=== PATIENT | female | born 1935 | race Caucasian/White ===

== ENCOUNTER → 2024-03-07 | Outpatient (REF) | payer MEDICARE, MEDICAID, SELFPAY ==
[2024-03-07 08:17] LABS: Hematocrit 24.7 % (37-47); Hemoglobin 7.8 g/dL (12.0-15.0); Mean Corp Hgb Conc 31.6 g/dL (32-36); Mean Corpuscular Hgb 27.5 pg (27.0-32.0); Mean Platelet Vol. 12.1 fl (6.2-12.0); Platelet Count 183 K/mm3 (150-450); RBC Distribution Width CV 14.7 % (11.6-14.6); RBC Distribution Width SD 46.5 fl (35.1-43.9); Red Blood Count 2.84 M/mm3 (4.2-5.4); White Blood Count 11.8 K/mm3 (4.4-11.0)
[2024-03-07 08:35] LABS: Vitamin D,25 Hydroxy 59.7 ng/mL
[2024-03-07 08:40] LABS: Hemoglobin A1c 8.4 % (3.8-5.6)
[2024-03-07 08:41] LABS: ALB/GLOB Ratio 0.7 RATIO (0.9-2.4); AST(SGOT) 16 U/L (15-37); Alanine Aminotransfer ALT/SGPT 13 U/L (13-56); Albumin, Serum 2.5 g/dL (3.2-5.0); Alkaline Phosphatase 64 U/L (45-117); Anion Gap 5 (5-15); BUN 58 mg/dL (7-18); BUN/Creat Ratio 36.2 RATIO (10-20); Calcium,Total 8.1 mg/dL (8.5-10.1); Chloride 109 mmol/L (98-107); Cholesterol 140 mg/dL (200); EST Glomerular Filtration Rate 32 mL/min (>60); Est Glom Filt Rate - Afr Amer 39 mL/min (>60); Globulin 3.6 g/dL (2.2-4.2); Glucose 204 mg/dL (74-106); High Density Lipoprotein 50 mg/dL; Magnesium 2.4 mg/dL (1.6-2.6); Protein, Total 6.1 g/dL (6.4-8.2); Sodium Level 140 mmol/L (136-145); Triglycerides 89 mg/dL; Uric Acid 7.6 mg/dL (2.6-6.0); Very Low Density Lipoprotein 18 mg/dL (5-40)
== END ==
LOC: OLS.ACW100 05:00
PROVIDERS: Visit Provider Family Medicine
DX: Z00.00 Encounter for general adult medical examination without abnormal findings (principal)
CPT/HCPCS: 36415; 80053; 80061; 82306; 83036; 83735; 84443; 84550; 85027

== ENCOUNTER → 2024-03-08 | Outpatient (REF) | payer MEDICARE, MEDICAID, SELFPAY ==
[2024-03-09 07:56] LABS: Color, Urine Yellow (Yellow); Glucose, Dipstick Normal (Normal); Ketone-Dipstick Negative (Negative); Leukocyte Esterase-Dipstick 500 /ul (Negative); Nitrite-Dipstick Negative (Negative); Occult Blood-Urine 25 /ul (Negative); Protein-Dipstick 30 mg/dl (Negative); Urine Bilirubin Dipstick Negative (Negative); Urine Clarity Cloudy (Clear); Urine Urobilinogen Normal (Normal)
== END ==
LOC: OLS.ACW100 12:00
PROVIDERS: Visit Provider Family Medicine
DX: R39.9 Unspecified symptoms and signs involving the genitourinary system (principal); E11.9 Type 2 diabetes mellitus without complications
CPT/HCPCS: 81002; 87077; 87086; 87088; 87186

== ENCOUNTER → 2024-03-14 | Outpatient (REF) | payer MEDICARE, MEDICAID, SELFPAY ==
[2024-03-14 08:17] LABS: Hematocrit 20.5 % (37-47); Hemoglobin 6.4 g/dL (12.0-15.0); Mean Corp Hgb Conc 31.2 g/dL (32-36); Mean Corpuscular Hgb 26.9 pg (27.0-32.0); Mean Corpuscular Volume 86.1 fL (81-99); Mean Platelet Vol. 11.1 fl (6.2-12.0); Platelet Count 331 K/mm3 (150-450); RBC Distribution Width CV 14.7 % (11.6-14.6); RBC Distribution Width SD 45.2 fl (35.1-43.9); Red Blood Count 2.38 M/mm3 (4.2-5.4); White Blood Count 14.6 K/mm3 (4.4-11.0)
[2024-03-14 08:30] LABS: Anion Gap 8 (5-15); BUN 46 mg/dL (7-18); BUN/Creat Ratio 34.8 RATIO (10-20); Calcium,Total 8.2 mg/dL (8.5-10.1); Chloride 102 mmol/L (98-107); Creatinine, Serum 1.32 mg/dL (0.55-1.02); EST Glomerular Filtration Rate 40 mL/min (>60); Est Glom Filt Rate - Afr Amer 49 mL/min (>60); Glucose 277 mg/dL (74-106); Potassium 4.4 mmol/L (3.5-5.1); Sodium Level 133 mmol/L (136-145)
== END ==
LOC: OLS.ACW100 05:00
PROVIDERS: Visit Provider Family Medicine
DX: E11.9 Type 2 diabetes mellitus without complications (principal); F31.9 Bipolar disorder, unspecified; F03.918 Unspecified dementia, unspecified severity, with other behavioral disturbance
CPT/HCPCS: 36415; 80048; 85027

== ENCOUNTER → 2024-03-21 | Outpatient (REF) | payer MEDICARE, MEDICAID, SELFPAY ==
[2024-03-21 08:36] LABS: Hematocrit 21.6 % (37-47); Hemoglobin 6.5 g/dL (12.0-15.0); Mean Corp Hgb Conc 30.1 g/dL (32-36); Mean Corpuscular Volume 89.6 fL (81-99); Mean Platelet Vol. 10.5 fl (6.2-12.0); Platelet Count 392 K/mm3 (150-450); RBC Distribution Width CV 15.9 % (11.6-14.6); Red Blood Count 2.41 M/mm3 (4.2-5.4); White Blood Count 11.8 K/mm3 (4.4-11.0)
[2024-03-21 08:49] LABS: Anion Gap 4 (5-15); BUN 41 mg/dL (7-18); BUN/Creat Ratio 30.1 RATIO (10-20); Calcium,Total 8.6 mg/dL (8.5-10.1); Chloride 105 mmol/L (98-107); Creatinine, Serum 1.36 mg/dL (0.55-1.02); EST Glomerular Filtration Rate 39 mL/min (>60); Est Glom Filt Rate - Afr Amer 47 mL/min (>60); Glucose 280 mg/dL (74-106); Potassium 4.5 mmol/L (3.5-5.1); Sodium Level 137 mmol/L (136-145)
== END ==
LOC: OLS.ACW100 05:00
PROVIDERS: Visit Provider Family Medicine
DX: N39.0 Urinary tract infection, site not specified (principal); E11.9 Type 2 diabetes mellitus without complications; F03.918 Unspecified dementia, unspecified severity, with other behavioral disturbance; F31.9 Bipolar disorder, unspecified
CPT/HCPCS: 36415; 80048; 85027

== ENCOUNTER → 2024-05-16 05:00 | Outpatient (REF) | payer MEDICARE, MEDICAID, SELFPAY ==
[2024-05-16 09:54] LABS: Hematocrit 37.1 % (37-47); Hemoglobin 11.2 g/dL (12.0-15.0); Mean Corp Hgb Conc 30.2 g/dL (32-36); Mean Corpuscular Hgb 26.2 pg (27.0-32.0); Mean Corpuscular Volume 86.9 fL (81-99); Mean Platelet Vol. 12.1 fl (6.2-12.0); Platelet Count 244 K/mm3 (150-450); RBC Distribution Width CV 14.6 % (11.6-14.6); RBC Distribution Width SD 47.2 fl (35.1-43.9); Red Blood Count 4.27 M/mm3 (4.2-5.4); White Blood Count 8.4 K/mm3 (4.4-11.0)
[2024-05-16 11:17] LABS: Anion Gap 7 (5-15); BUN 27 mg/dL (7-18); BUN/Creat Ratio 22.1 RATIO (10-20); Calcium,Total 9.4 mg/dL (8.5-10.1); Chloride 103 mmol/L (98-107); Cholesterol 163 mg/dL (200); Creatinine, Serum 1.22 mg/dL (0.55-1.02); EST Glomerular Filtration Rate 44 mL/min (>60); Est Glom Filt Rate - Afr Amer 54 mL/min (>60); Glucose 169 mg/dL (74-106); High Density Lipoprotein 57 mg/dL; Potassium 4.4 mmol/L (3.5-5.1); Sodium Level 137 mmol/L (136-145); Triglycerides 67 mg/dL; Very Low Density Lipoprotein 13 mg/dL (5-40)
== END ==
LOC: OLS.ACW100 05:00
PROVIDERS: Visit Provider Family Medicine
DX: E11.9 Type 2 diabetes mellitus without complications (principal); F03.918 Unspecified dementia, unspecified severity, with other behavioral disturbance; F03.93 Unspecified dementia, unspecified severity, with mood disturbance
CPT/HCPCS: 36415; 80048; 80061; 84443; 85027

== ENCOUNTER → 2024-07-14 | Outpatient (REF) | payer MEDICARE, MEDICAID, SELFPAY ==
[2024-07-14 08:28] LABS: Hematocrit 37.2 % (37-47); Hemoglobin 11.6 g/dL (12.0-15.0); Mean Corp Hgb Conc 31.2 g/dL (32-36); Mean Corpuscular Hgb 25.4 pg (27.0-32.0); Mean Corpuscular Volume 81.4 fL (81-99); Mean Platelet Vol. 12.2 fl (6.2-12.0); Platelet Count 270 K/mm3 (150-450); RBC Distribution Width CV 14.3 % (11.6-14.6); Red Blood Count 4.57 M/mm3 (4.2-5.4); White Blood Count 11.1 K/mm3 (4.4-11.0)
[2024-07-14 08:50] LABS: Anion Gap 11 (5-15); BUN 32 mg/dL (4-19); BUN/Creat Ratio 30.1 RATIO (10-20); Calcium,Total 9.3 mg/dL (7.6-11.0); Carbon Dioxide 23.8 mmol/L (21.0-32.0); Chloride 101 mmol/L (98-108); Cholesterol 134 mg/dL (<=200); Creatinine, Serum 1.06 mg/dL (0.70-1.20); EST Glomerular Filtration Rate 51 (>60); Glucose 160 mg/dL (70-99); High Density Lipoprotein 40 mg/dL; Low Density Lipoprotein Calc. 68 mg/dL; Potassium 4.6 mmol/L (3.3-5.1); Sodium Level 136 mmol/L (133-145); Triglycerides 131 mg/dL; Very Low Density Lipoprotein 26 mg/dL (5-40); cholesterol:hdl ratio screen 3.38
[2024-07-14 09:38] LABS: Hemoglobin A1c 9.2 % (<=5.6)
== END ==
LOC: OLS.ACW100 05:00
PROVIDERS: Visit Provider Family Medicine
DX: E11.9 Type 2 diabetes mellitus without complications (principal); F03.918 Unspecified dementia, unspecified severity, with other behavioral disturbance; F31.9 Bipolar disorder, unspecified; F33.0 Major depressive disorder, recurrent, mild
CPT/HCPCS: 36415; 80048; 80061; 83036; 85027

== ENCOUNTER → 2024-08-16 | Outpatient (REF) | payer MEDICARE, MEDICAID, SELFPAY ==
[2024-08-16 08:56] LABS: Hematocrit 39.6 % (37-47); Hemoglobin 12.5 g/dL (12.0-15.0); Mean Corp Hgb Conc 31.6 g/dL (32-36); Mean Corpuscular Hgb 26.5 pg (27.0-32.0); Mean Corpuscular Volume 83.9 fL (81-99); Mean Platelet Vol. 12.4 fl (6.2-12.0); Platelet Count 275 K/mm3 (150-450); RBC Distribution Width CV 15.8 % (11.6-14.6); RBC Distribution Width SD 47.9 fl (35.1-43.9); Red Blood Count 4.72 M/mm3 (4.2-5.4); White Blood Count 9.6 K/mm3 (4.4-11.0)
[2024-08-16 09:19] LABS: Anion Gap 12 (5-15); BUN 28 mg/dL (4-19); BUN/Creat Ratio 24.6 RATIO (10-20); Calcium,Total 9.4 mg/dL (7.6-11.0); Carbon Dioxide 25.2 mmol/L (21.0-32.0); Chloride 102 mmol/L (98-108); Cholesterol 157 mg/dL (<=200); Creatinine, Serum 1.12 mg/dL (0.70-1.20); EST Glomerular Filtration Rate 47 (>60); Glucose 167 mg/dL (70-99); High Density Lipoprotein 44 mg/dL; Low Density Lipoprotein Calc. 91 mg/dL; Potassium 4.3 mmol/L (3.3-5.1); Sodium Level 139 mmol/L (133-145); Triglycerides 113 mg/dL; Very Low Density Lipoprotein 23 mg/dL (5-40); cholesterol:hdl ratio screen 3.59
[2024-08-16 09:27] LABS: Hemoglobin A1c 9.2 % (<=5.6)
== END ==
LOC: OLS.ACW100 05:00
PROVIDERS: Visit Provider Family Medicine
DX: E11.9 Type 2 diabetes mellitus without complications (principal); F31.9 Bipolar disorder, unspecified; F33.0 Major depressive disorder, recurrent, mild; F03.918 Unspecified dementia, unspecified severity, with other behavioral disturbance
CPT/HCPCS: 36415; 80048; 80061; 83036; 84443; 85027

== ENCOUNTER → 2024-11-15 05:00 | Outpatient (REF) | payer MEDICARE, MEDICAID, SELFPAY ==
--- OUTSIDE RECORDS SUMMARY | 2024-11-15 04:25 | XMS RPT_ITS | CCD ---
Author Organization [facility] ion [facility] Care Team Providers Care Tissue Technologist Name Role Phone PROVIDER, UNKNOWN Attending Unavailable PROVIDER, UNKNOWN Admitting Unavailable AL MASHNI, CHEVY Referring Unavailable AL MASHNI, CHEVY Attending Unavailable AL MASHNI, CHEVY Admitting Unavailable PROVIDER, UNKNOWN Attending Unavailable PROVIDER, UNKNOWN Admitting Unavailable AL GISSELLE, CHEVY Referring Unavailable PROVIDER, UNKNOWN Attending Unavailable PROVIDER, UNKNOWN Admitting Unavailable PROVIDER, UNKNOWN Attending Unavailable PROVIDER, UNKNOWN Admitting Unavailable Allen Li MD Primary Care Provider Juan Carlos Driver DO Unavailable [phone] Allen Li MD Unavailable Allen Li MD Primary Care Provider Juan Carlos Driver DO Unavailable Allen Li MD Unavailable [phone] Unavailable Primary Care Provider UnavailValerie Ramirez DO Primary Care Provider Stephen Julian Attending Unavailable Stephen Julian Attending Unavailable Stephen Julian Referring Unavailable Stephen Julian Attending Unavailable Stephen Julian Attending Unavailable Stephen Julian Attending Unavailable Stephen Julian Attending Unavailable Stephen Julian Attending Unavailable Stephen Julian Attending Unavailable Allergies Allergy Classification Reported Allergen(s) Allergy Type Date of Onset Reaction(s) Facility (5 sources) Azithromycin; Translations: [AZITHROMYCIN] Drug Allergy 07-06-19 16 [facility]) Penicillins; Translations: [PENICILLINS] Propensity to adverse reactions to drug (disorder) 05-11-19 16 [facility]) Sulfonamides (Antibiotic); Translations: [SULFA ANTIBIOTICS] Propensity to adverse reactions to drug (disorder) 01-08-20 16 [facility] (1 source) SULFAMETHOXAZOLE W-TRIMETHOPRIM; Translations: [SULFAMETHOXAZOLE W-TRIMETHOPRIM] Propensity to adverse reactions to drug (disorder) 05-11-19 16 [facility] ([facility]) Penicillin Drug Allergy 01-08-20 16 Unknown [facility] (4 sources) Sulfonamides (Antibiotic) Propensity to adverse reactions to drug 01-08-20 16 Unknown [facility] Medications Completed/Discontinued Medications Medication Drug Class(es) Dates Sig (Normalized) Sig (Original) amiodarone hydrochloride 100 mg oral tablet (5 sources) Antiarrhythmic Start: 05-23-2021 End: 09-26-2021 take 1 tablet by mouth once daily amiodarone (PACERONE) 100 mg tablet Indications: Premature atrial contractions Take 1 tablet by mouth once daily. 90 tablet 3 09/26/2021 Active Comment on above: Take 1 tablet by olga lidia th once daily. ARIPiprazole 2 mg oral tablet (4 sources) Atypical Antipsychotic Start: 01-10-2021 ARIPiprazole (ABILIFY) 2 mg tablet Take 2 mg by mouth. 0 01/10/2021 Active Comment on above: Take 2 mg by mouth. aspirin 81 mg delayed release oral tablet (4 sources) Platelet Aggregation Inhibitor, Nonsteroidal Anti-inflammatory Drug Start: 05-23-2021 take 1 tablet by mouth once daily aspirin, enteric coated (ASPIRIN, ENTERIC COATED) 81 mg EC tablet Take 1 tablet by mouth once daily. 90 tablet 2 05/23/2021 Active Comment on above: Take 1 tablet by olga lidia th once daily. atorvastatin 40 mg oral tablet (5 sources) HMG-CoA Reductase Inhibitor Start: 05-23-2021 End: 09-26-2021 take 1 tablet by mouth once daily at bedtime atorvastatin (LIPITOR) 40 mg tablet Indications: Mixed hyperlipidemia Take 1 tablet by mouth daily at bedtime. 90 tablet 3 09/26/2021 Active Comment on above: Take 1 tablet by olga lidia th daily at bedtime. cholecalciferol 1.25 mg oral capsule (4 sources) Vitamin D take 1 capsule by mouth every week cholecalciferol, Vitamin D3, (VITAMIN D3) 1,250 mcg (50,000 unit) cap capsule Take 50,000 Units by mouth one time a week. 0 Active Comment on above: Take 50,000 Units by mouth one time a week. donepezil hydrochloride 10 mg oral tablet (4 sources) Start: 10-12-2015 donepezil (ARICEPT) 10 mg tablet Take by mouth daily at bedtime. 0 10/12/2015 Active Comment on above: Take by mouth daily at bedtime. ergocalciferol 1.25 mg oral capsule (4 sources) Provitamin D2 Compound ergocalciferol 50,000 unit capsule (VITAMIN D2, DRISDOL) Take 50,000 Units by mouth. Thursday 0 Active Comment on above: Take 50,000 Units by mouth. Thursday fluticasone propionate 0.05 mg/actuat metered dose nasal spray (4 sources) Corticosteroid fluticasone (FLONASE) 50 mcg/actuation nasal spray Use 1 [place] in the nose. 0 Active Comment on above: Use 1 [place] in the n ose. glipiZIDE 5 mg oral tablet (4 sources) Sulfonylurea Start: 10-12-2015 take 1 tablet by mouth once daily glipiZIDE (GLUCOTROL) 5 mg tablet Take 5 mg by mouth once daily. 0 10/12/2015 Active Comment on above: Take 5 mg by mouth o nce daily. isopropyl alcohol 0.7 ml/ml medicated pad (4 sources) Start: 12-21-2015 Alcohol Swabs padm LORazepam 0.5 mg oral tablet (4 sources) Benzodiazepine Start: 01-07-2016 LORazepam (ATIVAN) 0.5 mg tab 0.5 mg. 1/2 at 5pm and 1/2 at bedtime 0 01/07/2016 Active Comment on above: 0.5 mg. 1/2 at 5pm a nd 1/2 at bedtime metFORMIN hydrochloride 1000 mg oral tablet (4 sources) Biguanide Start: 10-21-2015 metFORMIN (GLUCOPHAGE) 1,000 mg tablet 1,000 mg twice daily with meals. 0 10/21/2015 Active Comment on above: 1,000 mg twice daily with meals. metoprolol tartrate 25 mg oral tablet (5 sources) beta-Adrenergic Ariana Start: 08-01-2021 End: 05-01-2022 take 1 tablet by mouth twice daily metoprolol tartrate, short acting, (LOPRESSOR) 25 mg tablet TAKE 1 TABLET BY MOUTH TWICE DAILY 180 tablet 0 05/01/2022 Active Comment on above: TAKE 1 TABLET BY OLGA LIDIA TH TWICE DAILY QUEtiapine 25 mg oral tablet (4 sources) Atypical Antipsychotic QUEtiapine (SEROQUEL) 25 mg tablet Take 12.5 mg by mouth. 0 Active Comment on above: Take 12.5 mg by mout h. traZODone hydrochloride 50 mg oral tablet (4 sources) Serotonin Reuptake Inhibitor traZODone (DESYREL) 50 mg tablet Take 25 mg by mouth. 1/2 at bedtime 0 Active Comment on above: Take 25 mg by mouth. 1/2 at bedtime 24 hr venlafaxine 37.5 mg extended release oral capsule (4 sources) Serotonin and Norepinephrine Reuptake Inhibitor Start: 12-26-2020 take 1 capsule by mouth once daily venlafaxine ER (EFFEXOR XR) 37.5 mg 24 hr capsule TAKE 1 CAPSULE BY MOUTH DAILY after supper 0 12/26/2020 Active Comment on above: TAKE 1 CAPSULE BY MO UTH DAILY after supper zolpidem tartrate 5 mg oral tablet (4 sources) gamma-Aminobutyric Acid-ergic Agonist Start: 11-23-2015 zolpidem (AMBIEN) 5 mg tablet Problems Active Problems Problem Classification Problem Date Documented Da te Episodic/Chronic Acute cerebrovascular disease (4 sources) Cerebral infarction; Translations: [Cerebral infarction, unspecified] Onset: 04-05-2021 04-11-2021 Chronic Anxiety disorders (5 sources) Mixed anxiety and depressive disorder; Translations: [Anxiety disorder, unspecified] Onset: 05-14-2015 01-25-2022 Chronic Cardiac dysrhythmias (11 sources) Premature atrial contraction; Translations: [Atrial premature depolarization] Onset: 05-23-2021 Chronic Cardiac dysrhythmias (1 source) Tachycardia; Translations: [Tachycardia, unspecified] Episodic Delirium, dementia, and amnestic and other cognitive disorders (9 sources) Alzheimer's disease; Translations: [Alzheimer's disease, unspecified] Onset: 05-14-2015 Chronic Diabetes mellitus with complications (4 sources) Type II diabetes mellitus uncontrolled; Translations: [Diabetes mellitus type 2, uncontrolled] Onset: 02-01-2016 10-15-2022 Chronic Diabetes mellitus without complication (2 sources) Type 2 diabetes mellitus without complications; Translations: [Type 2 diabetes mellitus without complications] Onset: 05-18-2024 Chronic Disorders of lipid metabolism (9 sources) Mixed hyperlipidemia; Translations: [Mixed hyperlipidemia] Onset: 05-14-2015 Chronic Essential hypertension (4 sources) Benign hypertension; Translations: [Essential (primary) hypertension] Onset: 05-14-2015 01-25-2022 Chronic Genitourinary symptoms and ill-defined conditions (4 sources) Urinary incontinence; Translations: [Unspecified urinary incontinence] Onset: 05-14-2015 01-25-2022 Chronic Mood disorders (4 sources) Bipolar disorder, unspecified; Translations: [Major depressive disorder, recurrent, mild] Onset: 05-23-2024 Chronic Osteoarthritis (4 sources) Osteoarthritis of bilateral hip joints; Translations: [Bilateral primary osteoarthritis of hip] Onset: 05-14-2015 01-25-2022 Chronic Other screening for suspected conditions (not mental disorders or infectious disease) (3 sources) Raised TSH level; Translations: [Other specified abnormal findings of blood chemistry] Episodic Other upper respiratory disease (4 sources) Allergic rhinitis; Translations: [Allergic rhinitis, unspecified] Onset: 05-14-2015 01-25-2022 Chronic Unclassified (2 sources) Unspecified dementia, unspecified severity, with other behavioral disturbance; Translations: [Unspecified dementia, unspecified severity, with other behavioral disturbance] Onset: 05-23-2024 Past or Other Problems Problem Classification Problem Date Documented Date Episodic/Chronic Noninfectious gastroenteritis (4 sources) Chronic diarrhea; Translations: [Noninfective gastroenteritis and colitis, unspecified] Onset: 05-14-2015 01-25-2022 Episodic Other circulatory disease (5 sources) History of cerebrovascular accident; Translations: [Personal history of transient ischemic attack (TIA), and cerebral infarction without residual deficits] Onset: 05-23-2021 Episodic Other connective tissue disease (1 source) Repeated falls; Translations: [Repeated falls] Onset: 05-08-2024 Episodic Other inflammatory condition of skin (1 source) Seborrheic dermatitis, unspecified; Translations: [Seborrheic dermatitis, unspecified] Onset: 05-23-2024 Episodic Other nervous system disorders (1 source) Unsteadiness on feet; Translations: [Unsteadiness on feet] Onset: 05-08-2024 Episodic Other non-traumatic joint disorders (4 sources) Pain in unspecified knee; Translations: [Pain in joint, lower leg] Onset: 07-11-2011 07-11-2011 Episodic Other non-traumatic joint disorders (4 sources) Hip pain; Translations: [Pain in unspecified hip] Onset: 07-11-2011 07-11-2011 Episodic Residual codes; unclassified (1 source) Insomnia, unspecified; Translations: [Insomnia, unspecified] Onset: 05-08-2024 Episodic Viral infection (4 sources) Verruca vulgaris; Translations: [Viral wart, unspecified] Onset: 05-14-2015 01-25-2022 Episodic Results Test Name Value Interpretation Reference Range Facility 36on 01-21-2024 36 Name of caller requesting page:Crystal Phone Number of caller: Facility requesting page: [phone] Reason for Page: pt blood sugar updating Provider paged: Dr Tucker Practice Name of paged provider: JACQUELINE Bernal Time Page was sent or provider contacted: 11:35pm Page Content: Crystal Enriquez for pt R Grove 07.[birth year].37 re pt blood sugar updating [facility] 36 Name of caller requesting page:Jennifer Mitchell Phone Number of caller: [phone] Facility requesting page: Mina Reason for Page: Patient fall and low blood pressure 53 Provider paged: Dr. Caitlin Edwards Name of paged provider: JACQUELINE Tucker & Anel Page Placed to #: Manual call [phone] Time Page was sent or provider contacted: 10:40 pm Page Content: MARIOD Jennifer Enriquez for pt R. Grove 1935 re fall and low blood pressure 53 [facility] 36on 08-31-2023 36 Name of caller: Valerie Sherin Contact phone number: [phone] Relationship to Patient: family member patient and daughter Provider: Caitlin Practice: Caitlin Chief Complaint/Reason for Call: States patient is coughing and congested and daughter is worried that she has bronchitis. States , that she feels that her mother is being neglected and asking for Dr Tucker to have her seen or prescribe something for the cough. Best time of day caller can be reached: anytime Patient advised that office/PCP has 24-48 business hours to return their call: N/A [facility] ([facility] ) AIMEE GROVE ([id number]) 1935 F Date Time Provider Department 09/27/21 ELEONORA RENTERIA AGCARDHWG During your visit today, we recorded the following information about you: Eleonora Renteria MD 09/27/2021 11:00 AM Signed Please inform the patient that the thyroid test which I did yesterday came back abnormal. I had checked it because she is on amiodarone for heart arrhythmia. I have added further testing to the same specimen from yesterday to get some more information. If the other tests that I ordered just now come back abnormal as well then we might need to take her off of amiodarone. We will keep you posted. Eleonora Renteria MD, [facility] Cardiovascular Medicine Pager: [phone] Keena Medina LPN 09/27/2021 11:11 AM Signed Left message for to call [facility] for test results. [facility] phone number provided. BIPIN Reese LPN 09/27/2021 2:49 PM Signed Spoke with Daughter Valerie, she verbalized understanding and will wait for the next step. She would like us to call her and let her know. She said we can say to stop the amiod on a voice mail if she cannot answer. BIPIN Hamilton LPN 09/30/2021 11:37 AM Signed Daughter calls asking if you got the results to the other blood tests that you ordered and if her mom should still be taking the amiodarone? BIPIN Hamilton RN 10/02/2021 8:27 AM Signed Daughter called to check again on the additional blood testing that Dr. Renteria ordered on blood test regarding patient taking the amiodarone. Daughter indicated that she stopped the amiodarone until she hears about the results. YVONNE Fontaine LPN 10/07/2021 4:55 PM Signed MD Leda Mims RN 3 days ago Labs indicating subclinical hypothyroidism, can hold amiodarone until discussion with dr. Renteria or PCP. May need endocrine referral for hypothyroidism. Thx. KK Message text Keena Medina LPN 10/07/2021 5:01 PM Signed I called and spoke to Valerie and informed her of 's response to lab results. Patient states she was aware of these results and that told her they got enough blood to run a different test. She was not aware of the name of the testing that was to be ordered. She would like to call her once he returns back to the office. BIPIN Reese MD 10/16/2021 9:33 AM Addendum Please inform the patient's daughter that I have put in a referral for endocrinology for their expert opinion. Keep holding amiodarone, although it is unclear if the thyroid level was like this even prior to starting amiodarone since we do not have a baseline from the past. I will recheck TSH level in future again. Eleonora Renteria MD, [facility] Cardiovascular Medicine Pager: [phone] Eleonora Renteria MD 10/16/2021 9:34 AM Signed Addended by: ELEONORA RENTERIA on: 10/16/2021 09:34 AM Modules accepted: Lina Quiñones RN 10/16/2021 9:48 AM Signed Left message on Valerie's voicemail requesting pt return call for Dr Renteria's recommendations. Office phone number provided. YVONNE Saldivar RN 10/17/2021 9:44 AM Signed Spoke with Valerie who was informed of Dr. Renteria's message and recommendations. Valerie voiced understanding. Leda Joya RN Allergies As of Date: 09/27/2021 Noted Allergy Reaction AZITHROMYCIN 01/08/2016 16 - Unknown PENICILLIN 01/08/2016 16 - Unknown SULFA (SULFONAMIDE ANTIBIOTICS) 01/08/2016 16 - Unknown Date Reviewed: 09/26/2021 Reviewed by: Eleonora Renteria MD - Fully Assessed Reason for Visit: Results [95] Primary Visit Diagnosis:Elevated TSH [R79.89] Other Visit Diagnoses:NSVT (nonsustained ventricular tachycardia) (HCC) [I47.2] Abnormal TSH [R79.89] Abnormal thyroid blood test [R79.89] Order(s):T3 BLD [SQT3] Order #: [id number] FUTURE CONSULT TO ENDOCRINOLOGY [9007] Order #: [id number]: 1 FUTURE Prescriptions as of 10/17/2021 - amiodarone (PACERONE) 100 mg tablet Take 1 tablet by mouth once daily. - atorvastatin (LIPITOR) 40 mg tablet Take 1 tablet by mouth daily at bedtime. - metoprolol tartrate, short acting, (LOPRESSOR) 25 mg tablet TAKE 1 TABLET BY MOUTH TWICE DAILY - aspirin, enteric coated (ASPIRIN, ENTERIC COATED) 81 mg EC tablet Take 1 tablet by mouth once daily. - ARIPiprazole (ABILIFY) 2 mg tablet Take 2 mg by mouth. - ergocalciferol 50,000 unit capsule (VITAMIN D2, DRISDOL) Take 50,000 Units by mouth. Thursday - fluticasone (FLONASE) 50 mcg/actuation nasal spray Use 1 [place] in the nose. - QUEtiapine (SEROQUEL) 25 mg tablet Take 12.5 mg by mouth. - traZODone (DESYREL) 50 mg tablet Take 25 mg by mouth. 1/2 at bedtime - venlafaxine ER (EFFEXOR XR) 37.5 mg 24 hr capsule TAKE 1 CAPSULE BY MOUTH DAILY after supper - cholecalciferol, Vitami (more content not included)... Normal [facility] CNOVon 09-26-2021 CNOV Office Visit (AGCARDHWG) AIMEE GROVE ([id number]) 1935 F Date Time Provider Department 09/26/21 2:00 PM ELEONORA RENTERIA AGCARDHWG During your visit today, we recorded the following information about you: Pulse Blood pressure Weight Height 56/minute 139/81 72.8 kg 1.6 m Sophia Moore LPN 09/26/2021 1:55 PM Signed Ms Grove is here for her routine office visit. BIPIN Rizzo MD 09/26/2021 3:05 PM Signed Cardiology Ambulatory Clinic Note PCP: Allen Li MD, MD Chief Complaint Patient presents with: 4 month follow up: NSVT HISTORY OF PRESENT ILLNESS: Ms. Grove is a 85 year old female following with cardiology clinic for frequent NSVT noted during admission for acute stroke in March 2021. 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 She was found to have elevated troponin without any angina which were deemed secondary to demand supply mismatch. She underwent echo that showed LVEF of 75 % with basal inferior lateral and basal inferior segment hypokinesis, no prior studies to compare. She was having frequent NSVT during admission for which she was started on amiodarone as well as metoprolol with improvement. She had event monitor upon discharge that showed predominantly sinus rhythm with premature atrial contractions and no A. fib. Family declined further ischemic work-up due to her dementia and advanced age. Aimee is here today for follow-up follow-up with her daughter. She denies any cardiac complaints. Denies any chest pain, palpitations, shortness of breath. There is no leg swelling, orthopnea or PND. She denies any lightheadedness or dizziness. BP in good control. As per daughter she ambulates in the house without any issues. 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 ([facility]) PAST SURGICAL HISTORY Procedure Laterality Date - BACK SURGERY HX - HIP SURGERY HX - KNEE SURGERY HX Bilateral - REDUCTION OF LARGE BREAST - SHOULDER SURGERY HX FAMILY HISTORY Problem Relation Age of Onset - None Other Social History Tobacco Use - Smoking status: Never Smoker - Smokeless tobacco: Never Used Vaping Use - Vaping Use: Unknown Substance Use Topics - Alcohol use: No - Drug use: No ALLERGIES Allergen Reactions - Azithromycin Unknown - Penicillin Unknown - Sulfa (Sulfonamide * Unknown Medications: Current Outpatient Medications Medication Sig Dispense Refill - amiodarone (PACERONE) 100 mg tablet Take 1 tablet by mouth once daily. 90 tablet 3 - atorvastatin (LIPITOR) 40 mg tablet Take 1 tablet by mouth daily at bedtime. 90 tablet 3 - metoprolol tartrate, short acting, (LOPRESSOR) 25 mg tablet TAKE 1 TABLET BY MOUTH TWICE DAILY 180 tablet 3 - aspirin, enteric coated (ASPIRIN, ENTERIC COATED) 81 mg EC tablet Take 1 tablet by mouth once daily. 90 tablet 2 - ARIPiprazole (ABILIFY) 2 mg tablet Take 2 mg by mouth. - ergocalciferol 50,000 unit capsule (VITAMIN D2, DRISDOL) Take 50,000 Units by mouth. Thursday - fluticasone (FLONASE) 50 mcg/actuation nasal spray Use 1 [place] in the nose. - QUEtiapine (SEROQUEL) 25 mg tablet Take 12.5 mg by mouth. - traZODone (DESYREL) 50 mg tablet Take 25 mg by mouth. 1/2 at bedtime - venlafaxine ER (EFFEXOR XR) 37.5 mg 24 hr capsule TAKE 1 CAPSULE BY MOUTH DAILY after supper - cholecalciferol, Vitamin D3, (VITAMIN D3) 1,250 mcg (50,000 unit) cap capsule Take 50,000 Units by mouth one time a week. - Alcohol Swabs padm - ProFounderTOUCH ULTRA TEST test strip - donepezil (ARICEPT) 10 mg tablet Take by mouth daily at bedtime. - glipiZIDE (GLUCOTROL) 5 mg tablet Take 5 mg by mouth once daily. - ONE TOUCH DELICA 33 gauge misc - LORazepam (ATIVAN) 0.5 mg tab 0.5 mg. 1/2 at 5pm and 1/2 at bedtime - metFORMIN (GLUCOPHAGE) 1,000 mg tablet 1,000 mg twice daily with meals. - zolpidem (AMBIEN) 5 mg tablet No current facility-administered medications for this visit. REVIEW OF SYSTEMS: GENERAL: Negative for:Weight loss and Weight gain HEENT: Negative for Nosebleeds, headache or vision changes RESPIRATORY: Denies any dyspnea GASTROINTESTINAL: Denies any bleeding or black stools MUSCULOSKELETAL: Negative for swelling SKIN: No rash Neurological: Denies any motor weakn (more content not included)... Normal [facility] Hepatic function 2000 panelo n 09-26-2021 Albumin [Mass/Vol] 3.8 g/dL Low 3.9-4.9 [facility] Comment on above: Order Comment: Speci men Type: BLOOD SPECIMEN Performed By: #### H STNT #### [facility] CLIA [id number] [address] ALP [Catalytic activity/Vol] 50 U/L Normal 34-123 [facility] Comment on above: Order Comment: Speci men Type: BLOOD SPECIMEN Performed By: #### H STNT #### [facility] CLIA [id number] [address] ALT With P-5'-P [Catalytic activity/Vol] 13 U/L Normal 7-38 [facility] Comment on above: Order Comment: Speci men Type: BLOOD SPECIMEN Performed By: #### H STNT #### [facility] CLIA [id number] [address] AST With P-5'-P [Catalytic activity/Vol] 13 U/L Normal 13-35 [facility] Comment on above: Order Comment: Speci men Type: BLOOD SPECIMEN Performed By: #### H STNT #### [facility] CLIA [id number] [address] Bilirubin [Mass/Vol] 0.2 mg/dL Normal 0.2-1.3 [facility] Comment on above: Order Comment: Speci men Type: BLOOD SPECIMEN Performed By: #### H STNT #### [facility] CLIA [id number] [address] Bilirubin.conjugat ed [Mass/Vol] mg/dL Normal <0.2 [facility] Comment on above: Order Comment: Speci men Type: BLOOD SPECIMEN Performed By: #### H STNT #### [facility] CLIA [id number] [address] Protein [Mass/Vol] 6.9 g/dL Normal 6.3-8.0 [facility] Comment on above: Order Comment: Speci men Type: BLOOD SPECIMEN Performed By: #### H STNT #### [facility] CLIA [id number] [address] T3 SerPl-mCncon 09-26-2021 T3 [Mass/Vol] 83 ng/dL Normal 79-165 [facility] Comment on above: Order Comment: Speci men Type: BLOOD SPECIMEN Performed By: #### H STNT #### [facility] CLIA [id number] [address] T4 Free SerPl-mCncon 022 Free T4 [Mass/Vol] 0.9 ng/dL Normal 0.9-1.7 [facility] Comment on above: Order Comment: Speci men Type: BLOOD SPECIMEN Performed By: #### H STNT #### [facility] CLIA [id number] [address] TSH SerPl-aCncon 09-26-2021 TSH Qn 16.450 m[IU]/L High 0.270-4.200 [facility] Comment on above: Order Comment: Speci men Type: BLOOD SPECIMEN Performed By: #### H STNT #### [facility] CLIA [id number] [address] OF [facility] Garo 05-23-2021 CNOV Office Visit (AGCARDHWG) AIMEE GROVE ([id number]) 1935 F Date Time Provider Department 05/23/21 2:20 PM ELEONORA RENTERIA AGCARDHWG During your visit today, we recorded the following information about you: Pulse Blood pressure Weight Height 63/minute 110/70 70.6 kg 1.6 m Sophia Moore LPN 05/23/2021 2:25 PM Signed Ms Grove is here for her hospital follow up. She has expressed no cardiac complaints to her daughter, Valerie which is with her today. BIPIN Rizzo MD 05/23/2021 4:54 PM Signed Cardiology Ambulatory Clinic Note PCP: Allen Li MD, MD Chief Complaint Patient presents with: CARD Hospital Follow Up: NSVT, PACs, cardiomyopathy with systolic dysfunction HISTORY OF PRESENT ILLNESS: Ms. Grove is a 85 year old female referred to cardiology clinic for frequent NSVT noted during recent admission for acute stroke in March 2021. 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 She was found to have elevated troponin without any angina which were deemed secondary to demand supply mismatch. She underwent echo that showed LVEF of 75 % with basal inferior lateral and basal inferior segment hypokinesis, no prior studies to compare. She was having frequent NSVT during admission for which she was started on amiodarone as well as metoprolol with improvement. She had event monitor upon discharge that showed predominantly sinus rhythm with premature atrial contractions and no A. fib. Family declined further ischemic work-up due to her dementia and advanced age. She is presenting today to the clinic accompanied by her daughter. She denies any chest pain, palpitations, shortness of breath, orthopnea, PND, leg swelling, lightheadedness or dizziness. BP in good control. 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 ([facility]) PAST SURGICAL HISTORY Procedure Laterality Date - BACK SURGERY HX - HIP SURGERY HX - KNEE SURGERY HX Bilateral - REDUCTION OF LARGE BREAST - SHOULDER SURGERY HX FAMILY HISTORY Problem Relation Age of Onset - None Other Social History Tobacco Use - Smoking status: Never Smoker - Smokeless tobacco: Never Used Vaping Use - Vaping Use: Unknown Substance Use Topics - Alcohol use: No - Drug use: No ALLERGIES Allergen Reactions - Azithromycin Unknown - Penicillin Unknown - Sulfa (Sulfonamide * Unknown Medications: Current Outpatient Medications Medication Sig Dispense Refill - amiodarone (PACERONE) 100 mg tablet Take 1 tablet by mouth once daily. 90 tablet 2 - aspirin, enteric coated (ASPIRIN, ENTERIC COATED) 81 mg EC tablet Take 1 tablet by mouth once daily. 90 tablet 2 - atorvastatin (LIPITOR) 40 mg tablet Take 1 tablet by mouth daily at bedtime. 90 tablet 2 - metoprolol tartrate, short acting, (LOPRESSOR) 25 mg tablet Take 1 tablet by mouth twice daily. 90 tablet 2 - ARIPiprazole (ABILIFY) 2 mg tablet Take 2 mg by mouth. - ergocalciferol 50,000 unit capsule (VITAMIN D2, DRISDOL) Take 50,000 Units by mouth. Thursday - QUEtiapine (SEROQUEL) 25 mg tablet Take 12.5 mg by mouth. - traZODone (DESYREL) 50 mg tablet Take 25 mg by mouth. 1/2 at bedtime - venlafaxine ER (EFFEXOR XR) 37.5 mg 24 hr capsule TAKE 1 CAPSULE BY MOUTH DAILY after supper - cholecalciferol, Vitamin D3, (VITAMIN D3) 1,250 mcg (50,000 unit) cap capsule Take 50,000 Units by mouth one time a week. - Alcohol Swabs padm - donepezil (ARICEPT) 10 mg tablet Take by mouth daily at bedtime. - glipiZIDE (GLUCOTROL) 5 mg tablet Take 5 mg by mouth once daily. - LORazepam (ATIVAN) 0.5 mg tab 0.5 mg. 1/2 at 5pm and 1/2 at bedtime - metFORMIN (GLUCOPHAGE) 1,000 mg tablet 1,000 mg twice daily with meals. - zolpidem (AMBIEN) 5 mg tablet - fluticasone (FLONASE) 50 mcg/actuation nasal spray Use 1 [place] in the nose. - [employer] ULTRA TEST test strip - ONE [employer] 33 gauge misc No current facility-administered medications for this visit. REVIEW OF SYSTEMS: GENERAL: Negative for:Weight loss and Weight gain HEENT: Negative for:Nosebleeds RESPIRATORY: Negative for:Shortness of breath GASTROINTESTINAL: Negative for:Blood in stool MUSCULOSKELETAL: Negtive for: Muscle or joint pain, stiffness, Joint swelling SKIN: No rash HEMATOLOGICAL/LYMPHATI C: Negative for: Easy bruising and Easy bleeding CARD (more content not included)... Normal [facility] CNDSon 04-12-2021 [facility] HNO ID: [id number] Author: Valerie Wallace DO Service: Hospital Medicine Author Type: Physician Type: Discharge Summary Filed: 04/12/2021 8:51 AM Note Text: DISCHARGE SUMMARY PATIENT NAME: Aimee Grove Code Status: DNR-CCA ? ? Highest Readmission Risk Score: 34 The 30 day readmissions risk score is derived from an internally validated risk model which evaluates patient level characteristics, utilization history, medication orders and lab results up until the day of discharge. Patients with a score of 40 or above are considered highest risk for readmission. Specific patient level drivers will be listed at the bottom of the summary. ? ? Admission Information ? Admission Information ? ADMIT DATE: 04/05/2021 DISCHARGE DATE: 04/12/21 ? MY DOCTORS AND MEDICAL TEAM: My Main Hospital Doctor: Mariangel Aguilar DO Primary Care Provider: Allen Li MD, MD My Medical Team Members: Treatment Team: Attending Provider: Mariangel Aguilar DO Consulting: Juli Valentino MD Consulting: Maximo Tadeo MD Attending: Eleonora Renteria MD Primary Service: [place] [employer] ? MY CONDITION AT DISCHARGE: Improved ? REASON I WAS IN THE HOSPITAL: CVA, NSVT ? SUMMARY OF WHAT HAPPENED WHILE I WAS IN THE HOSPITAL: 85-year-old female with history of dementia, anxiety/depression, DM2 who presented with confusion and facial droop and she was admitted for acute CVA. Initial CTH negative. CTA with left vert A stenosis but otherwise no LVO. MRI showing left PICA infarct with additional punctate infarcts in the cerebellum. She was continued on aspirin and statin. Evaluated by neurology and PT/OT/speech therapy. She was also noted to have nonsustained V. tach and prolonged QTC but not atrial fibrillation and she was seen by cardiology and started on amiodarone and continued on metoprolol. She had elevated troponin initially treated with heparin gtt but later determined to be supply/demand mismatch. She also completed antibiotics for UTI. Plan for event monitor at discharge and follow-up with neurology and cardiology. ? OTHER PROBLEMS/DIAGNOSIS: Principal Problem: ACute ischemic CVA Elevated troponin NSVT Alz dementia UTI Diabetes 2 Prolonged Qtc ? OPERATIONS PERFORMED WHILE IN THE HOSPITAL: None ? IMPORTANT TEST/PROCEDURES: Echocardiogram ? TEST RESULTS NOT AVAILABLE AT THIS TIME: No pending results ? Discharge Disposition ? Discharge Disposition: Home With Home Care ? Activity When You Leave the Hospital ? Resume pre-hospital activity ? Diet Instructions ? Resume your pre-hospital diet ? Call Your Doctor If ? For the following: ? New or worsening weakness, slurred speech, facial droop ? You have persistent or heavy bleeding ? Follow Up Appointments ? Follow-Up Appointment ? With: neurology ? When: In 4 weeks ? Follow-Up Appointment ? When: In 2 weeks ? Eleonora Renteria MD [phone] [place] [address] ? PCP Requested Referral ? Follow-Up Appointment ? With: primary care doctor ? When: In 1 week ?FOllow up with [facility] in 4- 6 weeks ? Treatment Team: Attending Provider: Mariangel Aguilar DO Consulting: Juli Valentino MD Consulting: Maximo Tadeo MD Attending: Eleonora Renteria MD Primary Service: [place] [employer] [facility] ? FOLLOW-UP APPOINTMENTS ALREADY SCHEDULED WITH A [facility] PROVIDER: NO FUTURE APPOINTMENTS. ? ALLERGIES ALLERGIES Allergen Reactions - Azithromycin Unknown - Penicillin Unknown - Sulfa (Sulfonamide * Unknown ? ? DISCHARGE MEDICATION: Current Discharge Medication List ? START taking these medications ? atorvastatin (LIPITOR) 40 mg Take 40 mg by mouth daily at bedtime. ? Qty: 90 tablet Refills: 0 ? amiodarone (PACERONE) 100 mg Take 100 mg by mouth once daily. ? Qty: 90 tablet Refills: 0 ? ? CONTINUE these medications which have CHANGED ? metoprolol tartrate (short acting) (LOPRESSOR) 25 mg Take 25 mg by mouth twice daily. ? Qty: 90 tablet Refills: 0 ? ? CONTINUE these medications which have NOT CHANGED ? acetaminophen 650 mg Take 650 mg by mouth. ? ? ARIPiprazole (ABILIFY) 2 mg Take 2 mg by mouth. ? ? ergocalciferol (vitamin D2) (DRISDOL) 50,000 Units Take 50,000 Units by mouth. Thursday ? ? ibuprofen (MOTRIN) 1 tablet Take 1 tablet by mouth every 8 hours as needed. ? ? QUEtiapine (SEROquel) 12.5 mg Take 12.5 mg by mouth. ? ? traZODone (DESYREL) 25 mg Take 25 mg by mouth. 1/2 at bedtime ? ? venlafaxine ER (EFFEXOR XR) 37.5 mg 24 hr capsule TAKE 1 CAPSULE BY MOUTH DAILY after supper ? cholecalciferol (Vitamin D3) (VITAMIN D3) 50,000 Units Take 50,000 Units by mouth one time a week. ? ? donepezil (ARICEPT) 10 mg tablet Take by mouth daily at bedtime. ? ? LORazepam (ATIVAN) 0.5 mg 0.5 mg. 1/2 at 5pm and 1/2 at bedtime ? metFORMIN (GLUCOPHAG (more content not included)... Normal [facility] CBC W Auto Differential pane l (Bld)on 04-11-2021 Basophils (Bld) [#/Vol] 0.05 10*3/uL Normal <0.11 [facility] Comment on above: Order Comment: Speci men Type: BLOOD SPECIMEN Performed By: #### 5 7021-8 ####[facility] [id number] [address] Basophils/100 WBC (Bld) 0.5 % Normal [facility] Comment on above: Order Comment: Speci men Type: BLOOD SPECIMEN Performed By: #### 5 7021-8 ####[facility] [id number] [address] Differential cell count method Nom (Bld) Auto Normal [facility] Comment on above: Order Comment: Speci men Type: BLOOD SPECIMEN Performed By: #### 5 7021-8 ####[facility] [id number] [address] Eosinophils (Bld) [#/Vol] 0.27 10*3/uL Normal <0.46 [facility] Comment on above: Order Comment: Speci men Type: BLOOD SPECIMEN Performed By: #### 5 7021-8 ####[facility] [id number] [address] Eosinophils/100 WBC (Bld) 2.6 % Normal [facility] Comment on above: Order Comment: Speci men Type: BLOOD SPECIMEN Performed By: #### 5 7021-8 ####[facility] [id number] [address] Erythrocyte distribution width (RBC) [Ratio] 13.0 % Normal 11.5-15.0 [facility] Comment on above: Order Comment: Speci men Type: BLOOD SPECIMEN Performed By: #### 5 7021-8 ####[facility] [id number] [address] Hematocrit (Bld) [Volume fraction] 37.2 % Normal 36.0-46.0 [facility] Comment on above: Order Comment: Speci men Type: BLOOD SPECIMEN Performed By: #### 5 7021-8 ####[facility] [id number] [address] [place] Hemoglobin (Bld) [Mass/Vol] 11.7 g/dL Normal 11.5-15.5 [facility] Comment on above: Order Comment: Speci men Type: BLOOD SPECIMEN Performed By: #### 5 7021-8 ####[facility] [id number] [address] IMMATURE GRAN % 0.4 % Normal [facility] Comment on above: Order Comment: Speci men Type: BLOOD SPECIMEN Performed By: #### 5 7021-8 ####[facility] [id number] [address] IMMATURE GRAN ABS 0.04 k/uL Normal <0.10 [facility] Comment on above: Order Comment: Speci men Type: BLOOD SPECIMEN Performed By: #### 5 7021-8 ####[facility] [id number] [address] Lymphocytes (Bld) [#/Vol] 1.33 10*3/uL Normal 1.00-4.00 [facility] Comment on above: Order Comment: Speci men Type: BLOOD SPECIMEN Performed By: #### 5 7021-8 ####[facility]ORY[facility] [id number] [address] Lymphocytes/100 WBC (Bld) 12.7 % Normal [facility] Comment on above: Order Comment: Speci men Type: BLOOD SPECIMEN Performed By: #### 5 7021-8 ####[facility] [id number] [address] MCH (RBC) [Entitic mass] 28.3 pg Normal 26.0-34.0 [facility] Comment on above: Order Comment: Speci men Type: BLOOD SPECIMEN Performed By: #### 5 7021-8 ####[facility] [id number] [address] MCHC (RBC) [Mass/Vol] 31.5 g/dL Normal 30.5-36.0 [facility] Comment on above: Order Comment: Speci men Type: BLOOD SPECIMEN Performed By: #### 5 7021-8 ####[facility] [id number] [address] OF [facility] MCV (RBC) [Entitic vol] 90.1 fL Normal 80.0-100.0 [facility] Comment on above: Order Comment: Speci men Type: BLOOD SPECIMEN Performed By: #### 5 7021-8 ####[facility] [id number] [address] [place] Monocytes (Bld) [#/Vol] 1.32 10*3/uL High <0.87 [facility] Comment on above: Order Comment: Speci men Type: BLOOD SPECIMEN Performed By: #### 5 7021-8 ####[facility] [id number] [address] Monocytes/100 WBC (Bld) 12.6 % Normal [facility] Comment on above: Order Comment: Speci men Type: BLOOD SPECIMEN Performed By: #### 5 7021-8 ####[facility] [id number] [address] [place] Neutrophils (Bld) [#/Vol] 7.45 10*3/uL Normal 1.45-7.50 [facility] Comment on above: Order Comment: Speci men Type: BLOOD SPECIMEN Performed By: #### 5 7021-8 ####[facility] [id number] [address] Neutrophils/100 WBC (Bld) 71.2 % Normal [facility] Comment on above: Order Comment: Speci men Type: BLOOD SPECIMEN Performed By: #### 5 7021-8 ####[facility] [id number] [address] [place] Nucleated RBC (Bld) [#/Vol] 10*3/uL Normal <0.01 [facility] Comment on above: Order Comment: Speci men Type: BLOOD SPECIMEN Performed By: #### 5 7021-8 ####[facility] [id number] [address] Nucleated RBC/100 WBC (Bld) [Ratio] 0.0 /100 WBC Normal 0.0 [facility] Comment on above: Order Comment: Speci men Type: BLOOD SPECIMEN Performed By: #### 5 7021-8 ####[facility]ORYCLIA [id number] [address] Platelet mean volume (Bld) [Entitic vol] 13.4 fL High 9.0-12.7 [facility] Comment on above: Order Comment: Speci men Type: BLOOD SPECIMEN Performed By: #### 5 7021-8 ####[facility]ORYCLIA [id number] [address] Platelets (Bld) [#/Vol] 161 10*3/uL Normal 150-400 [facility] Comment on above: Order Comment: Speci men Type: BLOOD SPECIMEN Performed By: #### 5 7021-8 ####[facility]ORYCLIA [id number] [address] RBC (Bld) [#/Vol] 4.13 10*6/uL Normal 3.90-5.20 [facility] Comment on above: Order Comment: Speci men Type: BLOOD SPECIMEN Performed By: #### 5 7021-8 ####[facility]ORYCLIA [id number] [address] WBC (Bld) [#/Vol] 10.46 10*3/uL Normal 3.70-11.00 [facility] Comment on above: Order Comment: Speci men Type: BLOOD SPECIMEN Performed By: #### 5 7021-8 ####[facility]ORYCLIA [id number] [address] CNDSon 04-11-2021 [facility] HNO ID: [id number] Author: Mariangel Aguilar DO Service: Hospital Medicine Author Type: Physician Type: Discharge Summary Filed: 04/11/2021 3:06 PM Note Text: DISCHARGE SUMMARY PATIENT NAME: Aimee Grove Code Status: DNR-CCA Highest Readmission Risk Score: 34 The 30 day readmissions risk score is derived from an internally validated risk model which evaluates patient level characteristics, utilization history, medication orders and lab results up until the day of discharge. Patients with a score of 40 or above are considered highest risk for readmission. Specific patient level drivers will be listed at the bottom of the summary. Admission Information Admission Information ADMIT DATE: 04/05/2021 DISCHARGE DATE: 04/11/21 MY DOCTORS AND MEDICAL TEAM: My Main Hospital Doctor: Mariangel Aguilar DO Primary Care Provider: Allen Li MD, MD My Medical Team Members: Treatment Team: Attending Provider: Mariangel Aguilar DO Consulting: Juli Valentino MD Consulting: Maximo Tadeo MD Attending: Eleonora Renteria MD Primary Service: Tyrone Miller MY CONDITION AT DISCHARGE: Improved REASON I WAS IN THE HOSPITAL: CVA, NSVT SUMMARY OF WHAT HAPPENED WHILE I WAS IN THE HOSPITAL: 85-year-old female with history of dementia, anxiety/depression, DM2 who presented with confusion and facial droop and she was admitted for acute CVA. Initial CTH negative. CTA with left vert A stenosis but otherwise no LVO. MRI showing left PICA infarct with additional punctate infarcts in the cerebellum. She was continued on aspirin and statin. Evaluated by neurology and PT/OT/speech therapy. She was also noted to have nonsustained V. tach and prolonged QTC but not atrial fibrillation and she was seen by cardiology and started on amiodarone and continued on metoprolol. She had elevated troponin initially treated with heparin gtt but later determined to be supply/demand mismatch. She also completed antibiotics for UTI. Plan for event monitor at discharge and follow-up with neurology and cardiology. OTHER PROBLEMS/DIAGNOSIS: Principal Problem: Cerebral infarct (HCC) Active Problems: Obesity, Class I, BMI 30-34.9 Resolved Problems: * No resolved hospital problems. * OPERATIONS PERFORMED WHILE IN THE HOSPITAL: None IMPORTANT TEST/PROCEDURES: Echocardiogram TEST RESULTS NOT AVAILABLE AT THIS TIME: No pending results Discharge Disposition Discharge Disposition: Home With Home Care Activity When You Leave the Hospital Resume pre-hospital activity Diet Instructions Resume your pre-hospital diet Call Your Doctor If For the following: New or worsening weakness, slurred speech, facial droop You have persistent or heavy bleeding Follow Up Appointments Follow-Up Appointment With: neurology When: In 4 weeks Follow-Up Appointment When: In 2 weeks Eleonora Renteria MD [phone] [place] [id number] PCP Requested Referral Follow-Up Appointment With: primary care doctor When: In 1 week Treatment Team: Attending Provider: Mariangel Aguilar DO Consulting: Juli Valentino MD Consulting: Maximo Tadeo MD Attending: Eleonora Renteria MD Primary Service: [facility] FOLLOW-UP APPOINTMENTS ALREADY SCHEDULED WITH A [facility] PROVIDER: No future appointments. ALLERGIES Allergen Reactions - Azithromycin Unknown - Penicillin Unknown - Sulfa (Sulfonamide * Unknown DISCHARGE MEDICATION: Current Discharge Medication List START taking these medications atorvastatin (LIPITOR) 40 mg Take 40 mg by mouth daily at bedtime. Qty: 90 tablet Refills: 0 amiodarone (PACERONE) 100 mg Take 100 mg by mouth once daily. Qty: 90 tablet Refills: 0 CONTINUE these medications which have CHANGED metoprolol tartrate (short acting) (LOPRESSOR) 25 mg Take 25 mg by mouth twice daily. Qty: 90 tablet Refills: 0 CONTINUE these medications which have NOT CHANGED acetaminophen 650 mg Take 650 mg by mouth. ARIPiprazole (ABILIFY) 2 mg Take 2 mg by mouth. ergocalciferol (vitamin D2) (DRISDOL) 50,000 Units Take 50,000 Units by mouth. Thursday ibuprofen (MOTRIN) 1 tablet Take 1 tablet by mouth every 8 hours as needed. QUEtiapine (SEROquel) 12.5 mg Take 12.5 mg by mouth. traZODone (DESYREL) 25 mg Take 25 mg by mouth. 1/2 at bedtime venlafaxine ER (EFFEXOR XR) 37.5 mg 24 hr capsule TAKE 1 CAPSULE BY MOUTH DAILY after supper cholecalciferol (Vitamin D3) (VITAMIN D3) 50,000 Units Take 50,000 Units by mouth one time a week. donepezil (ARICEPT) 10 mg tablet Take by mouth daily at bedtime. LORazepam (ATIVAN) 0.5 mg 0.5 mg. 1/2 at 5pm and 1/2 at bedtime metFORMIN (GLUCOPHAGE) 1,000 mg 1,000 mg twice daily with meals. fluticasone (FLONASE) 1 [place] Use 1 [place] in the nose. Alcohol Swabs padm aspirin, enteric coated (ASPIRIN, ENTERIC COATED) 81 mg EC tablet ONETOUCH ULTRA TEST test strip glipiZIDE (GLUCOTROL) 5 mg tablet hydro (more content not included)... Normal [facility] [place] 04-11[place]2021 CONSULT PROG HNO ID: [id number] Author: Eleonora Renteria MD Service: Cardiovascular Medicine Author Type: Physician Type: Consult Progress Note Filed: 05/23/2021 4:55 PM Note Text: CARDIOLOGY PROGRESS NOTE HPI: Ms. Grove is a 85 year old female who is currently admitted for acute stroke, cardiology was consulted for elevated troponin and frequent NSVT. Update Today: Lying comfortably in bed and denies any complaints. No chest pain or shortness of breath. Denies any palpitations, lightheadedness or dizziness. 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 MEDICATIONS: acetaminophen 650 mg CR tablet Take 650 mg by mouth. ARIPiprazole (ABILIFY) 2 mg tablet Take 2 mg by mouth. ergocalciferol 50,000 unit capsule (VITAMIN D2, DRISDOL) Take 50,000 Units by mouth. Thursday ibuprofen (MOTRIN) 800 mg tablet Take 1 tablet by mouth every 8 hours as needed. QUEtiapine (SEROQUEL) 25 mg tablet Take 12.5 mg by mouth. traZODone (DESYREL) 50 mg tablet Take 25 mg by mouth. 1/2 at bedtime venlafaxine ER (EFFEXOR XR) 37.5 mg 24 hr capsule TAKE 1 CAPSULE BY MOUTH DAILY after supper cholecalciferol, Vitamin D3, (VITAMIN D3) 1,250 mcg (50,000 unit) cap capsule Take 50,000 Units by mouth one time a week. donepezil (ARICEPT) 10 mg tablet Take by mouth daily at bedtime. LORazepam (ATIVAN) 0.5 mg tab 0.5 mg. 1/2 at 5pm and 1/2 at bedtime metFORMIN (GLUCOPHAGE) 1,000 mg tablet 1,000 mg twice daily with meals. [START ON 04/12/2021] amiodarone (PACERONE) 200 mg tablet Take 1 tablet by mouth once daily. atorvastatin (LIPITOR) 40 mg tablet Take 1 tablet by mouth daily at bedtime. fluticasone (FLONASE) 50 mcg/actuation nasal spray Use 1 [place] in the nose. Alcohol Swabs padm aspirin, enteric coated (ASPIRIN, ENTERIC COATED) 81 mg EC tablet ONETOUCH ULTRA TEST test strip glipiZIDE (GLUCOTROL) 5 mg tablet hydrocortisone 2.5 % cream hydrocortisone 2.5 % ointment ONE TOUCH [employer]ICA 33 gauge misc metoprolol tartrate, short acting, (LOPRESSOR) 50 mg tablet Take 50 mg by mouth twice daily. zolpidem (AMBIEN) 5 mg tablet REVIEW OF SYSTEMS: GENERAL: Negative for:Weight loss and Weight gain RESPIRATORY: Negative for:Shortness of breath GASTROINTESTINAL: Negative for:Blood in stool MUSCULOSKELETAL: Negtive for: Muscle or joint pain, stiffness, Joint swelling HEMATOLOGICAL/LYMPHATI C: Negative for: Easy bruising and Easy bleeding CARDIOVASCULAR: As stated in HPI. NEUROLOGICAL and Psychiatric: Negative 10 organ system review negative except as stated in HPI PHYSICAL EXAMINATION: BP 148/63 Pulse 60 Temp 36.6 ?C (97.9 ?F) (Oral) Resp 18 Ht 160 cm (5' 3") Wt 75.6 kg (166 lb 10.7 oz) SpO2 98% BMI 29.52 kg/m? General: no acute distress. Neck: no jugular venous distention, no carotid bruits. Lungs: Clear to auscultation bilaterally, no wheezing or rhonchi. Heart: S1, S2 normal, no murmur Extremities: No peripheral edema Neuro: Oriented x1-2 LABS Recent Labs 04/11/21 0555 04/09/21 1934 04/09/21 0603 WBC 10.46 < > 10.99 RBC 4.13 < > 3.87* HB 11.7 < > 10.8* HCT 37.2 < > 35.5* MCV 90.1 < > 91.7 MCH 28.3 < > 27.9 MCHC 31.5 < > 30.4* RDWCV 13.0 < > 13.1 PLT 161 < > 146* MPV 13.4* < > 13.1* NEUTP 71.2 -- 70.4 LYMPHP 12.7 -- 14.5 MONOP 12.6 -- 11.8 BASOP 0.5 -- 0.5 ABSNEUT 7.45 -- 7.73* ABSMONO 1.32* -- 1.30* ABSEOSIN 0.27 -- 0.25 ABSBASO 0.05 -- 0.06 GLUC -- -- 194* BUN -- -- 11 CREAT -- -- 0.83 NA -- -- 138 K -- -- 3.7 CHLOR -- -- 104 CO2 -- -- 25 CA -- -- 8.3* APTT -- -- 58.4* < > = values in this interval not displayed. Triglyceride 94 04/06/2021 HDL Cholesterol 53 04/06/2021 LDL Cholesterol 114 04/06/2021 Cholesterol, Total 186 04/06/2021 Most recent EKG, telemetry and imagine findings were reviewed. IMPRESSION: Acute stroke with left vertebral artery occlusion Elevated troponin likely demand supply mismatch, unlikely ACS Frequent NSVT?-improved with amiodarone New prolonged QTC?-improving Alzheimer's dementia ? EKG upon admission consistent with sinus rhythm and premature supraventricular contractions and does not represent A. fib. Echo with EF 75% with basal inferolateral and basal inferior segment hypokinesis, no prior studies to compare. Telemetry with heart rate in 50s. No significant ventricular ectopy. PLAN: Decrease amiodarone to 100 mg daily Continue metoprolol 25 mg twice daily Continue aspirin and Lipitor Family had declined any invasive ischemic work-up Event monitor upon discharge to rule out silent A. fib Avoid QT prolonging medications Cardiology will sign off, please call back with questions. Please have the patient follow-up with cardiology as outpatient. Eleonora Renteria MD Car (more content not included)... Normal [facility] CONSULT PROGon 04-10-2021 CONSULT PROG HNO ID: [id number] Author: Marta Flood APRN.MALT SPECIFICATIONS CONTROL ASSISTANT Service: Neurology General Author Type: Nurse Practitioner Type: Consult Progress Note Filed: 04/10/2021 2:46 PM Note Text: NEURO STROKE PROGRESS NOTE SERVICE DATE: 04/10/2021 SERVICE TIME: 1353 CC: AMS Subjective INTERVAL HISTORY: No reported issues O/N. Pt resting in bed. No visitors at bedside. Pt has no complaints. MEDICATIONS Current Facility-Administered Medications Medication Dose Route Frequency - NaCl 0.9% iv flush bag 20 mL INTRAVENOUS PRN - acetaminophen 650 mg suppository (TYLENOL) 650 mg RECTAL q 4 H PRN - donepezil 10 mg tab(s) (ARICEPT) 10 mg ORAL AT BEDTIME - traZODone 25 mg tab(s) (DESYREL) 25 mg ORAL AT BEDTIME - venlafaxine ER 37.5 mg cap(s) (EFFEXOR XR) 37.5 mg ORAL DAILY - sodium chloride 0.9 % (flush) 3-5 mL (BD POSIFLUSH) 3-5 mL INTRAVENOUS q 12 H - dextrose 40 % 15 g 15 g ORAL PRN Or - glucagon 1 mg injection 1 mg INTRAMUSCULAR PRN Or - dextrose 50% in water 25 mL syringe 12.5 g INTRAVENOUS PRN - insulin lispro pen (rapid acting) (HumaLOG KWIKPEN) SUBCUTANEOUS w MEALS - insulin lispro pen (rapid acting) (HumaLOG KWIKPEN) SUBCUTANEOUS AT BEDTIME - aspirin 81 mg chewable tab(s) 81 mg ORAL DAILY - atorvastatin 40 mg tab(s) (LIPITOR) 40 mg ORAL AT BEDTIME - prochlorperazine 5 mg injection (COMPAZINE) 5 mg INTRAVENOUS q 6 H PRN - sodium chloride 0.9 % (flush) 3-5 mL (BD POSIFLUSH) 3-5 mL INTRAVENOUS q 12 H - lactated ringers iv infusion 75 mL/hr INTRAVENOUS CONTINUOUS - metoprolol tartrate (short acting) 25 mg tab(s) (LOPRESSOR) 25 mg ORAL q 12 H - [START ON 04/11/2021] amiodarone 200 mg tab(s) (PACERONE) 200 mg ORAL DAILY - heparin 5,000 Units injection 5,000 Units SUBCUTANEOUS q 12 H Objective PHYSICAL EXAM Vital Signs: BP 152/63 Pulse 60 Temp 37 ?C (98.6 ?F) (Oral) Resp 18 Ht 160 cm (5' 3") Wt 86.5 kg (190 lb 11.2 oz) SpO2 96% BMI 33.78 kg/m? NEUROLOGICAL: LOC: 0 - alert and responsive 0 LOC Questions: 0 - both correct 0 LOC Commands: 0 - both correct 0 Best Gaze: 0 - normal gaze 0 Visual: 0 - no visual loss 0 Facial Palsy: 0 - normal 0 Motor Left Arm: 0 - no drift 0 Motor Right Arm: 0 - no drift 0 Motor Left Le - drift but does not hit bed 1 Motor Right Le - drift but does not hit bed 1 Limb Ataxia: 0 - no ataxia (or aphasic, hemiplegic) 0 Sensory: 0 - normal 0 Best Language: 0 - normal 0 Dysarthria: 0 - normal 0 Extinction and Inattention: 0 - normal, none detected (or visual loss alone) 0 Daily NIHSS Score: 2 (04/10/21 1353 : Marta Flood APRN.CNP) 2 Awake, oriented to person, place, year Speech clear fluent No facial asym PERRL EOMI VFF MAEx4 +generalized weakness B/L UE 4/5 B/L LE 3+/5 Sensation intact LT DATA: Diagnostic tests reviewed for today's visit: Lipids, HbA1c, Most recent labs and imaging results. MEDICAL EVENTS: No medical events have been recorded. STROKE 9 CARE AND PREVENTION CHECKLIST 1. Is the patient currently on an ANTITHROMBOTIC medication (Antiplatelet or Anticoagulant): Aspirin 2. Does the patient have known AFIB/FLUTTER: Unspecified atrial fibrillation Is the patient currently on anticoagulation: Yes 3. Is the patient on a STATIN: Atorvastatin 40 mg 4. Is the patient on VTE prophylaxis: Pharmacological prophylaxis Pharmacological intervention type: Heparin SQ 5. GLYCEMIC Control Medications: BG needs further management 6. Stroke BP Goals: SBP <140 Stroke BP Control: BP well controlled 7. Stroke IVF/Nutrition: Diet 8. TEMPERATURE Control: Normothermic 9. Does the patient need THERAPY: Yes Therapy involvement: ST;OT;PT Stroke Care and Prevention (personally reviewed by Marta Flood APRN.CNP): Daily Rounding Date: 04/10/21 Daily Rounding Time: 2034 PROBLEM LIST: Active Problems: Cerebral infarct (HCC) POA: Yes Obesity, Class I, BMI 30-34.9 POA: Unknown Resolved Problems: * No resolved hospital problems. * Medication and Non-Pharmacologic VTE Prophylaxis/Anticoagul ants Anticoagulant AND Antiplatelet Medications (From admission, onward) Start Dose Route Frequency Last Action Ordered Stop 04/10/21 1330 heparin 5,000 Units injection 5,000 Units SUBCUTANEOUS EVERY 12 HOURS Ordered 04/10/21 1327 -- 04/07/21 0900 aspirin 81 mg chewable tab(s) 81 mg ORAL DAILY Given, 04/10 0846 04/06/21 0904 -- 04/09/21 1015 activity - mobilize patient [place] 04/06/21 1130 vte current anticoag therapy (ut,mi) VTE Prophylaxis: VTE prophylaxis appropriate Impression/Recommendat ions IMPRESSION 85yo female with dementia and DM; who presented from home for AMS. Acute infarct -- CTH demonstrated no acute process; -- CTA head/neck with evidence of a L vert (non-dominant) occlusion, as well as evidence of intracranial L SURVEYOR MINE stenosis. 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 Normal [facility] CONSULT PROG HNO ID: [id number] Author: Eleonora Renteria MD Service: Cardiovascular Medicine Author Type: Physician Type: Consult Progress Note Filed: 05/23/2021 4:55 PM Note Text: CARDIOLOGY PROGRESS NOTE HPI: Ms. Grove is a 85 year old female who is currently admitted for acute stroke, cardiology was consulted for elevated troponin and frequent NSVT. Update Today: Continues to deny any chest pain or shortness of breath. No significant ventricular ectopy, only occasional PACs. Heart rate on few occasions 40s to 50s. Denies any swelling, orthopnea or PND. 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 MEDICATIONS: acetaminophen 650 mg CR tablet Take 650 mg by mouth. ARIPiprazole (ABILIFY) 2 mg tablet Take 2 mg by mouth. ergocalciferol 50,000 unit capsule (VITAMIN D2, DRISDOL) Take 50,000 Units by mouth. Thursday ibuprofen (MOTRIN) 800 mg tablet Take 1 tablet by mouth every 8 hours as needed. QUEtiapine (SEROQUEL) 25 mg tablet Take 12.5 mg by mouth. traZODone (DESYREL) 50 mg tablet Take 25 mg by mouth. 1/2 at bedtime venlafaxine ER (EFFEXOR XR) 37.5 mg 24 hr capsule TAKE 1 CAPSULE BY MOUTH DAILY after supper cholecalciferol, Vitamin D3, (VITAMIN D3) 1,250 mcg (50,000 unit) cap capsule Take 50,000 Units by mouth one time a week. donepezil (ARICEPT) 10 mg tablet Take by mouth daily at bedtime. LORazepam (ATIVAN) 0.5 mg tab 0.5 mg. 1/2 at 5pm and 1/2 at bedtime metFORMIN (GLUCOPHAGE) 1,000 mg tablet 1,000 mg twice daily with meals. fluticasone (FLONASE) 50 mcg/actuation nasal spray Use 1 [place] in the nose. Alcohol Swabs padm aspirin, enteric coated (ASPIRIN, ENTERIC COATED) 81 mg EC tablet ONETOUCH ULTRA TEST test strip citalopram hydrobromide (CELEXA) 10 mg tablet glipiZIDE (GLUCOTROL) 5 mg tablet hydrocortisone 2.5 % cream hydrocortisone 2.5 % ointment ONE TOUCH DELICA 33 gauge misc NAMENDA XR 28 mg CSpX metoprolol tartrate, short acting, (LOPRESSOR) 50 mg tablet Take 50 mg by mouth twice daily. QUEtiapine (SEROQUEL) 25 mg tablet traZODone (DESYREL) 100 mg tablet 50 mg. 1/2 at bedtime venlafaxine (EFFEXOR) 37.5 mg tablet zolpidem (AMBIEN) 5 mg tablet Ammonium,Pot.and Sodium Lactates (AMLACTIN) crea Apply to dry skin bilaterally 1-2 times daily REVIEW OF SYSTEMS: GENERAL: Negative for:Weight loss and Weight gain RESPIRATORY: Negative for:Shortness of breath GASTROINTESTINAL: Negative for:Blood in stool MUSCULOSKELETAL: Negtive for: Muscle or joint pain, stiffness, Joint swelling HEMATOLOGICAL/LYMPHATI C: Negative for: Easy bruising and Easy bleeding CARDIOVASCULAR: As stated in HPI. NEUROLOGICAL and Psychiatric: Negative 10 organ system review negative except as stated in HPI PHYSICAL EXAMINATION: BP 152/63 Pulse 60 Temp 37 ?C (98.6 ?F) (Oral) Resp 18 Ht 160 cm (5' 3") Wt 86.5 kg (190 lb 11.2 oz) SpO2 96% BMI 33.78 kg/m? General: No acute distress Neck: no jugular venous distention, no carotid bruits. Lungs: Clear to auscultation bilaterally, no wheezing or rhonchi. Heart: S1, S2 normal, no murmur Extremities: No peripheral edema Neuro: Grossly nonfocal LABS Recent Labs 04/09/21 1934 04/09/21 0603 WBC 11.16* 10.99 RBC 3.74* 3.87* HB 10.7* 10.8* HCT 34.1* 35.5* MCV 91.2 91.7 MCH 28.6 27.9 MCHC 31.4 30.4* RDWCV 13.0 13.1 PLT 139* 146* MPV 13.2* 13.1* NEUTP -- 70.4 LYMPHP -- 14.5 MONOP -- 11.8 BASOP -- 0.5 ABSNEUT -- 7.73* ABSMONO -- 1.30* ABSEOSIN -- 0.25 ABSBASO -- 0.06 GLUC -- 194* BUN -- 11 CREAT -- 0.83 NA -- 138 K -- 3.7 CHLOR -- 104 CO2 -- 25 CA -- 8.3* APTT -- 58.4* Triglyceride 94 04/06/2021 HDL Cholesterol 53 04/06/2021 LDL Cholesterol 114 04/06/2021 Cholesterol, Total 186 04/06/2021 Most recent EKG, telemetry and imagine findings were reviewed. 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 No significant ventricular ectopy with amiodarone. EKG upon admission consistent with sinus rhythm and premature supraventricular contractions and does not represent A. fib. Echo with EF 75% with basal inferolateral and basal inferior segment hypokinesis, no prior studies to compare. PLAN: -Decrease amiodarone further to 200 mg daily due to sinus bradycardia -Continue metoprolol 25 mg twice daily -Continue Lipitor 40 mg daily -Continue aspirin and statin, will defer addition of Plavix to neurology discretion -Family has declined any invasive ischemic work-up -Event monitor upon discharge to rule out silent A. fib -Constantino (more content not included)... Normal [facility] THERAPY NTon 04-10-2021 THERAPY NT HNO ID: [id number] Author: Ashok Jaquez, PT Service: Physical Therapy Author Type: Physical Therapist Type: Therapy (PT/OT/Speech/Resp) Filed: 04/10/2021 4:07 PM Note Text: Physical Therapy Treatment SERVICE DATE: 04/10/2021 SERVICE TIME: 1454 to 1513 (plus [phone] with daughter present) ROOM: [id number] Recommended Discharge Disposition: Home PT Recommended Discharge Disposition Comments: with 24 hour assist from family and GAME PROGRAMER. Pt able to ambulate short distances for homegoing but continues to demonstrate gait instability and is at increased risk for falls. Recommend close supervision/guarding during mobility and use of wheeled walker for homegoing. Recommended Discharge Disposition Due to: (-) Anticipated Discharge Needs: Physical Assist at Home;Supervision at Home;Equipment Physical Assist at Home for: Transportation;Shoppin g;Self Care;Safety;Meals;Laun dry;Cleaning Supervision at Home due to: Impaired cognition;Decreased safety awareness Recommended Discharge Equipment: Wheeled Walker PT 6 Clicks Score: 18 Seen by request due to concerns about SNF vs home at d/c. Pt demonstrates good progress this session, able to ambulate 30 ft x2 but required use of wheeled walker and close guarding for stability, min A. She needed cues and assist to manage walker appropriately and maintain safety during mobility. After session pt's daughter came up to unit, worked with pt again and she was able to ambulate up to 50 ft with walker. Discussed d/c planning with dtr, anticipate if pt has 24 hour assist/supervision could transition home with home PT. Discussed pt needs close supervision/guarding during mobility, with continued use of wheeled walker at this time given fall risk, dtr verbalized understanding and pleased with pt progress. Precautions/Activity Restrictions: Fall Risk;Bed/Chair Alarm Current Hospital Course: Presented with AMS, speech change, facial droop. CTA H/N showing left vertebral artery occlusion, MRI brain showing acute PICA infarct, with additional punctate infarcts at inferior cerebellar vermis and right cerebellum. +UTI, pt also had an NSTEMI and issues with Vtach during admission. Reason for Hospital Admission: AMS, facial droop Relevant Past Medical History: dementia, DM Response to Therapy Interventions: Requires encouragement to complete activities,Cognitive deficits,Needs frequent redirection or re-instruction,Notable progression with functional activities/skills Physical Therapy Problem List: Safety Deficits;Impaired Self Care;Decreased Activity Tolerance;Decreased Strength;Functional Mobility Impairment;Balance Impaired;Cognitive Deficit Treatment Interventions: Education;Strengthenin g;Balance Training;Functional Mobility Training;Neuromuscular Re-education;Cognitive Training Home Environment Patient Lives With: Family (daughter) Assistance Available: director multimedia (unsure if 24h, has GAME PROGRAMER 7d/wk, 6.5 h/d) Equipment Owned: Wheeled Walker;Cane;Shower Chair Prior Functional Level: Required Assistance Assistance Required With: Cleaning;Laundry;Meals ;Medication Management;Safety;Shop ping;Transportation;Se lf Care Prior Functional Level Comments: Pt limited and questionable historian, attempted to reach out to dtr via telephone call but no answer. Per chart pt has GAME PROGRAMER at home and was fairly independent. Pt denies use of assistive devices. Pt rpts that she toilets and walks by herself but is a poor historian. Patient Report: Pt with flat affect, initially declines to work with PT, however eventually agreeable with encouragement and emphasis on need to mobilize and walk to return home CURRENT FUNCTIONAL STATUS: Most recent performance Mobility performed during session in bold, other mobility completed during prior session and may no longer be correct or appropriate to complete. Current Functional Mobility Assist Level Additional Information Rolling Stand By Assistance Supine to Sit Minimal Assistance;Additional Information tactile cues for sequence/technique, light assist to upright trunk and complete scooting forward Sit to Supine Contact Guard Assistance;Additional Information cues to lay down to side and bring legs up into bed; difficulty bringing legs all the way in, nearly hanging out once laying down Scooting Sit to Stand Contact Guard Assistance;Additional Information cued to scoot forward to edge with feet on floor, mild increased sway once up but recovers on her own Stand to Sit Contact Guard Assistance;Additional Information cued to back up to surface fully with legs touching , sit slowly Bed to Chair Toilet/Commode Gait Minimal Assistance;Additional Information Gait Device: Wheeled Walker Gait Distance (feet): 30 ft x2, 50 ft x2 pt requires walker to maintain stability during gait, cues/assist for proper walker management in environment, negotiating around obstacles/through tight spaces; demo's mild instabi (more content not included)... Normal [facility] Basic metabolic 2000 panelon 04-09-2021 Anion gap [Moles/Vol] 9 mmol/L Normal -18 [facility] Comment on above: Order Comment: Speci men Type: BLOOD SPECIMEN Performed By: #### 2 4321-2 ####[facility] [id number] [address] Calcium [Mass/Vol] 8.3 mg/dL Low 8.5-10.2 [facility] Comment on above: Order Comment: Speci men Type: BLOOD SPECIMEN Performed By: #### 2 4321-2 ####[facility] [id number] [address] [place] Chloride [Moles/Vol] 104 mmol/L Normal 97-105 [facility] Comment on above: Order Comment: Speci men Type: BLOOD SPECIMEN Performed By: #### 2 4321-2 ####[facility]ORY[facility] [id number] [address] STATES OF [facility] CO2 [Moles/Vol] 25 mmol/L Normal 22-30 [facility] Comment on above: Order Comment: Speci men Type: BLOOD SPECIMEN Performed By: #### 2 4321-2 ####[facility]ORY[facility] [id number] [address] Creatinine [Mass/Vol] 0.83 mg/dL Normal 0.58-0.96 [facility] Comment on above: Order Comment: Speci men Type: BLOOD SPECIMEN Performed By: #### 2 4321-2 ####[facility]ORY[facility] [id number] [address] [place] GFR/1.73 sq M.predicted MDRD (S/P/Bld) [Vol rate/Area] mL/min/{1.73_m2} Normal [facility] Comment on above: Order Comment: Speci men Type: BLOOD SPECIMEN Result Comment: >60 eGFR (Estimated GFR) Units of measure: mL/min/1.73 meters squared eGFR is derived from the reexpressed MDRD Study equation using the following parameters: serum creatinine, age, gender and race. The creatinine assay has been calibrated to be traceable to IDMS. An eGFR <60 mL/min/1.73m2 for >3 months is consistent with chronic kidney disease. Refer to KDOQI guidelines for clinical interpretation. In patients with unstable renal function, e.g. those with acute kidney injury, the eGFR may not accurately reflect actual GFR. Performed By: #### 2 4321-2 ####[facility]ORYCLIA [id number] [place] [address] [place] Glucose [Mass/Vol] 194 mg/dL High 74-99 [facility] Comment on above: Order Comment: Speci men Type: BLOOD SPECIMEN Result Comment: The [place] [employer] (ADA) provides guidance for cutoff values for fasting glucose and random glucose. The ADA defines fasting as no caloric intake for at least 8 hours. Fasting plasma glucose results between 100 to 125 mg/dL indicate increased risk for diabetes (prediabetes). Fasting plasma glucose results greater than or equal to 126 mg/dL meet the criteria for diagnosis of diabetes. In the absence of unequivocal hyperglycemia, results should be confirmed by repeat testing. In a patient with classic symptoms of hyperglycemia or hyperglycemic crisis, random plasma glucose results greater than or equal to 200 mg/dL meet the criteria for diagnosis of diabetes. Reference: Standards of Medical Care in Diabetes 2016, [place] [employer]. Diabetes Care. 2016.39(Suppl 1). Performed By: #### 2 4321-2 ####[facility]ORYCLIA [id number] [place] [address] [place] Potassium [Moles/Vol] 3.7 mmol/L Normal 3.7-5.1 [facility] Comment on above: Order Comment: Speci men Type: BLOOD SPECIMEN Performed By: #### 2 4321-2 ####[facility]ORYCLIA [id number] [place] [address] [place] Sodium [Moles/Vol] 138 mmol/L Normal 136-144 [facility] Comment on above: Order Comment: Speci men Type: BLOOD SPECIMEN Performed By: #### 2 4321-2 ####[facility]ORYCLIA [id number] [place] [address] [place] Urea nitrogen [Mass/Vol] 11 mg/dL Normal 7-21 [facility] Comment on above: Order Comment: Speci men Type: BLOOD SPECIMEN Performed By: #### 2 4321-2 ####[facility] [id number] [address] CALCIUM IONIZED Bon 04-09-20 Calcium.ionized (BldV) [Mass/Vol] 1.12 mmol/L Normal 1.08-1.30 [facility] Comment on above: Order Comment: Speci men Type: BLOOD SPECIMEN Performed By: #### I CA ####[facility] [id number] [address] Calcium.ionized adjusted to pH 7.4 (Bld) [Moles/Vol] 1.12 mmol/L Normal 1.08-1.30 [facility] Comment on above: Order Comment: Speci men Type: BLOOD SPECIMEN Performed By: #### I CA ####[facility]ORYCLIA [id number] [address] CBC W Auto Differential pane l (Bld)on 04-09-2021 Basophils (Bld) [#/Vol] 0.06 10*3/uL Normal <0.11 [facility] Comment on above: Order Comment: Speci men Type: BLOOD SPECIMEN Result Comment: Revi ewed Differential confirmed by visual scan of peripheral blood smear slide Performed By: #### H STNT #### [facility] CLIA [id number] [address] Basophils/100 WBC (Bld) 0.5 % Normal [facility] Comment on above: Order Comment: Speci men Type: BLOOD SPECIMEN Performed By: #### H STNT #### [facility] CLIA [id number] [address] Differential cell count method Nom (Bld) Auto Normal [facility] Comment on above: Order Comment: Speci men Type: BLOOD SPECIMEN Performed By: #### H STNT #### [facility] CLIA [id number] [address] Eosinophils (Bld) [#/Vol] 0.25 10*3/uL Normal <0.46 [facility] Comment on above: Order Comment: Speci men Type: BLOOD SPECIMEN Performed By: #### H STNT #### [facility] CLIA [id number] [address] Eosinophils/100 WBC (Bld) 2.3 % Normal [facility] Comment on above: Order Comment: Speci men Type: BLOOD SPECIMEN Performed By: #### H STNT #### [facility] CLIA [id number] [address] Erythrocyte distribution width (RBC) [Ratio] 13.1 % Normal 11.5-15.0 [facility] Comment on above: Order Comment: Speci men Type: BLOOD SPECIMEN Performed By: #### H STNT #### [facility] CLIA [id number] [address] Hematocrit (Bld) [Volume fraction] 35.5 % Low 36.0-46.0 [facility] Comment on above: Order Comment: Speci men Type: BLOOD SPECIMEN Performed By: #### H STNT #### [facility] CLIA [id number] [address] Hemoglobin (Bld) [Mass/Vol] 10.8 g/dL Low 11.5-15.5 [facility] Comment on above: Order Comment: Speci men Type: BLOOD SPECIMEN Performed By: #### H STNT #### [facility] CLIA [id number] [address] IMMATURE GRAN % 0.5 % Normal [facility] Comment on above: Order Comment: Speci men Type: BLOOD SPECIMEN Performed By: #### H STNT #### [facility] CLIA [id number] [address] IMMATURE GRAN ABS 0.06 k/uL Normal <0.10 [facility] Comment on above: Order Comment: Speci men Type: BLOOD SPECIMEN Performed By: #### H STNT #### [facility] CLIA [id number] [address] Lymphocytes (Bld) [#/Vol] 1.59 10*3/uL Normal 1.00-4.00 [facility] Comment on above: Order Comment: Speci men Type: BLOOD SPECIMEN Performed By: #### H STNT #### [facility] CLIA [id number] [address] Lymphocytes/100 WBC (Bld) 14.5 % Normal [facility] Comment on above: Order Comment: Speci men Type: BLOOD SPECIMEN Performed By: #### H STNT #### [facility] CLIA [id number] [address] MCH (RBC) [Entitic mass] 27.9 pg Normal 26.0-34.0 [facility] Comment on above: Order Comment: Speci men Type: BLOOD SPECIMEN Performed By: #### H STNT #### [facility] CLIA [id number] [address] MCHC (RBC) [Mass/Vol] 30.4 g/dL Low 30.5-36.0 [facility] Comment on above: Order Comment: Speci men Type: BLOOD SPECIMEN Performed By: #### H STNT #### [facility] CLIA [id number] [address] MCV (RBC) [Entitic vol] 91.7 fL Normal 80.0-100.0 [facility] Comment on above: Order Comment: Speci men Type: BLOOD SPECIMEN Performed By: #### H STNT #### [facility] CLIA [id number] [address] Monocytes (Bld) [#/Vol] 1.30 10*3/uL High <0.87 [facility] Comment on above: Order Comment: Speci men Type: BLOOD SPECIMEN Performed By: #### H STNT #### [facility] CLIA [id number] [address] Monocytes/100 WBC (Bld) 11.8 % Normal [facility] Comment on above: Order Comment: Speci men Type: BLOOD SPECIMEN Performed By: #### H STNT #### [facility] CLIA [id number] [address] [place] Neutrophils (Bld) [#/Vol] 7.73 10*3/uL High 1.45-7.50 [facility] Comment on above: Order Comment: Speci men Type: BLOOD SPECIMEN Performed By: #### H STNT #### [facility] CLIA [id number] [address] Neutrophils/100 WBC (Bld) 70.4 % Normal [facility] Comment on above: Order Comment: Speci men Type: BLOOD SPECIMEN Performed By: #### H STNT #### [facility] CLIA [id number] [address] Nucleated RBC (Bld) [#/Vol] 10*3/uL Normal <0.01 [facility] Comment on above: Order Comment: Speci men Type: BLOOD SPECIMEN Performed By: #### H STNT #### [facility] CLIA [id number] [address] Nucleated RBC/100 WBC (Bld) [Ratio] 0.0 /100 WBC Normal 0.0 [facility] Comment on above: Order Comment: Speci men Type: BLOOD SPECIMEN Performed By: #### H STNT #### [facility] CLIA [id number] [address] Platelet mean volume (Bld) [Entitic vol] 13.1 fL High 9.0-12.7 [facility] Comment on above: Order Comment: Speci men Type: BLOOD SPECIMEN Performed By: #### H STNT #### [facility] CLIA [id number] [address] Platelets (Bld) [#/Vol] 146 10*3/uL Low 150-400 [facility] Comment on above: Order Comment: Speci men Type: BLOOD SPECIMEN Result Comment: Plat elet count confirmed by manual review of peripheral blood smear Performed By: #### H STNT #### [facility] CLIA [id number] [address] RBC (Bld) [#/Vol] 3.87 10*6/uL Low 3.90-5.20 [facility] Comment on above: Order Comment: Speci men Type: BLOOD SPECIMEN Performed By: #### H STNT #### [facility] CLIA [id number] [address] WBC (Bld) [#/Vol] 10.99 10*3/uL Normal 3.70-11.00 [facility] Comment on above: Order Comment: Speci men Type: BLOOD SPECIMEN Result Comment: Revi ewed Performed By: #### H STNT #### [facility] CLIA [id number] [address] CBC panel Auto (Bld)on 04-09 Erythrocyte distribution width (RBC) [Ratio] 13.0 % Normal 11.5-15.0 [facility] Comment on above: Order Comment: Speci men Type: BLOOD SPECIMEN Performed By: #### 5 8410-2 #### [facility] CLIA [id number] [address] Hematocrit (Bld) [Volume fraction] 34.1 % Low 36.0-46.0 [facility] Comment on above: Order Comment: Speci men Type: BLOOD SPECIMEN Performed By: #### 5 8410-2 #### [facility] CLIA [id number] [address] Hemoglobin (Bld) [Mass/Vol] 10.7 g/dL Low 11.5-15.5 [facility] Comment on above: Order Comment: Speci men Type: BLOOD SPECIMEN Performed By: #### 5 8410-2 #### [facility] CLIA [id number] [address] MCH (RBC) [Entitic mass] 28.6 pg Normal 26.0-34.0 [facility] Comment on above: Order Comment: Speci men Type: BLOOD SPECIMEN Performed By: #### 5 8410-2 #### [facility] CLIA [id number] [address] MCHC (RBC) [Mass/Vol] 31.4 g/dL Normal 30.5-36.0 [facility] Comment on above: Order Comment: Speci men Type: BLOOD SPECIMEN Performed By: #### 5 8410-2 #### [facility] CLIA [id number] [address] MCV (RBC) [Entitic vol] 91.2 fL Normal 80.0-100.0 [facility] Comment on above: Order Comment: Speci men Type: BLOOD SPECIMEN Performed By: #### 5 8410-2 #### [facility] CLIA [id number] [address] Nucleated RBC (Bld) [#/Vol] 10*3/uL Normal <0.01 [facility] Comment on above: Order Comment: Speci men Type: BLOOD SPECIMEN Performed By: #### 5 8410-2 #### [facility] CLIA [id number] [address] Platelet mean volume (Bld) [Entitic vol] 13.2 fL High 9.0-12.7 [facility] Comment on above: Order Comment: Speci men Type: BLOOD SPECIMEN Performed By: #### 5 8410-2 #### [facility] CLIA [id number] [address] Platelets (Bld) [#/Vol] 139 10*3/uL Low 150-400 [facility] Comment on above: Order Comment: Speci men Type: BLOOD SPECIMEN Result Comment: Plat elet count confirmed by manual review of peripheral blood smear Performed By: #### 5 8410-2 #### [facility] CLIA [id number] [address] RBC (Bld) [#/Vol] 3.74 10*6/uL Low 3.90-5.20 [facility] Comment on above: Order Comment: Speci men Type: BLOOD SPECIMEN Performed By: #### 5 8410-2 #### [facility] CLIA [id number] [address] WBC (Bld) [#/Vol] 11.16 10*3/uL High 3.70-11.00 [facility] Comment on above: Order Comment: Speci men Type: BLOOD SPECIMEN Result Comment: Revi ewed Performed By: #### 5 8410-2 #### [facility] CLIA [id number] [address] CONSULT PROGon 04-09-2021 CONSULT PROG HNO ID: [id number] Author: Eleonora Renteria MD Service: Cardiovascular Medicine Author Type: Physician Type: Consult Progress Note Filed: 04/09/2021 2:46 PM Note Text: CARDIOLOGY PROGRESS NOTE HPI: Ms. Grove is a 85 year old female who is currently admitted for acute stroke, cardiology was consulted for elevated troponin. Update Today: Denies any chest pain or shortness of breath. Telemetry with sinus bradycardia with heart rate in 50s. NSVT has almost resolved with amiodarone. Denies any swelling, orthopnea or PND. Alert but not completely oriented due to dementia. 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 MEDICATIONS: acetaminophen 650 mg CR tablet Take 650 mg by mouth. ARIPiprazole (ABILIFY) 2 mg tablet Take 2 mg by mouth. ergocalciferol 50,000 unit capsule (VITAMIN D2, DRISDOL) Take 50,000 Units by mouth. Thursday ibuprofen (MOTRIN) 800 mg tablet Take 1 tablet by mouth every 8 hours as needed. QUEtiapine (SEROQUEL) 25 mg tablet Take 12.5 mg by mouth. traZODone (DESYREL) 50 mg tablet Take 25 mg by mouth. 1/2 at bedtime venlafaxine ER (EFFEXOR XR) 37.5 mg 24 hr capsule TAKE 1 CAPSULE BY MOUTH DAILY after supper cholecalciferol, Vitamin D3, (VITAMIN D3) 1,250 mcg (50,000 unit) cap capsule Take 50,000 Units by mouth one time a week. donepezil (ARICEPT) 10 mg tablet Take by mouth daily at bedtime. LORazepam (ATIVAN) 0.5 mg tab 0.5 mg. 1/2 at 5pm and 1/2 at bedtime metFORMIN (GLUCOPHAGE) 1,000 mg tablet 1,000 mg twice daily with meals. fluticasone (FLONASE) 50 mcg/actuation nasal spray Use 1 [place] in the nose. Alcohol Swabs padm aspirin, enteric coated (ASPIRIN, ENTERIC COATED) 81 mg EC tablet ONETOUCH ULTRA TEST test strip citalopram hydrobromide (CELEXA) 10 mg tablet glipiZIDE (GLUCOTROL) 5 mg tablet hydrocortisone 2.5 % cream hydrocortisone 2.5 % ointment ONE TOUCH DELICA 33 gauge misc NAMENDA XR 28 mg CSpX metoprolol tartrate, short acting, (LOPRESSOR) 50 mg tablet Take 50 mg by mouth twice daily. QUEtiapine (SEROQUEL) 25 mg tablet traZODone (DESYREL) 100 mg tablet 50 mg. 1/2 at bedtime venlafaxine (EFFEXOR) 37.5 mg tablet zolpidem (AMBIEN) 5 mg tablet Ammonium,Pot.and Sodium Lactates (AMLACTIN) crea Apply to dry skin bilaterally 1-2 times daily REVIEW OF SYSTEMS: GENERAL: No acute distress RESPIRATORY: Negative for:Shortness of breath GASTROINTESTINAL: Negative for:Blood in stool MUSCULOSKELETAL: Negtive for: Muscle or joint pain, stiffness, Joint swelling HEMATOLOGICAL/LYMPHATI C: Negative for: Easy bruising and Easy bleeding CARDIOVASCULAR: As stated in HPI. NEUROLOGICAL and Psychiatric: Negative 10 organ system review negative except as stated in HPI PHYSICAL EXAMINATION: BP 165/68 Pulse (!) 55 Temp 36.5 ?C (97.7 ?F) (Oral) Resp 19 Ht 160 cm (5' 3") Wt 86.5 kg (190 lb 11.2 oz) SpO2 98% BMI 33.78 kg/m? General: No acute distress Neck: no jugular venous distention, no carotid bruits. Lungs: Clear to auscultation bilaterally, no wheezing or rhonchi. Heart: S1, S2 normal, no murmur Extremities: No peripheral edema Neuro: Grossly nonfocal, AO x1-2 LABS Recent Labs 04/09/21 0603 WBC 10.99 RBC 3.87* HB 10.8* HCT 35.5* MCV 91.7 MCH 27.9 MCHC 30.4* RDWCV 13.1 PLT 146* MPV 13.1* NEUTP 70.4 LYMPHP 14.5 MONOP 11.8 BASOP 0.5 ABSNEUT 7.73* ABSMONO 1.30* ABSEOSIN 0.25 ABSBASO 0.06 GLUC 194* BUN 11 CREAT 0.83 NA 138 K 3.7 CHLOR 104 CO2 25 CA 8.3* APTT 58.4* Triglyceride 94 04/06/2021 HDL Cholesterol 53 04/06/2021 LDL Cholesterol 114 04/06/2021 Cholesterol, Total 186 04/06/2021 Most recent EKG, telemetry and imagine findings were reviewed. 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 No significant ventricular ectopy since getting started on amiodarone. EKG is on my personal review without [place] green and shows sinus rhythm with premature supraventricular contractions. Echo with the EF 75% with basal inferolateral and basal inferior segment hypokinesis, no prior studies to compare. PLAN: -IV heparin can be discontinued since completed 48 hours unless neurology wants to continue longer -Antiplatelet therapy with Aspirin versus Plavix versus DAPT as per neurology discretion -Continue Lipitor 40 mg daily -Please amiodarone to 200 mg twice daily due to sinus bradycardia -Continue metoprolol 25 mg twice daily -Family has declined any invasive ischemic work-up -Event monitor upon discharge to rule out si (more content not included)... Normal [facility] THERAPY NTon 04-09-2021 THERAPY NT HNO ID: [id number] Author: Mayra Wilkes, [facility] [employer] Service: Speech/Swallow Author Type: Speech Language Pathologist Type: Therapy (PT/OT/Speech/Resp) Filed: 04/09/2021 4:13 PM Note Text: Speech Therapy Treatment SERVICE DATE: 04/09/2021 SERVICE TIME: 1525 to 1535 ROOM: [place] [address] IMPRESSION: Swallow Deficits Identified / Suspected: Oropharyngeal dysphagia Diet Recommendations: Regular Consistency Thin Liquids IDDSI Level 0 Swallowing Precautions Recommendations: Alternate bites and sips Feed / Eat at a slow rate Sit upright 90 degrees for all PO Small Bite/Sip Supervision/Assistance for meals Nursing Recommendations: Reinforce use of swallowing strategies Recommended Discharge Disposition: Subacute/SNF Justification for Recommended Discharge Disposition: Patient requires daily, facility-based rehabilitation from at least one discipline due to:;aspiration risk requiring ongoing medical management;dysphagia requiring frequent assessment and diet modification Current Hospital Course: CT Brain 04-05-2021: no acute intracranial abnormality, XR Chest 04-05-2021. 04/08 MRI brain: 3 cm bland acute left PICA territory infarct. Reason for Hospital Admission: AMS, facial droop Rehabilitation Precautions: Dysphagia;Cognitive Linguistics Deficits;Communication Deficits Reason for Speech Therapy Consult: swallowing evaluation Relevant Past Medical History: Mixed Alzeimers Dementia, DM2, Anxiety Response to Therapy Interventions: Cognitive Deficits,Fatigue,Multi ple medical concerns Speech Therapy Problem List: Dysphagia Patient Report: No. Current Status Current Feeding Method: Oral Current Diet Textures: Regular Consistency,Thin Liquids IDDSI Level 0 Swallow Consistencies Presented: Thin Liquids IDDSI Level 0,Solid Compensatory Strategies Utilized During Assessment: Alternate bites and sips,Feed / Eat at a slow rate,Sit upright 90 degrees for all PO,Small Bite/Sip,Supervision/A ssistance for meals. Patient in bed upon arrival, alert and able to participate in therapy Able to self feed with tray set up Drank thin via cup and straw: no signs or symptoms of aspiration Completed 3 ounce water challenge: no dysphagia present Ate solid with effective mastication Recommend upgrade diet + safe swallow strategies Speech Therapy to follow to ensure consistency of safe swallow function Functional Communication Measure (FCM) Current FCM Level: Swallowing Level FCM Swallowing Level: 6 Patient /Caregiver Goals: Eat/Drink Without Restrictions Goals for Plan of Care: SWALLOWING: Patient / Caregiver will demonstrate knowledge of taught compensatory strategies and dietary consistency recommendations to optimize functional swallow function without overt clinical signs and symptoms of aspiration or dysphagia Swallow Goals: Patient will tolerate Minced and Moist IDDSI Level 5 diet consistency while utilizing compensatory/swallowin g strategies given moderate cues in 90% of trials so that the patient will minimize the signs/symptoms of dysphagia. - upgraded from level 5 to regular 04/09/2021 Patient will tolerate Thin Liquids IDDSI Level 0 consistency while utilizing compensatory/swallowin g strategies given moderate cues in 90% of trials so that the patient will minimize the signs/symptoms of dysphagia. - see above 04/09/2021 Patient will participate with swallow re-assessment to determine if food and drink texture can be safely upgraded vs need for instrumentation. - goal met 04/09/2021 ? Therapeutic Tasks: Lingual/Pharyngeal/Lar yngeal strengthening tasks to improve swallowing function ? Patient will participate in Speech-Language, Cognitive evaluation to further assess cognitive abilities to facilitate progress in therapy. Progress Toward Goals: Progressing as expected Speech Rehab Potential: Good Patient will be discontinued from speech therapy when no further skilled needs are identified in this setting. PLAN: ST Frequency: 2 times per week Treatment Interventions: Dysphagia Management Plan for next visit: Swallowing Strategies,Dysphagia Management Plan of Care Developed with: Patient;Caregiver Results and Recommendations Discussed With: Patient TREATMENT INTERVENTIONS: Therapy Diagnosis: Dysphagia following cerebral infarction Interventions Provided: Dysphagia Therapy (52400) $ Dysphagia Therapy (73764) Billed Units: 1 unit Training and education provided in: Swallowing Strategies,Dysphagia Management,Dietary Consistencies The following therapeutic skills were used:: Verbal cuing,Discharge planning,Education on role of discipline / importance of activity Skilled Treatment Time (minutes): 10 Home Environment Prior Functional Level: Required Assistance Patient Lives With: Family (daughter) Assistance Required With: Laundry;Finances;Meals ;Medication Management;Shopping;Se lf Care;Safety;Transporta tion Assistance Available: 24 H (more content not included)... Normal [facility] THERAPY NT HNO ID: [id number] Author: AWA Pascual/Sang Service: Occupational Therapy Author Type: Occupational Therapist Type: Therapy (PT/OT/Speech/Resp) Filed: 04/09/2021 3:51 PM Note Text: Occupational Therapy Evaluation SERVICE DATE: 04/09/2021 SERVICE TIME: 1409 to 1426 ROOM: [id number] Recommended Discharge Disposition: Home OT Recommended Discharge Disposition Comments: Pt will require 24 hour hands on assist for safety from family or GAME PROGRAMER. Pt may benefit from home OT to address strength/OOB ADL/activity tolerance deficits Anticipated Discharge Needs: Physical Assist at Home;Supervision at Home;Equipment Physical Assist at Home for: Transportation;Shoppin g;Self Care;Safety;Meals;Laun dry;Cleaning Supervision at Home due to: Impaired cognition;Decreased safety awareness OT 6 Clicks Score: 14 Assisted pt to sit on edge of bed to brush her teeth. Pt stands from edge of bed impulsively. Assisted to take sidesteps to head of bed with hand held assist and for a few minutes for pad change due to urinary incontinence. Provided fall guard assist while pt brushed her teeth and cues on sequencing. Assisted to return to bed, scoot to head of bed and change her gown due to wet with incontinence. Precautions/Activity Restrictions: Fall Risk;Bed/Chair Alarm Current Hospital Course: Presented with AMS, speech change, facial droop. CTA H/N showing left vertebral artery occlusion, MRI brain showing acute PICA infarct, with additional punctate infarcts at inferior cerebellar vermis and right cerebellum. +UTI, pt also had an NSTEMI and issues with Vtach during admission. Reason for Hospital Admission: AMS, facial droop Relevant Past Medical History: dementia, DM Response to Therapy Interventions: Good participation in activities,Low activity tolerance,Needs frequent redirection or re-instruction,Require s additional time to complete activities,Requires encouragement to complete activities Continue skilled needs due to: Safety concerns,Family training required,Functional impairment Occupational Therapy Problem List: Education Deficit;Safety Deficits;Impaired Self Care;Decreased Activity Tolerance;Decreased Strength;Functional Mobility Impairment;Balance Impaired;Cognitive Deficit Cognition/Communicatio n Deficits Communication Deficits: (limited verbalizations) Orientation Deficits: Not oriented to Time,Confused (baseline dementia) Responsiveness: Alert,Awake Follows Commands: 1-step Commands,Cueing Needed Cueing to Follow Commands: Minimum Attention Deficits: Divided Memory Deficits: Short Term,Nutritionalist Executive Function Deficits: Problem Solving,Insight to Deficits,Safety Awareness,Judgement Judgement Deficit: Moderate impairment Insight to Deficits: Moderate impairment Problem Solving Deficit: Moderate impairment Safety Awareness Deficit: Moderate impairment Treatment Interventions: Education;Self Care / Home Management;Functional Mobility Training Home Environment Patient Lives With: Family (daughter) Assistance Available: director multimedia (unsure if 24h, has GAME PROGRAMER 7d/wk, 6.5 h/d) Equipment Owned: Wheeled Walker;Cane;Shower Chair Prior Functional Level: Required Assistance Assistance Required With: Cleaning;Laundry;Meals ;Medication Management;Safety;Shop ping;Transportation;Se lf Care Prior Functional Level Comments: Pt limited and questionable historian, attempted to reach out to dtr via telephone call but no answer. Per chart pt has GAME PROGRAMER at home and was fairly independent. Pt denies use of assistive devices. Pt rpts that she toilets and walks by herself but is a poor historian. Patient Report: pt with flat affect, cooperative with eval CURRENT FUNCTIONAL STATUS: Most recent performance Current Activities of Daily Living Assist Level Additional Information Feeding Set Up Grooming Moderate Assistance Bathing Upper Body Moderate Assistance Bathing Lower Body Moderate Assistance Dressing Upper Body Minimal Assistance Dressing Lower Body Moderate Assistance Toileting Moderate Assistance Functional Mobility Assist Level Additional Information Rolling Supine to Sit Moderate Assistance Sit to Supine Minimal Assistance Scooting Sit to Stand Minimal Assistance Stand to Sit Minimal Assistance Bed to Chair Toilet/Commode Shower Functional Mobility Minimal Assistance;Additional Information Hand Held Assist sidesteps along EOB Blank zepeda indicate activity not attempted Hand Dominance: Left Range of Motion: WFL Strength: WFL (pt struggles following MMT commands) Coordination Deficits: (pt struggles following MMT commands) Balance: Dynamic Sitting;Static Standing;Static Sitting Static Sitting Balance: Good Patient able to maintain balance without handhold support, limited postural sway Dynamic Sitting Balance: Fair Patient accepts minimal challenge, able to maintain balance while turning head/trunk Static Standing Balance: Fair Patient able (more content not included)... Normal [facility] THERAPY NT HNO ID: [id number] Author: Ashok Jaquez, PT Service: Physical Therapy Author Type: Physical Therapist Type: Therapy (PT/OT/Speech/Resp) Filed: 04/09/2021 10:49 AM Note Text: Physical Therapy Evaluation SERVICE DATE: 04/09/2021 SERVICE TIME: 1008 to 1023 ROOM: [place] [address] Recommended Discharge Disposition: Subacute/SNF Recommended Discharge Disposition Comments: Pt having difficulty completing basic mobility and ambulating. If family elects to bring pt home would rec 24 hour hands on assist for mobility/ADLs Recommended Discharge Disposition Due to: Patient requires daily, facility-based rehabilitation from at least one discipline due to:;ADL impairment resulting in caregiver dependence;decline in functional status requiring daily skilled care;ongoing intervention of multiple therapy disciplines PT 6 Clicks Score: 15 Pt seen this morning, she had flat affect and responded in only 1-2 word answers most of the time. She required encouragement to attempt to mobilize, was able to stand with min A but when prompted for attempts to ambulate pt repeatedly states "no" and "I can't do it". Was not able to take any steps despite encouragement and facilitation from PT, then pt sits and lays back down on the bed and declines to continue or try again. Based on performance observed this session pt would qualify for SNF if aligns with pt/family wishes, however if they elect to return home anticipate pt will require increased assist with all basic mobility and daily activities. Attempted to reach out to pt's daughter via telephone with number listed in chart, however no answer. Precautions/Activity Restrictions: Fall Risk;Bed/Chair Alarm Current Hospital Course: Presented with AMS, speech change, facial droop. CTA H/N showing left vertebral artery occlusion, MRI brain showing acute PICA infarct, with additional punctate infarcts at inferior cerebellar vermis and right cerebellum. +UTI, pt also had an NSTEMI and issues with Vtach during admission. Reason for Hospital Admission: AMS, facial droop Relevant Past Medical History: dementia, DM Response to Therapy Interventions: Limited participation,Needs frequent redirection or re-instruction,Cogniti ve deficits Continue skilled needs due to: Functional mobility/skill impairments,Safety concerns Physical Therapy Problem List: Safety Deficits;Impaired Self Care;Decreased Activity Tolerance;Decreased Strength;Functional Mobility Impairment;Balance Impaired;Cognitive Deficit Treatment Interventions: Education;Strengthenin g;Balance Training;Functional Mobility Training;Neuromuscular Re-education;Cognitive Training Home Environment Patient Lives With: Family (daughter) Assistance Available: director multimedia (unsure if 24h, has GAME PROGRAMER 7d/wk, 6.5 h/d) Equipment Owned: Wheeled Walker;Cane;Shower Chair Prior Functional Level: Required Assistance Assistance Required With: Cleaning;Laundry;Meals ;Medication Management;Safety;Shop ping;Transportation;Se Care Prior Functional Level Comments: Pt limited and questionable historian, attempted to reach out to dtr via telephone call but no answer. Per chart pt has GAME PROGRAMER at home and was fairly independent. Pt denies use of assistive devices Patient Report: Pt very flat and answers in one or two words. When asking open ended questions pt pauses and states you tell me. CURRENT FUNCTIONAL STATUS: Most recent performance Current Functional Mobility Assist Level Additional Information Rolling Stand By Assistance Supine to Sit Minimal Assistance;Additional Information cues for sequence/technique; tries once, then rolls back over to supine; second trial provided increased tactile cueing and assist and was successful Sit to Supine Minimal Assistance;Additional Information pt lays down spontaneously after standing and ends up not positioned well in bed, feet hanging off; requires assist to clear legs fully into bed and position well Scooting Sit to Stand Minimal Assistance;Additional Information cued to scoot forward to edge, increased time to perform and unsteady with increased sway once up; attempted to engage in ambulation and pregait activities however pt states "no" repeatedly then sits and lays back down, and declines to continue/try again Stand to Sit Minimal Assistance Bed to Chair Toilet/Commode Gait (attempted, see above in sit to stand comments) Stairs Curb Step Car Transfer Blank zepeda indicate activity not attempted Range of Motion: WFL Strength: Strength Limitation Comments;Right LE Measurement;Left LE Measurement Strength Limitation Comments: assessment limited by command following Right Hip Flexion Strength: 3+/5 Right Hip Extension Strength: 4-/5 Right Knee Flexion Strength: 3+/5 Right Knee Extension Strength: 4-/5 Right Ankle Dorsiflexion Strength: 3+/5 Left Hip Flexion Strength: 4/5 Left Hip Extension Strength: 4+/5 Left Knee Flexion Strength: 4/5 (more content not included)... Normal [facility] aPTT PPPon 04-09-2021 aPTT Coag (PPP) [Time] 58.4 s High 23.0-32.4 [facility] Comment on above: Order Comment: Speci men Type: BLOOD SPECIMEN Performed By: #### 5 8410-2 #### [facility] CLIA [id number] [address] [place] [address] [place] Basic metabolic 2000 panelon 04-08-2021 Anion gap [Moles/Vol] 10 mmol/L Normal 9-18 [facility] Comment on above: Order Comment: Speci men Type: BLOOD SPECIMEN Performed By: #### 2 4321-2 ####[facility] [id number] [address] Calcium [Mass/Vol] 8.2 mg/dL Low 8.5-10.2 [facility] Comment on above: Order Comment: Speci men Type: BLOOD SPECIMEN Performed By: #### 2 4321-2 ####[facility] [id number] [address] Chloride [Moles/Vol] 106 mmol/L High 97-105 [facility] Comment on above: Order Comment: Speci men Type: BLOOD SPECIMEN Performed By: #### 2 4321-2 ####[facility] [id number] [address] CO2 [Moles/Vol] 24 mmol/L Normal 22-30 [facility] Comment on above: Order Comment: Speci men Type: BLOOD SPECIMEN Performed By: #### 2 4321-2 ####[facility] [id number] [address] Creatinine [Mass/Vol] 0.86 mg/dL Normal 0.58-0.96 [facility] Comment on above: Order Comment: Speci men Type: BLOOD SPECIMEN Performed By: #### 2 4321-2 ####[facility] [id number] [address] [place] GFR/1.73 sq M.predicted MDRD (S/P/Bld) [Vol rate/Area] mL/min/{1.73_m2} Normal [facility] Comment on above: Order Comment: Speci men Type: BLOOD SPECIMEN Result Comment: >60 eGFR (Estimated GFR) Units of measure: mL/min/1.73 meters squared eGFR is derived from the reexpressed MDRD Study equation using the following parameters: serum creatinine, age, gender and race. The creatinine assay has been calibrated to be traceable to IDMS. An eGFR <60 mL/min/1.73m2 for >3 months is consistent with chronic kidney disease. Refer to KDOQI guidelines for clinical interpretation. In patients with unstable renal function, e.g. those with acute kidney injury, the eGFR may not accurately reflect actual GFR. Performed By: #### 2 4321-2 ####[facility] [id number] [place] [address] [place] Glucose [Mass/Vol] 179 mg/dL High 74-99 [facility] Comment on above: Order Comment: Speci men Type: BLOOD SPECIMEN Result Comment: The [place] [employer] (ADA) provides guidance for cutoff values for fasting glucose and random glucose. The ADA defines fasting as no caloric intake for at least 8 hours. Fasting plasma glucose results between 100 to 125 mg/dL indicate increased risk for diabetes (prediabetes). Fasting plasma glucose results greater than or equal to 126 mg/dL meet the criteria for diagnosis of diabetes. In the absence of unequivocal hyperglycemia, results should be confirmed by repeat testing. In a patient with classic symptoms of hyperglycemia or hyperglycemic crisis, random plasma glucose results greater than or equal to 200 mg/dL meet the criteria for diagnosis of diabetes. Reference: Standards of Medical Care in Diabetes 2016, [place] [employer]. Diabetes Care. 2016.39(Suppl 1). Performed By: #### 2 4321-2 ####[facility] [id number] [address] [place] Potassium [Moles/Vol] 3.7 mmol/L Normal 3.7-5.1 [facility] Comment on above: Order Comment: Speci men Type: BLOOD SPECIMEN Performed By: #### 2 4321-2 ####[facility] [id number] [address] [place] Sodium [Moles/Vol] 140 mmol/L Normal 136-144 [facility] Comment on above: Order Comment: Speci men Type: BLOOD SPECIMEN Performed By: #### 2 4321-2 ####[facility] [id number] [place] [address] [place] Urea nitrogen [Mass/Vol] 10 mg/dL Normal 7-21 [facility] Comment on above: Order Comment: Speci men Type: BLOOD SPECIMEN Performed By: #### 2 4321-2 ####[facility] [id number] [address] CBC panel Auto (Bld)on 04-08 Erythrocyte distribution width (RBC) [Ratio] 13.3 % Normal 11.5-15.0 [facility] Comment on above: Order Comment: Speci men Type: BLOOD SPECIMEN Performed By: #### H STNT #### [facility] CLIA [id number] [address] Hematocrit (Bld) [Volume fraction] 37.6 % Normal 36.0-46.0 [facility] Comment on above: Order Comment: Speci men Type: BLOOD SPECIMEN Performed By: #### H STNT #### [facility] CLIA [id number] [address] Hemoglobin (Bld) [Mass/Vol] 11.1 g/dL Low 11.5-15.5 [facility] Comment on above: Order Comment: Speci men Type: BLOOD SPECIMEN Performed By: #### H STNT #### [facility] CLIA [id number] [address] MCH (RBC) [Entitic mass] 27.8 pg Normal 26.0-34.0 [facility] Comment on above: Order Comment: Speci men Type: BLOOD SPECIMEN Performed By: #### H STNT #### [facility] CLIA [id number] [address] MCHC (RBC) [Mass/Vol] 29.5 g/dL Low 30.5-36.0 [facility] Comment on above: Order Comment: Speci men Type: BLOOD SPECIMEN Performed By: #### H STNT #### [facility] CLIA [id number] [address] MCV (RBC) [Entitic vol] 94.2 fL Normal 80.0-100.0 [facility] Comment on above: Order Comment: Speci men Type: BLOOD SPECIMEN Performed By: #### H STNT #### [facility] CLIA [id number] [address] Nucleated RBC (Bld) [#/Vol] 10*3/uL Normal <0.01 [facility] Comment on above: Order Comment: Speci men Type: BLOOD SPECIMEN Performed By: #### H STNT #### [facility] CLIA [id number] [address] Platelet mean volume (Bld) [Entitic vol] 13.1 fL High 9.0-12.7 [facility] Comment on above: Order Comment: Speci men Type: BLOOD SPECIMEN Performed By: #### H STNT #### [facility] CLIA [id number] [address] Platelets (Bld) [#/Vol] 145 10*3/uL Low 150-400 [facility] Comment on above: Order Comment: Speci men Type: BLOOD SPECIMEN Performed By: #### H STNT #### [facility] CLIA [id number] [address] RBC (Bld) [#/Vol] 3.99 10*6/uL Normal 3.90-5.20 [facility] Comment on above: Order Comment: Speci men Type: BLOOD SPECIMEN Performed By: #### H STNT #### [facility] CLIA [id number] [address] WBC (Bld) [#/Vol] 11.40 10*3/uL High 3.70-11.00 [facility] Comment on above: Order Comment: Speci men Type: BLOOD SPECIMEN Performed By: #### H STNT #### [facility] CLIA [id number] [address] [place] 04-08-2021 NILDAN Telephone (HCSIND) AIMEE GROVE ([id number]) 1935 F Date Time Provider Department 04/08/21 JAMIE CHAVEZ During your visit today, we recorded the following information about you: Jamie Chavez LPN 04/08/2021 3:17 PM Signed 04/08/2021 Jamie Chavez LPN 3:14 PM Contacted Allen Li MD, MD office to inquire if physician will follow/sign for [facility] .Spoke with Archana ABRAHAM) who Provided verbal confirmation for the physician to follow. Allergies As of Date: 04/08/2021 Noted Allergy Reaction AZITHROMYCIN 01/08/2016 16 - Unknown PENICILLIN 01/08/2016 16 - Unknown SULFA (SULFONAMIDE ANTIBIOTICS) 01/08/2016 16 - Unknown Date Reviewed: 04/08/2021 Reviewed by: Donna Guerra RN - Fully Assessed Reason for Visit: Home Care Management [1305] Prescriptions as of 04/08/2021 - acetaminophen 650 mg CR tablet Take 650 mg by mouth. - ARIPiprazole (ABILIFY) 2 mg tablet Take 2 mg by mouth. - ergocalciferol 50,000 unit capsule (VITAMIN D2, DRISDOL) Take 50,000 Units by mouth. Thursday - fluticasone (FLONASE) 50 mcg/actuation nasal spray Use 1 [place] in the nose. - ibuprofen (MOTRIN) 800 mg tablet Take 1 tablet by mouth every 8 hours as needed. - QUEtiapine (SEROQUEL) 25 mg tablet Take 12.5 mg by mouth. - traZODone (DESYREL) 50 mg tablet Take 25 mg by mouth. 1/2 at bedtime - venlafaxine ER (EFFEXOR XR) 37.5 mg 24 hr capsule TAKE 1 CAPSULE BY MOUTH DAILY after supper - cholecalciferol, Vitamin D3, (VITAMIN D3) 1,250 mcg (50,000 unit) cap capsule Take 50,000 Units by mouth one time a week. - Alcohol Swabs padm - aspirin, enteric coated (ASPIRIN, ENTERIC COATED) 81 mg EC tablet - ONETOUCH ULTRA TEST test strip - citalopram hydrobromide (CELEXA) 10 mg tablet - donepezil (ARICEPT) 10 mg tablet Take by mouth daily at bedtime. - glipiZIDE (GLUCOTROL) 5 mg tablet - hydrocortisone 2.5 % cream - hydrocortisone 2.5 % ointment - ONE TOUCH DELICA 33 gauge misc - LORazepam (ATIVAN) 0.5 mg tab 0.5 mg. 1/2 at 5pm and 1/2 at bedtime - NAMENDA XR 28 mg CSpX - metFORMIN (GLUCOPHAGE) 1,000 mg tablet 1,000 mg twice daily with meals. - metoprolol tartrate, short acting, (LOPRESSOR) 50 mg tablet Take 50 mg by mouth twice daily. - QUEtiapine (SEROQUEL) 25 mg tablet - traZODone (DESYREL) 100 mg tablet 50 mg. 1/2 at bedtime - venlafaxine (EFFEXOR) 37.5 mg tablet - zolpidem (AMBIEN) 5 mg tablet - Ammonium,Pot.and Sodium Lactates (AMLACTIN) crea Apply to dry skin bilaterally 1-2 times daily Facility-Administered Medications as of 04/08/2021 - metoprolol tartrate (short acting) 25 mg tab(s) (LOPRESSOR) - sodium chloride 0.9 % (flush) 3-5 mL (BD POSIFLUSH) - lactated ringers iv infusion - aspirin 81 mg chewable tab(s) - atorvastatin 40 mg tab(s) (LIPITOR) - heparin iv infusion 25,000 units in NaCl 0.45% 250 mL STROKE NOMOGRAM - prochlorperazine 5 mg injection (COMPAZINE) - amiodarone 400 mg tab(s) (PACERONE) - NaCl 0.9% iv flush bag - acetaminophen 650 mg suppository (TYLENOL) - donepezil 10 mg tab(s) (ARICEPT) - traZODone 25 mg tab(s) (DESYREL) - venlafaxine ER 37.5 mg cap(s) (EFFEXOR XR) - sodium chloride 0.9 % (flush) 3-5 mL (BD POSIFLUSH) - dextrose 40 % 15 g - glucagon 1 mg injection - dextrose 50% in water 25 mL syringe - insulin lispro pen (rapid acting) (HumaLOG KWIKPEN) - insulin lispro pen (rapid acting) (HumaLOG KWIKPEN) - cefTRIAXone iv piggyback 1 g in dextrose (iso-osmotic) 50 mL (ROCEPHIN) Problem List As Of Date 04/08/2021 Noted Resolved Knee pain [M25.569] 07/11/2011 Hip pain [M25.559] 07/11/2011 Cerebral infarct (HCC) [I63.9] 04/05/2021 Encounter Status:Closed by JAMIE CHAVEZ on 04/08/21 Normal [facility] CONSULT PROGon 04-08-2021 CONSULT PROG HNO ID: [id number] Author: Eleni Palacios APRN.MALT SPECIFICATIONS CONTROL ASSISTANT Service: Neurology General Author Type: Nurse Practitioner Type: Consult Progress Note Filed: 04/08/2021 10:38 AM Note Text: NEURO STROKE PROGRESS NOTE SERVICE DATE: 04/08/2021 SERVICE TIME: 0900 Subjective INTERVAL HISTORY: Patient resting in bed, transferred to [facility] overnight. Denies any pain, HUTTON, numbness, tingling. States her legs feel weak. Discussed plan of care, answered questions. MEDICATIONS Current Facility-Administered Medications Medication Dose Route Frequency - NaCl 0.9% iv flush bag 20 mL INTRAVENOUS PRN - acetaminophen 650 mg suppository (TYLENOL) 650 mg RECTAL q 4 H PRN - donepezil 10 mg tab(s) (ARICEPT) 10 mg ORAL AT BEDTIME - traZODone 25 mg tab(s) (DESYREL) 25 mg ORAL AT BEDTIME - venlafaxine ER 37.5 mg cap(s) (EFFEXOR XR) 37.5 mg ORAL DAILY - sodium chloride 0.9 % (flush) 3-5 mL (BD POSIFLUSH) 3-5 mL INTRAVENOUS q 12 H - dextrose 40 % 15 g 15 g ORAL PRN Or - glucagon 1 mg injection 1 mg INTRAMUSCULAR PRN Or - dextrose 50% in water 25 mL syringe 12.5 g INTRAVENOUS PRN - insulin lispro pen (rapid acting) (HumaLOG KWIKPEN) SUBCUTANEOUS w MEALS - insulin lispro pen (rapid acting) (HumaLOG KWIKPEN) SUBCUTANEOUS AT BEDTIME - cefTRIAXone iv piggyback 1 g in dextrose (iso-osmotic) 50 mL (ROCEPHIN) 1 g INTRAVENOUS q 24 H - aspirin 81 mg chewable tab(s) 81 mg ORAL DAILY - atorvastatin 40 mg tab(s) (LIPITOR) 40 mg ORAL AT BEDTIME - heparin iv infusion 25,000 units in NaCl 0.45% 250 mL STROKE NOMOGRAM 0-3,000 Units/hr INTRAVENOUS CONTINUOUS - prochlorperazine 5 mg injection (COMPAZINE) 5 mg INTRAVENOUS q 6 H PRN - metoprolol tartrate (short acting) 12.5 mg tab(s) (LOPRESSOR) 12.5 mg ORAL q 12 H - amiodarone 400 mg tab(s) (PACERONE) 400 mg ORAL BID - sodium chloride 0.9 % (flush) 3-5 mL (BD POSIFLUSH) 3-5 mL INTRAVENOUS q 12 H - lactated ringers iv infusion 75 mL/hr INTRAVENOUS CONTINUOUS Objective PHYSICAL EXAM Vital Signs: BP 116/58 Pulse 64 Temp 36.8 ?C (98.2 ?F) (Oral) Resp 18 Ht 160 cm (5' 3") Wt 75.1 kg (165 lb 9.1 oz) SpO2 100% BMI 29.33 kg/m? GENERAL: Awake/easily arousable. HEENT: Normocephalic/atraumat ic, no lymphadenopathy, thyroid non-tender, without palpable masses/nodules or enlargement. RESPIRATORY: Normal respiratory effort. Clear to auscultation without rhonchi, rales, wheezing. CARDIOVASCULAR: RRR, normal S1, S2 auscultated, no murmur present. No lower extremity edema. GI: No hernia, masses, hepatosplenomegaly or lymphadenopathy. EXTREMITIES: No cyanosis, clubbing or edema. Pedal and radial pulses 2+ bilaterally. SKIN: Skin color, texture, turgor normal. No rashes or lesions. MUSCULOSKELETAL Spine range of motion normal. Muscular strength intact. Range of motion normal in hips, knees, shoulders, and spine. No joint swelling, deformity, or tenderness. NEUROLOGICAL: LOC: 0 - alert and responsive 0 LOC Questions: 0 - both correct 0 LOC Commands: 0 - both correct 0 Best Gaze: 0 - normal gaze 0 Visual: 0 - no visual loss 0 Facial Palsy: 0 - normal 0 Motor Left Arm: 0 - no drift 0 Motor Right Arm: 0 - no drift 0 Motor Left Le - some antigravity effort but cannot sustain 2 Motor Right Le - some antigravity effort but cannot sustain 2 Limb Ataxia: 0 - no ataxia (or aphasic, hemiplegic) 0 Sensory: 0 - normal 0 Best Language: 1 - mild-mod aphasia (comprehensible) 1 Dysarthria: 1 - mild-mod slurred 1 Extinction and Inattention: 0 - normal, none detected (or visual loss alone) 0 Daily NIHSS Score: 6 (04/08/21 0900 : Eleni Palacios APRN.CNP) 6 Awake, AANDOx3 Follows commands, face symmetric, PERRL [place] x4 Generalized weakness RUE and LUE 4/5 no drift RLE and LLE 3/5, some antigravity effort Sensation intact to light touch DATA: Diagnostic tests reviewed for today's visit: Lipids, HbA1c, Recent Labs 04/06/21 0233 CHOL 186 HDL 53 LDL 114* TG 94 HBA1C 7.4* Most recent labs and imaging results. MEDICAL EVENTS: No medical events have been recorded. STROKE 9 CARE AND PREVENTION CHECKLIST 1. Is the patient currently on an ANTITHROMBOTIC medication (Antiplatelet or Anticoagulant): Aspirin 2. Does the patient have known AFIB/FLUTTER: Unspecified atrial fibrillation Is the patient currently on anticoagulation: Yes 3. Is the patient on a STATIN: Atorvastatin 40 mg 4. Is the patient on VTE prophylaxis: Yes, therapeutic anticoagulation 5. GLYCEMIC Control Medications: BG needs further management 6. Stroke BP Goals: SBP 130-160 Stroke BP Control: BP well controlled 7. Stroke IVF/Nutrition: Diet 8. TEMPERATURE Control: Normothermic 9. Does the patient need THERAPY: Yes Therapy involvement: ST;OT;PT Stroke Care and Prevention (personally reviewed by Eleni Palacios APRN.CNP): Daily Rounding Date: 04/08/21 Daily Rounding Time: 1012 PROBLEM LIST: Active Problems: Cerebral infarct (HCC (more content not included)... Normal [facility] Urinalysis complete panel (U )on 04-08-2021 Bacteria LM.HPF (Urine sed) [#/Area] None Seen Normal None Seen [facility] Comment on above: Order Comment: Speci men Type: BLOOD SPECIMEN Performed By: #### 5 8410-2 #### [facility] CLIA [id number] [address] Bilirubin Ql (U) Negative Normal Negative [facility] Comment on above: Order Comment: Speci men Type: BLOOD SPECIMEN Performed By: #### 5 8410-2 #### [facility] CLIA [id number] [address] Clarity (Unsp spec) Clear Normal Clear [facility] Comment on above: Order Comment: Speci men Type: BLOOD SPECIMEN Performed By: #### 5 8410-2 #### [facility] CLIA [id number] [address] Color (U) Yellow Normal Yellow [facility] Comment on above: Order Comment: Speci men Type: BLOOD SPECIMEN Performed By: #### 5 8410-2 #### [facility] CLIA [id number] [address] Epithelial cells LM.HPF (Urine sed) [#/Area] 0.2 /[HPF] Normal [facility] Comment on above: Order Comment: Speci men Type: BLOOD SPECIMEN Performed By: #### 5 8410-2 #### [facility] CLIA [id number] [address] Glucose Test strip (U) [Mass/Vol] Negative Normal Negative [facility] Comment on above: Order Comment: Speci men Type: BLOOD SPECIMEN Performed By: #### 5 8410-2 #### [facility] CLIA [id number] [address] Hemoglobin Ql (U) Moderate Abnormal Negative [facility] Comment on above: Order Comment: Speci men Type: BLOOD SPECIMEN Performed By: #### 5 8410-2 #### [facility] CLIA [id number] [address] Hyaline casts (Urine sed) [#/Area] 0 /[LPF] Normal 0 /LPF [facility] Comment on above: Order Comment: Speci men Type: BLOOD SPECIMEN Performed By: #### 5 8410-2 #### [facility] CLIA [id number] [address] Ketones Ql (U) Negative Normal Negative [facility] Comment on above: Order Comment: Speci men Type: BLOOD SPECIMEN Performed By: #### 5 8410-2 #### [facility] CLIA [id number] [address] Leukocyte esterase Test strip Ql (U) Trace Abnormal Negative [facility] Comment on above: Order Comment: Speci men Type: BLOOD SPECIMEN Performed By: #### 5 8410-2 #### [facility] CLIA [id number] [address] Nitrite Ql (U) Negative Normal Negative [facility] Comment on above: Order Comment: Speci men Type: BLOOD SPECIMEN Performed By: #### 5 8410-2 #### [facility] CLIA [id number] [address] pH (U) 6.5 [pH] Normal 5.0-8.0 [facility] Comment on above: Order Comment: Speci men Type: BLOOD SPECIMEN Performed By: #### 5 8410-2 #### [facility] CLIA [id number] [address] Protein (U) [Mass/Vol] Negative Normal Negative [facility] Comment on above: Order Comment: Speci men Type: BLOOD SPECIMEN Performed By: #### 5 8410-2 #### [facility] CLIA [id number] [address] RBC LM.HPF (Urine sed) [#/Area] 0-3 /HPF Normal 0-3 /HPF [facility] Comment on above: Order Comment: Speci men Type: BLOOD SPECIMEN Performed By: #### 5 8410-2 #### [facility] CLIA [id number] [address] Specific gravity (U) [Rel density] 1.010 Normal 1.005-1.030 [facility] Comment on above: Order Comment: Speci men Type: BLOOD SPECIMEN Performed By: #### 5 8410-2 #### [facility] CLIA [id number] [address] Urobilinogen Ql (U) 0.2 EU/dL Normal 0.2-1.0 EU/dL [facility] Comment on above: Order Comment: Speci men Type: BLOOD SPECIMEN Performed By: #### 5 8410-2 #### [facility] CLIA [id number] [address] WBC LM.HPF (Urine sed) [#/Area] 0-5 /HPF Normal 0-5 /HPF [facility] Comment on above: Order Comment: Speci men Type: BLOOD SPECIMEN Performed By: #### 5 8410-2 #### [facility] CLIA [id number] [address] aPTT PPPon 04-08-2021 aPTT Coag (PPP) [Time] 53.8 s High 23.0-32.4 [facility] Comment on above: Order Comment: Speci men Type: BLOOD SPECIMEN Performed By: #### 1 4979-9 ####[facility] [id number] [address] aPTT Coag (PPP) [Time] 69.2 s High 23.0-32.4 [facility] Comment on above: Order Comment: Speci men Type: BLOOD SPECIMEN Performed By: #### 5 8410-2 #### [facility] CLIA [id number] [address] aPTT Coag (PPP) [Time] s High 23.0-32.4 [facility] Comment on above: Order Comment: Speci men Type: BLOOD SPECIMEN Performed By: #### 1 4979-9 ####[facility] [id number] [address] aPTT Coag (PPP) [Time] s High 23.0-32.4 [facility] Comment on above: Order Comment: Speci men Type: BLOOD SPECIMEN Performed By: #### H STNT #### [facility] CLIA [id number] [address] STATES OF [facility] ALLIED HEALTHon 04-07-2021 ALLIED HEALTH HNO ID: [id number] Author: RT Jacklyn(R) Service: Radiology Author Type: Technologist Type: Allied Health Filed: 04/07/2021 12:42 PM Note Text: Radiology Service Progress Note PATIENT NAME: Aimee Grove DATE OF SERVICE: April 07, 2021 TIME: 12:42 PM PATIENT IDENTITY VERIFICATION COMPLETED USING TWO (2) IDENTIFIERS: Name and Date of confirmed by identification band. FALL SCREENING: Has the patient had 2 falls in the last year or 1 fall with injury or currently using an Ambulatory Assistive Device (Walker, Cane, Wheelchair, Crutches, etc.)? Inpatient: Screened on floor PATIENT GENDER DATA: Female. status: : No status: NO. PATIENT RELEVANT IMPLANT DATA REVIEWED: Not Applicable RADIOLOGY DEPARTMENT: CT; Exam(s) Completed: Brain PERIPHERAL IV DATA: Not applicable SIGNED BY: RT Jacklyn(R) April 07, 2021 12:42 PM Normal [facility] Basic metabolic 2000 panelon 04-07-2021 Anion gap [Moles/Vol] 10 mmol/L Normal 9-18 [facility] Comment on above: Order Comment: Speci men Type: BLOOD SPECIMEN Performed By: #### 2 4321-2 ####[facility] [id number] [address] [place] Calcium [Mass/Vol] 6.9 mg/dL Low 8.5-10.2 [facility] Comment on above: Order Comment: Speci men Type: BLOOD SPECIMEN Performed By: #### 2 4321-2 ####[facility] [id number] [place] [address] [place] Chloride [Moles/Vol] 109 mmol/L High 97-105 [facility] Comment on above: Order Comment: Speci men Type: BLOOD SPECIMEN Performed By: #### 2 4321-2 ####[facility] [id number] [address] CO2 [Moles/Vol] 21 mmol/L Low 22-30 [facility] Comment on above: Order Comment: Speci men Type: BLOOD SPECIMEN Performed By: #### 2 4321-2 ####[facility] [id number] [address] [place] Creatinine [Mass/Vol] 0.85 mg/dL Normal 0.58-0.96 [facility] Comment on above: Order Comment: Speci men Type: BLOOD SPECIMEN Performed By: #### 2 4321-2 ####[facility] [id number] [address] GFR/1.73 sq M.predicted MDRD (S/P/Bld) [Vol rate/Area] mL/min/{1.73_m2} Normal [facility] Comment on above: Order Comment: Speci men Type: BLOOD SPECIMEN Result Comment: >60 eGFR (Estimated GFR) Units of measure: mL/min/1.73 meters squared eGFR is derived from the reexpressed MDRD Study equation using the following parameters: serum creatinine, age, gender and race. The creatinine assay has been calibrated to be traceable to IDMS. An eGFR <60 mL/min/1.73m2 for >3 months is consistent with chronic kidney disease. Refer to KDOQI guidelines for clinical interpretation. In patients with unstable renal function, e.g. those with acute kidney injury, the eGFR may not accurately reflect actual GFR. Performed By: #### 2 4321-2 ####[facility]IA [id number] [address] OF [facility] Glucose [Mass/Vol] 594 mg/dL High 74-99 [facility] Comment on above: Order Comment: Speci men Type: BLOOD SPECIMEN Result Comment: The [place] [employer] (ADA) provides guidance for cutoff values for fasting glucose and random glucose. The ADA defines fasting as no caloric intake for at least 8 hours. Fasting plasma glucose results between 100 to 125 mg/dL indicate increased risk for diabetes (prediabetes). Fasting plasma glucose results greater than or equal to 126 mg/dL meet the criteria for diagnosis of diabetes. In the absence of unequivocal hyperglycemia, results should be confirmed by repeat testing. In a patient with classic symptoms of hyperglycemia or hyperglycemic crisis, random plasma glucose results greater than or equal to 200 mg/dL meet the criteria for diagnosis of diabetes. Reference: Standards of Medical Care in Diabetes 2016, [place] [employer]. Diabetes Care. 2016.39(Suppl 1). Performed By: #### 2 4321-2 ####[facility] [id number] [address] Potassium [Moles/Vol] 3.4 mmol/L Low 3.7-5.1 [facility] Comment on above: Order Comment: Speci men Type: BLOOD SPECIMEN Performed By: #### 2 4321-2 ####[facility] [id number] [address] Sodium [Moles/Vol] 140 mmol/L Normal 136-144 [facility] Comment on above: Order Comment: Speci men Type: BLOOD SPECIMEN Performed By: #### 2 4321-2 ####[facility] [id number] [address] Urea nitrogen [Mass/Vol] 13 mg/dL Normal 7-21 [facility] Comment on above: Order Comment: Speci men Type: BLOOD SPECIMEN Performed By: #### 2 4321-2 ####[facility] [id number] [address] CBC panel Auto (Bld)on 04-07 Erythrocyte distribution width (RBC) [Ratio] 13.2 % Normal 11.5-15.0 [facility] Comment on above: Order Comment: Speci men Type: BLOOD SPECIMEN Performed By: #### 5 8410-2 ####[facility] [id number] [address] Hematocrit (Bld) [Volume fraction] 34.2 % Low 36.0-46.0 [facility] Comment on above: Order Comment: Speci men Type: BLOOD SPECIMEN Performed By: #### 5 8410-2 ####[facility] [id number] [address] Hemoglobin (Bld) [Mass/Vol] 10.3 g/dL Low 11.5-15.5 [facility] Comment on above: Order Comment: Speci men Type: BLOOD SPECIMEN Performed By: #### 5 8410-2 ####[facility] [id number] [address] MCH (RBC) [Entitic mass] 28.0 pg Normal 26.0-34.0 [facility] Comment on above: Order Comment: Speci men Type: BLOOD SPECIMEN Performed By: #### 5 8410-2 ####[facility] [id number] [address] MCHC (RBC) [Mass/Vol] 30.1 g/dL Low 30.5-36.0 [facility] Comment on above: Order Comment: Speci men Type: BLOOD SPECIMEN Performed By: #### 5 8410-2 ####[facility] [id number] [address] MCV (RBC) [Entitic vol] 92.9 fL Normal 80.0-100.0 [facility] Comment on above: Order Comment: Speci men Type: BLOOD SPECIMEN Performed By: #### 5 8410-2 ####[facility]IA [id number] [address] Nucleated RBC (Bld) [#/Vol] 10*3/uL Normal <0.01 [facility] Comment on above: Order Comment: Speci men Type: BLOOD SPECIMEN Performed By: #### 5 8410-2 ####[facility] [id number] [address] Platelet mean volume (Bld) [Entitic vol] 13.0 fL High 9.0-12.7 [facility] Comment on above: Order Comment: Speci men Type: BLOOD SPECIMEN Performed By: #### 5 8410-2 ####[facility] [id number] [address] Platelets (Bld) [#/Vol] 137 10*3/uL Low 150-400 [facility] Comment on above: Order Comment: Speci men Type: BLOOD SPECIMEN Performed By: #### 5 8410-2 ####[facility] [id number] [address] RBC (Bld) [#/Vol] 3.68 10*6/uL Low 3.90-5.20 [facility] Comment on above: Order Comment: Speci men Type: BLOOD SPECIMEN Performed By: #### 5 8410-2 ####[facility] [id number] [address] WBC (Bld) [#/Vol] 10.26 10*3/uL Normal 3.70-11.00 [facility] Comment on above: Order Comment: Speci men Type: BLOOD SPECIMEN Performed By: #### 5 8410-2 ####[facility] [id number] [address] BRAIN WO IVCONon 04-07-[address] BRAIN WO IVCON * * *Final Report* * * DATE OF EXAM: Apr 07 2021 12:40PM [facility] 0504 - CT BRAIN WO IVCON / PROCEDURE REASON: Stroke, follow up * * * * Physician Interpretation * * * * HISTORY: 85-year-old, follow-up CVA. TECHNIQUE: Contiguous 5 mm axial images through the brain are obtained without IV contrast administration. Comparison is made to a brain CT 04/05/2021 and an MRI 04/06/2021. CT Radiation dose: Integrated Dose-length product (DLP) for this visit = 1169 mGy*cm. CT Dose Reduction Employed: Iterative recon RESULT: Corresponding to the MRI abnormality, there is now noted a wedge-shaped hypodensity at the inferior and posterior left cerebellar hemisphere consistent with an infarct. There is no mass effect. There is no acute intracranial hemorrhage. No midline shift nor extra-axial fluid collections are seen. There is no hydrocephalus. There is central and cortical atrophy The visualized paranasal sinuses and mastoid air cells are well aerated. The bony structures and soft tissues are intact. IMPRESSION: Left cerebellar infarct. There is no hemorrhage nor mass effect. Inspector Penetrant: PSCB Transcribe Date/Time: Apr 07 2021 12:45P Dictated by : NICK TAYLOR MD This examination was interpreted and the report reviewed and electronically signed by: NICK TAYOLR MD on Apr 07 2021 12:48PM EST [id number] Normal [facility] HIGH SENSITIVITY TROPONIN To n 04-07-2021 HIGH SENSITIVITY MORELIA 123 ng/L High <12 [facility] Comment on above: Order Comment: Speci men Type: BLOOD SPECIMEN Result Comment: When assessing risk for acute coronary syndromes: In patients undergoing blood draw greater than or equal to 2 hours from symptom onset, with history of very low to moderate risk and non-ischemic ECG, an initial hs-Troponin T less than 12 ng/L AND a 1 hour delta hs-Troponin T less than 3 ng/L should be considered very low risk for 30 day MACE. Performed By: #### H STNT ####[facility]ORY[facility]IA [id number] [place] [address] [place] NURSING PROGon 04-07-2021 NURSING PROG HNO ID: [id number] Author: Mi Warren RN Service: Nursing Author Type: Registered Nurse Type: Nursing Progress Note Filed: 04/07/2021 8:12 PM Note Text: Pt + incontinence of stool and bladder. Pt provided vanessa care and new pads placed. + mepilex still in place on coccyx and clean. Normal [facility] NURSING PROG HNO ID: [id number] Author: Hortensia Flores RN Service: ? Author Type: Registered Nurse Type: Nursing Progress Note Filed: 04/07/2021 7:16 PM Note Text: Nursing Progress Note Patient Name: Aimee Grove Patient Location: [facility]-00 06-11 __ Daily Note: 1520 Informed the CVICU Resident I was able to place a 22 g IV in pt's ankle and was unable to draw labs from it. The resident from earlier was unable to get labs or a line. Informed that the heparin drip was still running with an over due APTT lab. No new orders at this time. 162 Dr Sami Barrera at the bedside with ultrasound machine for IV and Lab draw access. 1649 Dr. Sami Barrera left bedside no labs or iv access at this time. No new orders at this time. Plan of care is to attempt again with a different physician. [address] Hernandez pt's amiodarone has completed. We need labs drawn for Heparin drip protocol along with other stat labs. Dr. Hernandez stated he will be down to attempt access for pt and Lab draws. 1904 Report given to Mi RUSSELL. 1909 Dr. Hernandez at the bedside attempting for IV access and lab draws. This note was completed by: Hortensia Flores Normal [facility] NURSING PROG HNO ID: [id number] Author: Rosalia Mcdaniels, RN Service: Nursing Author Type: Registered Nurse Type: Nursing Progress Note Filed: 04/07/2021 12:33 AM Note Text: At 9 pm pt pulled IV out attempted x2 each by two different nurses including myself to get blood and start IV . Dr Pierre stated IV in Right foot 1st attempt but unable to PTT Labs supervisor last model department Sierra was able to get lab but lab stated it was hemolyzed Normal [facility] aPTT PPPon 04-07-2021 aPTT Coag (PPP) [Time] 72.9 s High 23.0-32.4 [facility] Comment on above: Order Comment: Speci men Type: BLOOD SPECIMEN Performed By: #### 1 4979-9 ####[facility] [id number] [address] [place] aPTT Coag (PPP) [Time] 64.7 s High 23.0-32.4 [facility] Comment on above: Order Comment: Speci men Type: BLOOD SPECIMEN Performed By: #### 5 8410-2 #### [facility] CLIA [id number] [address] ALLIED HEALTHon 04-06-2021 ALLIED HEALTH HNO ID: [id number] Author: RT Gus(R) Service: ? Author Type: Technologist Type: Allied Health Filed: 04/06/2021 5:04 PM Note Text: Radiology Service Progress Note PATIENT NAME: Aimee Grove DATE OF SERVICE: April 06, 2021 TIME: 4:53 PM PATIENT IDENTITY VERIFICATION COMPLETED USING TWO (2) IDENTIFIERS: Name and Date of confirmed by identification band and Name and Date of obtained from a relative, guardian or prior caregiver.. FALL SCREENING: Has the patient had 2 falls in the last year or 1 fall with injury or currently using an Ambulatory Assistive Device (Walker, Cane, Wheelchair, Crutches, etc.)? Inpatient: Screened on floor PATIENT GENDER DATA: Female. status: : No status: NO. PATIENT RELEVANT IMPLANT DATA REVIEWED: Yes RADIOLOGY DEPARTMENT: MR; Exam(s) Completed: Head: Routine Brain PERIPHERAL IV DATA: Inpatient: see LDA documentation SIGNED BY: RT Gus(R) April 06, 2021 4:53 PM Normal [facility] ALLIED HEALTH HNO ID: [id number] Author: Chaplain Cheyanne Morales Service: Spiritual Care Author Type: Student Type: Allied Health Filed: 04/06/2021 4:02 PM Note Text: SPIRITUAL CARE PROGRESS NOTE SERVICE DATE: 04/06/2021 SERVICE TIME: 3:30pm When I checked on this P, she was not in her room on the 8th floor but I found her in PACU when I was checking on another patient. I spoke with her daughter and said a silent prayer for both of them To contact the Spiritual Care Department: Please call [phone]. SIGNATURE: Chaplain Andrew Student PATIENT NAME: Aimee Grove DATE: April 06, 2021 TIME: 4:00 PM PAGER/CONTACT #: [phone] Normal [facility] Basic metabolic 2000 panelon 04-06-2021 Anion gap [Moles/Vol] 16 mmol/L Normal 9-18 [facility] Comment on above: Order Comment: Speci men Type: BLOOD SPECIMEN Performed By: #### 2 4321-2, ####[facility] [id number] [place] [address] [place] Calcium [Mass/Vol] 9.3 mg/dL Normal 8.5-10.2 [facility] Comment on above: Order Comment: Speci men Type: BLOOD SPECIMEN Performed By: #### 2 1-2, ####[facility] [id number] [address] [place] Chloride [Moles/Vol] 102 mmol/L Normal 97-105 [facility] Comment on above: Order Comment: Speci men Type: BLOOD SPECIMEN Performed By: #### 2 1-2, ####[facility] [id number] [place] [address] [place] CO2 [Moles/Vol] 23 mmol/L Normal 22-30 [facility] Comment on above: Order Comment: Speci men Type: BLOOD SPECIMEN Performed By: #### 2 4321-2, ####[facility] [id number] [place] [address] [place] Creatinine [Mass/Vol] 0.89 mg/dL Normal 0.58-0.96 [facility] Comment on above: Order Comment: Speci men Type: BLOOD SPECIMEN Performed By: #### 2 4321-2, ####[facility] [id number] [place] [address] [place] GFR/1.73 sq M.predicted MDRD (S/P/Bld) [Vol rate/Area] mL/min/{1.73_m2} Normal [facility] Comment on above: Order Comment: Speci men Type: BLOOD SPECIMEN Result Comment: 60 eGFR (Estimated GFR) Units of measure: mL/min/1.73 meters squared eGFR is derived from the reexpressed MDRD Study equation using the following parameters: serum creatinine, age, gender and race. The creatinine assay has been calibrated to be traceable to IDMS. An eGFR <60 mL/min/1.73m2 for >3 months is consistent with chronic kidney disease. Refer to KDOQI guidelines for clinical interpretation. In patients with unstable renal function, e.g. those with acute kidney injury, the eGFR may not accurately reflect actual GFR. Performed By: #### 2 ####[facility]ORY[facility] [id number] [place] [address] [place] Glucose [Mass/Vol] 194 mg/dL High 74-99 [facility] Comment on above: Order Comment: Speci [facility] Type: BLOOD SPECIMEN Result Comment: The [place] [employer] (ADA) provides guidance for cutoff values for fasting glucose and random glucose. The ADA defines fasting as no caloric intake for at least 8 hours. Fasting plasma glucose results between 100 to 125 mg/dL indicate increased risk for diabetes (prediabetes). Fasting plasma glucose results greater than or equal to 126 mg/dL meet the criteria for diagnosis of diabetes. In the absence of unequivocal hyperglycemia, results should be confirmed by repeat testing. In a patient with classic symptoms of hyperglycemia or hyperglycemic crisis, random plasma glucose results greater than or equal to 200 mg/dL meet the criteria for diagnosis of diabetes. Reference: Standards of Medical Care in Diabetes 2016, [place] [employer]. Diabetes Care. 2016.39(Suppl 1). Performed By: #### 2 ####[facility] [id number] [place] [address] [place] Potassium [Moles/Vol] 4.0 mmol/L Normal 3.7-5.1 [facility] Comment on above: Order Comment: [facility] Type: BLOOD SPECIMEN Performed By: #### 2 432 ####[facility]ORYCLIA [id number] [place] [address] [place] Sodium [Moles/Vol] 141 mmol/L Normal 136-144 [facility] Comment on above: Order Comment: Speci men Type: BLOOD SPECIMEN Performed By: #### 2 4321-2, ####[facility] [id number] [place], [place] [address] [place] [address] [place] Urea nitrogen [Mass/Vol] 25 mg/dL High 7-21 [facility] Comment on above: Order Comment: Speci men Type: BLOOD SPECIMEN Performed By: #### 2 4321-2, ####[facility]IA [id number] [place], [place] [address] [place] [address] [place] Anion gap [Moles/Vol] 13 mmol/L Normal 9-18 [facility] Comment on above: Order Comment: Speci men Type: BLOOD SPECIMEN Performed By: #### 2 4321-2, LIPB, ####[facility] [id number] [address] [place] Calcium [Mass/Vol] 9.3 mg/dL Normal 8.5-10.2 [facility] Comment on above: Order Comment: Speci men Type: BLOOD SPECIMEN Performed By: #### 2 4321-2, LIPValentina, ####[facility]ORYCLIA [id number] [place] [address] [place] Chloride [Moles/Vol] 102 mmol/L Normal 97-105 [facility] Comment on above: Order Comment: Speci men Type: BLOOD SPECIMEN Performed By: #### 2 4321-2, LIPB, ####[facility]ORYCLIA [id number] [place] [address] [place] CO2 [Moles/Vol] 25 mmol/L Normal 22-30 [facility] Comment on above: Order Comment: Speci men Type: BLOOD SPECIMEN Performed By: #### 2 4321-2, LIPB, ####[facility]CLIA [id number] [place] [address] [place] Creatinine [Mass/Vol] 0.88 mg/dL Normal 0.58-0.96 [facility] Comment on above: Order Comment: Speci men Type: BLOOD SPECIMEN Performed By: #### 2 4321-2, DEWEY, 23829-6 ####[facility]ORYCLIA [id number] [place] [address] [place] GFR/1.73 sq M.predicted MDRD (S/P/Bld) [Vol rate/Area] mL/min/{1.73_m2} Normal [facility] Comment on above: Order Comment: Speci men Type: BLOOD SPECIMEN Result Comment: >60 eGFR (Estimated GFR) Units of measure: mL/min/1.73 meters squared eGFR is derived from the reexpressed MDRD Study equation using the following parameters: serum creatinine, age, gender and race. The creatinine assay has been calibrated to be traceable to IDMS. An eGFR <60 mL/min/1.73m2 for >3 months is consistent with chronic kidney disease. Refer to KDOQI guidelines for clinical interpretation. In patients with unstable renal function, e.g. those with acute kidney injury, the eGFR may not accurately reflect actual GFR. Performed By: #### 2 4321-2, DEWEY, 76339-7 ####[facility] [id number] [place] [address] [place] Glucose [Mass/Vol] 228 mg/dL High 74-99 [facility] Comment on above: Order Comment: Speci [facility] Type: BLOOD SPECIMEN Result Comment: The [place] [employer] (ADA) provides guidance for cutoff values for fasting glucose and random glucose. The ADA defines fasting as no caloric intake for at least 8 hours. Fasting plasma glucose results between 100 to 125 mg/dL indicate increased risk for diabetes (prediabetes). Fasting plasma glucose results greater than or equal to 126 mg/dL meet the criteria for diagnosis of diabetes. In the absence of unequivocal hyperglycemia, results should be confirmed by repeat testing. In a patient with classic symptoms of hyperglycemia or hyperglycemic crisis, random plasma glucose results greater than or equal to 200 mg/dL meet the criteria for diagnosis of diabetes. Reference: Standards of Medical Care in Diabetes 2016, [place] [employer]. Diabetes Care. 2016.39(Suppl 1). Performed By: #### 2 4321-2, LIPB, ####[facility]ORYCLIA [id number] [address] Potassium [Moles/Vol] 4.4 mmol/L Normal 3.7-5.1 [facility] Comment on above: Order Comment: Speci men Type: BLOOD SPECIMEN Performed By: #### 2 4321-2, LIPB, ####[facility]ORYCLIA [id number] [address] Sodium [Moles/Vol] 140 mmol/L Normal 136-144 [facility] Comment on above: Order Comment: Speci men Type: BLOOD SPECIMEN Performed By: #### 2 4321-2, LIPB, ####[facility]CLIA [id number] [address] [address] [facility] Urea nitrogen [Mass/Vol] 24 mg/dL High 7-21 [facility] Comment on above: Order Comment: Speci men Type: BLOOD SPECIMEN Performed By: #### 2 4321-2, LIPB, ####[facility] [id number] [address] CBC panel Auto (Bld)on 04-06 Erythrocyte distribution width (RBC) [Ratio] 13.1 % Normal 11.5-15.0 [facility] Comment on above: Order Comment: Speci men Type: BLOOD SPECIMEN Performed By: #### 5 8410-2 ####[facility] [id number] [address] Hematocrit (Bld) [Volume fraction] 40.5 % Normal 36.0-46.0 [facility] Comment on above: Order Comment: Speci men Type: BLOOD SPECIMEN Performed By: #### 5 8410-2 ####[facility] [id number] [address] Hemoglobin (Bld) [Mass/Vol] 13.1 g/dL Normal 11.5-15.5 [facility] Comment on above: Order Comment: Speci men Type: BLOOD SPECIMEN Performed By: #### 5 8410-2 ####[facility]ORY[facility] [id number] [address] MCH (RBC) [Entitic mass] 28.5 pg Normal 26.0-34.0 [facility] Comment on above: Order Comment: Speci men Type: BLOOD SPECIMEN Performed By: #### 5 8410-2 ####[facility]ORYCLIA [id number] [address] MCHC (RBC) [Mass/Vol] 32.3 g/dL Normal 30.5-36.0 [facility] Comment on above: Order Comment: Speci men Type: BLOOD SPECIMEN Performed By: #### 5 8410-2 ####[facility]ORYCLIA [id number] [address] MCV (RBC) [Entitic vol] 88.0 fL Normal 80.0-100.0 [facility] Comment on above: Order Comment: Speci men Type: BLOOD SPECIMEN Performed By: #### 5 8410-2 ####[facility]ORY[facility]IA [id number] [address] Nucleated RBC (Bld) [#/Vol] 10*3/uL Normal <0.01 [facility] Comment on above: Order Comment: Speci men Type: BLOOD SPECIMEN Performed By: #### 5 8410-2 ####[facility]ORY[facility]IA [id number] [address] Platelet mean volume (Bld) [Entitic vol] 13.1 fL High 9.0-12.7 [facility] Comment on above: Order Comment: Speci men Type: BLOOD SPECIMEN Performed By: #### 5 8410-2 ####[facility]ORYCLIA [id number] [address] Platelets (Bld) [#/Vol] 187 10*3/uL Normal 150-400 [facility] Comment on above: Order Comment: Speci men Type: BLOOD SPECIMEN Performed By: #### 5 8410-2 ####[facility]ORYCLIA [id number] [address] RBC (Bld) [#/Vol] 4.60 10*6/uL Normal 3.90-5.20 [facility] Comment on above: Order Comment: Speci men Type: BLOOD SPECIMEN Performed By: #### 5 8410-2 ####[facility]ORYCLIA [id number] [address] WBC (Bld) [#/Vol] 12.17 10*3/uL High 3.70-11.00 [facility] Comment on above: Order Comment: Speci men Type: BLOOD SPECIMEN Performed By: #### 5 8410-2 ####[facility]ORYCLIA [id number] [address] CONSULTon 04-06-2021 CONSULT HNO ID: [id number] Author: Maximo Tadeo MD Service: Cardiovascular Medicine Author Type: Physician Type: Consults Filed: 04/06/2021 11:38 AM Note Text: [facility] CVICU HANDP NOTE Service Date: 04/06/2021 Service Time: 9:04 AM HPI: This is an 85 year old female with a history of Alzheimer's dementia and DM who was brought in by her daughter due to altered mental status as well as a left sided facial droop. 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 Initial EKG on admission concerning for ST elevations in the inferior leads with Q waves which may be a completed infarction. Cardiology called to bedside due to multiple episodes of non sustained VTach overnight. Patient is a very poor historian. In terms of cardiac workup, she has no significant cardiac history. Prior EKG on 02/01/21 showed sinus tachycardia with PACs and a prior anteroseptal infarct. Risk factors include Type 2 DM. No prior CVA, CT or other cardiac event that I could find per chart review. On assessment, patient is pleasant, appeared comfortable and chest pain free. Denied palpitations, SOB, lightheadedness or dizziness. HS troponins came back 198. K and Mg normal. Repeat EKG done and showed sinus rhythm with less profound ST elevations and insignificant Q waves. Telemetry: Sinus rhythm with multiple PVCs Inpatient Medications: Current Facility-Administered Medications Medication Dose Route Frequency - iv contrast (radiology procedure) INTRAVENOUS DIRECTED PRN - iv contrast (radiology procedure) INTRAVENOUS DIRECTED PRN - NaCl 0.9% iv flush bag 20 mL INTRAVENOUS PRN - acetaminophen 650 mg suppository (TYLENOL) 650 mg RECTAL q 4 H PRN - QUEtiapine 12.5 mg tab(s) (SEROquel) 12.5 mg ORAL AT BEDTIME - ARIPiprazole 2 mg tablet (ABILIFY) 2 mg ORAL DAILY - donepezil 10 mg tab(s) (ARICEPT) 10 mg ORAL AT BEDTIME - citalopram hydrobromide 10 mg tablet (CeleXA) 10 mg ORAL DAILY - traZODone 25 mg tab(s) (DESYREL) 25 mg ORAL AT BEDTIME - venlafaxine ER 37.5 mg cap(s) (EFFEXOR XR) 37.5 mg ORAL DAILY - enoxaparin 40 mg injection (LOVENOX) 40 mg SUBCUTANEOUS q 24 HR - sodium chloride 0.9 % (flush) 3-5 mL (BD POSIFLUSH) 3-5 mL INTRAVENOUS q 12 H - ondansetron (PF) 4 mg injection (ZOFRAN) 4 mg INTRAVENOUS q 6 H PRN - dextrose 40 % 15 g 15 g ORAL PRN Or - glucagon 1 mg injection 1 mg INTRAMUSCULAR PRN Or - dextrose 50% in water 25 mL syringe 12.5 g INTRAVENOUS PRN - sodium chloride 0.9 % (flush) 2-10 mL (BD POSIFLUSH) 2-10 mL INTRAVENOUS DIRECTED PRN And - perflutren lipid microspheres 1.1 mg/mL 1.3 mL injection (DEFINITY) 1.3 mL INTRAVENOUS DIRECTED PRN - insulin lispro pen (rapid acting) (HumaLOG KWIKPEN) SUBCUTANEOUS w MEALS - insulin lispro pen (rapid acting) (HumaLOG KWIKPEN) SUBCUTANEOUS AT BEDTIME - dextrose 5% in NaCl 0.9% iv infusion 75 mL/hr INTRAVENOUS CONTINUOUS - cefTRIAXone iv piggyback 1 g in dextrose (iso-osmotic) 50 mL (ROCEPHIN) 1 g INTRAVENOUS q 24 H - aspirin 300 mg suppository 300 mg RECTAL DAILY - [START ON 04/07/2021] aspirin 81 mg chewable tab(s) 81 mg ORAL DAILY - atorvastatin 40 mg tab(s) (LIPITOR) 40 mg ORAL AT BEDTIME Home Medications: acetaminophen 650 mg CR tablet, Take 650 mg by mouth. ARIPiprazole (ABILIFY) 2 mg tablet, Take 2 mg by mouth. ergocalciferol 50,000 unit capsule (VITAMIN D2, DRISDOL), Take 50,000 Units by mouth. Thursday ibuprofen (MOTRIN) 800 mg tablet, Take 1 tablet by mouth every 8 hours as needed. QUEtiapine (SEROQUEL) 25 mg tablet, Take 12.5 mg by mouth. traZODone (DESYREL) 50 mg tablet, Take 25 mg by mouth. 1/2 at bedtime venlafaxine ER (EFFEXOR XR) 37.5 mg 24 hr capsule, TAKE 1 CAPSULE BY MOUTH DAILY after supper cholecalciferol, Vitamin D3, (VITAMIN D3) 1,250 mcg (50,000 unit) cap capsule, Take 50,000 Units by mouth one time a week. donepezil (ARICEPT) 10 mg tablet, Take by mouth daily at bedtime. LORazepam (ATIVAN) 0.5 mg tab, 0.5 mg. 1/2 at 5pm and 1/2 at bedtime metFORMIN (GLUCOPHAGE) 1,000 mg tablet, 1,000 mg twice daily with meals. fluticasone (FLONASE) 50 mcg/actuation nasal spray, Use 1 [place] in the nose. Alcohol Swabs padm, aspirin, enteric coated (ASPIRIN, ENTERIC COATED) 81 mg EC tablet, ONETOUCH ULTRA TEST test strip, citalopram hydrobromide (CELEXA) 10 mg tablet, glipiZIDE (GLUCOTROL) 5 mg tablet, hydrocortisone 2.5 % cream, hydrocortisone 2.5 % ointment, ONE TOUCH DELICA 33 gauge misc, NAMENDA XR 28 mg CSpX, metoprolol tartrate, short acting, (LOPRESSOR) 50 mg tablet, Take 50 mg by mouth twice daily. QUEtiapine (SEROQUEL) 25 mg tablet, traZODone (DESYREL) 100 mg tablet, 50 mg. 1/2 at bedtime venlafaxine (EFFEXOR) 37.5 mg tablet, zolpidem (AMBIEN) 5 mg tablet, Ammonium,Pot.and Sodium Lactates (AMLACTIN) crea, Apply to dry skin bilaterally 1-2 times daily Physical Exam: 04/06/21 0228 04/06/21 0327 04/06/21 0600 04/06/21 0729 (more content not included)... Normal [facility] HGB A1Con 04-06-2021 Average glucose Estimated from glycated hemoglobin (Bld) [Mass/Vol] 166 mg/dL Normal [facility] Comment on above: Order Comment: Speci men Type: BLOOD SPECIMEN Result Comment: eAG: (Estimated average glucose) is a calculated value from HgbA1c and is promotions representative of the average blood glucose level in the last 2-3 month period. Performed By: #### H BA1C ####[facility]ATORYCLIA [id number] [address] STATES [facility] HbA1c (Bld) [Mass fraction] 7.4 % High 4.3-5.6 [facility] Comment on above: Order Comment: Speci men Type: BLOOD SPECIMEN Result Comment: Amer ican Diabetes Association guidelines indicate that patients with HgbA1c in the range 5.7-6.4% are at increased risk for development of diabetes, and intervention by lifestyle modification may be beneficial. HgbA1c greater or equal to 6.5% is considered diagnostic of diabetes. Performed By: #### H BA1C ####[facility]ORYCLIA [id number] [address] HIGH SENSITIVITY TROPONIN To n 04-06-2021 HIGH SENSITIVITY [place] 178 ng/L High <12 [facility] Comment on above: Order Comment: Speci men Type: BLOOD SPECIMEN Result Comment: When assessing risk for acute coronary syndromes: In patients undergoing blood draw greater than or equal to 2 hours from symptom onset, with history of very low to moderate risk and non-ischemic ECG, an initial hs-Troponin T less than 12 ng/L AND a 1 hour delta hs-Troponin T less than 3 ng/L should be considered very low risk for 30 day MACE. Performed By: #### H STNT #### [facility] CLIA [id number] [address] HIGH SENSITIVITY [place] 159 ng/L High <12 [facility] Comment on above: Order Comment: Speci men Type: BLOOD SPECIMEN Result Comment: When assessing risk for acute coronary syndromes: In patients undergoing blood draw greater than or equal to 2 hours from symptom onset, with history of very low to moderate risk and non-ischemic ECG, an initial hs-Troponin T less than 12 ng/L AND a 1 hour delta hs-Troponin T less than 3 ng/L should be considered very low risk for 30 day MACE. Performed By: #### H STNT #### [facility] CLIA [id number] [address] HIGH SENSITIVITY [place] 198 ng/L High <12 [facility] Comment on above: Order Comment: Speci men Type: BLOOD SPECIMEN Result Comment: When assessing risk for acute coronary syndromes: In patients undergoing blood draw greater than or equal to 2 hours from symptom onset, with history of very low to moderate risk and non-ischemic ECG, an initial hs-Troponin T less than 12 ng/L AND a 1 hour delta hs-Troponin T less than 3 ng/L should be considered very low risk for 30 day MACE. Performed By: #### H STNT ####[facility]ATORYCLIA [id number] [address] OF [facility] LIPID PANEL BASICon 04-06-20 21 Cholesterol [Mass/Vol] 186 mg/dL Normal <200 [facility] Comment on above: Order Comment: Speci men Type: BLOOD SPECIMEN Result Comment: <200 mg/dL, Desirable 200-239 mg/dL, Borderline high >239 mg/dL, High Performed By: #### 2 4321-2, LIPB, 60308-3 ####[facility]ORYCLIA [id number] [address] Cholesterol in HDL [Mass/Vol] 53 mg/dL Normal >39 [facility] Comment on above: Order Comment: Speci men Type: BLOOD SPECIMEN Result Comment: 40-5 9 mg/dL, Acceptable >59 mg/dL, High: Negative risk factor for coronary heart disease <40 mg/dL, Low: Positive risk factor for coronary heart disease Performed By: #### 2 432-2, DEWEY, ####[facility]ORYCLIA [id number] [place], [place] [id number] [place] [address] Cholesterol in LDL [Mass/Vol] 114 mg/dL High <100 [facility] Comment on above: Order Comment: Speci men Type: BLOOD SPECIMEN Result Comment: <100 mg/dL, Optimal 100-129 mg/dL, Near optimal/above optimal 130-159 mg/dL, Borderline high 160-189 mg/dL, High >189 mg/dL, Very high Secondary prevention optimal LDL Cholesterol levels are recommended to be < 70 mg/dL Performed By: #### 2 4320-2, DEWEY, ####[facility]ORYCLIA [id number] [address] Cholesterol in LDL/Cholesterol in HDL [Mass ratio] 2.15 {ratio} Normal <2.54 [facility] Comment on above: Order Comment: Speci men Type: BLOOD SPECIMEN Result Comment: Refe rence: 1. National Cholesterol Education Program ATP III Guideline At-A-Glance Quick Desk Reference: National Heart, Lung, and Blood [place]. National Institutes of Health. 2001: NIH Publication No. 01-3305. 2. An International Atherosclerosis Society position paper: global recommendations for the management of dyslipidemia: executive summary, Atherosclerosis. 2014: 232(2):410-413. Performed By: #### 2 432-2, DEWEY, ####[facility]ORYCLIA [id number] [place] [id number] [facility] Cholesterol in VLDL [Mass/Vol] 19 mg/dL Normal <30 [facility] Comment on above: Order Comment: Speci men Type: BLOOD SPECIMEN Performed By: #### 2 4321-2, LIPValentina, ####[facility]ORYCLIA [id number] [address] [place] Cholesterol non HDL [Mass/Vol] 133 mg/dL High <130 [facility] Comment on above: Order Comment: Speci men Type: BLOOD SPECIMEN Result Comment: <130 mg/dL, Optimal 130-159 mg/dL, Near optimal/above optimal 160-189 mg/dL, Borderline high 190-219 mg/dL, High >219 mg/dL, Very high Secondary prevention optimal non HDL Cholesterol levels are recommended to be <100 mg/dL Performed By: #### 2 4321-2, LIPB, ####[facility]ORYCLIA [id number] [address] Cholesterol.total/ Cholesterol in HDL [Mass ratio] 3.51 {ratio} Normal <5.10 [facility] Comment on above: Order Comment: Speci men Type: BLOOD SPECIMEN Performed By: #### 2 4321-2, LIPB, ####[facility] [id number] [address] FASTING TIME 8 hours Normal [facility] Comment on above: Order Comment: Speci men Type: BLOOD SPECIMEN Performed By: #### 2 4321-2, LIPB, ####[facility]CLIA [id number] [address] Triglyceride [Mass/Vol] 94 mg/dL Normal <150 [facility] Comment on above: Order Comment: Speci men Type: BLOOD SPECIMEN Result Comment: <150 mg/dL, Normal 150-199 mg/dL, Borderline high 200-499 mg/dL, High >499 mg/dL, Very high Performed By: #### 2 4321-2, LIPB, ####[facility]ATORYCLIA [id number] [address] MRI BRAIN WO IVCONon 021 MRI BRAIN WO IVCON * * *Final Report* * * DATE OF EXAM: Apr 06 2021 5:31PM [facility] 0294 - MRI BRAIN WO IVCON / PROCEDURE REASON: Stroke, follow up * * * * Physician Interpretation * * * * EXAMINATION: MRI BRAIN WO IVCON CLINICAL HISTORY: Altered level of consciousness. Left vertebral artery occlusion. TECHNIQUE: Routine noncontrast MRI protocol including diffusion images. MQ: [id number] COMPARISON: Noncontrast CT brain from 04/05/2001 RESULT: Acute Change: There is a 2.5 x 3 cm area of restricted diffusion in the dorsal left cerebellum. There are scattered punctate foci restricted diffusion in the inferior cerebellar vermis and inferior right cerebellum compatible with small additional infarcts. There is corresponding hyperintensity and T2 and FLAIR. Also noted is increased signal on T2 and FLAIR in the left half of the medulla (series 6 image 6 and series 7 image 6 suspicious for a left pontine infarct of indeterminate age. Hemorrhage: No evidence of prior parenchymal hemorrhage on the gradient echo images. Mass Lesion/ Mass Effect: No evidence of an intracranial mass or extra-axial fluid collection. No significant mass effect. Chronic Change: Scattered punctate foci of increased T2 and FLAIR signal are noted in the supratentorial white matter which is a nonspecific finding, but likely represents minimal chronic microvascular ischemia. Parenchyma: No significant volume loss for age. The brain parenchyma is otherwise within normal limits of signal intensity and morphology. Ventricles: Ventriculomegaly corresponds to the degree of parenchymal volume loss. Skull Base: Hypothalamic and pituitary region are grossly normal. Craniocervical junction is normal. No significant marrow replacement process. Vasculature: There is loss of flow-void in the left intracranial vertebral artery which corresponds with the known occlusion from the CTA from earlier today (series 7 image 4). Other: The visualized paranasal sinuses and mastoid air cells are clear. Postop changes of bilateral cataract surgery. The orbits and extracranial soft tissues are unremarkable. 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 Additional punctate bland acute infarcts in the inferior cerebellar vermis and inferior right cerebellar hemisphere. Although there are no diffusion abnormalities there is increased signal on T2 and FLAIR throughout the left half of the medulla compatible with an infarct of indeterminate age (acute-chronic). No abnormal susceptibility artifact. Remainder the brain is within normal limits for age. Inspector Penetrant: PSCB Transcribe Date/Time: Apr 06 2021 6:17P Dictated by : ERICK GROVE MD This examination was interpreted and the report reviewed and electronically signed by: ERICK GROVE MD on Apr 06 2021 6:22PM EST [id number] Normal [facility] Magnesium SerPl-mCncon 04-06 Magnesium [Mass/Vol] 2.0 mg/dL Normal 1.7-2.3 [facility] Comment on above: Order Comment: Speci men Type: BLOOD SPECIMEN Performed By: #### 2 4321-2, ####[facility]ORYCLIA [id number] [place] [address] [facility] Magnesium [Mass/Vol] 1.4 mg/dL Low 1.7-2.3 [facility] Comment on above: Order Comment: Speci men Type: BLOOD SPECIMEN Performed By: #### 2 4321-2, LIPB, ####[facility]ATORYCLIA [id number] [address] NURSING PROGon 04-06-2021 NURSING PROG HNO ID: [id number] Author: Pearl Raymond RN Service: ? Author Type: Registered Nurse Type: Nursing Progress Note Filed: 04/06/2021 10:31 AM Note Text: Pt arrives to PACU-3 in v-tach. Pt on heparin gtt, able to tell me her name and day / month but not year. Pt does not appear to be in any distress at this time and denies pain. Report from YVONNE Palomo received. Normal [facility] NURSING PROG HNO ID: [id number] Author: Ekta Plaza RN Service: ? Author Type: Registered Nurse Type: Nursing Progress Note Filed: 04/06/2021 6:51 PM Note Text: 745 Patient in non-sustained vtach. Paged Dr. Melvin, and Cardiology. Patient denies any chest pain, or discomfort. Alert and oriented to person. Normal [facility] NURSING PROG HNO ID: [id number] Author: Afshan Velasquez RN Service: Nursing Author Type: Registered Nurse Type: Nursing Progress Note Filed: 04/06/2021 7:31 AM Note Text: Nursing Progress Note Patient Name: Aimee Grove Patient Location: [id number]/[id number] Patient's non-sustain V-tach on telemetry on and off. Paged Dr. Pendleton. Vital signs within normal limits. No complaint of chest pain or shortness of breath a this time. Received an order to draw BMP, Mag and STAT EKG at this time. Will continue to monitor. Patient Magnesium 1.4. Notified Dr. Pendleton. Received an order for magnesium 2 G IV replacement. Started medication administration at this time. Will continue to monitor. @0500- Paged Dr. Garcia. No new orders at this time. Will continue to monitor. This note was completed by: Afshan Quiñones [facility] THERAPY NTon 04-06-2021 THERAPY NT HNO ID: [id number] Author: Ailyn Ziegler [facility] Service: Speech/Swallow Author Type: Speech Language Pathologist Type: Therapy (PT/OT/Speech/Resp) Filed: 04/06/2021 9:04 AM Note Text: Speech Therapy Clinical Swallow Evaluation SERVICE DATE: 04/06/2021 SERVICE TIME: 0830 to 0848 ROOM: [place] [address] IMPRESSION: Swallow Deficits Identified / Suspected: Oral dysphagia Diet Recommendations: Minced and Moist IDDSI Level 5 Thin Liquids IDDSI Level 0 Medications whole in puree (pudding/applesauce) Swallowing Precautions Recommendations: Alert (patient should be fully alert for P.O. intake) Extended time between presentations Feed / Eat at a slow rate Sit upright 90 degrees for all PO Small Bite/Sip Supervision/Assistance for meals Nursing Recommendations: See swallow guide posted in patients room Recommended Discharge Disposition: Continued Skilled Speech Therapy Current Hospital Course: CT Brain 04-05-2021: no acute intracranial abnormality, XR Chest 04-05-2021 Reason for Hospital Admission: AMS Rehabilitation Precautions: Dysphagia;Modified Diet;Cognitive Linguistics Deficits;Communication Deficits Reason for Speech Therapy Consult: swallowing evaluation Relevant Past Medical History: Mixed Alzeimers Dementia, DM2, Anxiety Response to Therapy Interventions: Cognitive Deficits,Confusion interferes with education Continue skilled [employer] services due to : Dysphagia Speech Therapy Problem List: Dysphagia Patient Report: States her name Current Status Oral Hygiene: Clear, moist oral cavity Dentition: Retains Natural Dentition,Miscellaneou s Missing Teeth Current Feeding Method: Oral Current Diet Textures: NPO Current Level Of Communication: Verbal Current Management Of Secretions: Able to expectorate adequately Oral Motor Exam: Within Functional Limits Except Labial Assessment: Generalized weakness Lingual Assessment: Generalized weakness Palatal Elevation: Within Functional Limits Oral Health Assessment Tool (OHAT) for Non-Dental Professionals Initial Assessment Category 0 = healthy 1 = changes 2 = unhealthy Score Lips Smooth, pink, moist Dry, chapped, or red at corners Swelling or lump, white/red/ulcerated patch; bleeding/ulcerated at corners 0 Tongue Normal, moist, pink Patchy, fissured, red, coated Patch that is red and/or white, ulcerated, swollen 0 Gums and Tissues Mc[place], moist, Smooth, no bleeding Dry, shiny, rough, red, swollen around 1 to 6 teeth, one ulcer or sore spot under denture Swollen, bleeding around 7 teeth or more, loose teeth, ulcers and/or white patches, generalized redness and/or tenderness 0 Saliva Moist tissues, watery and free flowing saliva Dry, sticky tissues, little saliva present, resident thinks they have dry mouth Tissues parched and red, very little or no saliva present; saliva is thick, ropey, resident complains of dry mouth 0 Natural Teeth No decayed or broken teeth/roots 1 to 3 decayed or broken teeth/roots 4 or more decayed or broken teeth/roots, or very worn down teeth, or less than 4 teeth with no denture 1 Denture(s) No broken areas/teeth, dentures worn regularly, name is on 1 broken area/tooth, or dentures only worn for 1-2h daily, or no name on denture(s) More than 1 broken area/tooth, denture missing or not worn due to poor fit, or worn only with denture adhesive na Oral Cleanliness Clean and no food particles or tartar on teeth or dentures Food particles/tartar/debri s in 1 or 2 areas of the mouth or on small areas of dentures; occasional bad breath Food particles, tartar, debris in most areas of the mouth or on most areas of denture(s), or severe halitosis (bad breath) 1 Dental Pain No behavioral, verbal or physical signs of pain Verbal and/or behavioral signs or pain such as pulling of face, chewing lips, not eating, aggression Physical signs such as swelling or cheek or gum, broken teeth, ulcers, 'gum boil', as well as verbal and or behavioral signs 0 Total score: 2 Alivia Collado., King PMartell., Kathryn Obrien., Geoff Ambrosio, AND Liz Soto (2005). The oral health assessment tool--validity and reliability. [place] dental journey, 50(3), 191-199. Swallow Position Of Patient During Assessment: Upright In Bed Consistencies Presented: Thin Liquids IDDSI Level 0,Pureed IDDSI Level 4,Solid Response to Consistencies Presented: mildly increased mastication time Compensatory Strategies Utilized During Assessment: Alert (patient should be fully alert for P.O. intake),Feed / Eat at a slow rate,Extended time between presentations,Small Bite/Sip,Sit upright 90 degrees for all PO,Voice checks Clinical Swallow Oral Pharyngeal Swallow Assessment: Within Functional Limits Except Preparatory / Oral Phase: Within Functional Limits Except Mastication: Suspect impairment Bolus Manipulation: Suspect impairment A-P Transit: Suspect impairment Pharyngeal Phase: Within Functional Limits Suspected Esophageal (more content not included)... Normal [facility] aPTT PPPon 04-06-2021 aPTT Coag (PPP) [Time] 40.7 s High 23.0-32.4 [facility] Comment on above: Order Comment: Speci men Type: BLOOD SPECIMEN Performed By: #### 1 4979-9 ####[facility] [id number] [address] OF [facility] ALLIED HEALTHon 04-05-2021 ALLIED HEALTH HNO ID: [id number] Author: RT Ros(R) Service: Radiology Author Type: Technologist Type: Allied Health Filed: 04/05/2021 12:05 PM Note Text: Radiology Service Progress Note PATIENT NAME: Aimee Grove DATE OF SERVICE: April 05, 2021 TIME: 12:05 PM PATIENT IDENTITY VERIFICATION COMPLETED USING TWO (2) IDENTIFIERS: Name and Date of confirmed by identification band and Name and Date of obtained from a relative, guardian or prior caregiver.. FALL SCREENING: Has the patient had 2 falls in the last year or 1 fall with injury or currently using an Ambulatory Assistive Device (Walker, Cane, Wheelchair, Crutches, etc.)? Emergency Room Patient: Screened in ED PATIENT GENDER DATA: Female. status: : No status: NO. PATIENT RELEVANT IMPLANT DATA REVIEWED: Not Applicable RADIOLOGY DEPARTMENT: General X-ray: Exam(s) Completed: Chest X-Ray PERIPHERAL IV DATA: Not applicable SIGNED BY: RT Ros(R) April 05, 2021 12:05 PM Normal [facility] APAP SerPl-mCncon 04-05-2021 Acetaminophen [Mass/Vol] ug/mL Low 10-30 [facility] Comment on above: Order Comment: Speci men Type: BLOOD SPECIMEN Result Comment: Toxi c > 150 ug/mL 4 hours post ingestion The Jose Carlos Vázquez nomogram can be used to estimate the probability of hepatotoxicity via the relationship of plasma acetaminophen concentration to the post ingestion interval. ([place]. Pediatrics. 1975. 55:871 to 876 and Jose Carlos et al. Arch Special Collections Librarian Med. 1981. 141:380 to 385). Reference ranges and high/low indicator flags are provided as general guidelines only. The treating physician must determine appropriate target levels/dosing based on the specific clinical situation. Performed By: #### 5 8410-2 #### [facility] CLIA [id number] [address] [place] Ammonia Plas-sCncon 04-05-20 Ammonia (P) [Moles/Vol] 21 umol/L Normal 11-51 [facility] Comment on above: Order Comment: Speci men Type: BLOOD SPECIMEN Performed By: #### 5 8410-2 #### [facility] CLIA [id number] [address] STATES OF [facility] Bacteria Ur Culton Bacteria identified Cx Nom (U) CULTURE, URINE: >=100,000 CFU/mL Three or more organisms, no one type predominant, suggesting contamination during collection. Recollect if clinically indicated. Abnormal [facility] Comment on above: Performed By: #### 6 30-4 ####[facility] [id number] [address] [place] Basic metabolic 2000 panelon 04-05-2021 Anion gap [Moles/Vol] 15 mmol/L Normal 9-18 [facility] Comment on above: Order Comment: Speci men Type: BLOOD SPECIMEN Performed By: #### 5 8410-2 #### [facility] CLIA [id number] [address] Calcium [Mass/Vol] 9.6 mg/dL Normal 8.5-10.2 [facility] Comment on above: Order Comment: Speci men Type: BLOOD SPECIMEN Performed By: #### 5 8410-2 #### [facility] CLIA [id number] [address] [place] Chloride [Moles/Vol] 100 mmol/L Normal 97-105 [facility] Comment on above: Order Comment: Speci men Type: BLOOD SPECIMEN Performed By: #### 5 8410-2 #### [facility] CLIA [id number] [address] CO2 [Moles/Vol] 25 mmol/L Normal 22-30 [facility] Comment on above: Order Comment: Speci men Type: BLOOD SPECIMEN Performed By: #### 5 8410-2 #### [facility] CLIA [id number] [address] OF [facility] Creatinine [Mass/Vol] 0.92 mg/dL Normal 0.58-0.96 [facility] Comment on above: Order Comment: Speci men Type: BLOOD SPECIMEN Performed By: #### 5 8410-2 #### [facility] CLIA [id number] [address] [place] GFR/1.73 sq M.predicted MDRD (S/P/Bld) [Vol rate/Area] mL/min/{1.73_m2} Normal [facility] Comment on above: Order Comment: Speci men Type: BLOOD SPECIMEN Result Comment: 58 eGFR (Estimated GFR) Units of measure: mL/min/1.73 meters squared eGFR is derived from the reexpressed MDRD Study equation using the following parameters: serum creatinine, age, gender and race. The creatinine assay has been calibrated to be traceable to IDMS. An eGFR <60 mL/min/1.73m2 for >3 months is consistent with chronic kidney disease. Refer to KDOQI guidelines for clinical interpretation. In patients with unstable renal function, e.g. those with acute kidney injury, the eGFR may not accurately reflect actual GFR. Performed By: #### 5 8410-2 #### [facility] CLIA [id number] [address] [place] Glucose [Mass/Vol] 265 mg/dL High 74-99 [facility] Comment on above: Order Comment: Speci men Type: BLOOD SPECIMEN Result Comment: The [place] Diabetes [employer] (ADA) provides guidance for cutoff values for fasting glucose and random glucose. The ADA defines fasting as no caloric intake for at least 8 hours. Fasting plasma glucose results between 100 to 125 mg/dL indicate increased risk for diabetes (prediabetes). Fasting plasma glucose results greater than or equal to 126 mg/dL meet the criteria for diagnosis of diabetes. In the absence of unequivocal hyperglycemia, results should be confirmed by repeat testing. In a patient with classic symptoms of hyperglycemia or hyperglycemic crisis, random plasma glucose results greater than or equal to 200 mg/dL meet the criteria for diagnosis of diabetes. Reference: Standards of Medical Care in Diabetes 2016, [place] [employer]. Diabetes Care. 2016.39(Suppl 1). Performed By: #### 5 8410-2 #### [facility] CLIA [id number] [address] [place] Potassium [Moles/Vol] 4.0 mmol/L Normal 3.7-5.1 [facility] Comment on above: Order Comment: Speci men Type: BLOOD SPECIMEN Performed By: #### 5 8410-2 #### [facility] CLIA [id number] [address] [place] Sodium [Moles/Vol] 140 mmol/L Normal 136-144 [facility] Comment on above: Order Comment: Speci men Type: BLOOD SPECIMEN Performed By: #### 5 8410-2 #### [facility] CLIA [id number] [address] [place] Urea nitrogen [Mass/Vol] 26 mg/dL High 7-21 [facility] Comment on above: Order Comment: Speci men Type: BLOOD SPECIMEN Performed By: #### 5 8410-2 #### [facility] CLIA [id number] [address] CBC W Auto Differential pane l (Bld)on 04-05-2021 Basophils (Bld) [#/Vol] 0.08 10*3/uL Normal <0.11 [facility] Comment on above: Order Comment: Speci men Type: BLOOD SPECIMEN Performed By: #### 5 7021-8 ####[facility] [id number] [address] Basophils/100 WBC (Bld) 0.7 % Normal [facility] Comment on above: Order Comment: Speci men Type: BLOOD SPECIMEN Performed By: #### 5 7021-8 ####[facility] [id number] [address] Differential cell count method Nom (Bld) Auto Normal [facility] Comment on above: Order Comment: Speci men Type: BLOOD SPECIMEN Performed By: #### 5 7021-8 ####[facility] [id number] [address] [place] [facility] Eosinophils (Bld) [#/Vol] 0.42 10*3/uL Normal <0.46 [facility] Comment on above: Order Comment: Speci men Type: BLOOD SPECIMEN Performed By: #### 5 7021-8 ####[facility] [id number] [address] Eosinophils/100 WBC (Bld) 3.4 % Normal [facility] Comment on above: Order Comment: Speci men Type: BLOOD SPECIMEN Performed By: #### 5 7021-8 ####[facility]IA [id number] [address] Erythrocyte distribution width (RBC) [Ratio] 13.0 % Normal 11.5-15.0 [facility] Comment on above: Order Comment: Speci men Type: BLOOD SPECIMEN Performed By: #### 5 7021-8 ####[facility] [id number] [address] Hematocrit (Bld) [Volume fraction] 44.6 % Normal 36.0-46.0 [facility] Comment on above: Order Comment: Speci men Type: BLOOD SPECIMEN Performed By: #### 5 7021-8 ####[facility]ORYCLIA [id number] [address] Hemoglobin (Bld) [Mass/Vol] 13.6 g/dL Normal 11.5-15.5 [facility] Comment on above: Order Comment: Speci men Type: BLOOD SPECIMEN Performed By: #### 5 7021-8 ####[facility]ORYCLIA [id number] [address] IMMATURE GRAN % 0.8 % Normal [facility] Comment on above: Order Comment: Speci men Type: BLOOD SPECIMEN Performed By: #### 5 7021-8 ####[facility]ORYCLIA [id number] [address] IMMATURE GRAN ABS 0.10 k/uL High <0.10 [facility] Comment on above: Order Comment: Speci men Type: BLOOD SPECIMEN Performed By: #### 5 7021-8 ####[facility]ORYCLIA [id number] [address] Lymphocytes (Bld) [#/Vol] 2.02 10*3/uL Normal 1.00-4.00 [facility] Comment on above: Order Comment: Speci men Type: BLOOD SPECIMEN Performed By: #### 5 7021-8 ####[facility]ORYCLIA [id number] [address] Lymphocytes/100 WBC (Bld) 16.6 % Normal [facility] Comment on above: Order Comment: Speci men Type: BLOOD SPECIMEN Performed By: #### 5 7021-8 ####[facility]ORYCLIA [id number] [address] MCH (RBC) [Entitic mass] 28.3 pg Normal 26.0-34.0 [facility] Comment on above: Order Comment: Speci men Type: BLOOD SPECIMEN Performed By: #### 5 7021-8 ####[facility]ORYCLIA [id number] [address] MCHC (RBC) [Mass/Vol] 30.5 g/dL Normal 30.5-36.0 [facility] Comment on above: Order Comment: Speci men Type: BLOOD SPECIMEN Performed By: #### 5 7021-8 ####[facility]ORYCLIA [id number] [address] MCV (RBC) [Entitic vol] 92.9 fL Normal 80.0-100.0 [facility] Comment on above: Order Comment: Speci men Type: BLOOD SPECIMEN Performed By: #### 5 7021-8 ####[facility]ORYCLIA [id number] [address] Monocytes (Bld) [#/Vol] 1.23 10*3/uL High <0.87 [facility] Comment on above: Order Comment: Speci men Type: BLOOD SPECIMEN Performed By: #### 5 7021-8 ####[facility]ORYCLIA [id number] [address] Monocytes/100 WBC (Bld) 10.1 % Normal [facility] Comment on above: Order Comment: Speci men Type: BLOOD SPECIMEN Performed By: #### 5 7021-8 ####[facility] [id number] [address] Neutrophils (Bld) [#/Vol] 8.35 10*3/uL High 1.45-7.50 [facility] Comment on above: Order Comment: Speci men Type: BLOOD SPECIMEN Performed By: #### 5 7021-8 ####[facility]IA [id number] [address] Neutrophils/100 WBC (Bld) 68.4 % Normal [facility] Comment on above: Order Comment: Speci men Type: BLOOD SPECIMEN Performed By: #### 5 7021-8 ####[facility]ORYCLIA [id number] [address] Nucleated RBC (Bld) [#/Vol] 10*3/uL Normal <0.01 [facility] Comment on above: Order Comment: Speci men Type: BLOOD SPECIMEN Performed By: #### 5 7021-8 ####[facility]IA [id number] [address] Nucleated RBC/100 WBC (Bld) [Ratio] 0.0 /100 WBC Normal 0.0 [facility] Comment on above: Order Comment: Speci men Type: BLOOD SPECIMEN Performed By: #### 5 7021-8 ####[facility]ORYCLIA [id number] [address] Platelet mean volume (Bld) [Entitic vol] 13.2 fL High 9.0-12.7 [facility] Comment on above: Order Comment: Speci men Type: BLOOD SPECIMEN Performed By: #### 5 7021-8 ####[facility]ORYCLIA [id number] [address] Platelets (Bld) [#/Vol] 184 10*3/uL Normal 150-400 [facility] Comment on above: Order Comment: Speci men Type: BLOOD SPECIMEN Performed By: #### 5 7021-8 ####[facility] [id number] [address] RBC (Bld) [#/Vol] 4.80 10*6/uL Normal 3.90-5.20 [facility] Comment on above: Order Comment: Speci men Type: BLOOD SPECIMEN Performed By: #### 5 7021-8 ####[facility] [id number] [address] WBC (Bld) [#/Vol] 12.20 10*3/uL High 3.70-11.00 [facility] Comment on above: Order Comment: Speci men Type: BLOOD SPECIMEN Performed By: #### 5 7021-8 ####[facility]ORYCLIA [id number] [place] [address] [place] CONSULTon 04-05-2021 CONSULT HNO ID: [id number] Author: Juli Valentino MD Service: Neurology General Author Type: Physician Type: Consults Filed: 04/05/2021 3:11 PM Note Text: NEURO STROKE INITIAL CONSULT SERVICE DATE: 04/05/2021 SERVICE TIME: 1030 REQUESTING PHYSICIAN: Dr Medina PCP: Allen Li MD, MD REASON FOR STROKE EVALUATION: L vert occlusion Subjective HPI: 85 year old female with hx of dementia (?AD), living at home with daughter, who was brought in by EMS after she was found to have altered mental status per daughter. Patient LKW last night ~ 10 p.m. this a.m, daughter noted her to be not communicating normally, felt she was staring into space with eyes wide open, slow to respond overall. There were no focal symptoms however. Daughter is concerned that patient has been falling recently. She was brought to the ER via EMS where a stroke team was activated due to her symptoms. 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 She was not a candidate for IVT d/t being outside time window, and not a candidate for endovascular therapy since there was no intracranial vascular occlusion and good flow into basilar artery. Decision made that patient would be appropriate for routine stroke admission. Of note, her EKG in ER demonstrated new onset atrial fibrillation. 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) PAST SURGICAL HISTORY Procedure Laterality Date - BACK SURGERY HX - KNEE SURGERY HX Bilateral - REDUCTION OF LARGE BREAST Social History Tobacco Use - Smoking status: Never Smoker - Smokeless tobacco: Never Used Vaping Use - Vaping Use: Unknown Substance Use Topics - Alcohol use: No - Drug use: No FAMILY HISTORY Problem Relation Age of Onset - None Other ALLERGIES Allergen Reactions - Azithromycin Unknown - Penicillin Unknown - Sulfa (Sulfonamide * Unknown MEDICATION Pre-admission (Not in a hospital admission) Current Alcohol Swabs padm aspirin, enteric coated (ASPIRIN, ENTERIC COATED) 81 mg EC tablet ProFounderTOUCH ULTRA TEST test strip citalopram hydrobromide (CELEXA) 10 mg tablet donepezil (ARICEPT) 10 mg tablet glipiZIDE (GLUCOTROL) 5 mg tablet hydrocortisone 2.5 % cream hydrocortisone 2.5 % ointment ONE TOUCH DELICA 33 gauge misc LORazepam (ATIVAN) 0.5 mg tab NAMENDA XR 28 mg CSpX metFORMIN (GLUCOPHAGE) 1,000 mg tablet metoprolol tartrate, short acting, (LOPRESSOR) 50 mg tablet QUEtiapine (SEROQUEL) 25 mg tablet traZODone (DESYREL) 100 mg tablet venlafaxine (EFFEXOR) 37.5 mg tablet zolpidem (AMBIEN) 5 mg tablet Ammonium,Pot.and Sodium Lactates (AMLACTIN) crea Apply to dry skin bilaterally 1-2 times daily REVIEW OF SYSTEMS Unable to obtain Objective PHYSICAL EXAM Vital Signs: BP (!) 160/136 Pulse 61 Temp 37.2 ?C (98.9 ?F) (Axillary) Resp 14 Ht 154.9 cm (5' 1") Wt 74.8 kg (165 lb) SpO2 97% BMI 31.18 kg/m? NEUROLOGICAL: LOC: 0 - alert and responsive 0 LOC Questions: 2 - none correct 2 LOC Commands: 1 - one correct 1 Best Gaze: 0 - normal gaze 0 Visual: 0 - no visual loss 0 Facial Palsy: 0 - normal 0 Motor Left Arm: 0 - no drift 0 Motor Right Arm: 0 - no drift 0 Motor Left Le - some antigravity effort but cannot sustain 2 Motor Right Le - some antigravity effort but cannot sustain 2 Limb Ataxia: 0 - no ataxia (or aphasic, hemiplegic) 0 Sensory: 0 - normal 0 Best Language: 2 - severe aphasia (almost no information exchanged) 2 Dysarthria: 2 - severe, unintelligible or mute 2 Extinction and Inattention: 0 - normal, none detected (or visual loss alone) 0 Initial NIHSS Score: 11 (04/05/21 1459 : Juli Valentino MD) 11 Awake, slow to respond, mute for most part, tracks with eyes fine Follows some commands intermittently Motor antigravity bilaterally LEs lifts transiently bilaterally DATA: Diagnostic tests reviewed for today's visit: Lipids, HbA1c, CMP, CBC, Coags Recent Labs 04/05/21 1028 04/05/21 1023 NA -- 140 K -- 4.0 CHLOR -- 100 CO2 -- 25 BUN -- 26* CREAT 1.00* 0.92 GLUC -- 265* CA -- 9.6 MG -- 1.5* WBC -- 12.20* HB -- 13.6 HCT -- 44.6 PLT -- 184 INR -- 1.0 APTT -- 23.5 Cardiac Enzymes usCRP Most recent labs and imaging results. STROKE CARE PATH [employer] Initial NIHSS Score: 11 Date Patient Last Known Well: 04/04/21 Time Patient Last Known Well: 2199 Date (more content not included)... Normal [facility] CT BRAIN WO IVCONon 04-05-20 CT BRAIN WO IVCON * * *Final Report* * * DATE OF EXAM: Apr 05 2021 10:35AM [facility] 0504 - CT BRAIN WO IVCON / PROCEDURE REASON: Altered mental status (AMS), unclear cause * * * * Physician Interpretation * * * * EXAMINATION: CT BRAIN WO IVCON CLINICAL HISTORY: Altered mental status, history of dementia. TECHNIQUE: Serial axial images without IV contrast were obtained from the vertex to the foramen magnum. MQ: [id number] CT Radiation dose: Integrated Dose-Length Product (DLP) for this visit = 1151 mGy*cm CT Dose Reduction Employed: Automated exposure control(AEC) and iterative recon COMPARISON: 11/19/2011. RESULT: Wheel Adjuster (topogram) images: No additional findings. Post-operative change: None. Acute change: No evidence of an acute infarct or other acute parenchymal process. Hemorrhage: No evidence of acute intracranial hemorrhage. ECASS hemorrhagic transformation score: Not Applicable Mass Lesion / Mass Effect: There is no evidence of an intracranial mass or extraaxial fluid collection. No significant mass effect. Chronic change: Scattered patchy foci of low attenuation are present within supratentorial white matter which is a nonspecific finding but likely represents mild microvascular ischemia. Parenchyma: There is mild generalized volume loss. The brain parenchyma is otherwise within normal limits for age. Ventricles: Ventricular enlargement concordant with the degree of parenchymal volume loss. Paranasal sinuses and skull base: The visualized paranasal sinuses are grossly clear. The skull base and imaged soft tissues are unremarkable. IMPRESSION: 1. No CT evidence of acute intracranial abnormalities. 2. Chronic small vessel ischemic white matter disease and diffuse cerebral volume loss. Inspector Penetrant: PSCB Transcribe Date/Time: Apr 05 2021 10:40A Dictated by : HERMILO REARDON MD This examination was interpreted and the report reviewed and electronically signed by: HERMILO REARDON MD on Apr 05 2021 10:44AM EST [id number] Normal [facility] CTA HEAD W IVCONon CTA HEAD W IVCON * * *Final Report* * * DATE OF EXAM: Apr 05 2021 10:35AM [facility] 0022 - CTA HEAD W IVCON / PROCEDURE REASON: Altered mental status (AMS), unclear cause * * * * Physician Interpretation * * * * EXAMINATION: CTA HEAD W IVCON, CTA NECK W IVCON CLINICAL HISTORY: Acute confusion, altered mental status. TECHNIQUE: High resolution axial images were obtained through the head, neck and superior mediastinum following bolus administration of intravenous contrast for CT angiography. 3D maximum intensity projection images were created, reviewed and archived . MQ: [id number]_4 Contrast: 100 mL Omnipaque 350 IV Dose-Length Product (DLP): 1151 mGy*cm. CT Dose Reduction Employed: Automated exposure control(AEC) and iterative recon COMPARISON: None. RESULT: Patchy nonspecific pulmonary opacity at the lung apices may represent atelectasis. Pneumonia or aspiration is not excluded. Recommend correlation with a chest imaging. CT ARTERIOGRAM: Extracranial Circulation: Aortic Arch: There is no significant stenosis in the proximal brachiocephalic vessels. Carotid Stenosis: Right Common: No significant stenosis. Right Internal Carotid Plaque: Mild atherosclerotic disease. Right Internal Carotid Stenosis (% by NASCET Criteria): No flow-limiting stenosis. Left Common: No significant stenosis. Left Internal Carotid Plaque: Mild atherosclerotic disease. Left Internal Carotid Stenosis (% by NASCET Criteria): No flow limiting stenosis. Cervical Vertebral Arteries: Patency: Majority of left vertebral artery is occluded aside from the proximal segment at the origin. Appearance is suggestive of acute process. The right vertebral artery is patent. Intracranial Circulation: Anterior Circulation: Mild atherosclerotic disease. No evidence of significant stenosis involving intracranial segment of the internal carotid arteries, anterior cerebral arteries, or middle cerebral arteries. No evidence of significant aneurysm. Vertebrobasilar Circulation: The V4 segment of left vertebral artery is of occluded. V4 segment of right vertebral artery is patent. The basilar artery is patent. The bilateral posterior cerebral arteries are patent. Moderate stenosis involving P2 segment of the left posterior cerebral artery. No significant aneurysm. Wheel Adjuster (topogram) images: No additional findings. IMPRESSION: 1. 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 This appears acute and may be due to underlying dissection. 2. Otherwise, no additional high-grade stenosis or focal occlusion involving intracranial or cervical vasculature. No evidence of significant intracranial aneurysm. 3. Moderate multifocal stenosis involving the P2 segment of the left posterior cerebral artery. 4. Patchy nonspecific pulmonary opacity at the lung apices may represent atelectasis. Pneumonia or aspiration is not excluded. Recommend correlation with a chest imaging. Arterial blood flow was measured to detect acute large vessel occlusion by computer aided detection software: Not Performed. Concordance between software and imaging review: Not Applicable. CRITICAL TEST/RESULTS: Acuity: Critical Finding: Acute arterial occlusion Communication: Communicated with Dr. Bagley on 04/05/2021 10:51 AM via verbal communication. Inspector Penetrant: ANGELO Transcribe Date/Time: Apr 05 2021 10:44A Dictated by : HERMILO REARDON MD This examination was interpreted and the report reviewed and electronically signed by: HERMILO REARDON MD on Apr 05 2021 11:05AM EST [id number] CRITICAL!! Invalid Interpretation Code [facility] CTA NECK W IVCONon CTA NECK W IVCON * * *Final Report* * * DATE OF EXAM: Apr 05 2021 10:35AM [facility] 0024 - CTA NECK W IVCON / PROCEDURE REASON: Confusion, acute, unexplained * * * * Physician Interpretation * * * * EXAMINATION: CTA HEAD W IVCON, CTA NECK W IVCON CLINICAL HISTORY: Acute confusion, altered mental status. TECHNIQUE: High resolution axial images were obtained through the head, neck and superior mediastinum following bolus administration of intravenous contrast for CT angiography. 3D maximum intensity projection images were created, reviewed and archived . MQ: CTABNPlus_4 Contrast: 100 mL Omnipaque 350 IV Dose-Length Product (DLP): 1151 mGy*cm. CT Dose Reduction Employed: Automated exposure control(AEC) and iterative recon COMPARISON: None. RESULT: Patchy nonspecific pulmonary opacity at the lung apices may represent atelectasis. Pneumonia or aspiration is not excluded. Recommend correlation with a chest imaging. CT ARTERIOGRAM: Extracranial Circulation: Aortic Arch: There is no significant stenosis in the proximal brachiocephalic vessels. Carotid Stenosis: Right Common: No significant stenosis. Right Internal Carotid Plaque: Mild atherosclerotic disease. Right Internal Carotid Stenosis (% by NASCET Criteria): No flow-limiting stenosis. Left Common: No significant stenosis. Left Internal Carotid Plaque: Mild atherosclerotic disease. Left Internal Carotid Stenosis (% by NASCET Criteria): No flow limiting stenosis. Cervical Vertebral Arteries: Patency: Majority of left vertebral artery is occluded aside from the proximal segment at the origin. Appearance is suggestive of acute process. The right vertebral artery is patent. Intracranial Circulation: Anterior Circulation: Mild atherosclerotic disease. No evidence of significant stenosis involving intracranial segment of the internal carotid arteries, anterior cerebral arteries, or middle cerebral arteries. No evidence of significant aneurysm. Vertebrobasilar Circulation: The V4 segment of left vertebral artery is of occluded. V4 segment of right vertebral artery is patent. The basilar artery is patent. The bilateral posterior cerebral arteries are patent. Moderate stenosis involving P2 segment of the left posterior cerebral artery. No significant aneurysm. Wheel Adjuster (topogram) images: No additional findings. IMPRESSION: 1. 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 This appears acute and may be due to underlying dissection. 2. Otherwise, no additional high-grade stenosis or focal occlusion involving intracranial or cervical vasculature. No evidence of significant intracranial aneurysm. 3. Moderate multifocal stenosis involving the P2 segment of the left posterior cerebral artery. 4. Patchy nonspecific pulmonary opacity at the lung apices may represent atelectasis. Pneumonia or aspiration is not excluded. Recommend correlation with a chest imaging. Arterial blood flow was measured to detect acute large vessel occlusion by computer aided detection software: Not Performed. Concordance between software and imaging review: Not Applicable. CRITICAL TEST/RESULTS: Acuity: Critical Finding: Acute arterial occlusion Communication: Communicated with Dr. Bagley on 04/05/2021 10:51 AM via verbal communication. Inspector Penetrant: ANGELO Transcribe Date/Time: Apr 05 2021 10:44A Dictated by : HERMILO REARDON MD This examination was interpreted and the report reviewed and electronically signed by: HERMILO REARDON MD on Apr 05 2021 11:05AM EST [id number] CRITICAL!! Invalid Interpretation Code [facility] ED NOTEon 04-05-2021 ED NOTE HNO ID: [id number] Author: Rae Carmona RN Service: Emergency Medicine Author Type: Registered Nurse Type: ED Notes Filed: 04/05/2021 2:38 PM Note Text: Told RN went to lunch and no one can take report at time. Normal [facility] ED NOTE HNO ID: [id number] Author: Derrick Olmedo Service: ? Author Type: [employer] and [employer] Transactions Attorney Type: ED Notes Filed: 04/05/2021 10:19 AM Note Text: Bed: 22-ED Expected date: 04/05/21 Expected time: 10:18 AM Means of arrival: [place] Comments: Med 8 alt loc Normal [facility] ED PROV NOTEon 04-05-2021 ED PROV NOTE HNO ID: [id number] Author: Luisa Medina MD Service: Emergency Medicine Author Type: Physician Type: ED Provider Notes Filed: 04/05/2021 1:14 PM Note Text: Patient presents to the emergency department with altered mental status where she is no longer verbal and not moving her extremities purposefully. She was last seen normal last night around 10 PM prior to bedtime. Her daughter said that normally she is able to ambulate around the house and speak appropriately although she has some early dementia. The patient is her been falling a lot per her daughter usually landing on the right side. On exam, the patient is minimally verbal. She is able to move her arms with symmetric strength although it is done in a weak fashion. She is able to look to the left and to the right,. Neurovascular status is intact. Due to the fact that her last known normal was at 10 PM last night, we performed a CTA of the head and neck as well as a CT of the brain. The CTA of the head and neck demonstrated an occlusion of the left vertebral artery that appeared to be acute as well as a thrombus in the P2 region supplied by the left vertebral artery. The patient's EKG demonstrates atrial fibrillation with notes of acute ischemic changes. Her chest x-ray shows some mild pulmonary vascular congestion. We have consulted the stroke team and neurology. We are awaiting their recommendations for disposition. The patient currently is in guarded condition. Luisa Medina MD 04/05/21 1314 Normal [facility] ED PROV NOTE HNO ID: [id number] Author: Luisa Medina MD Service: Emergency Medicine Author Type: Physician Type: ED Provider Notes Filed: 04/06/2021 7:03 AM Note Text: ED Provider Note Patient Name: Aimee Grove SERVICE DATE: 04/05/21 History No chief complaint on file. The patient is an 85-year-old female presenting to ED with altered mental status. The patient has a past medical history of vascular dementia, late onset Alzheimer's, and type 2 diabetes. The patient was brought in by EMS. Per EMS, the patient was reported to be in her normal mental state last night while going to bed. This morning, she was noted to be more altered than usual and was not responding to them. The patient's initial GCS was 13. Her eyes were open spontaneously, she answered questions using single words such as "yes" or" no" or "what", tshe was only able to follow directions with squeezing bilateral hands. Her daughter, who arrived to facility later, stated that she was just looking at them and that her eyes were wide open in a startled fashion. She was not following directions at home. The daughter also believes that the patient has been falling a lot recently given that she has had scattered bruising on her legs and on the right side of her face. Per her daughter, patient is at baseline able to ambulate throughout the house and is able to talk in short sentences in order to portray her needs. The patient's only blood thinner is aspirin. She has no known history of atrial fibrillation. 1A. Level of consciousness: Arouses to minor stimulation - 0 1B: Month and Age: Was not able to answer either question, aphasic - 2 1C: Blinks eyes and Squeezes hands: Was able to squeeze hands bilaterally - 1 2: Horizontal extraocular movements: Was able to look around with no apparent nystagmus - 0 3: Visual Zepeda: Not able to assess 4: Facial Palsy: Did not follow directions to smile, although no loss of nasolabial fold was appreciated bilaterally, face looks symmetrical - 0 5A. Left Arm Motor Drift: Able to hold left arm elevated for 10 seconds - 0 5B: Right Arm Motor Drif: Able to hold right arm elevated for 10 seconds - 0 6A: Left leg motor drift: No effort against gravity - 3 6B: Right leg motor drift: No effort against gravity - 3 7: Limb Ataxia: Did not understand directions - 0 8: Sensation: Not able to assess, was unable to voice answers on if sensation was intact - 0 9: Language/Aphasia: Severe aphasia, fragmentary expression - 0 10: Dysarthria: Mute - 2 11: Distinction: Not able to assess, not responding to directions - 0 Total: 9 PAST MEDICAL HISTORY Diagnosis Date - Back pain - Diabetes (HCC) - Knee pain - Late onset Alzheimer's disease with behavioral disturbance - 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 PAST SURGICAL HISTORY Procedure Laterality Date - BACK SURGERY HX - KNEE SURGERY HX Bilateral - REDUCTION OF LARGE BREAST FAMILY HISTORY Problem Relation Age of Onset - None Other Social History Tobacco Use - Smoking status: Never Smoker - Smokeless tobacco: Never Used Substance and Sexual Activity - Alcohol use: No - Drug use: No - Sexual activity: Not on file ALLERGIES Allergen Reactions - Azithromycin Unknown - Penicillin Unknown - Sulfa (Sulfonamide * Unknown Review of Systems Unable to perform ROS: Acuity of condition Physical Exam Vitals BP Pulse Temp Temp src Resp SpO2 Weight Height -- -- -- -- -- -- -- -- Physical Exam Vitals reviewed. Constitutional: General: She is not in acute distress. Appearance: She is not ill-appearing or toxic-appearing. Comments: Patient was moving head around, she was not following directions well. She was able to say yes and no, but was not able to continue conversing. HENT: Head: Normocephalic and atraumatic. Right Ear: Tympanic membrane, ear canal and external ear normal. Left Ear: Tympanic membrane, ear canal and external ear normal. Nose: Nose normal. No congestion or rhinorrhea. Mouth/Throat: Mouth: Mucous membranes are dry. Pharynx: Oropharynx is clear. Eyes: General: Right eye: No discharge. Left eye: No discharge. Extraocular Movements: Extraocular movements intact. Conjunctiva/sclera: Conjunctivae normal. Pupils: Pupils are equal, round, and reactive to light. Cardiovascular: Rate and Rhythm: Normal rate and regular rhythm. Pulses: Normal pulses. Heart sounds: Normal heart sounds. No murmur heard. No gallop. Pulmonary: Effort: Pulmonary effort is normal. No respiratory distress. Breath sounds: Normal breath sounds. No wheezing. Abdominal: General: There is no distension. Palpations: Abdomen is soft. Tenderness: There is no abdominal tenderness. There is no guarding or rebound. Musculoskeletal: General: No swelling or tenderness. Normal range of motion. Cervical back: Normal range of motion and neck supple. No rigi (more content not included)... Normal [facility] Ethanol SerPl-mCncon 021 Ethanol [Mass/Vol] mg/dL Normal <11 [facility] Comment on above: Order Comment: Speci men Type: BLOOD SPECIMEN Performed By: #### 5 8410-2 #### [facility] CLIA [id number] [address] HIGH SENSITIVITY TROPONIN To n 04-05-2021 HIGH SENSITIVITY MORELIA 41 ng/L High <12 [facility] Comment on above: Order Comment: Speci men Type: BLOOD SPECIMEN Result Comment: When assessing risk for acute coronary syndromes: In patients undergoing blood draw greater than or equal to 2 hours from symptom onset, with history of very low to moderate risk and non-ischemic ECG, an initial hs-Troponin T less than 12 ng/L AND a 1 hour delta hs-Troponin T less than 3 ng/L should be considered very low risk for 30 day MACE. Performed By: #### H STNT #### [facility] CLIA [id number] [address] HISTORY PHYSICALon HISTORY PHYSICAL HNO ID: [id number] Author: Mele Braden APRN.NILDA Service: Hospital Medicine Author Type: Nurse Practitioner Type: HANDP Filed: 04/05/2021 4:05 PM Note Text: DEPARTMENT OF HOSPITAL MEDICINE HISTORY AND PHYSICAL EXAM SERVICE DATE: 04/05/2021 SERVICE TIME: 3:05 PM Primary Care Physician: Allen Li MD, MD NIGHT AND WEEKEND COVERAGE: After 7pm call #[phone] Chief complaint: altered mental status HPI: 85-year-old female with a past medical history of mixed Alzheimer's, vascular dementia, type 2 diabetes mellitus, depression, anxiety, osteoarthritis, hyperlipidemia presented to the emergency department today for altered mental status. The history was obtained from the patient's daughter Valerie at bedside because the patient has dementia and had a stroke. Reportedly she was last seen normal about 730 to 8 PM last night. This morning the daughter's friend found her at approximately 830 and she was not talking and not acting like herself. The son-in-law as well as the friend called the emergency department because of her behavior and they were concerned about a stroke. The daughter saw her when the ambulance arrived and she noticed that her face appeared to be contorted with a facial droop. The patient did not report any symptoms or complaint of anything. She is talking but only answering 1 word questions. ED Course: Vitals were found to be temperature of 37.2, heart rate of 57, respirations of 17, blood pressure 167/105, pulse ox was 96% on room air. EKG showed rate controlled atrial fibrillation. Chemistry showed glucose of 265, troponin of 41, WBCs of 12.2, urinalysis showed positive nitrates, RBCs, 4+ bacteria. Initial CT of the brain did not show any acute hemorrhage but did show chronic small vessel ischemia white matter disease diffusely throughout cerebral volume loss. Patient had a CT of the head and neck which showed occlusion of the majority of the left vertebral artery extending into V4 segment. This appears to be acute and may be due to underlying dissection. Her NIH score was 10 per the emergency department staff. Neurology was consulted they stated that she was not a candidate for any treatment including TPA or endovascular retrieval. PAST MEDICAL HISTORY Diagnosis Date - Back pain - Diabetes (HCC) - Knee pain - Late onset Alzheimer's disease with behavioral disturbance (HCC) - 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 (HCC) PAST SURGICAL HISTORY Procedure Laterality Date - BACK SURGERY HX - KNEE SURGERY HX Bilateral - REDUCTION OF LARGE BREAST FAMILY HISTORY Problem Relation Age of Onset - None Other Social History Tobacco Use - Smoking status: Never Smoker - Smokeless tobacco: Never Used Vaping Use - Vaping Use: Unknown Substance Use Topics - Alcohol use: No - Drug use: No HOME MEDICATIONS: Prior to Admission Medications Prescriptions Last Dose Informant Patient Reported? Taking? Alcohol Swabs padm Yes No Ammonium,Pot.and Sodium Lactates (AMLACTIN) crea No No Sig: Apply to dry skin bilaterally 1-2 times daily Patient not taking: Reported on 02/02/2018 LORazepam (ATIVAN) 0.5 mg tab Yes No NAMENDA XR 28 mg CSpX Yes No ONE TOUCH DELICA 33 gauge misc Yes No ONETOUCH ULTRA TEST test strip Yes No QUEtiapine (SEROQUEL) 25 mg tablet Yes No aspirin, enteric coated (ASPIRIN, ENTERIC COATED) 81 mg EC tablet Yes No citalopram hydrobromide (CELEXA) 10 mg tablet Yes No donepezil (ARICEPT) 10 mg tablet Yes No glipiZIDE (GLUCOTROL) 5 mg tablet Yes No hydrocortisone 2.5 % cream Yes No hydrocortisone 2.5 % ointment Yes No metFORMIN (GLUCOPHAGE) 1,000 mg tablet Yes No metoprolol tartrate, short acting, (LOPRESSOR) 50 mg tablet Yes No traZODone (DESYREL) 100 mg tablet Yes No venlafaxine (EFFEXOR) 37.5 mg tablet Yes No zolpidem (AMBIEN) 5 mg tablet Yes No Facility-Administered Medications: None ALLERGIES Allergen Reactions - Azithromycin Unknown - Penicillin Unknown - Sulfa (Sulfonamide * Unknown REVIEW OF SYSTEM: All systems reviewed and negative except as stated in HPI PHYSICAL EXAM: BP 160/136 Pulse 61 Temp (Src) 98.9 (Axillary) Resp 14 Ht 5' 1" (1.55m) Wt 165 lb (74.8kg) SpO2 97% BMI 31.19 kg/(m2). O2 Therapy: Room Air GENERAL: 85-year-old female, alert to self, poorly follows commands, lying in bed in position on her left side SKIN: Skin color, texture, turgor normal, no suspicious rashes or lesions HEAD: Normocephalic, atraumatic EYES: Anicteric sclera. Extraocular movements are intact. PERRLA NECK: No auscultated carotid bruits LUNGS: Clear to auscultation with no wheezes, rales or rhonchi. No retractions. HEART: RRR without murmur, gallop, or rubs. No ectopy ABDOMEN: Abdomen soft, non-tender. Bowel sounds normal. No masses, organomegaly EXTREMITIES: No deformities, edema, skin discoloration, clubbing or cyanosis. Good capillary ref (more content not included)... Normal [facility] Magnesium SerPl-mCncon 04-05 Magnesium [Mass/Vol] 1.5 mg/dL Low 1.7-2.3 [facility] Comment on above: Order Comment: Speci men Type: BLOOD SPECIMEN Performed By: #### 5 8410-2 #### [facility] CLIA [id number] [address] OF [facility] PT panel Coag (PPP)on 2020 INR Coag (PPP) [Relative time] 1.0 {INR} Normal 0.9-1.3 [facility] Comment on above: Order Comment: Speci men Type: BLOOD SPECIMEN Result Comment: Ankita min K Antagonist (VKA) Therapeutic Range: INR 2 to 3 (Target INR of 2.5) Note: For patients treated with VKA drugs, such as warfarin, the [employer] [employer] 2012 Guideline recommends a therapeutic INR range of 2 to 3 (target INR of 2.5). This recommendation includes high-risk patients with antiphospholipid syndrome with previous arterial or venous thromboembolism, current-generation mechanical or bioprosthetic aortic heart valve replacement. Note: Patients with mechanical aortic valve replacement and additional risk factors for thromboembolic events (atrial fibrillation, previous thromboembolism, LV dysfunction, hypercoagulable conditions) or an older generation mechanical AVR (i.e., ball in-Cage) or any mechanical MVR should have a INR therapeutic range of 2.5 to 3.5 (target INR of 3). Carmelina GH, et al. Chest 2012, 141:7S-47S Charlene RA, et al. JAC 2017, 70: 252-289 Performed By: #### 3 4528-0, 67649-5 ####[facility] [id number] [address] [place] PT Coag (PPP) [Time] 11.2 s Normal 9.7-13.0 [facility] Comment on above: Order Comment: Speci men Type: BLOOD SPECIMEN Performed By: #### 3 4528-0, 53474-4 ####[facility] [id number] [address] [place] SALICYLATE BLDon 04-05-2021 Salicylates [Mass/Vol] mg/dL Low 3.0-30.0 [facility] Comment on above: Order Comment: Speci men Type: BLOOD SPECIMEN Result Comment: The therapeutic range varies and has been reported to be 3.0 to 10.0 mg/dL for anti pyretic/analgesic conditions and 15.0 to 30.0 mg/dL for anti inflammatory/rheumatic fever conditions. Ranges published by the instrument head pumper. Reference ranges and high/low indicator flags are provided as general guidelines only. The treating physician must determine appropriate target levels/dosing based on the specific clinical situation. Performed By: #### 5 8410-2 #### [facility] CLIA [id number] [address] OF [facility] SARS-CoV-2 RNA Resp Ql CHEYANNE+p robeon 04-05-2021 SARS-CoV-2 (COVID-19) RNA CHEYANNE+probe Ql (Resp) COVID 19 RESULT: SARS-CoV-2 (Agent of COVID-19) Not Detected by PCR. This test has been authorized by FDA under an Emergency Use Authorization (EUA). Normal [facility] Comment on above: Performed By: #### 9 4500-6 ####[facility] [id number] [address] OF [facility] TOX SCREEN ROUT URon 021 Amphetamines Confirm (U) [Mass/Vol] Negative Normal Negative [facility] Comment on above: Order Comment: Speci men Type: URINE SPECIMEN Result Comment: Cuto ff threshold at 1000 ng/mL. Performed By: #### U TOX2 ####[facility] [id number] [address] [place] BARBITURATES, URINE Negative Normal Negative [facility] Comment on above: Order Comment: Speci men Type: URINE SPECIMEN Result Comment: Cuto ff threshold at 200 ng/mL. Performed By: #### U TOX2 ####[facility] [id number] [address] BENZODIAZEPINES, UR Negative Normal Negative [facility] Comment on above: Order Comment: Speci men Type: URINE SPECIMEN Result Comment: Cuto ff threshold at 200 ng/mL. Performed By: #### U TOX2 ####[facility] [id number] [address] CANNABINOIDS,URINE Negative Normal Negative [facility] Comment on above: Order Comment: Speci men Type: URINE SPECIMEN Result Comment: Cuto ff threshold at 50 ng/mL. Performed By: #### U TOX2 ####[facility] [id number] [address] Cocaine Ql (U) Negative Normal Negative [facility] Comment on above: Order Comment: Speci men Type: URINE SPECIMEN Result Comment: Cuto ff threshold at 300 ng/mL. Performed By: #### U TOX2 ####[facility] [id number] [address] Ethanol (U) [Mass/Vol] <11 Normal <11 [facility] Comment on above: Order Comment: Speci men Type: URINE SPECIMEN Performed By: #### U TOX2 ####[facility] [id number] [address] Opiates Screen Ql (U) Negative Normal Negative [facility] Comment on above: Order Comment: Speci men Type: URINE SPECIMEN Result Comment: Cuto ff threshold at 300 ng/mL. Performed By: #### U TOX2 ####[facility] [id number] [address] oxyCODONE cutoff Screen (U) [Mass/Vol] Negative Normal Negative [facility] Comment on above: Order Comment: Speci men Type: URINE SPECIMEN Result Comment: Cuto ff threshold at 100 ng/mL. Performed By: #### U TOX2 ####[facility] [id number] [address] Phencyclidine Ql (U) Negative Normal Negative [facility] Comment on above: Order Comment: Speci men Type: URINE SPECIMEN Result Comment: Cuto ff threshold at 25 ng/mL. Performed By: #### U TOX2 ####[facility] [id number] [address] Urinalysis complete panel (U )on 04-05-2021 Bacteria LM.HPF (Urine sed) [#/Area] 4+ /HPF Abnormal None Seen [facility] Comment on above: Order Comment: Speci men Type: BLOOD SPECIMEN Performed By: #### H STNT #### [facility] CLIA [id number] [address] Bilirubin Ql (U) Negative Normal Negative [facility] Comment on above: Order Comment: Speci men Type: BLOOD SPECIMEN Performed By: #### H STNT #### [facility] CLIA [id number] [address] Clarity (Unsp spec) Turbid Abnormal Clear [facility] Comment on above: Order Comment: Speci men Type: BLOOD SPECIMEN Performed By: #### H STNT #### [facility] CLIA [id number] [address] Color (U) Yellow Normal Yellow [facility] Comment on above: Order Comment: Speci men Type: BLOOD SPECIMEN Performed By: #### H STNT #### [facility] CLIA [id number] [address] Epithelial cells LM.HPF (Urine sed) [#/Area] 5.5 /[HPF] Normal [facility] Comment on above: Order Comment: Speci men Type: BLOOD SPECIMEN Performed By: #### H STNT #### [facility] CLIA [id number] [address] [place] [address] [place] Glucose Test strip (U) [Mass/Vol] 250 mg/dL Abnormal Negative [facility] Comment on above: Order Comment: Speci men Type: BLOOD SPECIMEN Performed By: #### H STNT #### [facility] CLIA [id number] [address] Hemoglobin Ql (U) Trace Abnormal Negative [facility] Comment on above: Order Comment: Speci men Type: BLOOD SPECIMEN Performed By: #### H STNT #### [facility] CLIA [id number] [address] Hyaline casts (Urine sed) [#/Area] 1-3 /LPF Abnormal 0 /LPF [facility] Comment on above: Order Comment: Speci men Type: BLOOD SPECIMEN Performed By: #### H STNT #### [facility] CLIA [id number] [address] Ketones Ql (U) Trace Abnormal Negative [facility] Comment on above: Order Comment: Speci men Type: BLOOD SPECIMEN Performed By: #### H STNT #### [facility] CLIA [id number] [address] Leukocyte esterase Test strip Ql (U) Negative Normal Negative [facility] Comment on above: Order Comment: Speci men Type: BLOOD SPECIMEN Performed By: #### H STNT #### [facility] CLIA [id number] [address] Nitrite Ql (U) Positive Abnormal Negative [facility] Comment on above: Order Comment: Speci men Type: BLOOD SPECIMEN Performed By: #### H STNT #### [facility] CLIA [id number] [address] [facility] pH (U) 8.0 [pH] Normal 5.0-8.0 [facility] Comment on above: Order Comment: Speci men Type: BLOOD SPECIMEN Performed By: #### H STNT #### [facility] CLIA [id number] [address] Protein (U) [Mass/Vol] 30 mg/dL Abnormal Negative [facility] Comment on above: Order Comment: Speci men Type: BLOOD SPECIMEN Performed By: #### H STNT #### [facility] CLIA [id number] [address] RBC LM.HPF (Urine sed) [#/Area] 3-5 /HPF Abnormal 0-3 /HPF [facility] Comment on above: Order Comment: Speci men Type: BLOOD SPECIMEN Performed By: #### H STNT #### [facility] CLIA [id number] [address] Specific gravity (U) [Rel density] 1.028 Normal 1.005-1.030 [facility] Comment on above: Order Comment: Speci men Type: BLOOD SPECIMEN Performed By: #### H STNT #### [facility] CLIA [id number] [address] Triple phosphate crystals LM.HPF (Urine sed) [#/Area] Few Abnormal None Seen [facility] Comment on above: Order Comment: Speci men Type: BLOOD SPECIMEN Performed By: #### H STNT #### [facility] CLIA [id number] [address] Urobilinogen Ql (U) 0.2 EU/dL Normal 0.2-1.0 EU/dL [facility] Comment on above: Order Comment: Speci men Type: BLOOD SPECIMEN Performed By: #### H STNT #### [facility] CLIA [id number] [address] WBC LM.HPF (Urine sed) [#/Area] 0-5 /HPF Normal 0-5 /HPF [facility] Comment on above: Order Comment: Speci men Type: BLOOD SPECIMEN Performed By: #### H STNT #### [facility] CLIA [id number] [address] XR CHEST 1V FRONTALon 2020 XR CHEST 1V FRONTAL * * *Final Report* * * DATE OF EXAM: Apr 05 2021 12:05PM AKX 5290 - XR CHEST 1V FRONTAL / PROCEDURE REASON: Altered mental status (AMS), unclear cause * * * * Physician Interpretation * * * * EXAMINATION: CHEST RADIOGRAPH (SINGLE VIEW AP OR PA) CLINICAL HISTORY: Altered mental status (AMS), unclear cause MQ: XC1_5 Comparison: 06/05/2012. RESULT: Lines, tubes, and devices: None. Lungs and pleura: Mild pulmonary venous congestion. No evidence of focal consolidation. No significant pleural effusion or pneumothorax. Cardiomediastinal silhouette: Borderline enlarged. Other: No evidence of acute displaced fractures. IMPRESSION: Borderline enlarged cardiomediastinal silhouette with mild pulmonary venous congestion. No focal consolidation, significant pleural effusion, or pneumothorax. Inspector Penetrant: ANGELO Transcribe Date/Time: Apr 05 2021 12:48P Dictated by : HERMILO REARDON MD This examination was interpreted and the report reviewed and electronically signed by: HERMILO REARDON MD on Apr 05 2021 12:50PM EST [id number] Normal [facility] aPTT PPPon 04-05-2021 aPTT Coag (PPP) [Time] 23.5 s Normal 23.0-32.4 [facility] Comment on above: Order Comment: Speci men Type: BLOOD SPECIMEN Performed By: #### 3 4528-0, 97950-6 ####[facility] [id number] [address] OF [facility] Anesthesia Attestationon Plastic Eye Technician Authentication Interface Message Text Anesthesia Attestation ATTESTATION OF INFORMED CONSENT FOR ANESTHESIA Anesthesia options were discussed with the patient and/or legal promotions representative. The risks, benefits and alternatives were reviewed. Questions regarding anesthesia were answered. Patient and/or legal promotions representative knows such anesthetics and procedures may be performed by Resident physicians, Certified Anesthesiologist Assistants, or Certified Nurse Anesthetists under the supervision of a physician. The patient /or the patient's legal promotions representative agree with the plan for anesthesia. Normal [facility] Anesthesia Postprocedure Radha luationon 02-11-2021 Plastic Eye Technician Authentication Interface Message Text Anesthesia Postoperative Assessment: Vital Signs (most recent): BP 109/52 Pulse 80 Temp 36.1 ???C (96.9 ???F) (Temporal) Resp 15 Ht 5' 3" (1.6 m) Wt 162 lb (73.5 kg) SpO2 97% BMI 28.70 kg/m??? Anesthesia Post Evaluation Patient location during evaluation: PACU Patient participation: complete - patient participated Level of consciousness: awake and alert (baseline mentation) Pain score: 0 Pain management: adequate Airway patency: patent Cardiovascular status: stable, hemodynamically stable, blood pressure returned to baseline and acceptable Respiratory status: Patient breathing comfortable with supplemental oxygen and acceptable Hydration status: normal PONV: No nausea/vomiting reported I was personally responsible for performing the postop evaluation. ANESTHESIA COMPLICATIONS: No complications documented. Normal [facility] Anesthesia Transfer Of Careo n 02-11-2021 Plastic Eye Technician Authentication Interface Message Text Patient taken to PACU. Patient was drowsy, comfortable and stable on arrival. Anesthesia Transfer of Care Note Past Medical History: Past Medical History: Diagnosis Date * Dementia (HCC) * Diabetes mellitus (HCC) * Generalized anxiety disorder * HLD (hyperlipidemia) * Hypertensive heart disease * Major depressive disorder Sleep Apnea/Positive STOP-BANG: No Problem List: Patient Active Problem List: Dental caries [K02.9] Allergic rhinitis [J30.9] Alzheimer's dementia with behavioral disturbance (HCC) [G30.9, F02.81] Anxiety and depression [F41.9, F32.A] Chronic diarrhea [K52.9] Diabetes mellitus type 2, uncontrolled (HCC) [E11.65] HTN (hypertension), benign [I10] Hyperlipidemia [E78.5] Knee pain [M25.569] Osteoarthritis, hip, 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] Urinary incontinence [R32] Viral warts [B07.9] Major depressive disorder [F32.9] Hypertensive heart disease [I11.9] HLD (hyperlipidemia) [E78.5] Generalized anxiety disorder [F41.1] Diabetes mellitus (HCC) [E11.9] Dementia (HCC) [F03.90] Past Surgical History: Review of patient's past surgical history indicates: hx of knee surgery hx of shoulder surgery hx of back surgery Allergies: Azithromycin, Penicillins, Sulfa antibiotics, and Sulfamethoxazole w-trimethoprim Basic Operating Room Facts: Surgeon(s): Chevy Stockton DDS Anesthesiologist: Ankita Yo MD Fire Safety Manager: Dipak Curry MD DENTAL RESTORATIONS (N/A ) Intraoperative Events: No acute event ASA: 3 EBL: Not documented Urine Not documented Lactated Ringers and NaCl 0.9%: Fluid Totals (Filter: LR and NaCl 0.9% Medications Shown) Medication Calculated Total Lactated Ringers 0 mL / 1 bag Cell Saver: Not documented Blood Volume Values: Blood Products None MTP Blood: MTP PRBC: Not documented MTP FFP: Not documented MTP PLT: Not documented MTP Cryo: Not documented MTP Whole Blood: Not documented Current Vasoactive Medications: {Vasoactive Medications: None Lines, Drains, Airways Peripheral IV Access: 02/11/21729 22 gauge Anterior;Left Hand (Active) Site Assessment WNL;Dressing intact 02/11/21805 Infusion Status Port #1 Infusing;Patent;Positi ve blood return 02/11/21805 Airway Insertion Details [REMOVED] Advanced Airway: Cuffed;ETT, Nasal #6.5 (Removed) 02/11/21807 Pre-Oxygenation/ Induction: Mask Rapid Sequence Induction?: Mask Ventilation: Easy;w/oral airway Blade size: Visualization: Grade 1 Airway Type: Cuffed;ETT, Nasal Airway Size: #6.5 Post Insertion Assessment: Confirmation: Equal bilateral breath sounds, CO2 confirmed # Attempts >1: Special Equipment: Glidescope Present on Admission?: Previously Removed / Not Present: Removal Reason: Not Removed at Discharge: Removed 02/11/21935 Location (cm) 25 02/11/21807 Measured from: Naris 02/11/21807 Secured via: Taped 02/11/21807 Site Assessment WNL 02/11/21807 All non-working IVs have been removed: N/A Laboratory Data: CBC (last 3 years, up to 5 values) WBC RBC Hgb Hct MCV RDW Plt 02/01/21 1601 9.7 4.58 13.1 40.7 89 14.2 213 Basic Metabolic Panel Na K Cl CO2 Gap Glu BUN Cr Ca 02/01/21 1601 145 4.3 104 27 18 182 34 0.89 9.8 Basic Metabolic Panel None No results found for: INR No result for BNP LFT's (last 3 years, up to 5 values) None Arterial Blood Gases None Hand off Completed: Yes 1. The patient was identified. 2. Pertinent medical history was relayed. 3. A brief discussion was had about any pertinent surgical/ procedural issues. 4. Intraoperative/ anesthetic management issue and concerns were discussed. 5. Plans for the early post-operative period relayed. 6. An opportunity for questions and acknowledgment of understanding of the report was received. Dipak Curry MD Normal [facility] Brief Operative Noteon 02-11 Plastic Eye Technician Authentication Interface Message Text Brief Operative Note [facility] OR 3 [place] [place] 85 year old female Surgical Contact Serial Number: [id number] Preoperative Diagnosis: Dental caries [K02.9] Alzheimer's dementia [G 30.9] Postoperative Diagnosis: Dental caries [K02.9] Alzheimer's dementia [G 30.9] Procedures: Comprehensive exam 11483 Full series of Xrays 76403 Cleaning 01688 SRP Lower anterior teeth Extractions #3, 4, 5, 6, 11, 30, 31 25235 Prophylaxis 93220 Surgeon(s): Surgeon(s): Chevy Stockton DDS Staff: Neuro Urologist Nurse: Lamberto Corey RN Care Support Representative: Lakshmi Bocanegra DDS Anesthesia: General Anesthesiologist: Ankita Yo MD Specimen(s): * No specimens in log * Estimated Blood Loss: less than 5 cc Lines/Drains: * No LDAs found * Temporarily Retained Foreign Object: No Findings: Normal Complications: None Status at end of surgery: Stable Activity: bed to chair Surgical wound class: No wound. Patient Class: Outpatient Surgery. Is this a patient scheduled as an outpatient that needs to be admitted as an inpatient? No Dr. Chevy Stockton was present in the OR for the critical portion of the procedure and procedure sign-out. Signed by Lakshmi Bocanegra DDS 02/11/2021 7:39 AM Normal [facility] GLUCOSE, FINGERSTICK-IN OFFI CEon 02-11-2021 Glucose [Mass/Vol] 171 mg/dL High 80-116 [facility] Comment on above: Result Comment: Junior odom RN, APN, MD Performed By: #### 8 2948 ####[address] [place], [address] OP Noteon 02-11-2021 Plastic Eye Technician Authentication Interface Message Text [facility] OR 3 [place] 85 year old female Surgical Contact Serial Number: [id number] Preoperative Diagnosis: Dental caries [K02.9] Alzheimer's dementia [G 30.9] Postoperative Diagnosis: Dental caries [K02.9] Alzheimer's dementia [G 30.9] Procedures: Comprehensive exam 13373 Full series of Xrays 53160 Cleaning 09176 SRP Lower anterior teeth Extractions # 4 5, 6, 11, 14275 Surgical extractions #3, #31, #30 Alveoloplasty on UR quadrant Prophylaxis 69948 Surgeon(s): Surgeon(s): Chevy Stockton DDS Staff: Neuro Urologist Nurse: Lamberto Corey RN Care Support Representative: Lakshmi Bocanegra DDS Anesthesia: General Anesthesiologist: Ankita Yo MD IV Fluids: 800 cc Urine Output: Not measured. Findings: The patient was brought to the operating room and placed in the supine position on the operating room table. Following satisfactory induction of GA. The patient was intubated with a nasal endotracheal tube. She was then prepped and drapped in the usual sterile fashion for dental procedures. Full mouth series were then taken and an oral examination was completed. A moistened throat pack was then placed. Full mouth scaling and root planing was then performed. The radiographs were examined by the attending and the resident and used in conjunction with th oral exam to formulate a treatment plan. The restorative aspect of the treatment plan included the following: N/A The surgical aspect of the treatment plan included the following extraction(s) and/or root removal: Teeth # 3, # 4, # 5, # 6, # 11, # 30 and # 31 3.0 chromic gut sutures were placed in all extraction sites. Simple extractions on #4, 5,6, 11. Surgical extractions #3, #31, #30, Periferal bone reduction. Alveolopasty done on upper right side: mucoperiosteal flap was elevated, bone removed with rongeurs. The remaining dentition was then polished with prophy paste. The oral cavity was irrigated and suctioned then the throat pack was removed. Fluoride treament was placed on the remaining dentition. The patient tolerated the procedure well was extubated in the operating room, and taken to the PACU in stable condition. Complications: None Status at end of surgery: Stable Medications: Outpatient Medications Marked as Taking for the 02/11/21 encounter (Hospital Encounter) Medication Sig Dispense Refill * vitamin D2 (ERGOCALCIFEROL) 1.25 MG (47622 UT) capsule Take 50,000 Units by mouth once weekly. * QUEtiapine (SEROQUEL) 25 MG tablet Take 12.5 mg by mouth at bedtime. * metoprolol (LOPRESSOR) 50 MG tablet Take 50 mg by mouth 2 times daily. * fluticasone (FLONASE) 50 mcg/act nasal inhaler Use 1 [place] in each nostril 2 times daily. * donepezil (ARICEPT) 10 MG tablet Take 10 mg by mouth daily. * aspirin 81 MG enteric coated tablet Take 81 mg by mouth daily. * trazodone (DESYREL) 50 mg tablet Take 25 mg by mouth at bedtime. * clindamycin (CLEOCIN) 150 MG capsule Take 4 capsules by mouth 1 hour before dental procedure 4 Capsule 0 * venlafaxine (EFFEXOR XR) 37.5 MG ER capsule TAKE 1 CAPSULE BY MOUTH DAILY after supper * aripiprazole (ABILIFY) 2 MG tablet Take 2 mg by mouth every morning. * glipiZIDE (GLUCOTROL) 5 MG tablet Take 5 mg by mouth 2 times daily. * metformin (GLUCOPHAGE) 1000 MG tablet Take 1,000 mg by mouth 2 times daily. Dictated by: Chevy Peña DDS, DDS was present for the critical portions of the procedure. Lakshmi Bocanegra DDS 02/11/2021 7:50 AM Normal [facility] Progress Noteson 02-11-2021 Plastic Eye Technician Authentication Interface Message Text ----- Thursday, February 11, 2021 at 9:21:26 AM ----- ----- Provider: [id number] - Chevy Lennon DDS -- Clinic: [facility] ----- Dr. Stockton's notes pt is ready for tx a lot of crowns in the patient's mouth, they are strong and healthy. bone level is very good, roots are wide, bulbous and diverge. extraction was a bit difficult. 3, 30, 31 went surgical with flaps, bone cut, and separation, alveoplasty for the upper right was done. ext the remaining was simple, 4,5,6,11... irrigation done, gel foam, sutures placed, [facility] OR 3 [place] 85 year old female Surgical Contact Serial Number: [id number] Preoperative Diagnosis: Dental caries [K02.9] Alzheimer's dementia [G 30.9] Postoperative Diagnosis: Dental caries [K02.9] Alzheimer's dementia [G 30.9] Procedures: Comprehensive exam 03474 Full series of Xrays 77537 Cleaning 45403 SRP Lower anterior teeth Extractions # 4 5, 6, 11, 08410 Surgical extractions #3, #31, #30 Alveoloplasty on UR quadrant Prophylaxis 93233 Surgeon(s): Surgeon(s): Chevy Stockton DDS Staff: Neuro Urologist Nurse: Lamberto Corey RN Care Support Representative: Lakshmi Bocanegra DDS Anesthesia: General Anesthesiologist: Ankita Yo MD IV Fluids: 800 cc Urine Output: Not measured. Findings: The patient was brought to the operating room and placed in the supine position on the operating room table. Following satisfactory induction of GA. The patient was intubated with a nasal endotracheal tube. She was then prepped and drapped in the usual sterile fashion for dental procedures. Full mouth series were then taken and an oral examination was completed. A moistened throat pack was then placed. Full mouth scaling and root planing was then performed. The radiographs were examined by the attending and the resident and used in conjunction with th oral exam to formulate a treatment plan. The restorative aspect of the treatment plan included the following: N/A The surgical aspect of the treatment plan included the following extraction(s) and/or root removal: Teeth # 3, # 4, # 5, # 6, # 11, # 30 and # 31 3.0 chromic gut sutures were placed in all extraction sites. Simple extractions on #4, 5,6, 11. Surgical extractions #3, #31, #30, Periferal bone reduction. Alveolopasty done on upper right side: mucoperiosteal flap was elevated, bone removed with rongeurs. The remaining dentition was then polished with prophy paste. The oral cavity was irrigated and suctioned then the throat pack was removed. Fluoride treament was placed on the remaining dentition. The patient tolerated the procedure well was extubated in the operating room, and taken to the PACU in stable condition. Complications: None Status at end of surgery: Stable Medications: Outpatient Medications Marked as Taking for the 02/11/21 encounter (Hospital Encounter) Medication Sig Dispense Refill * vitamin D2 (ERGOCALCIFEROL) 1.25 MG (80923 UT) capsule Take 50,000 Units by mouth once weekly. * QUEtiapine (SEROQUEL) 25 MG tablet Take 12.5 mg by mouth at bedtime. * metoprolol (LOPRESSOR) 50 MG tablet Take 50 mg by mouth 2 times daily. * fluticasone (FLONASE) 50 mcg/act nasal inhaler Use 1 [place] in each nostril 2 times daily. * donepezil (ARICEPT) 10 MG tablet Take 10 mg by mouth daily. * aspirin 81 MG enteric coated tablet Take 81 mg by mouth daily. * trazodone (DESYREL) 50 mg tablet Take 25 mg by mouth at bedtime. * clindamycin (CLEOCIN) 150 MG capsule Take 4 capsules by mouth 1 hour before dental procedure 4 Capsule 0 * venlafaxine (EFFEXOR XR) 37.5 MG ER capsule TAKE 1 CAPSULE BY MOUTH DAILY after supper * aripiprazole (ABILIFY) 2 MG tablet Take 2 mg by mouth every morning. * glipiZIDE (GLUCOTROL) 5 MG tablet Take 5 mg by mouth 2 times daily. * metformin (GLUCOPHAGE) 1000 MG tablet Take 1,000 mg by mouth 2 times daily. Dictated by: Lakshmi Bocanegra DDS, Chevy Lawson DDS was present for the critical portions of the procedure. 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 - negative ROS (+) post-menopausal, Neuro/Psych (+) depression, anxiety/panic attacks, Comment: alzheimers dementia tremor Cardiovascular (+) hypertension, Surgical risk: low; Cardiac condition: minor ECG reviewed Comment: Hx of HLD EKG 02/01/21 Sinus rhythm with PACS GI/Hepatic/Renal Heme/Other - negative ROS Other ROS: OA Physical Exam Airway Mallampati: II TM distance: Adequate Micrognathia: Not present Jaw opening: Adequate Neck flexion: Adequate Dental PE (+) missing teeth Pulmonary - pulmonary exam normal Comment: Chest clear to auscultation bilaterally Cardiovascular - cardiovascular exam normal Comment: RRR with S1S2; no murmurs, gallops, or rubs Neuro - neurological exam normal Comment: Awake, alert, oriented, No motor deficits and sensation grossly intact Plan Anesthesia plan: general (ETT) Medications may include (but not limited to): anxiolytics, narcotic analgesics, IV hypnotics, neuromuscular blockers and inhalational analgesics Pain management: May include (but not limited to): anxiolytics and narcotic analgesics Anesthesia risks / alternatives discussed pre-op Questions answered / anesthesia plan accepted Plan comment: NETT Past medical history, surgical history, allergies, and medications reviewed. Pertinent laboratory tests, EKG, imaging, and consults reviewed and I have personally seen and evaluated the patient, repeating bella portions of the history and physical examination. Normal [facility] Telephone Encounteron 2020 Plastic Eye Technician Authentication Interface Message Text Informed consent for dental surgery AND Anesthesia consent obtained and scanned into [employer]. Scheduled for surgery 02/11/2021. Normal [facility] BASIC METABOLIC PANELon 10-2 Anion gap [Moles/Vol] 18 mmol/L Normal - [facility] Comment on above: Performed By: #### C H8 #### [facility] [address] [place] [address], Calcium [Mass/Vol] 9.8 mg/dL Normal 8.4-10.4 [facility] Comment on above: Performed By: #### C H8 #### [facility] [address] [place] [address], Chloride [Moles/Vol] 104 mmol/L Normal 97-111 [facility] Comment on above: Performed By: #### C H8 #### [facility] [address] [place] [address], CO2 [Moles/Vol] 27 mmol/L Normal 21-30 [facility] Comment on above: Performed By: #### C H8 #### [facility] [address] [place] [address], Creatinine [Mass/Vol] 0.89 mg/dL Normal 0.50-1.10 [facility] Comment on above: Performed By: #### C H8 #### [facility] [address] [place] [address], ESTIMATED GFR (CKD-EPI) 60 mL/min/1.73sqm Normal >=60 [facility] Comment on above: Performed By: #### C H8 #### [facility] [address] [place] [address], Glucose [Mass/Vol] 182 mg/dL High 80-116 [facility] Comment on above: Performed By: #### C H8 #### [facility] [address] [place] [address], Potassium [Moles/Vol] 4.3 mmol/L Normal 3.3-5.3 [facility] Comment on above: Performed By: #### C H8 #### [facility] [address] [place] [address], Sodium [Moles/Vol] 145 mmol/L Normal 135-148 [facility] Comment on above: Performed By: #### C H8 #### [facility] [address] [place] [address], Urea nitrogen [Mass/Vol] 34 mg/dL High 8-22 [facility] Comment on above: Performed By: #### C H8 #### [facility] [address] [place] [address], COMPLETE BLOOD COUNT 02-01 Erythrocyte distribution width (RBC) [Ratio] 14.2 % Normal 11.5-14.5 [facility] Comment on above: Performed By: #### C BC #### [facility] [address] [place], [place], Hematocrit (Bld) [Volume fraction] 40.7 % Normal 36.0-46.0 [facility] Comment on above: Performed By: #### C BC #### [facility] [address] [place], [place], Hemoglobin (Bld) [Mass/Vol] 13.1 g/dL Normal 12.0-15.0 [facility] Comment on above: Performed By: #### C BC #### [facility] [address] [place], [place], MCH (RBC) [Entitic mass] 28.5 pg Normal 26.0-34.[address] [facility] Comment on above: Performed By: #### C BC #### [facility] [address] [place] [address], MCHC (RBC) [Mass/Vol] 32.1 g/dL Normal 32.0-35.[address] [facility] Comment on above: Performed By: #### C BC #### [facility] [address] [place], [place], MCV (RBC) [Entitic vol] 89 fL Normal 80-100 [facility] Comment on above: Performed By: #### C BC #### [facility] [address] [place], [place], Platelet mean volume (Bld) [Entitic vol] 9.9 fL Normal 7.5-11.2 [facility] Comment on above: Performed By: #### C BC #### [facility] [address] [place], [place], Platelets (Bld) [#/Vol] 213 10*3/uL Normal 150-400 [facility] Comment on above: Performed By: #### C BC #### [facility] [address] [place], [place], RBC (Bld) [#/Vol] 4.58 10*6/uL Normal 4.00-5.[address] [facility] Comment on above: Performed By: #### C BC #### [facility] [address] [place], [place], WBC (Bld) [#/Vol] 9.7 10*3/uL Normal 4.5-11.5 [facility] Comment on above: Performed By: #### C BC #### [facility] [address] [place], [place], PSE Chartingon 02-01-2021 Plastic Eye Technician Authentication Interface Message Text Dental Consult The Dental Department was asked to consult on this patient by the Anesthesia Department, the Attending physician for the patient care is Dr. Szymanski No chief complaint on file. 85 year old was admited and reports the following symptoms: History of present illness: No pain, and swelling, patient has dementia, according to her daughter she never complained of tooth pain. No past medical history on file. No current facility-administered medications for this encounter. No current outpatient medications on file. Not on File Clinical Exam EOE- No extra- oral swelling, pathology, tenderness noticed IOE: Patient has generalized gingivitis, moderate plaque, few teeth are missing, #6 has big cavity, few other teeth need restorations, according to her last dentist she has 6 teeth that needs to be extracted NOTE: patient has never been seen in the OR before, she requires pre- medications before dental treatment ( clindamycin 2g), she consented for the treatment and signed the form. Nikkie Melgar DDS Normal [facility] Patient Instructionson 02-01 Plastic Eye Technician Authentication Interface Message Text RECOMMENDATIONS: Patient was instructed on the following: Nothing by mouth after midnight before surgery except following meds with sip of water on AM of surgery: as per anesthesia. Please take 4 tabs of clindamycin 150 mg by mouth one hour before surgery as well Stop aspirin 7 days before surgery Stop NSAID 5 days before surgery Stop Vitamin E 10 days prior to surgery Stop alternative/herbal medication 10 days before surgery Bill Szymanski MD Normal [facility] Plastic Eye Technician Authentication Interface Message Text MEDICATIONS: Follow your medication instructions given by your Physician/s or Nurse Practitioner. On the morning of surgery please TAKE ONLY the following medications with a small sip of water: On the morning of your surgery please take only the following medications, with a small sip of water: * QUETIAPINE FUMARATE ORAL * trazodone (DESYREL) 50 mg tablet * venlafaxine (EFFEXOR XR) 37.5 MG ER capsule * metoprolol (LOPRESSOR) 50 MG tablet * aripiprazole (ABILIFY) 2 MG tablet * donepezil (ARICEPT) 10 MG tablet * LORazepam (ATIVAN) 0.5 MG tablet PLEASE NOTE THE FOLLOWING INSTRUCTIONS: 1) ON THE MORNING OF YOUR PROCEDURE, DO NOT TAKE ANY METFORMIN 2) ON THE MORNING OF YOUR PROCEDURE, DO NOT TAKE ANY GLYBURIDE THINGS TO REMEMBER: 1. DO NOT eat (including gum and mints), drink (including water), or smoke after midnight the night before your surgery. Food in your stomach can be very dangerous; vomiting during surgery may result in the accidental exposure of food or fluid into the lungs and/ or pneumonia. Not following these instructions will result in CANCELLATION/ delay of your surgery. 2. DO NOT wear any jewelry, (including rings, earrings, or mouth, tongue, or body piercings). Metal jewelry could cause constriction, amputation, or swift. Loose or bulky things in your mouth can be unsafe and result in breathing problems. 3. DO NOT bring valuables, credit cards, or large amounts of nieto. Do bring a small amount of nieto for filling prescriptions and any medical co-pays. ON THE DAY OF SURGERY: 1. ARRANGE FOR A RIDE: If you are scheduled to go home the same day of surgery, a responsible adult MUST drive or accompany you home in a car, cab, or metro-van. You will not be allowed to drive yourself home or travel home alone. Your surgery may be cancelled if you do not have a ride. An adult should stay with you for 24 hours after surgery. 2. PEDIATRIC or ADOLESCENTS: Parents or a legal guardian must remain at the hospital during surgery. You will need to make childcare arrangements for your other small children to remain at home or bring an adult with you who can supervise them in the waiting area while you are with your child. 3. SLEEP APNEA PATIENTS: Bring your sleep apnea machine and mask. 4. PLEASE BE ON TIME. A late arrival may result in the cancellation/ delay of your surgery. Contact the Pre-Surgical Evaluation department at [phone] or your surgeon's office with any questions. Normal [facility] Progress Noteson 02-01-2021 Plastic Eye Technician Authentication Interface Message Text Identification was verified by patient/parent verbalizing name and date of . Blood drawn in clinic and sent off to lab. Took 2 attempts pt felipe well with daughter and caregiver at bedside. Cristina Simental RN Normal [facility] Plastic Eye Technician Authentication Interface Message Text Blood pressure 148/64, pulse 96, temperature 98 ???F (36.7 ???C), temperature source Temporal, resp. rate 20, weight 161 lb 4.8 oz (73.2 kg), SpO2 97 %. Medications/Allergies Reviewed CURRENT MEDICATIONS Current Outpatient Medications Medication Sig Dispense Refill * QUETIAPINE FUMARATE ORAL Take 25 mg by mouth. * trazodone (DESYREL) 50 mg tablet * venlafaxine (EFFEXOR XR) 37.5 MG ER capsule TAKE 1 CAPSULE BY MOUTH DAILY after supper * metoprolol (LOPRESSOR) 50 MG tablet * aripiprazole (ABILIFY) 2 MG tablet Take 2 mg by mouth every morning. * donepezil (ARICEPT) 10 MG tablet * glipiZIDE (GLUCOTROL) 5 MG tablet Take 5 mg by mouth 2 times daily. * LORazepam (ATIVAN) 0.5 MG tablet * metformin (GLUCOPHAGE) 1000 MG tablet Take 1,000 mg by mouth 2 times daily. No current facility-administered medications for this visit. ALLERGIES Allergies Allergen Reactions * Azithromycin Other reaction(s): Unknown * Penicillins Other reaction(s): Unknown * Sulfa Antibiotics Other reaction(s): Unknown * Sulfamethoxazole W-Trimethoprim Latex Allergy: No Surgical Procedure: dental rehab Surgeon: unknown Date of Surgery: 02/11/21 HISTORY: 85 year old with history of HTN, DM, HLD, B/L Hip OA, Urinary Incontinence, Chronic Diarrhea, Dementia, and Falls scheduled for above procedure My opinion was requested regarding this patient's complex presurgical evaluation. Pertinent Past Medical History and Surgical History Reviewed. No past medical history on file. No past surgical history on file. Pertinent Social History Reviewed Social History Tobacco Use Smoking Status Not on file Social History Substance and Sexual Activity Alcohol Use Not on file Social History Substance and Sexual Activity Drug Use Not on file Family History Reviewed. family history is not on file. 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 No rash or lesions HEENT: No oropharyngeal lesions, no obvious dental infections, no loose teeth Neck: No carotid bruit, JVD, lymphadenopathy or goiter CV: Normal S1/S2, no murmurs/gallops/rubs Lungs: Lungs clear to auscultation. Good air entry bilaterally Abdomen: Abdomen soft and non-tender. BS normal No masses or organomegaly. Extremities: Extremities normal. No deformities, edema, clubbing or discoloration. Neuro: No focal neurological deficits Pulses: 2+ carotid and radial pulses : Not examined/ Not indicated AIRWAY EXAM: Mallampati Classification of Airway: Class II Faucial pillars, soft palate visible Thyromental Distance: >6cm Neck Extension: FROM Mouth Opening: > 3 fingers Teeth: Missing some teeth ASA Classification: Class III: Individual with multiple system disease or well controlled major system disease. Disease status limits daily activity. EKG: Date: 02/01/21 Result: SR HR 97 PACs, Anterior Scar age undetermined LABS: Pending ASSESSMENT and PLAN Patient is a 85 year old year old female Functional capacity: <4.0 METs Comorbid Conditions: HTN DM HLD B/L Hip OA Urinary Incontinence Chronic Diarrhea Dementia, Revised Cardiac Risk Index: History of heart disease Diabetes mellitus Patient is scheduled for a procedure that is low risk. RECOMMENDATIONS: Patient was instructed on the following: Nothing by mouth after midnight before surgery except following meds with sip of water on AM of surgery: as per anesthesia. Please take 4 tabs of clindamycin 150 mg by mouth one hour before surgery as well Stop aspirin 7 days before surgery Stop NSAID 5 days before surgery Stop Vitamin E 10 days prior to surgery Stop alternative/herbal medication 10 days before surgery Recommendations to surgical team: None Patient is medically optimized for surgery pending : Labs Bill Szymanski MD [phone] Normal [facility] Telephone Encounteron 2020 Plastic Eye Technician Authentication Interface Message Text Pt.'s daughter, Valerie, called following an appointment on 08/17; the instructions from that visit are as follows: We believe Aimee needs to be seen in the OR under general anesthesia for dental treatment. She needs many teeth extracted. ??? Dina will be calling Yecenia with an appointment date for a pre-surgical evaluation and for the surgery. She will tell you all of the information that you need to bring with you. Valerie and Yecenia have not yet received a call to arrange a PSE appointment or surgery, and Valerie requests a call back at either [phone] or [phone] to proceed with scheduling. Normal [facility] Patient Instructionson 08-17 Plastic Eye Technician Authentication Interface Message Text We believe Aimee needs to be seen in the OR under general anesthesia for dental treatment. She needs many teeth extracted. Dina will be calling Yecenia with an appointment date for a pre-surgical evaluation and for the surgery. She will tell you all of the information that you need to bring with you. Normal [facility] Progress Noteson 08-17-2020 Plastic Eye Technician Authentication Interface Message Text RM, Pt is ready for tx. 85 yr old pt with dementia. She presents with her daughter. Pt presented for Initial Examination, Pain Scale: 0. Pt chief complaint: Pt was sent here from outside dds because she has badly decayed teeth and will not keep her mouth open for tx. Radiographs taken today were: PANOREX. PT could not tolerate bwx. Examination reveals: Gross dental decay, pt cannot tolerate tx in the dental chair. She will not keep her mouth open for more than a few seconds at a time. Many teeth need ext. Soft tissue evaluation: within normal limits, no swellings or pathology noted. TMJ evaluation: within normal limits- no clicks, crepitus, deviations seen or pain reported, Maximum opening is normal Completed current status of dentition on the charting, Went over needs and treatment plan options with the pt. OHI and education were discussed with the pt. Written Instructions were also handed to the pt/AVS. Dr. Tucker did the exam. OR is recommended at this time. Valerie Rios is her daughter and LG. Please call Yecenia to coordinate the appointment. [phone] Tx request sent [employer] [facility] [place]: OR ----- Signed on Monday, August 17, 2020 at 5:05:51 PM ----- ----- Provider: Shawnee Currie DMD -- Clinic: MAIN ----- Normal [facility] Vital Signs Date Time Vital Sign Value Performing Clinician Blas sanabria 09-26-2021 13:51-0400 Body height 160 cm Eleonora Renteria MD Work Phone: [facility] 09-26-2021 13:51-0400 Body weight 72.76 kg Eleonora Renteria MD Work Phone: [facility] 09-26-2021 13:51-0400 Diastolic blood pressure 81 mm[Hg] Eleonora Renteria MD Work Phone: [facility] 09-26-2021 13:51-0400 Heart rate 56 /min Eleonora Renteria MD Work Phone: [facility] 09-26-2021 13:51-0400 SaO2% (BldA) [Mass fraction] 94 % Eleonora Renteria MD Work Phone: [facility] 09-26-2021 13:51-0400 Systolic blood pressure 139 mm[Hg] Eleonora Renteria MD Work Phone: [facility] Encounters Encounter Date Encounter Type Care Provider Facility Start: 08-16-2024 End: 08-16-2024 ambulatory Stephen ROWE Facility:[facility] Start: 07-14-2024 End: 07-14-2024 ambulatory Stephen ROWE Facility:[facility] Start: 05-16-2024 ambulatory Stephen ROWE Facil ity:[facility] Start: 04-25-2024 ambulatory Stephen ROWE Facil ity:[facility] Start: 03-21-2024 End: 03-21-2024 ambulatory Stephen ROWE Facility:[facility] Start: 03-14-2024 End: 03-14-2024 ambulatory Stephen ROWE Facility:[facility] Start: 03-08-2024 End: 03-08-2024 ambulatory Stephen ROWE Facility:[facility] Start: 03-07-2024 End: 03-07-2024 ambulatory Stephen ROWE Facility:[facility] Start: 01-21-2024 End: 01-21-2024 Telephone encounter John De Jesuso DO Work Phone: [facility] Comment on above: Other Start: 08-31-2023 Telephone encounter John Montgomery onyo DO Work Phone: [facility] Start: 05-13-2022 Telephone encounter Allen Yusuf er Work Phone: [facility] Comment on above: medication reconcili ation Start: 05-01-2022 Refill Eleonora Renteria MD Work Phone: [facility] Comment on above: Refill Request Start: 05-01-2022 Telephone encounter Eleonora calles MD Work Phone: [facility] Comment on above: Appointment Start: 09-27-2021 Telephone encounter Eleonora calles MD Work Phone: [facility] Comment on above: Results Start: 09-26-2021 End: 09-26-2021 Patient encounter procedure Eleonora Renteria MD Work Phone: [facility] Comment on above: NSVT (nonsustained v entricular tachycardia) (HCC) (Primary Dx); Premature atrial contractions; Mixed hyperlipidemia; Tachycardia; Alzheimer's dementia without behavioral disturbance, unspecified timing of dementia onset (HCC); History of stroke Start: 02-11-2021 End: 02-11-2021 ambulatory CHEVY LENNON Facility:[facility] Start: 02-01-2021 End: 02-05-2021 ambulatory UNKNOWN PROVIDER Facility:[facility] Start: 08-17-2020 ambulatory UNKNOWN PROVIDER Facili ty:[facility] Plan of Treatment Date Care Activity Detail Author Start: 04-13-2022 ADVANCE DIRECTIVE DISCUSSION ADVANCE DIRECTIVE DISCUSSION [facility] Start: 04-06-2022 Hepatitis B surface antibody level LDL CHOLESTEROL [facility] Start: 12-12-2021 [facility]: 10-05-2021 Hemoglobin A1c/Hemoglobin.total in Blood HBA1C [facility] Start: 09-27-2021 End: 11-27-2021 Triiodothyronine (T3) [Mass/volume] in Serum or Plasma [facility] Work Phone: Comment on above: Expected: 09/27/2021 , Expires: 11/27/2021 Start: 09-26-2021 End: 11-26-2021 Hepatic function 2000 panel - Serum or Plasma [facility] Work Phone: Comment on above: Expected: 09/26/2021 , Expires: 11/26/2021 Start: 09-26-2021 End: 11-26-2021 Thyrotropin [Units/volume] in Serum or Plasma [facility] Work Phone: Comment on above: Expected: 09/26/2021 , Expires: 11/26/2021 Start: 04-13-2021 ADVANCE DIRECTIVE DISCUSSION ADVANCE DIRECTIVE DISCUSSION [facility] Start: 01-31-2021 COVID-19 VACCINE (3 - Booster for Pfizer series) COVID-19 VACCINE (3 - Booster for Pfizer series) [facility] Start: 10-26-2020 COVID-19 VACCINE (3 - Booster for Pfizer series) COVID-19 VACCINE (3 - Booster for Pfizer series) [facility] Start: 02-02-2019 3 comp foot exam completed DIABETIC FOOT EXAM [facility] Start: 2001 BONE DENSITY BONE DENSITY [facility] Start: 1986 SHINGRIX VACCINE (1 of 2) OCONNELL GRIX VACCINE (1 of 2) [facility] Start: 1986 Zoster Vaccines (1 of 2) Zoste r Vaccines (1 of 2) [facility] Start: 07-25-1955 DTaP/Tdap/Td Vaccine s (1 - Tdap) DTaP/Tdap/Td Vaccines (1 - Tdap) [facility] Start: 07-25-1955 Urine microalbumin profile DTA P,TDAP,TD (1 - Tdap) [facility] Start: 07-25-1955 Urine screening for protein Diabetes: Urine Protein Screening [facility] Start: 1946 Diabetic foot examination Diabetes: Foot Exam [facility] Start: 1946 Glaucoma screening Diabetes: R etinopathy Screening [facility] Start: 1946 Hepatitis B screening URINE ALBUMIN:CREATININE RATIO [facility] Start: 1946 Hepatitis C antibody , confirmatory test DILATED RETINAL EXAM [facility] Start: 1946 Preventive dental service Diabetes: Dental Exam [facility] Start: 1942 Pneumococcal Vaccine : 65+ Years (1 - PCV) Pneumococcal Vaccine: 65+ Years (1 - PCV) [facility] Start: 1942 PNEUMOCOCCAL: 65+ (1 - PCV) PNEUMOCOCCAL: 65+ (1 - PCV) [facility] Start: 01-23-1937 COVID-19 Vaccine (#1) COVID-19 Vacci ne (#1) [facility] Start: 1936 Hemoglobin A1c measurement Amelie betes: Hemoglobin A1C [facility] Start: 1936 Hepatitis B Vaccines (1 of 3 - 3-dose series) Hepatitis B Vaccines (1 of 3 - 3-dose series) [facility] Start: 1936 Lipid panel Lipid Panel [facility] Start: 1936 Screening for osteoporosis Bone Dens ity Scan [facility] Immunizations Immunization Date Immunization Notes Care Provider Bj gomez 12-28-2013 influenza virus vacc ine, unspecified formulation Allen Li Work Phone: [facility] Payers Date Payer Category Payer Self-pay 2024 Unknown [id number] 2018 Medicaid [employer] [id number] 2018-Present [phone] [address] [place] [address] Medicaid [id number] 2018 Medicaid [facility] [id number] 2018-Present [phone] [address] [place] [address] Medicaid [id number] 2014 Unknown [id number] 1989 Medicare [id number] 1989 Medicare MEDICARE MEDICAR E A AND B [id number] 1989-Present [phone] [address] [address] [place] [address] Medicare [id number] 1989 Medicare MEDICARE MEDICAR E A AND B [id number] 1989-Present [phone] [place] [address] Medicare [id number] 1936 Unknown [id number] 1936 Unknown [id number] 1936 Unknown [id number] 1936 Unknown [id number] 1936 Unknown [id number] Unknown [id number] Unknown [id number] Unknown [id number] Unknown [id number] Unknown [id number] Unknown [id number] Unknown [id number] Unknown [id number] Social History Date Type Detail Facility [facility]: [facility] Start: 01-08-2016 Tobacco use and exposure Smoke less tobacco non-user [facility] Start: 07-06-2015 End: 09-26-2021 Alcohol intake Current non-drinker of alcohol (finding) [facility] Start: 1935 Sex Assigned At Not on file [facility] Start: 09-16-2021 End: 09-26-2021 Exposure to SARS-CoV-2 (event) Not sure [facility] Start: 07-06-2015 Alcohol intake [facility] Gender identity Not on file [facility] Medical Equipment Procedure Code Equipment Code Equipment Origin al Text Equipment Identifier Dates Start: 10-05-2015 Clinical Notes 01-25-2021 to 01-21-2024 Telephone Encounter - Barbara Bran - 01/21/2024 11:33 PM EDTTelephone Encounter - Barbara Bran - 01/21/2024 11:33 PM EDTTelephone Encounter - Mariana Wahl - 08/31/2023 8:53 PM EDT Note Date & Type Note Facility 01-21-2024 Telephone encounter Note Name of caller requesting page:Crystal Phone Number of caller: Facility requesting page: [phone] Reason for Page: pt blood sugar updating Provider paged: Dr Tucker [facility] Name of paged provider: JACQUELINE Tucker and Asst Time Page was sent or provider contacted: 11:35pm Page Content: Crystal murphy ShowMe VIdeoke for pt [place] 07.24.37 re pt blood sugar updating [facility] 01-21-2024 Miscellaneous Notes Name of caller requesting page:Crystal Phone Number of caller: Facility requesting page: [phone] Reason for Page: pt blood sugar updating Provider paged: Dr Tucker [facility] Name of paged provider: JACQUELINE Bernal Time Page was sent or provider contacted: 11:35pm Page Content: Crystal murphy ShowMe VIdeoke for pt [place] 07.24.37 re pt blood sugar updating documented in this encounter [facility] 01-21-2024 Telephone encounter Note Name of caller requesting page:Jennifer Mitchell Phone Number of caller: [phone] Facility requesting page: [facility] Reason for Page: Patient fall and low blood pressure 53 Provider paged: Dr. Tucker Practice Name of paged provider: JACQUELINE Wild Page Placed to #: Manual call [phone] Time Page was sent or provider contacted: 10:40 pm Page Content: PAGED Jennifer Enriquez for pt R. Grove 1936 re fall and low blood pressure 53 [facility] 01-21-2024 Miscellaneous Notes Name of caller requesting page:Jennifer Mitchell Phone Number of caller: [phone] Facility requesting page: [facility] Reason for Page: Patient fall and low blood pressure 53 Provider paged: Dr. Tucker [facility] Name of paged provider: JACQUELINE Wild Page Placed to #: Manual call [phone] Time Page was sent or provider contacted: 10:40 pm Page Content: PAGED Jennifer murphy [place] for pt R. Grove 4.13.1936 re fall and low blood pressure 53 documented in this encounter [facility] 08-31-2023 Telephone encounter Note Name of caller: Valerie Grove Contact phone number: [phone] Relationship to Patient: family member patient and daughter Provider: Caitlin Practice: Caitlin Chief Complaint/Reason for Call: States patient is coughing and congested and daughter is worried that she has bronchitis. States , that she feels that her mother is being neglected and asking for Dr Tucker to have her seen or prescribe something for the cough. Best time of day caller can be reached: anytime Patient advised that office/PCP has 24-48 business hours to return their call: N/A [facility] 08-31-2023 Miscellaneous Notes Name of caller: Valerie Grove Contact phone number: [phone] Relationship to Patient: family member patient and daughter Provider: Caitlin Practice: Caitlin Chief Complaint/Reason for Call: States patient is coughing and congested and daughter is worried that she has bronchitis. States , that she feels that her mother is being neglected and asking for Dr Tucker to have her seen or prescribe something for the cough. Best time of day caller can be reached: anytime Patient advised that office/PCP has 24-48 business hours to return their call: N/A documented in this encounter [facility] 05-13-2022 Telephone encounter Note Name of caller: Valerie Contact phone number: [phone] Relationship to Patient: family member daughter Provider: Dr. Li Practice: Dr. Allen Li Chief Complaint/Reason for Call: Valerie states that she needs an updated medication list with only the medications that he prescribes. Pleas advise. Best time of day caller can be reached: Any Patient advised that office/PCP has 24-48 business hours to return their call: Yes [facility] 05-13-2022 Miscellaneous Notes Name of caller: Valerie Contact phone number: [phone] Relationship to Patient: family member daughter Provider: Dr. Li Practice: Dr. Allen Li Chief Complaint/Reason for Call: Valerie states that she needs an updated medication list with only the medications that he prescribes. Pleas advise. Best time of day caller can be reached: Any Patient advised that office/PCP has 24-48 business hours to return their call: Yes documented in this encounter [facility] 05-01-2022 Miscellaneous Notes Spoke with pt's daughter Valerie who is unable to make appt at this time for her mother. Her mother will be placed in a care home starting on 05/20/2022 and will call back if she needs to schedule a follow up. Thank you, Makenna Dial Patient last seen 09/26/2021. Patient was due to have 6 month follow up appointment. Please call patient to schedule overdue follow up appointment. Thanks!! Ankita Mitchell LPN documented in this encounter [facility] 05-01-2022 Miscellaneous Notes Patient's request for medication is as follows: Requested Prescriptions Pending Prescriptions Disp Refills metoprolol tartrate, short acting, (LOPRESSOR) 25 mg tablet [Pharmacy Med Name: metoprolol tartrate 25 mg tablet] 180 tablet 0 Sig: TAKE 1 TABLET BY MOUTH TWICE DAILY Last seen 09/26/2021. Patient was to have a 6 month follow up appointment. Message sent to clerical pool asking them to call patient to schedule follow up appointment. Prescription(s) as above. Please process accordingly. Ankita Mitchell LPN documented in this encounter [facility] 09-27-2021 Miscellaneous Notes Spoke with Daughter Valerie, she verbalized understanding and will wait for the next step. She would like us to call her and let her know. She said we can say to stop the amiod on a voice mail if she cannot answer. Susie Guallpa LPN Left message for to call [facility] for test results. [facility] phone number provided. Keena Medina LPN Please inform the patient that the thyroid test which I did yesterday came back abnormal. I had checked it because she is on amiodarone for heart arrhythmia. I have added further testing to the same specimen from yesterday to get some more information. If the other tests that I ordered just now come back abnormal as well then we might need to take her off of amiodarone. We will keep you posted. Eleonora Renteria MD, [facility] Cardiovascular Medicine Pager: [phone] documented in this encounter [facility] 09-26-2021 Note HNO ID: [id number] Author: Eleonora Renteria MD Service: ? Author Type: Physician Type: Progress Notes Filed: 09/26/2021 3:05 PM Note Text: Cardiology Ambulatory Clinic Note PCP: lAlen Li MD, MD Chief Complaint Patient presents with: 4 month follow up: NSVT HISTORY OF PRESENT ILLNESS: Ms. Grove is a 85 year old female following with cardiology clinic for frequent NSVT noted during admission for acute stroke in March 2021. 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 She was found to have elevated troponin without any angina which were deemed secondary to demand supply mismatch. She underwent echo that showed LVEF of 75 % with basal inferior lateral and basal inferior segment hypokinesis, no prior studies to compare. She was having frequent NSVT during admission for which she was started on amiodarone as well as metoprolol with improvement. She had event monitor upon discharge that showed predominantly sinus rhythm with premature atrial contractions and no A. fib. Family declined further ischemic work-up due to her dementia and advanced age. Aimee is here today for follow-up follow-up with her daughter. She denies any cardiac complaints. Denies any chest pain, palpitations, shortness of breath. There is no leg swelling, orthopnea or PND. She denies any lightheadedness or dizziness. BP in good control. As per daughter she ambulates in the house without any issues. PAST MEDICAL HISTORY Diagnosis Date - Alzheimer's disease ([facility]) - Back pain - Cerebral infarction ([facility]) - Diabetes ([facility]) - Knee pain - Late onset Alzheimer's disease with behavioral disturbance ([facility]) - NSTEMI (non-ST elevated myocardial infarction) ([facility]) 04/12/2021 - NSVT (nonsustained ventricular tachycardia) ([facility]) - Paroxysmal atrial fibrillation ([facility]) 04/12/2021 - Prolonged QT interval 04/12/2021 - 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 ([facility]) PAST SURGICAL HISTORY Procedure Laterality Date - BACK SURGERY HX - HIP SURGERY HX - KNEE SURGERY HX Bilateral - REDUCTION OF LARGE BREAST - SHOULDER SURGERY HX FAMILY HISTORY Problem Relation Age of Onset - None Other Social History Tobacco Use - Smoking status: Never Smoker - Smokeless tobacco: Never Used Vaping Use - Vaping Use: Unknown Substance Use Topics - Alcohol use: No - Drug use: No ALLERGIES Allergen Reactions - Azithromycin Unknown - Penicillin Unknown - Sulfa (Sulfonamide * Unknown Medications: Current Outpatient Medications Medication Sig Dispense Refill - amiodarone (PACERONE) 100 mg tablet Take 1 tablet by mouth once daily. 90 tablet 3 - atorvastatin (LIPITOR) 40 mg tablet Take 1 tablet by mouth daily at bedtime. 90 tablet 3 - metoprolol tartrate, short acting, (LOPRESSOR) 25 mg tablet TAKE 1 TABLET BY MOUTH TWICE DAILY 180 tablet 3 - aspirin, enteric coated (ASPIRIN, ENTERIC COATED) 81 mg EC tablet Take 1 tablet by mouth once daily. 90 tablet 2 - ARIPiprazole (ABILIFY) 2 mg tablet Take 2 mg by mouth. - ergocalciferol 50,000 unit capsule (VITAMIN D2, DRISDOL) Take 50,000 Units by mouth. Thursday - fluticasone (FLONASE) 50 mcg/actuation nasal spray Use 1 [place] in the nose. - QUEtiapine (SEROQUEL) 25 mg tablet Take 12.5 mg by mouth. - traZODone (DESYREL) 50 mg tablet Take 25 mg by mouth. 1/2 at bedtime - venlafaxine ER (EFFEXOR XR) 37.5 mg 24 hr capsule TAKE 1 CAPSULE BY MOUTH DAILY after supper - cholecalciferol, Vitamin D3, (VITAMIN D3) 1,250 mcg (50,000 unit) cap capsule Take 50,000 Units by mouth one time a week. - Alcohol Swabs padm - DocuSpeak ULTRA TEST test strip - donepezil (ARICEPT) 10 mg tablet Take by mouth daily at bedtime. - glipiZIDE (GLUCOTROL) 5 mg tablet Take 5 mg by mouth once daily. - ONE TOUCH DELICA 33 gauge misc - LORazepam (ATIVAN) 0.5 mg tab 0.5 mg. 1/2 at 5pm and 1/2 at bedtime - metFORMIN (GLUCOPHAGE) 1,000 mg tablet 1,000 mg twice daily with meals. - zolpidem (AMBIEN) 5 mg tablet No current facility-administered medications for this visit. REVIEW OF SYSTEMS: GENERAL: Negative for:Weight loss and Weight gain HEENT: Negative for Nosebleeds, headache or vision changes RESPIRATORY: Denies any dyspnea GASTROINTESTINAL: Denies any bleeding or black stools MUSCULOSKELETAL: Negative for swelling SKIN: No rash Neurological: Denies any motor weakness HEMATOLOGICAL/LYMPHATIC: Negative for: Easy bruising and Easy bleeding CARDIOVASCULAR: As stated in HPI. 10 system review negative except as stated in HPI Physical Examination: Vitals:BP 139/81 Pulse 56 Ht 5' 3" (1.60m) Wt 160 lb 6.4 oz (72.8kg) SpO2 94% BMI 28.42 kg/(m2). General: Well appearing, appears stated age and in no acute distress. Psych: N (more content not included)... [facility] 09-26-2021 History of Presen t illness Narrative Cardiology Ambulatory Clinic Note PCP: Allen Li MD, MD Chief Complaint Patient presents with: 4 month follow up: NSVT HISTORY OF PRESENT ILLNESS: Ms. Grove is a 85 year old female following with cardiology clinic for frequent NSVT noted during admission for acute stroke in March 2021. 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 She was found to have elevated troponin without any angina which were deemed secondary to demand supply mismatch. She underwent echo that showed LVEF of 75 % with basal inferior lateral and basal inferior segment hypokinesis, no prior studies to compare. She was having frequent NSVT during admission for which she was started on amiodarone as well as metoprolol with improvement. She had event monitor upon discharge that showed predominantly sinus rhythm with premature atrial contractions and no A. fib. Family declined further ischemic work-up due to her dementia and advanced age. Aimee is here today for follow-up follow-up with her daughter. She denies any cardiac complaints. Denies any chest pain, palpitations, shortness of breath. There is no leg swelling, orthopnea or PND. She denies any lightheadedness or dizziness. BP in good control. As per daughter she ambulates in the house without any issues. 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 ([facility]) PAST SURGICAL HISTORY Procedure Laterality Date BACK SURGERY HX HIP SURGERY HX KNEE SURGERY HX Bilateral REDUCTION OF LARGE BREAST SHOULDER SURGERY HX FAMILY HISTORY Problem Relation Age of Onset None Other Social History Tobacco Use Smoking status: Never Smoker Smokeless tobacco: Never Used Vaping Use Vaping Use: Unknown Substance Use Topics Alcohol use: No Drug use: No ALLERGIES Allergen Reactions Azithromycin Unknown Penicillin Unknown Sulfa (Sulfonamide * Unknown Medications: Current Outpatient Medications Medication Sig Dispense Refill amiodarone (PACERONE) 100 mg tablet Take 1 tablet by mouth once daily. 90 tablet 3 atorvastatin (LIPITOR) 40 mg tablet Take 1 tablet by mouth daily at bedtime. 90 tablet 3 metoprolol tartrate, short acting, (LOPRESSOR) 25 mg tablet TAKE 1 TABLET BY MOUTH TWICE DAILY 180 tablet 3 aspirin, enteric coated (ASPIRIN, ENTERIC COATED) 81 mg EC tablet Take 1 tablet by mouth once daily. 90 tablet 2 ARIPiprazole (ABILIFY) 2 mg tablet Take 2 mg by mouth. ergocalciferol 50,000 unit capsule (VITAMIN D2, DRISDOL) Take 50,000 Units by mouth. Thursday fluticasone (FLONASE) 50 mcg/actuation nasal spray Use 1 [place] in the nose. QUEtiapine (SEROQUEL) 25 mg tablet Take 12.5 mg by mouth. traZODone (DESYREL) 50 mg tablet Take 25 mg by mouth. 1/2 at bedtime venlafaxine ER (EFFEXOR XR) 37.5 mg 24 hr capsule TAKE 1 CAPSULE BY MOUTH DAILY after supper cholecalciferol, Vitamin D3, (VITAMIN D3) 1,250 mcg (50,000 unit) cap capsule Take 50,000 Units by mouth one time a week. Alcohol Swabs padm ONETOUCH ULTRA TEST test strip donepezil (ARICEPT) 10 mg tablet Take by mouth daily at bedtime. glipiZIDE (GLUCOTROL) 5 mg tablet Take 5 mg by mouth once daily. ONE TOUCH DELICA 33 gauge misc LORazepam (ATIVAN) 0.5 mg tab 0.5 mg. 1/2 at 5pm and 1/2 at bedtime metFORMIN (GLUCOPHAGE) 1,000 mg tablet 1,000 mg twice daily with meals. zolpidem (AMBIEN) 5 mg tablet No current facility-administered medications for this visit. REVIEW OF SYSTEMS: GENERAL: Negative for:Weight loss and Weight gain HEENT: Negative for Nosebleeds, headache or vision changes RESPIRATORY: Denies any dyspnea GASTROINTESTINAL: Denies any bleeding or black stools MUSCULOSKELETAL: Negative for swelling SKIN: No rash Neurological: Denies any motor weakness HEMATOLOGICAL/LYMPHATIC: Negative for: Easy bruising and Easy bleeding CARDIOVASCULAR: As stated in HPI. 10 system review negative except as stated in HPI Physical Examination: Vitals:BP 139/81 Pulse 56 Ht 5' 3" (1.60m) Wt 160 lb 6.4 oz (72.8kg) SpO2 94% BMI 28.42 kg/(m^2). General: Well appearing, appears stated age and in no acute distress. Psych: Normal Affect Eyes: No subconjunctival hemorrhage Skin: No rash, bruising Oropharynx: Mucous membranes normal Neck: no jugular venous distention, no carotid bruits. Lymph: No cervical lymphadenopathy Lungs: Clear to auscultation bilaterally, no wheezing or rhonchi. Heart: S1, S2 normal, no murmur Extremities: No peripheral edema Neuro: Grossly nonfocal LABS: Triglyceride 94 04/06/2021 HDL Cholesterol 53 04/06/2021 LDL Cholesterol 114 04/06/2021 Cholesterol, Total 186 04/06/2021 CBC: Hemoglobin (g/dL) Date Value 04/11/2021 11.7 06/07/2012 9.1 Hematocrit (%) Date Value 04/11/2021 37.2 06/07/2012 28.0 WBC Date Value 04/11/2021 10.46 k/uL 06/07/2012 11.8 thou/cmm Platelet Count Date Value 04/11/2021 161 k/uL 06/07/2012 263 thou/cmm BMP: Potassium Date Value 04/09/2021 3.7 mmol/L 06/07/2012 4.5 mEq/L Sodium Date Value 04/09/2021 138 mmol/L 06/07/2012 139 mEq/L Chloride Date Value 04/09/2021 104 mmol/L 06/07/2012 110 mEq/L CO2 Date Value 04/09/2021 25 mmol/L 06/07/2012 21 mEq/L Creatinine (mg/dL) Date Value 04/09/2021 0.83 06/07/2012 0.81 Creatinine (POCT) (mg/dL) Date Value 04/05/2021 1.00 BUN (mg/dL) Date Value 04/09/2021 11 06/07/2012 26 Anion Gap Date Value 04/09/2021 9 mmol/L 06/07/2012 13 Calcium (mg/dL) Date Value 06/07/2012 8.1 Calcium, Total (mg/dL) Date Value 04/09/2021 8.3 TSH: No results found for: TSHREFL Prior Cardiac Testing EK05/23/2021 Sinus rhythm with premature atrial complexes Nonspecific ST abnormality Echo: 04/06/2021 LVEF 76% Basal inferior lateral segment and basal inferior segment are mildly hypokinetic Rhythm monitor: 30-day event monitor 04/2021 Predominantly sinus rhythm with premature atrial contractions No A. 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 PLAN -Check TSH and LFTs while being on amiodarone -Continue amiodarone 100 mg daily -Continue metoprolol 25 mg twice daily -Continue aspirin and Lipitor -Prescription renewed Return in about 6 months (around 03/28/2022). Electronically signed by Eleonora Renteria MD. The above note was partially created using a dictation recognition software. A reasonable attempt has been made to correct any errors. documented in this encounter [facility] 09-26-2021 Nurse Note Ms Grove is here for her routine office visit. Sophia Moore LPN documented in this encounter [facility] 05-23-2021 Note HNO ID: [id number] Author: Eleonora Renteria MD Service: ? Author Type: Physician Type: Progress Notes Filed: 05/23/2021 4:54 PM Note Text: Cardiology Ambulatory Clinic Note PCP: Allen Li MD, MD Chief Complaint Patient presents with: [facility] Follow Up: NSVT, PACs, cardiomyopathy with systolic dysfunction HISTORY OF PRESENT ILLNESS: Ms. Grove is a 85 year old female referred to cardiology clinic for frequent NSVT noted during recent admission for acute stroke in March 2021. 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 She was found to have elevated troponin without any angina which were deemed secondary to demand supply mismatch. She underwent echo that showed LVEF of 75 % with basal inferior lateral and basal inferior segment hypokinesis, no prior studies to compare. She was having frequent NSVT during admission for which she was started on amiodarone as well as metoprolol with improvement. She had event monitor upon discharge that showed predominantly sinus rhythm with premature atrial contractions and no A. fib. Family declined further ischemic work-up due to her dementia and advanced age. She is presenting today to the clinic accompanied by her daughter. She denies any chest pain, palpitations, shortness of breath, orthopnea, PND, leg swelling, lightheadedness or dizziness. BP in good control. 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 ([facility]) PAST SURGICAL HISTORY Procedure Laterality Date - BACK SURGERY HX - HIP SURGERY HX - KNEE SURGERY HX Bilateral - REDUCTION OF LARGE BREAST - SHOULDER SURGERY HX FAMILY HISTORY Problem Relation Age of Onset - None Other Social History Tobacco Use - Smoking status: Never Smoker - Smokeless tobacco: Never Used Vaping Use - Vaping Use: Unknown Substance Use Topics - Alcohol use: No - Drug use: No ALLERGIES Allergen Reactions - Azithromycin Unknown - Penicillin Unknown - Sulfa (Sulfonamide * Unknown Medications: Current Outpatient Medications Medication Sig Dispense Refill - amiodarone (PACERONE) 100 mg tablet Take 1 tablet by mouth once daily. 90 tablet 2 - aspirin, enteric coated (ASPIRIN, ENTERIC COATED) 81 mg EC tablet Take 1 tablet by mouth once daily. 90 tablet 2 - atorvastatin (LIPITOR) 40 mg tablet Take 1 tablet by mouth daily at bedtime. 90 tablet 2 - metoprolol tartrate, short acting, (LOPRESSOR) 25 mg tablet Take 1 tablet by mouth twice daily. 90 tablet 2 - ARIPiprazole (ABILIFY) 2 mg tablet Take 2 mg by mouth. - ergocalciferol 50,000 unit capsule (VITAMIN D2, DRISDOL) Take 50,000 Units by mouth. Thursday - QUEtiapine (SEROQUEL) 25 mg tablet Take 12.5 mg by mouth. - traZODone (DESYREL) 50 mg tablet Take 25 mg by mouth. 1/2 at bedtime - venlafaxine ER (EFFEXOR XR) 37.5 mg 24 hr capsule TAKE 1 CAPSULE BY MOUTH DAILY after supper - cholecalciferol, Vitamin D3, (VITAMIN D3) 1,250 mcg (50,000 unit) cap capsule Take 50,000 Units by mouth one time a week. - Alcohol Swabs padm - donepezil (ARICEPT) 10 mg tablet Take by mouth daily at bedtime. - glipiZIDE (GLUCOTROL) 5 mg tablet Take 5 mg by mouth once daily. - LORazepam (ATIVAN) 0.5 mg tab 0.5 mg. 1/2 at 5pm and 1/2 at bedtime - metFORMIN (GLUCOPHAGE) 1,000 mg tablet 1,000 mg twice daily with meals. - zolpidem (AMBIEN) 5 mg tablet - fluticasone (FLONASE) 50 mcg/actuation nasal spray Use 1 [place] in the nose. - ProFounderTOUCH ULTRA TEST test strip - ONE [employer] 33 gauge [facility] [place] No current facility-administered medications for this visit. REVIEW OF SYSTEMS: GENERAL: Negative for:Weight loss and Weight gain HEENT: Negative for:Nosebleeds RESPIRATORY: Negative for:Shortness of breath GASTROINTESTINAL: Negative for:Blood in stool MUSCULOSKELETAL: Negtive for: Muscle or joint pain, stiffness, Joint swelling SKIN: No rash HEMATOLOGICAL/LYMPHATIC: Negative for: Easy bruising and Easy bleeding CARDIOVASCULAR: As stated in HPI. 10 system review negative except as stated in HPI Physical Examination: Vitals:BP 110/70 Pulse 63 Ht 5' 3" (1.60m) Wt 155 lb 9.6 oz (70.6kg) BMI 27.57 kg/(m2). BP w/Orthostatic Vitals Date and Time Orthostatic BP Orthostatic Pulse BP Pulse BP Position BP Site BP Cuff Size 05/23/21 1417 -- -- 110/70 63 Sitting Left Arm Regular Adult Last 2 Encounter Wt Readings: Date: Wt: 05/23/2021 155 lb 9.6 oz (70.6 k (more content not included)... 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 05/2305/23/2021 Obesity, Class I, BMI 30-34.9 04/10/2021 documented as of this encounter (statuses as of 09/27/2021) [facility]22 History of Past illness Narrative* Problem Noted Date Resolved Date 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 05/2305/23/2021 Obesity, Class I, BMI 30-34.9 04/10/2021 documented as of this encounter (statuses as of 05/01/2022) [facility] History of Past illness Narrative* Problem Noted Date Resolved Date 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 Patient daughter present for education and verbalized understanding of monitor and return procedure. RN aware of placement prior to discharge.[facility]12-31-2021 NoteHNO ID: [id number] Author: Ida Gaston RN Service: Care Management Author Type: Registered Nurse Type: Care Mgt Progress Note Filed: 04/12/2021 10:43 AM Note Text: CARE MANAGEMENT DISCHARGE NOTE SERVICE DATE: 04/12/2021 SERVICE TIME: 10:42 AM LOS: 7 days Admission Date: 04/05/2021 DISCHARGE ARRANGEMENT (list agency and phone number) Discharge Arrangement: Home with Home Health Provider Name: [facility] ASSESSMENT: HANDOFF COMMUNICATION: TRANSPORTATION ARRANGEMENTS: Transportation Arrangements: Car ADDITIONAL CONTACT RESOURCES: Pt is D/C to home with Home care services thru [facility]. SIGNATURE: Ida Gaston RN PATIENT NAME: Aimee Grove DATE: April 12, 2021 TIME: 10:42 AM [phone] NoteHNO ID: [id number] Author: Valerie Wallace DO Service: Hospital Medicine Author Type: Physician Type: Progress Notes Filed: 04/12/2021 8:49 AM Note Text: DEPARTMENT OF HOSPITAL MEDICINE PROGRESS NOTE SERVICE DATE: 04/12/2021 SERVICE TIME: 8:46 AM Hospital Medicine/Primary Attending: Valerie Wallace DO NIGHT AND WEEKEND COVERAGE: After 7pm please page [phone] CHIEF COMPLAINT: I"m fine SUBJECTIVE: Pt seen and examined. Feels fine today. NO complaints. Cardiac function coming to place monitor shortly and daughter coming at 10 am. Pt denies chest pain, shortness of breath, nausea, vomiting, or diarrhea. OBJECTIVE: PHYSICAL EXAM: BP 134/66 Pulse 61 Temp (Src) 98.4 (Oral) Resp 18 Ht 5' 3" (1.60m) Wt 166 lb 10.7 oz (75.6kg) SpO2 98% BMI 29.53 kg/(m2). O2 Therapy: Room Air General - AANDOx3, NAD, Calm CV - RRR S1 S2, No M/R/G RESP - CTA B/L No wheezes, ronchi, rales ABD - soft, NT, ND +BS EXT - no gross joint deformity, no clubbing, cyanosis, edema NEURO - Moves all 4 extremities MEDICATIONS: Current Facility-Administered Medications Medication Dose Route Frequency - NaCl 0.9% iv flush bag 20 mL INTRAVENOUS PRN - acetaminophen 650 mg suppository (TYLENOL) 650 mg RECTAL q 4 H PRN - donepezil 10 mg tab(s) (ARICEPT) 10 mg ORAL AT BEDTIME - traZODone 25 mg tab(s) (DESYREL) 25 mg ORAL AT BEDTIME - venlafaxine ER 37.5 mg cap(s) (EFFEXOR XR) 37.5 mg ORAL DAILY - sodium chloride 0.9 % (flush) 3-5 mL (BD POSIFLUSH) 3-5 mL INTRAVENOUS q 12 H - dextrose 40 % 15 g 15 g ORAL PRN Or - glucagon 1 mg injection 1 mg INTRAMUSCULAR PRN Or - dextrose 50% in water 25 mL syringe 12.5 g INTRAVENOUS PRN - insulin lispro pen (rapid acting) (HumaLOG KWIKPEN) SUBCUTANEOUS w MEALS - insulin lispro pen (rapid acting) (HumaLOG KWIKPEN) SUBCUTANEOUS AT BEDTIME - aspirin 81 mg chewable tab(s) 81 mg ORAL DAILY - atorvastatin 40 mg tab(s) (LIPITOR) 40 mg ORAL AT BEDTIME - prochlorperazine 5 mg injection (COMPAZINE) 5 mg INTRAVENOUS q 6 H PRN - sodium chloride 0.9 % (flush) 3-5 mL (BD POSIFLUSH) 3-5 mL INTRAVENOUS q 12 H - lactated ringers iv infusion 75 mL/hr INTRAVENOUS CONTINUOUS - metoprolol tartrate (short acting) 25 mg tab(s) (LOPRESSOR) 25 mg ORAL q 12 H - heparin 5,000 Units injection 5,000 Units SUBCUTANEOUS q 12 H - amiodarone 100 mg tab(s) (PACERONE) 100 mg ORAL DAILY DATA: Diagnostic tests reviewed for today's visit: CBC: No results for input(s): WBC, RBC, HB, HCT, PLT, MCV, MCH, MPV, RDW in the last 24 hours. Coags: No results for input(s): PT, INR, APTT in the last 24 hours. BMP: No results for input(s): NA, K, CHLOR, CO2, BUN, CREAT, GLUC in the last 24 hours. CMP: No results for input(s): NA, K, CHLOR, CO2, BUN, CREAT, GLUC, TPROT, CA, MG, ALBUMIN, TBILI, ALKPHOS, ALT, AST, ANION in the last 24 hours. Cardiac Enzymes: No results for input(s): CK, MB, CKMB, TROPT in the last 24 hours. Liver Function, Amylase, Lipase: No results for input(s): TPROT, ALB, ALT, AST, ALKPHOS, TBILI, AMYLASE, LIPASE, LACTATE in the last 24 hours. MG/PHOS: No results for input(s): MG, P in the last 24 hours. Renal Panel: No results for input(s): ALBUMIN, CREAT, BUN, GLUC, CA, P, CHLOR, K, CO2, NA in the last 24 hours. Heme: No results for input(s): RETICP, ABSRETIC, LD, BARNEY, FE, TIBC, TRANSFERSAT in the last 24 hours. No results found for: UALBCR Estimated Creatinine Clearance: 49.1 mL/min (based on SCr of 0.83 mg/dL). Assessment/Plan 1. Acute ischemic CVA - follow up with neurology in 4 weeks. PT OT recommends home. 30 day event monitor to be placed today 2. Elevated troponin - likely demand. FOllow up with cardio 3. NSVT - amiodarone at discharge 4. Alz dementia - follow up as outpatient 5. UTI - finished abx 6. Diabetes 2 - accu checks ac and hs. Home meds at discharge Medication and Non-Pharmacologic VTE Prophylaxis/Anticoagulants Anticoagulant AND Antiplatelet Medications (From admission, onward) Start Dose Route Frequency Last Action Ordered Stop 04/10/21 1330 heparin 5,000 Units injection 5,000 Units SUBCUTANEOUS EVERY 12 HOURS Given, 04/11 2108 04/10/21 1327 -- 04/07/21 0900 aspirin 81 mg chewable tab(s) 81 mg ORAL DAILY Given, 04/11 1028 04/06/21 0904 -- 04/09/21 1015 activity - [place] 04/06/21 1130 vte current anticoag therapy ([place] Lines, Drains, and Airways Drain External Collection Device 04/08/21 0456 4 days VTE Prophylaxis: Heparin 5000 units Sub Q BID Disposition: Home with [facility] Functional Status Prior to Admit: Medical Necessity for Continued Hospitalization DC Plan of care discussed with: Provider, RN, Patient SIGNATURE: Valerie Wallace DO PATIENT NAME: Aimee Grove DATE: April 12, 2021 TIME: 8:46 AM PAGER/CONTACT #: Team color pager Disclaimer: Portions of this note may have been generated using Escapia voice recognition software. Reasonable efforts were made to correct any (more content not included)...[facility]12-30-2021 NoteHNO ID: [id number] Author: Mariangel Aguilar DO Service: Hospital Medicine Author Type: Physician Type: Progress Notes Filed: 04/11/2021 3:33 PM Note Text: DEPARTMENT OF HOSPITAL MEDICINE PROGRESS NOTE SERVICE DATE: 04/11/2021 SERVICE TIME: 3:29 PM Hospital Medicine/Primary Attending: Mariangel Aguilar DO NIGHT AND WEEKEND COVERAGE: [place] COVERAGE: After 7pm, please call cross cover pager #[phone] Subjective INTERVAL HPI: Feels pretty good, has no complaints at this time. Spoke to daughter who is upset that the patient is leaving today because her aide does not come until Thursday so asking if we can keep her until Thursday. Pt lives at home with daughter and daughter's . Explained that discharge has already been held up until today because previous physician's note said that it was requested patient be kept until today because the aide was unavailable until today. Explained that the hospital is beyond capacity and there are many sick patients waiting for a bed. Patient's daughter begging to keep her tonight and said she will come get her in the morning, but that "she will probably get fired." using expletives frequently during conversation MEDICATIONS: Reviewed Objective PHYSICAL EXAM: BP 148/63 Pulse 60 Temp (Src) 97.9 (Oral) Resp 18 Ht 5' 3" (1.60m) Wt 166 lb 10.7 oz (75.6kg) SpO2 98% BMI 29.53 kg/(m2). 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 -Seen by cardiology who feels patient does not have atrial fibrillation -Event monitor at discharge -Telemetry -Continue statin and aspirin -PT OT, will go home with home health care tomorrow NSVT and prolonged QTC -On amiodarone, now at 100 grams due to sinus bradycardia -Continue metoprolol at reduced dose 25 BID -Avoid prolonging QTC meds -Event monitor discharge Elevated troponin -Likely supply demand mismatch, unlikely ACS UTI -Completed antibiotics for 4 days Alzheimer's dementia: Continue donepezil Depression and anxiety: Continue Effexor Diabetes: will resume home meds at discharge Medication and Non-Pharmacologic VTE Prophylaxis/Anticoagulants Anticoagulant AND Antiplatelet Medications (From admission, onward) Start Dose Route Frequency Last Action Ordered Stop 04/10/21 1330 heparin 5,000 Units injection 5,000 Units SUBCUTANEOUS EVERY 12 HOURS Given, 04/11 1029 04/10/21 1327 -- 04/07/21 0900 aspirin 81 mg chewable tab(s) 81 mg ORAL DAILY Given, 04/11 1028 04/06/21 0904 -- 04/09/21 1015 activity - [place]ize [place] ([place] 04/06/21 1130 vte current anticoag therapy ([place] VTE Prophylaxis: VTE prophylaxis appropriate Disposition: Home with C tomorrow Plan of care discussed with: Provider, RN, Patient SIGNATURE: Mariangel Aguilar DO PATIENT NAME: Aimee Grove DATE: April 11, 2021 TIME: 3:29 PM etx [id number] [facility]12[facility]30-[facility]21 NoteHNO ID: [id number] Author: Shanta Perdomo RN Service: Care Management Author Type: Registered Nurse Type: Care Mgt Progress Note Filed: 04/11/2021 2:05 PM Note Text: CARE MANAGEMENT PROGRESS NOTE SERVICE DATE: 04/11/2021 SERVICE TIME: 2:04 PM LOS: 6 days Chart reviewed. Plan for pt to return home with dtr and resumed [facility] and HHC. left for pts bottle caser Leonro ([phone]). HHC orders sent to [facility]. Dtr to transport at d/[facility] to follow. SIGNATURE: hSanta Perdomo RN PATIENT NAME: Aimee Grove DATE: April 11, 2021 TIME: 2:04 PM PAGER/CONTACT #: [phone] [facility] 04-10-2021 NoteHNO ID: [id number] Author: Mariangel Aguilar DO Service: Hospital Medicine Author Type: Physician Type: Progress Notes Filed: 04/10/2021 1:27 PM Note Text: DEPARTMENT OF HOSPITAL MEDICINE PROGRESS NOTE SERVICE DATE: 04/10/2021 SERVICE TIME: 1:22 PM Hospital Medicine/Primary Attending: Mariangel Aguilar DO NIGHT AND WEEKEND COVERAGE: [place] COVERAGE: After 7pm, please call cross cover pager #[phone] Subjective INTERVAL HPI: Feels pretty good, has no complaints at this time. MEDICATIONS: Reviewed Objective PHYSICAL EXAM: BP 152/63 Pulse 60 Temp (Src) 98.6 (Oral) Resp 18 Ht 5' 3" (1.60m) Wt 190 lb 11.2 oz (86.5kg) SpO2 96% BMI 33.79 kg/(m2). 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 -Seen by cardiology who feels patient does not have atrial fibrillation -Event monitor at discharge -Telemetry -Continue statin and aspirin -PT OT, will go home with home health care tomorrow NSVT and prolonged QTC -On amiodarone, now at 200 grams due to sinus bradycardia -Continue metoprolol -Avoid prolonging QTC meds -Event monitor discharge Elevated troponin -Likely supply demand mismatch, unlikely ACS UTI -Completed antibiotics for 4 days Alzheimer's dementia: Continue donepezil Depression and anxiety: Continue Effexor Diabetes: will resume home meds at discharge Medication and Non-Pharmacologic VTE Prophylaxis/Anticoagulants Anticoagulant AND Antiplatelet Medications (From admission, onward) Start Dose Route Frequency Last Action Ordered Stop 04/07/21 0900 aspirin 81 mg chewable tab(s) 81 mg ORAL DAILY Given, 04/10 0846 04/06/21 0904 -- 04/09/21 1015 activity - [place]ize [place] 04/06/21 1130 vte current anticoag therapy [place] VTE Prophylaxis: VTE prophylaxis appropriate Disposition: Home with [facility] tomorrow Plan of care discussed with: Provider, RN, Patient SIGNATURE: Mariangel Aguilar DO PATIENT NAME: Aimee Grove DATE: April 10, 2021 TIME: 1:22 PM etx [id number]. [facility] NoteHNO ID: [id number] Author: Arian Wheat DO Service: Hospital Medicine Author Type: Physician Type: Progress Notes Filed: 04/09/2021 5:54 PM Note Text: DEPARTMENT OF HOSPITAL MEDICINE PROGRESS NOTE SERVICE DATE: 04/09/2021 SERVICE TIME: 5:47 PM Hospital Medicine/Primary Attending: Arian Wheat DO NIGHT AND WEEKEND COVERAGE: After 7pm please page [phone] SUBJECTIVE: Patient seen examined at bedside. Seems clearer than yesterday. Daughter at bedside. Daughter reports her goal is to have patient return home with her discharge. She would like to see if she is improved tomorrow with therapy with goal to return home on as currently her aide is unavailable tomorrow. Otherwise the patient has no complaints. The patient reports that she think she will be able to walk tomorrow. OBJECTIVE: PHYSICAL EXAM: BP 171/76[RN notified[ Pulse 64 Temp (Src) 98.2 (Oral) Resp 18 Ht 5' 3" (1.60m) Wt 190 lb 11.2 oz (86.5kg) SpO2 95% BMI 33.79 kg/(m2). O2 Therapy: Room Air General - AANDOx2-unsure of year/date, NAD, Calm ENT- no icterus, MMM CV - RRR S1 S2, No M/R/G RESP - CTA B/L No wheezes, ronchi, rales ABD - soft, NT, ND, NM +BS Neuro- Conversant, follows commands, moves all ext weakness in bilateral lower extremity, gross sensation intact, no dysarthria Ext:Non-tender, no edema Skin: warm, no rash MEDICATIONS: Current Facility-Administered Medications Medication Dose Route Frequency - NaCl 0.9% iv flush bag 20 mL INTRAVENOUS PRN - acetaminophen 650 mg suppository (TYLENOL) 650 mg RECTAL q 4 H PRN - donepezil 10 mg tab(s) (ARICEPT) 10 mg ORAL AT BEDTIME - traZODone 25 mg tab(s) (DESYREL) 25 mg ORAL AT BEDTIME - venlafaxine ER 37.5 mg cap(s) (EFFEXOR XR) 37.5 mg ORAL DAILY - sodium chloride 0.9 % (flush) 3-5 mL (BD POSIFLUSH) 3-5 mL INTRAVENOUS q 12 H - dextrose 40 % 15 g 15 g ORAL PRN Or - glucagon 1 mg injection 1 mg INTRAMUSCULAR PRN Or - dextrose 50% in water 25 mL syringe 12.5 g INTRAVENOUS PRN - insulin lispro pen (rapid acting) (HumaLOG KWIKPEN) SUBCUTANEOUS w MEALS - insulin lispro pen (rapid acting) (HumaLOG KWIKPEN) SUBCUTANEOUS AT BEDTIME - aspirin 81 mg chewable tab(s) 81 mg ORAL DAILY - atorvastatin 40 mg tab(s) (LIPITOR) 40 mg ORAL AT BEDTIME - prochlorperazine 5 mg injection (COMPAZINE) 5 mg INTRAVENOUS q 6 H PRN - sodium chloride 0.9 % (flush) 3-5 mL (BD POSIFLUSH) 3-5 mL INTRAVENOUS q 12 H - lactated ringers iv infusion 75 mL/hr INTRAVENOUS CONTINUOUS - metoprolol tartrate (short acting) 25 mg tab(s) (LOPRESSOR) 25 mg ORAL q 12 H - [START ON 04/10/2021] amiodarone 200 mg tab(s) (PACERONE) 200 mg ORAL BID DATA: Diagnostic tests reviewed for today's visit: CBC: Recent Labs 04/09/21 0603 WBC 10.99 RBC 3.87* HB 10.8* HCT 35.5* PLT 146* MCV 91.7 MCH 27.9 MPV 13.1* Coags: Recent Labs 04/09/21 0603 APTT 58.4* BMP: Recent Labs 04/09/21 0603 NA 138 K 3.7 CHLOR 104 CO2 25 BUN 11 CREAT 0.83 GLUC 194* CMP: Recent Labs 04/09/21 0603 NA 138 K 3.7 CHLOR 104 CO2 25 BUN 11 CREAT 0.83 GLUC 194* CA 8.3* ANION 9 Cardiac Enzymes: No results for input(s): CK, MB, CKMB, TROPT in the last 24 hours. Liver Function, Amylase, Lipase: No results for input(s): TPROT, ALB, ALT, AST, ALKPHOS, TBILI, AMYLASE, LIPASE, LACTATE in the last 24 hours. MG/PHOS: No results for input(s): MG, P in the last 24 hours. Renal Panel: Recent Labs 04/09/21 0603 CREAT 0.83 BUN 11 GLUC 194* CA 8.3* CHLOR 104 K 3.7 CO2 25 NA 138 Heme: No results for input(s): RETICP, ABSRETIC, LD, BARNEY, FE, TIBC, TRANSFERSAT in the last 24 hours. No results found for: UALBCR Assessment/Plan This is a 85 year old female with: ? #Acute ischemic CVA- MRI brain showing acute L PICA infarct, additional punctate infarcts inferior cerebellar vermis and R cerebellum #L vert occlusion #encephalopathy with dementia -appreciate neurology recs -Heparin drip stopped -30-day event monitor at discharge -Resume aspirin at discharge -Neurology follow-up in 4 to 6 weeks ? #Elevated troponin likely demand supply mismatch, unlikely ACS #Frequent NSVT #New prolonged QTC -hep drip for 48h -Continue oral amio-continue loading -Metoprolol -Continue statin, aspirin at discharge -Event monitor at discharge ? #Alzheimer's dementia -recommend geriatrics follow-up -cont geriatrics recs ? #prolonget QT -Avoid unnecessary prolonging medication ? #UTI-cx contaminant>3 organisms -completed 4d abx course ? #depression/anxiety Effexor #DM -cont ISS-BS up can resume glipizide in am if still ok -resume metformin at d/c VTE Prophylaxis: on hep drip Disposition: TBD-PT/OIT eval Plan of care discussed with: Provider, RN, Patient. This note was generated using SCM-GL voice dictation. All resonable efforts were made to correct dictation errors but they still may occu (more content not included)...[facility]12-28-2021 NoteHNO ID: [id number] Author: Shanta Perdomo RN Service: Care Management Author Type: Registered Nurse Type: Care Mgt Progress Note Filed: 04/09/2021 11:48 AM Note Text: CARE MANAGEMENT PROGRESS NOTE SERVICE DATE: 04/09/2021 SERVICE TIME: 11:46 AM LOS: 4 days Pts dtr Valerie is refusing SNF. Plan for pt to return home with [facility] and HHC- was active with [facility]. Family to transport. Cm to follow. SIGNATURE: Shanta Perdomo RN PATIENT NAME: Aimee Grove DATE: April 09, 2021 TIME: 11:46 AM PAGER/CONTACT #: [phone]. [facility] 04-08-2021 NoteHNO ID: [id number] Author: Arian Wheat DO Service: Hospital Medicine Author Type: Physician Type: Progress Notes Filed: 04/08/2021 5:54 PM Note Text: DEPARTMENT OF HOSPITAL MEDICINE PROGRESS NOTE SERVICE DATE: 04/08/2021 SERVICE TIME: 5:18 PM Hospital Medicine/Primary Attending: Arian Wheat DO NIGHT AND WEEKEND COVERAGE: After 7pm please page [phone] SUBJECTIVE: Patient seen examined at bedside. She is alert oriented x2-3(think she is at [facility]). Otherwise no complaints at the moment. Denies any pain. OBJECTIVE: PHYSICAL EXAM: BP 98/68 Pulse 69 Temp (Src) 99 (Oral) Resp 17 Ht 5' 3" (1.60m) Wt 165 lb 9.1 oz (75.1kg) SpO2 93% BMI 29.34 kg/(m2). O2 Therapy: Room Air, Liters: 2 General - AANDOx3, NAD, Calm ENT- no icterus, MMM CV - RRR S1 S2, No M/R/G RESP - CTA B/L No wheezes, ronchi, rales ABD - soft, NT, ND, NM +BS Neuro- Conversant, follows commands, moves all ext weakness in bilateral lower extremity, gross sensation intact, slight dysarthria Ext:Non-tender, no edema Skin: warm, no rash Psych: appropriate mood and affect MEDICATIONS: Current Facility-Administered Medications Medication Dose Route Frequency - NaCl 0.9% iv flush bag 20 mL INTRAVENOUS PRN - acetaminophen 650 mg suppository (TYLENOL) 650 mg RECTAL q 4 H PRN - donepezil 10 mg tab(s) (ARICEPT) 10 mg ORAL AT BEDTIME - traZODone 25 mg tab(s) (DESYREL) 25 mg ORAL AT BEDTIME - venlafaxine ER 37.5 mg cap(s) (EFFEXOR XR) 37.5 mg ORAL DAILY - sodium chloride 0.9 % (flush) 3-5 mL (BD POSIFLUSH) 3-5 mL INTRAVENOUS q 12 H - dextrose 40 % 15 g 15 g ORAL PRN Or - glucagon 1 mg injection 1 mg INTRAMUSCULAR PRN Or - dextrose 50% in water 25 mL syringe 12.5 g INTRAVENOUS PRN - insulin lispro pen (rapid acting) (HumaLOG KWIKPEN) SUBCUTANEOUS w MEALS - insulin lispro pen (rapid acting) (HumaLOG KWIKPEN) SUBCUTANEOUS AT BEDTIME - cefTRIAXone iv piggyback 1 g in dextrose (iso-osmotic) 50 mL (ROCEPHIN) 1 g INTRAVENOUS q 24 H - aspirin 81 mg chewable tab(s) 81 mg ORAL DAILY - atorvastatin 40 mg tab(s) (LIPITOR) 40 mg ORAL AT BEDTIME - heparin iv infusion 25,000 units in NaCl 0.45% 250 mL STROKE NOMOGRAM 0-3,000 Units/hr INTRAVENOUS CONTINUOUS - prochlorperazine 5 mg injection (COMPAZINE) 5 mg INTRAVENOUS q 6 H PRN - amiodarone 400 mg tab(s) (PACERONE) 400 mg ORAL BID - sodium chloride 0.9 % (flush) 3-5 mL (BD POSIFLUSH) 3-5 mL INTRAVENOUS q 12 H - lactated ringers iv infusion 75 mL/hr INTRAVENOUS CONTINUOUS - metoprolol tartrate (short acting) 25 mg tab(s) (LOPRESSOR) 25 mg ORAL q 12 H DATA: Diagnostic tests reviewed for today's visit: CBC: Recent Labs 04/08/21 0453 WBC 11.40* RBC 3.99 HB 11.1* HCT 37.6 PLT 145* MCV 94.2 MCH 27.8 MPV 13.1* Coags: Recent Labs 04/08/21 1130 APTT 53.8* BMP: Recent Labs 04/08/21 0845 NA 140 K 3.7 CHLOR 106* CO2 24 BUN 10 CREAT 0.86 GLUC 179* CMP: Recent Labs 04/08/21 0845 NA 140 K 3.7 CHLOR 106* CO2 24 BUN 10 CREAT 0.86 GLUC 179* CA 8.2* ANION 10 Cardiac Enzymes: No results for input(s): CK, MB, CKMB, TROPT in the last 24 hours. Liver Function, Amylase, Lipase: No results for input(s): TPROT, ALB, ALT, AST, ALKPHOS, TBILI, AMYLASE, LIPASE, LACTATE in the last 24 hours. MG/PHOS: No results for input(s): MG, P in the last 24 hours. Renal Panel: Recent Labs 04/08/21 0845 CREAT 0.86 BUN 10 GLUC 179* CA 8.2* CHLOR 106* K 3.7 CO2 24 NA 140 Heme: No results for input(s): RETICP, ABSRETIC, LD, BARNEY, FE, TIBC, TRANSFERSAT in the last 24 hours. No results found for: UALBCR Assessment/Plan This is a 85 year old female with: #Acute ischemic CVA- MRI brain showing acute L PICA infarct, additional punctate infarcts inferior cerebellar vermis and R cerebellum #L vert occlusion #encephalopathy with dementia -appreciate neurology recs -On heparin drip -30-day event monitor at discharge -Resume aspirin at discharge -Neurology follow-up in 4 to 6 weeks #Elevated troponin likely demand supply mismatch, unlikely ACS #Frequent NSVT #New prolonged QTC -hep drip for 48h -Continue oral amio-continue loading -Metoprolol dose increased -Continue statin aspirin -Monitor at discharge #Alzheimer's dementia -recommend geriatrics follow-up -cont geriatrics recs #prolonget QT #UTI-cx contaminant>3 organisms -completed 4d abx course #depression/anxiety VTE Prophylaxis: on hep drip Disposition: TBD-PT/OIT eval Plan of care discussed with: Provider, RN, Patient. This note was generated using SCM-GL voice dictation. All resonable efforts were made to correct dictation errors but they still may occur given the nature of the software. SIGNATURE: Arian Wheat DO PATIENT NAME: Aimee Grove DATE: April 08, 2021 TIME: 5:18 PM PAGER/CONTACT #: [facility]12-27-2021 NoteHNO ID: [id number] Author: Shanta Perdomo RN Service: Care Management Author Type: Registered Nurse Type: Care Mgt Progress Note Filed: 04/08/2021 2:17 PM Note Text: CARE MANAGEMENT PROGRESS NOTE SERVICE DATE: 04/08/2021 SERVICE TIME: 2:15 PM LOS: 3 days Spoke with pts tatianar Valerie at the bedside. Pt lives at home with her dtr- fairly independent. 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 Pt has a cane, walker, and shower chair at home. Plan for pt to return home with dtr, resumed care with tow motor operator, and [facility]. C referrals sent. Valerie agreeable to any agency for hhc. Family to transport at me. to follow. SIGNATURE: Shanta Perdomo RN PATIENT NAME: Aimee Grove DATE: April 08, 2021 TIME: 2:15 PM PAGER/CONTACT #: [phone] [facility] 04-08-2021 NoteHNO ID: [id number] Author: Eleonora Renteria MD Service: Cardiovascular Medicine Author Type: Physician Type: Progress Notes Filed: 04/08/2021 12:54 PM Note Text: CVICU PROGRESS NOTE SERVICE DATE: April 08, 2021 SERVICE TIME: 12:53 PM Admission Date: 04/05/2021 ADMITTING PROVIDER: Constanza Tracy DO AGE: [id number] year old LOS: 3 days Please note: Portions of this note including HPI, ROS, impression/plan, and examination may have been copied forward as to provide important historical information essential in contributing to medical decision making. Past medical, surgical, family, and social history completed by others were reviewed by myself and edited as needed. Documentation has been reviewed and edited as necessary to support clinical decision making for today's visit and to reflect my own independent evaluation of this patient on April 08, 2021 SUBJECTIVE Aimee Grove 85 year old female with PMH Alzheimer's dementia and DM who was brought in by her daughter due to altered mental status as well as a left sided facial droop. 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 Initial EKG on admission concerning for ST elevations in the inferior leads with Q waves which may be a completed infarction. Cardiology called to bedside due to multiple episodes of non sustained VTach overnight. ? Patient is a very poor historian. In terms of cardiac workup, she has no significant cardiac history. Prior EKG on 02/01/21 showed sinus tachycardia with PACs and a prior anteroseptal infarct. Risk factors include Type 2 DM. No prior CVA, CT or other cardiac event that I could find per chart review. HS troponins came back 198. K and Mg normal. Repeat EKG done and showed sinus rhythm with less profound ST elevations and insignificant Q waves. INTERVAL HISTORY The patient was transferred to [facility] overnight. Glucose was elevated to 500-600 range and it dropped by switching IVF from glucose to LR. The patient feels well and denies any concerns. 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 HENT: Negative for congestion, sinus pressure and sore throat. Eyes: Negative for photophobia, discharge and visual disturbance. Respiratory: Negative for cough, chest tightness and shortness of breath. Cardiovascular: Negative for chest pain, palpitations and leg swelling. Gastrointestinal: Negative for abdominal pain, blood in stool, constipation, diarrhea, nausea and vomiting. Genitourinary: Negative for dysuria, frequency and urgency. Skin: Negative for pallor, rash and wound. Neurological: Negative for dizziness, tremors, speech difficulty, weakness, numbness and headaches. Psychiatric/Behavioral: Negative for agitation and confusion. The patient is not nervous/anxious. OBJECTIVE VITAL SIGNS (last 24hrs min/max): Temp Av ?C (98.6 ?F) Min: 36.5 ?C (97.7 ?F) Max: 37.7 ?C (99.9 ?F) Pulse Av Min: 54 Max: 87 No data recorded Cuff BP Min: 99/62 Max: 157/75 Pain Level: 0 Vital signs reviewed. BP 127/79 Pulse 60 Temp (Src) 97.7 (Oral) Resp 16 Ht 5' 3" (1.60m) Wt 165 lb 9.1 oz (75.1kg) SpO2 98% BMI 29.34 kg/(m2). O2 Therapy: Room Air, Liters: 2 Temp (24hrs), Av ?C (98.6 ?F), Min:36.5 ?C (97.7 ?F), Max:37.7 ?C (99.9 ?F) PHYSICAL EXAM PERFORMED: GENERAL: well appearing, alert and in no acute distress HEAD: No significant findings. PERRL OROPHARYNX: Lips, mucosa, and tongue normal. No pharyngeal erythema. NECK: No jugulovenous distention, No carotid bruits, Supple, no lymphadenopathy HEART: regular rate and rhythm, normal, S1, S2, no murmur, gallop or rub LUNGS: no rales and breath sounds clear, bilaterally ABDOMEN: Soft, nontender, bowel sounds normal, no palpable organomegaly, no bruits. EXTREMITY: No clubbing, cyanosis, or edema. NEURO: Grossly normal cognition. Limited mobility of left arm. Moves other extremities Lines, Drains, and Airways Line Peripheral 04/06/21 1804 Right Antecubital 20 Gauge 1 day Peripheral 04/07/21 1920 Assessment Midline Right Arm 20 Gauge <1 day Drain External Collection Device 04/08/21 0456 <1 day NET FLUID BALANCE Intake/Output Summary (Last 24 hours) at 04/08/2021 0659 Last data filed at 04/07/2021 2202 Radha (more content not included)...[facility]12-26-2021 Note HNO ID: [id number] Author: Mi Warren RN Service: Nursing Author Type: Registered Nurse Type: Nursing Progress Note Filed: 04/07/2021 9:19 PM Note Text: Report provided to Lala RUSSELL using SBAR communication technique.[facility]12-26-2021 NoteHNO ID: [id number] Author: Mi Warren RN Service: Nursing Author Type: Registered Nurse Type: Nursing Progress Note Filed: 04/07/2021 8:43 PM Note Text: [facility] called to see if they saw transfer orders for pt. No answer x 2 message left.[facility]12-26-2021 NoteHNO ID: [id number] Author: Mi Warren RN Service: Nursing Author Type: Registered Nurse Type: Nursing Progress Note Filed: 04/07/2021 8:42 PM Note Text: Dr Hernandez notified of pt's BS of 594 and troponin of 123 via text page system.[facility]12-26-2021 NoteHNO ID: [id number] Author: Adi Hernandez DO Service: Cardiovascular Medicine Author Type: Resident Type: Plan of Care Filed: 04/07/2021 7:34 PM Note Text: IV access obtained with ultrasound-guided 20G needle in the right antecubital. RN drawing labs at this time. No blood loss with attempts (total 3). Adi Hernandez, Internal Medicine, PGY-2 04/07/21 7:34 [facility]12-26-2021 NoteHNO ID: [id number] Author: Mi Warren RN Service: Nursing Author Type: Registered Nurse Type: Nursing Progress Note Filed: 04/07/2021 7:09 PM Note Text: Assumed care of pt from Tone RUSSELL. Report Received.[facility] 04-07-2021 NoteHNO ID: [id number] Author: Mele Rodriguez RN Service: ? Author Type: Registered Nurse Type: Nursing Progress Note Filed: 04/07/2021 1:13 PM Note Text: Dr Walter at to attempt unit(s)/S guided IV/[facility] 04-07-2021 NoteHNO ID: [id number] Author: Mele Rodriguez RN Service: ? Author Type: Registered Nurse Type: Nursing Progress Note Filed: 04/07/2021 1:12 PM Note Text: Returned from CT, bed [facility]12-26-2021 NoteHNO ID: [id number] Author: Mele Rodriguez RN Service: ? Author Type: Registered Nurse Type: Nursing Progress Note Filed: 04/07/2021 12:10 PM Note Text: Family visit ,assisted with eating, felipe well. To CT via bed with 2 transport AND [facility]12-26-2021 NoteHNO ID: [id number] Author: Juli Valentino MD Service: Neurology General Author Type: Physician Type: Plan of Care Filed: 04/07/2021 11:54 AM Note Text: MRI brain reviewed Evidence of moderate left cerebellar infarct (motion degraded) study, no lilia hemorrhage identified. Patient transferred to CVICU d/t NSTEMI, Vtach, remains on heparin gtt. Discussed with cardiology team to treat with stroke normogram for now. Will check repeat CTH today to ensure stability of infarct in setting of heparin use. [facility]21 NoteHNO ID: [id number] Author: Mele Rodriguez RN Service: ? Author Type: Registered Nurse Type: Nursing Progress Note Filed: 04/07/2021 11:00 AM Note Text: Seen by CVICU drs AND advised of lab/ IV status.[facility] 04-07-2021 NoteHNO ID: [id number] Author: Mele Rodriguez RN Service: ? Author Type: Registered Nurse Type: Nursing Progress Note Filed: 04/07/2021 9:37 AM Note Text: Seen by cardiology res. , advised of not able to draw labs[facility]21 NoteHNO ID: [id number] Author: Eleonora Renteria MD Service: Cardiovascular Medicine Author Type: Physician Type: Progress Notes Filed: 04/07/2021 1:44 PM Note Text: CVICU PROGRESS NOTE SERVICE DATE: April 07, 2021 SERVICE TIME: 8:26 AM Admission Date: 04/05/2021 ADMITTING PROVIDER: Constanza Tracy DO AGE: [age] year old LOS: 2 days Please note: Portions of this note including HPI, ROS, impression/plan, and examination may have been copied forward as to provide important historical information essential in contributing to medical decision making. Past medical, surgical, family, and social history completed by others were reviewed by myself and edited as needed. Documentation has been reviewed and edited as necessary to support clinical decision making for today's visit and to reflect my own independent evaluation of this patient on April 07, 2021 SUBJECTIVE Aimee [place] 85 year old female with PMH Alzheimer's dementia and DM who was brought in by her daughter due to altered mental status as well as a left sided facial droop. 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 Initial EKG on admission concerning for ST elevations in the inferior leads with Q waves which may be a completed infarction. Cardiology called to bedside due to multiple episodes of non sustained VTach overnight. ? Patient is a very poor historian. In terms of cardiac workup, she has no significant cardiac history. Prior EKG on 02/01/21 showed sinus tachycardia with PACs and a prior anteroseptal infarct. Risk factors include Type 2 DM. No prior CVA, CT or other cardiac event that I could find per chart review. HS troponins came back 198. K and Mg normal. Repeat EKG done and showed sinus rhythm with less profound ST elevations and insignificant Q waves. INTERVAL HISTORY No overnight events. The patient denies any concerns. Denies palpitations. 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 HENT: Negative for congestion, sinus pressure and sore throat. Eyes: Negative for photophobia, discharge and visual disturbance. Respiratory: Negative for cough, chest tightness and shortness of breath. Cardiovascular: Negative for chest pain, palpitations and leg swelling. Gastrointestinal: Negative for abdominal pain, blood in stool, constipation, diarrhea, nausea and vomiting. Genitourinary: Negative for dysuria, frequency and urgency. Skin: Negative for pallor, rash and wound. Neurological: Negative for dizziness, tremors, speech difficulty, weakness, numbness and headaches. Psychiatric/Behavioral: Negative for agitation and confusion. The patient is not nervous/anxious. OBJECTIVE VITAL SIGNS (last 24hrs min/max): Temp Av.2 ?C (99 ?F) Min: 36.5 ?C (97.7 ?F) Max: 38 ?C (100.4 ?F) Pulse Av.4 Min: 51 Max: 109 No data recorded Cuff BP Min: 103/87 Max: 153/67 Pain Level: 0 Vital signs reviewed. BP 124/50 Pulse 61 Temp (Src) 98.2 (Temporal Artery) Resp 14 Ht 5' 3" (1.60m) Wt 165 lb 9.1 oz (75.1kg) SpO2 98% BMI 29.34 kg/(m2). O2 Therapy: Nasal Cannula, Liters: 3 Temp (24hrs), Av.2 ?C (99 ?F), Min:36.5 ?C (97.7 ?F), Max:38 ?C (100.4 ?F) PHYSICAL EXAM PERFORMED: GENERAL: well appearing, alert and in no acute distress HEAD: No significant findings. PERRLA. OROPHARYNX: Lips, mucosa, and tongue normal. No pharyngeal erythema. NECK: No jugulovenous distention, No carotid bruits, Supple, no lymphadenopathy HEART: regular rate and rhythm, normal, S1, S2, no murmur, gallop or rub LUNGS: no rales and breath sounds clear, bilaterally ABDOMEN: Soft, nontender, bowel sounds normal, no palpable organomegaly, no bruits. EXTREMITY: No clubbing, cyanosis, or edema. NEURO: Grossly normal cognition. Moves all extremities spontaneously but some deficit in left arm Lines, Drains, and Airways Line Peripheral 04/06/21 1804 Right Antecubital 20 Gauge <1 day Peripheral 04/06/21 2243 Left Foot 22 Gauge <1 day NET FLUID BALANCE Intake/Output Summary (Last 24 hours) at 04/07/2021 0659 Last data filed at 04/07/2021 0300 Gross per 24 hour Intake 668 ml Output ? Net 668 ml MEDICATIONS Current Facility-Administered Medications Medication Dose Route Frequency - aspirin 81 (more content not included)...[facility] 04-07-2021 NoteHNO ID: [id number] Author: Mele Rodriguez RN Service: ? Author Type: Registered Nurse Type: Nursing Progress Note Filed: 04/07/2021 8:36 AM Note Text: Attempted to draw labs. Not able to draw off IV, attempt peripheral draw without success.[facility]12-26-2021 NoteHNO ID: [id number] Author: Rosalia Mcdaniels RN Service: Nursing Author Type: Registered Nurse Type: Nursing Progress Note Filed: 04/07/2021 7:30 AM Note Text: Report to [facility]12-26-2021 NoteHNO ID: [id number] Author: Mele Rodriguez RN Service: ? Author Type: Registered Nurse Type: Nursing Progress Note Filed: 04/07/2021 7:43 AM Note Text: EOS report from Rosalia to [facility]12-25-2021 NoteHNO ID: [id number] Author: Maria L Haro RN Service: Nursing Author Type: Registered Nurse Type: Nursing Progress Note Filed: 04/06/2021 7:24 PM Note Text: Pt incontinent of large amount of urine. Linens changed. Report to [facility]12-25-2021 NoteHNO ID: [id number] Author: Maria L Haro RN Service: Nursing Author Type: Registered Nurse Type: Nursing Progress Note Filed: 04/06/2021 7:00 PM Note Text: Dr. Matias aware of latest troponin result of 178. No new immediate [facility]12-25-2021 NoteHNO ID: [id number] Author: Maria L Haro RN Service: Nursing Author Type: Registered Nurse Type: Nursing Progress Note Filed: 04/06/2021 6:57 PM Note Text: Dr. Matias paged for trop [facility]12-25-2021 NoteHNO ID: [id number] Author: Maria L Haro RN Service: Nursing Author Type: Registered Nurse Type: Nursing Progress Note Filed: 04/06/2021 6:06 PM Note Text: Pt back from MRI. Rt AC IV infiltrated and removed. New IV started in middle of AC.[facility]12-25-2021 NoteHNO ID: [id number] Author: Maria L Haro RN Service: Nursing Author Type: Registered Nurse Type: Nursing Progress Note Filed: 04/06/2021 4:38 PM Note Text: Pt still in [facility]12-25-2021 NoteHNO ID: [id number] Author: Maria L Haro RN Service: Nursing Author Type: Registered Nurse Type: Nursing Progress Note Filed: 04/06/2021 4:14 PM Note Text: Pt taken to MRI by nursing supervisor last model department [facility] and [facility]12-25-2021 NoteHNO ID: [id number] Author: Maria L Haro RN Service: Nursing Author Type: Registered Nurse Type: Nursing Progress Note Filed: 04/06/2021 3:50 PM Note Text: Family at bedside. MRI screening from filled out by them. MRI called and [facility]12-25-2021 NoteHNO ID: [id number] Author: Maria L Haro RN Service: Nursing Author Type: Registered Nurse Type: Nursing Progress Note Filed: 04/06/2021 3:27 PM Note Text: Dr. Florencio shah for verification of [facility]io [facility] 04-06-2021 NoteHNO ID: [id number] Author: Abbi Matias MD Service: Cardiovascular Medicine Author Type: Resident Type: Plan of Care Filed: 04/06/2021 1:09 PM Note Text: Spoke with the patient's daughter and updated her about the course. Discussed with her the code status and she wants the patient to be DNR-CCA DNI. Abbi Matias M.D. Internal Medicine, PGY 3 Pager: [phone] 04/06/2021[facility]12-25-2021 NoteHNO ID: [id number] Author: Amee Melvin MD Service: Hospital Medicine Author Type: Physician Type: Progress Notes Filed: 04/06/2021 11:02 AM Note Text: DEPARTMENT OF HOSPITAL MEDICINE PROGRESS NOTE Hospital Medicine/Primary Attending: Amee Melvin MD NIGHT AND WEEKEND COVERAGE: [place] COVERAGE: After 7pm, please call cross cover pager #[phone] Subjective INTERVAL HPI: Pt seen and examined. MEDICATIONS: Reviewed Objective PHYSICAL EXAM: BP 120/72 Pulse 76 Temp (Src) 100.4 (Oral) Resp 22 Ht 5' 3" (1.60m) Wt 165 lb 9.1 oz (75.1kg) SpO2 95% BMI 29.34 kg/(m2). O2 Therapy: Room Air Physical Exam Performed GENERAL: Alert, no distress, cooperative NECK: Supple LUNGS: Lungs clear to auscultation CARDIAC: Normal S1 and S2; no rubs, murmurs, or gallops ABDOMEN: Abdomen soft, non-tender, BS normal, No masses or organomegaly EXTREMITIES: Extremities normal, no deformities, edema, clubbing or skin discoloration NEURO: No focal deficit, cranial nerves III-XII intact DATA: Diagnostic tests reviewed for today's visit: Most recent labs and imaging results. CBC, Coags, BMP, Mg, Phos Recent Labs 04/06/21 0937 04/06/21 0822 04/06/21 0233 04/05/21 1028 04/05/21 1023 WBC 12.17* -- -- -- 12.20* HB 13.1 -- -- -- 13.6 HCT 40.5 -- -- -- 44.6 PLT 187 -- -- -- 184 INR -- -- -- -- 1.0 APTT -- -- -- -- 23.5 NA -- 141 140 -- 140 K -- 4.0 4.4 -- 4.0 CHLOR -- 102 102 -- 100 CO2 -- 23 25 -- 25 BUN -- 25* 24* -- 26* CREAT -- 0.89 0.88 1.00* 0.92 GLUC -- 194* 228* -- 265* CA -- 9.3 9.3 -- 9.6 MG -- 2.0 1.4* -- 1.5* Current Facility-Administered Medications Medication Dose Route Frequency - [MAR Hold due to Transfer] NaCl 0.9% iv flush bag 20 mL INTRAVENOUS PRN - [JUN Hold due to Transfer] acetaminophen 650 mg suppository (TYLENOL) 650 mg RECTAL q 4 H PRN - [MAR Hold due to Transfer] QUEtiapine 12.5 mg tab(s) (SEROquel) 12.5 mg ORAL AT BEDTIME - [MAR Hold due to Transfer] ARIPiprazole 2 mg tablet (ABILIFY) 2 mg ORAL DAILY - [MAR Hold due to Transfer] donepezil 10 mg tab(s) (ARICEPT) 10 mg ORAL AT BEDTIME - [MAR Hold due to Transfer] citalopram hydrobromide 10 mg tablet (CeleXA) 10 mg ORAL DAILY - [MAR Hold due to Transfer] traZODone 25 mg tab(s) (DESYREL) 25 mg ORAL AT BEDTIME - [MAR Hold due to Transfer] venlafaxine ER 37.5 mg cap(s) (EFFEXOR XR) 37.5 mg ORAL DAILY - [MAR Hold due to Transfer] sodium chloride 0.9 % (flush) 3-5 mL (BD POSIFLUSH) 3-5 mL INTRAVENOUS q 12 H - [MAR Hold due to Transfer] ondansetron (PF) 4 mg injection (ZOFRAN) 4 mg INTRAVENOUS q 6 H PRN - [MAR Hold due to Transfer] dextrose 40 % 15 g 15 g ORAL PRN Or - [MAR Hold due to Transfer] glucagon 1 mg injection 1 mg INTRAMUSCULAR PRN Or - [MAR Hold due to Transfer] dextrose 50% in water 25 mL syringe 12.5 g INTRAVENOUS PRN - [MAR Hold due to Transfer] sodium chloride 0.9 % (flush) 2-10 mL (BD POSIFLUSH) 2-10 mL INTRAVENOUS DIRECTED PRN - [MAR Hold due to Transfer] insulin lispro pen (rapid acting) (HumaLOG KWIKPEN) SUBCUTANEOUS w MEALS - [MAR Hold due to Transfer] insulin lispro pen (rapid acting) (HumaLOG KWIKPEN) SUBCUTANEOUS AT BEDTIME - [MAR Hold due to Transfer] dextrose 5% in NaCl 0.9% iv infusion 75 mL/hr INTRAVENOUS CONTINUOUS - [JUN Hold due to Transfer] cefTRIAXone iv piggyback 1 g in dextrose (iso-osmotic) 50 mL (ROCEPHIN) 1 g INTRAVENOUS q 24 H - [MAR Hold due to Transfer] aspirin 81 mg chewable tab(s) 81 mg ORAL DAILY - [MAR Hold due to Transfer] atorvastatin 40 mg tab(s) (LIPITOR) 40 mg ORAL AT BEDTIME - [MAR Hold due to Transfer] heparin RATE CHANGE bolus 1,000-4,000 Units for subtherapeutic PTTAC results 1,000-4,000 Units INTRAVENOUS PRN - [MAR Hold due to Transfer] metoprolol tartrate (short acting) 25 mg tab(s) (LOPRESSOR) 25 mg ORAL q 12 H - [MAR Hold due to Transfer] heparin iv infusion 25,000 units in NaCl 0.45% 250 mL STROKE NOMOGRAM 0-3,000 Units/hr INTRAVENOUS CONTINUOUS Assessment/Plan Active Problems: # Nonsustained V. Tach # New onset A. 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 -admit to telemetry -stroke admit -rectal aspirin for now, failed swallow evaluation -consult neuro, neuro checks -MRI, ultrasound carotids, echo ? # UTI -Continue IV Rocephin ? # Alzheimer's dementia -Hold regular medications for now -Haldol for agitation ? # Type 2 diabetes mellitus -Hold oral medications for (more content not included)...[facility]12-25-2021 NoteHNO ID: [id number] Author: Abbi Matias MD Service: Cardiovascular Medicine Author Type: Resident Type: Plan of Care Filed: 04/06/2021 9:41 AM Note Text: Attempted to call patient's daughter, Valerie [place] to update her and discuss management, no answer. Will try again later.[facility] 02-11-2021 NoteSurgical Attestation: I have reviewed the patient's History and Physical Examination. I have personally seen and evaluated the patient, repeating bella portions. There is no significant interval change. Surgery is still indicated. Yes Consent reviewed and signed by patient/family: Yes Operative site verified and marked: site verified but not marked as not anatomically possible Lakshmi Bocanegra DDS 02/11/2021 7:13 AMThe [facility] [id number] NotePresurgical Evaluation Aimee Grove, [id number] 85 year old Female 02/01/2021 Height: Data Unavailable Weight: no weight BMI: (Data Unavailable) VITAL SIGNS: There were no vitals filed for this visit. ALLERGIES: Allergies Allergen Reactions * Azithromycin Other reaction(s): Unknown * Penicillins Other reaction(s): Unknown * Sulfa Antibiotics Other reaction(s): Unknown * Sulfamethoxazole W-Trimethoprim HISTORY OF PRESENT ILLNESS: 85 Y F presents to [facility] for presurgical evaluation for upcoming dental congregational on 02/11 RECENT ILLNESS: Serious illness or hospitalization within the last six months. No STOP-BANG Row Name Office Visit from 02/01/2021 in [facility] Pre Surgical Evaluation History of sleep apnea? No Snoring No Tired/Fatigued No Observed Apnea No Pressure: Hypertension (!) Yes BMI greater than 35 0 Age greater than 50 1 Neck circ greater than 40cm (15.75") No Gender male? 0 Score 2 EXERCISE CAPACITY: <4 mets and Uses a wheel chair SOCIAL HISTORY: Social History Tobacco Use * Smoking status: Not on file Substance Use Topics * Alcohol use: Not on file * Drug use: Not on file has no history on file for drug use. MEDICAL HISTORY: No past medical history on file. SURGICAL HISTORY: No past surgical history on file. 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 ANESTHESIA REVIEW OF SYSTEMS: Eyes/ENT: Negative Teeth: Negative Pulmonary: Negative Cardio-vascular: HTN, HLD G.I./ Hepatic: Negative Renal/: incontinence Neurological: Alzheimer's dementia Gynecological: PM Psychiatric: Depression Musculoskeletal: OA Endocrine: Diabetes Hematologic: Negative Constitutional: Negative Skin: Negative PREVIOUS ANESTHETIC COMPLICATIONS: Anesthesia Complications No anesthesia history noted FAMILY HISTORY OF ANESTHETIC COMPLICATIONS: No PHYSICAL EXAM: Eyes: Normal ENT: Mucosa normal Pulmonary: Chest clear to auscultation bilaterally Cardiovascular: RRR with S1S2 Abdomen: Soft and non-tender Extremities: No gross or obvious abnormalities Neurologic: No motor deficits and AOx0 when seen Psychiatric: Appropriate affect Skin: No gross or obvious abnormalities on visible skin AIRWAY EXAM: Due to dementia, pt doesn't follow simple commands and airway exam limited Mallampati score: 3 TMD: Adequate Neck Extension/ Flexion: Adequate Mouth Opening: Adequate Dentition: Intact Micrognathia/Overbite: No PAIN ASSESSMENT: Severity: 0 Location: N/A LABORATORY DATA: Type AND Screen None CBC (last 3 years, up to 5 values) None Basic Metabolic Panel None Basic Metabolic Panel None PT/PTT/INR (last 3 years, up to 5 values) None Arterial Blood Gases None No result for BNP LFT's (last 3 years, up to 5 values) None TESTS REVIEWED: CXRay: No Chest x-ray found EKG: Last ECG Date: Not Found ECHO: Last Echocardiogram: none found going back to 07/27/2020 No results found for this basename: LVEF Stress test date: Last StressTest: none found going back to 07/27/2020 CURRENT MEDICATION LIST: Current Outpatient Medications Medication Sig Dispense Refill * QUETIAPINE FUMARATE ORAL Take 25 mg by mouth. * trazodone (DESYREL) 50 mg tablet * venlafaxine (EFFEXOR XR) 37.5 MG ER capsule TAKE 1 CAPSULE BY MOUTH DAILY after supper * metoprolol (LOPRESSOR) 50 MG tablet * aripiprazole (ABILIFY) 2 MG tablet Take 2 mg by mouth every morning. * donepezil (ARICEPT) 10 MG tablet * glipiZIDE (GLUCOTROL) 5 MG tablet Take 5 mg by mouth 2 times daily. * LORazepam (ATIVAN) 0.5 MG tablet * metformin (GLUCOPHAGE) 1000 MG tablet Take 1,000 mg by mouth 2 times daily. No current facility-administered medications for this visit. CURRENT MEDICATIONS: Aspirin: Yes--okay to continue per Dental resident Moriah NSAIDS: No Other Antiplatelet Medication: No Anticoagulants: No Steroids: No PATIENT MEDICATION INSTRUCTIONS: On the morning of your surgery please take only the following medications, with a small sip of water: PLEASE NOTE THE FOLLOWING INSTRUCTIONS: 1) ON THE MORNING OF YOUR PROCEDURE, DO NOT TAKE ANY METFORMIN 2) ON THE MORNING OF YOUR PROCEDURE, DO NOT TAKE ANY GLYBURIDE LABS, TESTS, CONSULTS ORDERED: Orders AND Meds Signed During This Encounter * aripiprazole (ABILIFY) 2 MG tablet * donepezil (ARICEPT) 10 MG tablet * glipiZIDE (GLUCOTROL) 5 MG tablet * LORazepam (ATIVAN) 0.5 MG tablet * metformin (GLUCOPHAGE) 1000 MG tablet * trazod (more content not included)...[employer] [id number] Note Patient is vaccinated for COVID-19: Pfizer on 08/07/2020 AND 08/31/2020. Patient does not require pre-op COVID testing per current guidelines.[facility]* Diagnosis NSVT (nonsustained ventricular tachycardia) (HCC)- Primary Paroxysmal ventricular tachycardia Premature atrial contractions Supraventricular premature beats Mixed hyperlipidemia Tachycardia Tachycardia, unspecified Alzheimer's dementia without behavioral disturbance, unspecified timing of dementia onset (HCC) History of stroke Transient ischemic attack (TIA), and cerebral infarction without residual deficits [facility] Elevated TSH- Primary Nonspecific abnormal results of thyroid function study NSVT (nonsustained ventricular tachycardia) (HCC) Paroxysmal ventricular tachycardia Abnormal TSH Other abnormal clinical finding Abnormal thyroid blood test Nonspecific abnormal results of thyroid function study documented in this encounter [facility] Summary Purpose Family History No Family History Records FoundNo Family History Records FoundNo Family History Records FoundNo Family History Records FoundNo Family History Records Found Advance Directives No Advanced Directives Records FoundDocuments on File Type Date Recorded 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 Advance Directive(s) 04/05/2021 12:25 PM Latest Code Status on File Code Status Date Activated Date Inactivated Comments DNR-CCA 04/06/2021 1:04 PM 04/12/2021 2:22 PM DNR Order Discussed With: Surrogate Decision Sudarshan er Additional Source Comments INFORMATION SOURCE (unrecogn ized section and content) DATE CREATED AUTHOR 05/11/2021 [facility] [facility] DATE CREATED AUTHOR AUTHOR'S ORGANIZ ATION 07/04/2021 [facility] DATE CREATED AUTHOR AUTHOR'S ORGANIZ ATION 10/18/2021 [facility] DATE CREATED AUTHOR AUTHOR'S ORGANIZ ATION 01/24/[address] [facility] DATE CREATED AUTHOR AUTHOR'S ORGANIZ ATION 09/08/2024 [facility] Source Comments (unrecognize d section and content) In the event this informatio n is protected by the Federal Confidentiality of Alcohol and Drug Abuse Patient Records regulations: The Federal rules restrict any use of the information to criminally investigate or prosecute any alcohol or drug abuse patient.[facility] the event this information is protected by the Federal Confidentiality of Alcohol and Drug Abuse Patient Records regulations: The Federal rules restrict any use of the information to criminally investigate or prosecute any alcohol or drug abuse patient.[facility] the event this information is protected by the Federal Confidentiality of Alcohol and Drug Abuse Patient Records regulations: The Federal rules restrict any use of the information to criminally investigate or prosecute any alcohol or drug abuse patient.[facility] Hospital[facility] the event this information is protected by the Federal Confidentiality of Alcohol and Drug Abuse Patient Records regulations: The Federal rules restrict any use of the information to criminally investigate or prosecute any alcohol or drug abuse patient.[facility] Reason for Visit (unrecogniz ed section and content) Reason Comments 4 month follow up NSVT Reason Comments Results Reason Comments Appointment Reason Comments Refill Request Reason Onset Date Comments Other 01/21/2024 Reason Onset Date Comments medication reconciliation 05/13/2022 Care Teams (unrecognized sec tion and content) Tissue Technologist Relationship Specialty Start Date End Date Allen Li MD [address] [place] [address] PCP - General Internal Medicine 01/08/16 Juan Carlos Driver DO [address] [place] [address] 01/08/16 Allen Li MD [address] [place] [address] Home Care Physician Internal Medicine 04/08/21 Tissue Technologist Relationship Specialty Start Date End Date Allen Li MD [address] [place] [address] PCP - General Internal Medicine 01/08/16 Juan Carlos Driver, DO [address] [place] [address] 01/08/16 Allen Li MD [address] [place] [address] Home Care Physician Internal Medicine 04/08/21 Tissue Technologist Relationship Specialty Start Date End Date Allen Li MD [address] [place] [address] PCP - General Internal Medicine 01/08/16 Juan Carlos Driver, DO [address] [place] [address] 01/08/16 Allen Li MD [address] [address] Home Care Provider Internal Medicine 04/08/21 Tissue Technologist Relationship Specialty Start Date End Date Valerie Duenas, [address], [address] [place] [address] PCP - General 05/14/15 FOR RECORDS PERTAINING TO PATIENTS WHO ARE OR HAVE BEEN ENROLLED IN A CHEMICAL DEPENDENCY/SUBSTANCEABUSE PROGRAM, SOME INFORMATION MAY BE OMITTED. This clinical summary was aggregated from multiple sources. Caution should be exercised in using it in the provision of clinical care. This summary normalizes information from multiple sources, and as a consequence, information in this document may materially change the coding, format and clinical context of patient data. In addition, data may be omitted in some cases. CLINICAL DECISIONS SHOULD BE BASED ON THE PRIMARY CLINICAL RECORDS. [facility] provides no warranty or guarantee of the accuracy or completeness of information in this document.
[2024-11-15 08:38] LABS: Hematocrit 39.6 % (37-47); Hemoglobin 12.4 g/dL (12.0-15.0); Mean Corp Hgb Conc 31.3 g/dL (32-36); Mean Corpuscular Volume 85.5 fL (81-99); Mean Platelet Vol. 11.9 fl (6.2-12.0); Platelet Count 272 K/mm3 (150-450); RBC Distribution Width CV 14.3 % (11.6-14.6); RBC Distribution Width SD 44.7 fl (35.1-43.9); Red Blood Count 4.63 M/mm3 (4.2-5.4); White Blood Count 10.7 K/mm3 (4.4-11.0)
[2024-11-15 09:02] LABS: Anion Gap 12 (5-15); BUN 28 mg/dL (4-19); BUN/Creat Ratio 26.2 RATIO (10-20); Calcium,Total 9.7 mg/dL (7.6-11.0); Carbon Dioxide 26.4 mmol/L (21.0-32.0); Chloride 100 mmol/L (98-108); Cholesterol 164 mg/dL (<=200); Glucose 101 mg/dL (70-99); Low Density Lipoprotein Calc. 90 mg/dL; Potassium 4.2 mmol/L (3.3-5.1); Triglycerides 99 mg/dL; Very Low Density Lipoprotein 20 mg/dL (5-40); cholesterol:hdl ratio screen 3.01
== END ==
LOC: OLS.ACW100 05:00
PROVIDERS: Visit Provider Family Medicine
DX: E11.9 Type 2 diabetes mellitus without complications (principal); F03.93 Unspecified dementia, unspecified severity, with mood disturbance
CPT/HCPCS: 36415; 80048; 80061; 83036; 84443; 85027

== ENCOUNTER → 2024-12-23 | Outpatient (REF) | payer MEDICARE, MEDICAID, SELFPAY ==
--- OUTSIDE RECORDS SUMMARY | 2024-12-23 04:22 | XMS RPT_ITS | CCD ---
Author Organization [facility] ion [facility] Care Team Providers Care Watch Crystal Edge Grinder Name Role Phone PROVIDER, UNKNOWN Attending Unavailable PROVIDER, UNKNOWN Admitting Unavailable AL MASHNI, CHEVY Referring Unavailable AL MASTIKI, CHEVY Attending Unavailable AL MASARDENI, CHEVY Admitting Unavailable PROVIDER, UNKNOWN Attending Unavailable PROVIDER, UNKNOWN Admitting Unavailable AL GISSELLE, CHEVY Referring Unavailable PROVIDER, UNKNOWN Attending Unavailable PROVIDER, UNKNOWN Admitting Unavailable PROVIDER, UNKNOWN Attending Unavailable PROVIDER, UNKNOWN Admitting Unavailable Allen Li MD Primary Care Provider Juan Carlos Driver DO Unavailable Allen Li MD Unavailable Allen Li MD Primary Care Provider Juan Carlos Driver DO Unavailable [phone] Allen Li MD Unavailable [phone] Unavailable Primary Care Provider UnavailValerie Ramirez DO Primary Care Provider [phone] Stephen Julian Attending Unavailable Stephen Julian Attending Unavailable Stephen Julian Attending Unavailable Stephen Julian Attending Unavailable Stephen Julian Referring Unavailable Stephen Julian Attending Unavailable Stephen Julian Attending Unavailable Stephen Julian Attending Unavailable Stephen Julian Attending Unavailable Stephen Julian Attending Unavailable Allergies Allergy Classification Reported Allergen(s) Allergy Type Date of Onset Reaction(s) Facility (5 sources) Azithromycin; Translations: [AZITHROMYCIN] Drug Allergy 07-06-19 Unknown [facility]) Penicillins; Translations: [PENICILLINS] Propensity to adverse reactions to drug (disorder) 05-11-19 16 [email or web address] (5 sources) Sulfonamides (Antibiotic); Translations: [SULFA ANTIBIOTICS] Propensity to adverse reactions to drug (disorder) 01-08-20 16 [facility] ([facility] source) SULFAMETHOXAZOLE W-TRIMETHOPRIM; Translations: [SULFAMETHOXAZOLE W-TRIMETHOPRIM] Propensity to adverse reactions to drug (disorder) 05-11-19 16 [facility] ([facility] sources) Penicillin Drug Allergy 01-08-20 16 Unknown [facility] (4 sources) Sulfonamides (Antibiotic) Propensity to adverse reactions to drug 01-08-20 16 Unknown [facility] Medications Completed/Discontinued Medications Medication Drug Class(es) [...] (FLONASE) 50 mcg/actuation nasal spray Use 1 [place] in the nose. 0 Active Comment on above: Use 1 [place] in the n ose. glipiZIDE 5 mg [...] Translations: [Diabetes mellitus type 2, uncontrolled] Onset: 05-14-2015 01-25-2022 Chronic Diabetes mellitus without complication (2 sources) Type 2 diabetes mellitus without complications; Translations: [Type 2 diabetes mellitus without complications] Onset: 09-02-2024 Chronic Disorders of lipid metabolism (9 sources) Mixed hyperlipidemia; Translations: [Mixed hyperlipidemia] Onset: 05-14-2015 Chronic Essential hypertension (4 sources) Benign hypertension; Translations: [Essential (primary) hypertension] Onset: 05-14-2015 01-25-2022 Chronic Genitourinary symptoms and ill-defined conditions (4 sources) Urinary incontinence; Translations: [Unspecified urinary incontinence] Onset: 05-14-2015 01-25-2022 Chronic Mood disorders (4 sources) Bipolar disorder, unspecified; Translations: [Major depressive disorder, recurrent, mild] Onset: 09-02-2024 Chronic Osteoarthritis (4 sources) Osteoarthritis of bilateral [...] unspecified severity, with other behavioral disturbance] Onset: 09-02-2024 Past or Other Problems Problem Classification Problem [...] Phone Number of caller: Facility requesting page: [phone] Reason for Page: pt blood sugar updating Provider paged: Dr [facility] Name of paged provider: JACQUELINE Bernal Time Page was sent or provider contacted: 11:35pm Page Content: Crystal murphy Porter + Sail for pt [place] 04.37 re pt blood sugar updating [facility] 36 Name of caller requesting page:Jennifer Mitchell Phone Number of caller: [phone] Facility requesting page: Mina Reason for Page: Patient fall and low blood pressure 53 Provider paged: Dr. [facility] Name of paged provider: JACQUELINE Tucker & Anel Page Placed to #: Manual call [phone] Time Page was sent or provider contacted: 10:40 pm Page Content: PAGED Jennifer murphy Porter + Sail for pt [place] 193 re fall and low blood pressure 53 [facility] 36on 08-31-2023 36 Name of caller: Valerie Sherin Contact phone number: [phone] Relationship to Patient: family member patient and [...] hours to return their call: N/A [facility] AIMEE GROVE ([id number]) 1935 F Date Time Provider Department 09/27/21 [...] will keep you posted. Eleonora Renteria MD, [facility] Cardiovascular Medicine Pager: [phone] Keena Medina LPN 09/27/2021 11:11 AM Signed Left message for to call [facility] for test results. [facility] phone number provided. BIPIN Reese LPN [...] level in future again. Eleonora Renteria MD, [facility] Cardiovascular Medicine Pager: [phone] Eleonora Renteria MD 10/16/2021 9:34 AM Signed [...] test [R79.89] Order(s):T3 BLD [SQT3] Order #: [id number] FUTURE CONSULT TO ENDOCRINOLOGY [9007] Order #: [id number]: 1 FUTURE Prescriptions as of 10/17/2021 - [...] (FLONASE) 50 mcg/actuation nasal spray Use 1 [place] in the nose. - QUEtiapine (SEROQUEL) 25 mg tablet Take 12.5 mg by mouth. - traZODone (DESYREL) 50 mg tablet Take 25 mg by mouth. 1/2 at bedtime - venlafaxine ER (EFFEXOR XR) 37.5 mg 24 hr capsule TAKE 1 CAPSULE BY MOUTH DAILY after supper - cholecalciferol, Vitami (more content not included)... 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 - QUEtiapine (SEROQUEL) 25 [...] a week. - Alcohol Swabs padm - ClearCareTOUCH ULTRA TEST test strip - donepezil (ARICEPT) [...] (more content not included)... Normal [facility] Hepatic function 2000 panelo n 09-26-2021 Albumin [Mass/Vol] 3.8 g/dL Low 3.9-4.9 [facility] Comment on above: Order Comment: Speci men Type: BLOOD SPECIMEN Performed By: #### H STNT #### [facility] CLIA [id number] [address] ALP [Catalytic activity/Vol] 50 U/L Normal 34-123 [facility] Comment on above: Order Comment: Speci men Type: BLOOD SPECIMEN Performed By: #### H STNT #### [facility] CLIA [id number] [address] ALT With P-5'-P [Catalytic activity/Vol] 13 U/L Normal 7-38 [facility] Comment on above: Order Comment: Speci men Type: BLOOD SPECIMEN Performed By: #### H STNT #### [facility] CLIA [id number] [address] [facility] AST With P-5'-P [Catalytic activity/Vol] 13 U/L Normal 13-35 [facility] Comment on above: Order Comment: Speci men Type: BLOOD SPECIMEN Performed By: #### H STNT #### [facility] CLIA [id number] [address] Bilirubin [Mass/Vol] 0.2 mg/dL Normal 0.2-1.3 [facility] Comment on above: Order Comment: Speci men Type: BLOOD SPECIMEN Performed By: #### H STNT #### [facility] CLIA [id number] [address] Bilirubin.conjugat ed [Mass/Vol] mg/dL Normal <0.2 [facility] Comment on above: Order Comment: Speci men Type: BLOOD SPECIMEN Performed By: #### H STNT #### [facility] CLIA [id number] [address] Protein [Mass/Vol] 6.9 g/dL Normal 6.3-8.0 [facility] Comment on above: Order Comment: Speci men Type: BLOOD SPECIMEN Performed By: #### H STNT #### [facility] CLIA [id number] [address] T3 SerPl-mCncon 09-26-2021 T3 [Mass/Vol] 83 ng/dL Normal 79-165 [facility] Comment on above: Order Comment: Speci men Type: BLOOD SPECIMEN Performed By: #### H STNT #### [facility] CLIA [id number] [address] T4 Free SerPl-mCncon 022 Free T4 [Mass/Vol] 0.9 ng/dL Normal 0.9-1.7 [facility] Comment on above: Order Comment: Speci men Type: BLOOD SPECIMEN Performed By: #### H STNT #### [facility] CLIA [id number] [address] TSH SerPl-aCncon 09-26-2021 TSH Qn 16.450 m[IU]/L High 0.270-4.200 [facility] Comment on above: Order Comment: Speci men Type: BLOOD SPECIMEN Performed By: #### H STNT #### [facility] CLIA [id number] [address] 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 /2 at bedtime - venlafaxine ER (EFFEXOR XR) [...] (FLONASE) 50 mcg/actuation nasal spray Use 1 [place] in the nose. - ClearCareTOMicksGarage ULTRA TEST test strip - ONE TOUCH DELA [employer] 33 gauge misc No current facility-administered medications for this visit. REVIEW OF SYSTEMS: GENERAL: Negative for:Weight loss and Weight gain HEENT: Negative for:Nosebleeds RESPIRATORY: Negative for:Shortness of breath GASTROINTESTINAL: Negative for:Blood in stool MUSCULOSKELETAL: Negtive for: Muscle or joint pain, stiffness, Joint swelling SKIN: No rash HEMATOLOGICAL/LYMPHATI C: Negative for: Easy bruising and Easy bleeding CARD (more content not included)... Normal [facility] CNDSon 04-12-2021 [facility] HNO ID: [id number] Author: Valerie Wallace DO Service: Hospital Medicine [...] In 2 weeks ? Eleonora Renteria MD [phone] [place] [address] ? PCP Requested Referral ? Follow-Up Appointment ? With: primary care doctor ? When: In 1 week ?FOllow up with [facility] in 4- 6 weeks ? Treatment Team: Attending Provider: Mariangel Aguilar DO Consulting: Juli Valentino MD Consulting: Maximo Tadeo MD Attending: Eleonora Renteria MD Primary Service: [place] [employer] ? FOLLOW-UP APPOINTMENTS ALREADY SCHEDULED WITH A [facility] PROVIDER: NO FUTURE APPOINTMENTS. ? ALLERGIES [...] (more content not included)... Normal [facility] CBC W Auto Differential pane l (Bld)on 04-11-2021 Basophils (Bld) [#/Vol] 0.05 10*3/uL Normal <0.11 [facility] Comment on above: Order Comment: Speci men Type: BLOOD SPECIMEN Performed By: #### 5 7021-8 ####[facility] [id number] [address] Basophils/100 WBC (Bld) 0.5 % Normal [facility] Comment on above: Order Comment: Speci men Type: BLOOD SPECIMEN Performed By: #### 5 7021-8 ####[facility] [id number] [address] [place] Differential cell count method Nom (Bld) Auto Normal [facility] Comment on above: Order Comment: Speci men Type: BLOOD SPECIMEN Performed By: #### 5 7021-8 ####[facility] [id number] [address] Eosinophils (Bld) [#/Vol] 0.27 10*3/uL Normal <0.46 [facility] Comment on above: Order Comment: Speci men Type: BLOOD SPECIMEN Performed By: #### 5 7021-8 ####[facility] [id number] [address] Eosinophils/100 WBC (Bld) 2.6 % Normal [facility] Comment on above: Order Comment: Speci men Type: BLOOD SPECIMEN Performed By: #### 5 7021-8 ####[facility] [id number] [address] Erythrocyte distribution width (RBC) [Ratio] 13.0 % Normal 11.5-15.0 [facility] Comment on above: Order Comment: Speci men Type: BLOOD SPECIMEN Performed By: #### 5 7021-8 ####[facility] [id number] [address] Hematocrit (Bld) [Volume fraction] 37.2 % Normal 36.0-46.0 [facility] Comment on above: Order Comment: Speci men Type: BLOOD SPECIMEN Performed By: #### 5 7021-8 ####[facility] [id number] [address] Hemoglobin (Bld) [Mass/Vol] 11.7 g/dL Normal 11.5-15.5 [facility] Comment on above: Order Comment: Speci men Type: BLOOD SPECIMEN Performed By: #### 5 7021-8 ####[facility] [id number] [address] IMMATURE GRAN % 0.4 % Normal [facility] Comment on above: Order Comment: Speci men Type: BLOOD SPECIMEN Performed By: #### 5 7021-8 ####[facility] [id number] [address] IMMATURE GRAN ABS 0.04 k/uL Normal <0.10 [facility] Comment on above: Order Comment: Speci men Type: BLOOD SPECIMEN Performed By: #### 5 7021-8 ####[facility] [id number] [address] Lymphocytes (Bld) [#/Vol] 1.33 10*3/uL Normal 1.00-4.00 [facility] Comment on above: Order Comment: Speci men Type: BLOOD SPECIMEN Performed By: #### 5 7021-8 ####[facility] [id number] [address] Lymphocytes/100 WBC (Bld) 12.7 % Normal [facility] Comment on above: Order Comment: Speci men Type: BLOOD SPECIMEN Performed By: #### 5 7021-8 ####[facility] [id number] [address] MCH (RBC) [Entitic mass] 28.3 pg Normal 26.0-34.0 [facility] Comment on above: Order Comment: Speci men Type: BLOOD SPECIMEN Performed By: #### 5 7021-8 ####[facility] [id number] [address] MCHC (RBC) [Mass/Vol] 31.5 g/dL Normal 30.5-36.0 [facility] Comment on above: Order Comment: Speci men Type: BLOOD SPECIMEN Performed By: #### 5 7021-8 ####[facility] [id number] [address] MCV (RBC) [Entitic vol] 90.1 fL Normal 80.0-100.0 [facility] Comment on above: Order Comment: Speci men Type: BLOOD SPECIMEN Performed By: #### 5 7021-8 ####[facility] [id number] [address] Monocytes (Bld) [#/Vol] 1.32 10*3/uL High <0.87 [facility] Comment on above: Order Comment: Speci men Type: BLOOD SPECIMEN Performed By: #### 5 7021-8 ####[facility] [id number] [address] Monocytes/100 WBC (Bld) 12.6 % Normal [facility] Comment on above: Order Comment: Speci men Type: BLOOD SPECIMEN Performed By: #### 5 7021-8 ####[facility] [id number] [address] Neutrophils (Bld) [#/Vol] 7.45 10*3/uL Normal 1.45-7.50 [facility] Comment on above: Order Comment: Speci men Type: BLOOD SPECIMEN Performed By: #### 5 7021-8 ####[facility] [id number] [address] Neutrophils/100 WBC (Bld) 71.2 % Normal [facility] Comment on above: Order Comment: Speci men Type: BLOOD SPECIMEN Performed By: #### 5 7021-8 ####[facility] [id number] [address] Nucleated RBC (Bld) [#/Vol] 10*3/uL Normal <0.01 [facility] Comment on above: Order Comment: Speci men Type: BLOOD SPECIMEN Performed By: #### 5 7021-8 ####[facility] [id number] [address] Nucleated RBC/100 WBC (Bld) [Ratio] 0.0 /100 WBC Normal 0.0 [facility] Comment on above: Order Comment: Speci men Type: BLOOD SPECIMEN Performed By: #### 5 7021-8 ####[facility]ORYCL[facility] [id number] [address] Platelet mean volume (Bld) [Entitic vol] 13.4 fL High 9.0-12.7 [facility] Comment on above: Order Comment: Speci men Type: BLOOD SPECIMEN Performed By: #### 5 7021-8 ####[facility]ORYCLIA [id number] [address] Platelets (Bld) [#/Vol] 161 10*3/uL Normal 150-400 [facility] Comment on above: Order Comment: Speci men Type: BLOOD SPECIMEN Performed By: #### 5 7021-8 ####[facility]ORYCL[facility] [id number] [address] RBC (Bld) [#/Vol] 4.13 10*6/uL Normal 3.90-5.20 [facility] Comment on above: Order Comment: Speci men Type: BLOOD SPECIMEN Performed By: #### 5 7021-8 ####[facility]CL[facility] [id number] [address] WBC (Bld) [#/Vol] 10.46 10*3/uL Normal 3.70-11.00 [facility] Comment on above: Order Comment: Speci men Type: BLOOD SPECIMEN Performed By: #### 5 7021-8 ####[facility]ORYCLIA [id number] [address] CNDSon 04-11-2021 CNDS HNO ID: [id number] Author: Mariangel Aguilar DO Service: Hospital Medicine [...] When: In 2 weeks Eleonora Renteria MD [phone] [place] [address] PCP Requested Referral Follow-Up Appointment With: primary care doctor When: In 1 week Treatment Team: Attending Provider: Mariangel Aguilar DO Consulting: Juli Valentino MD Consulting: Maximo Tadeo MD Attending: Eleonora Renteria MD Primary Service: [facility] FOLLOW-UP APPOINTMENTS ALREADY SCHEDULED WITH A [facility] PROVIDER: No future appointments. ALLERGIES Allergen [...] twice daily with meals. fluticasone (FLONASE) 1 [place] Use 1 [place] in the nose. Alcohol Swabs padm aspirin, enteric coated (ASPIRIN, ENTERIC COATED) 81 mg EC tablet ONETOUCH ULTRA TEST test strip glipiZIDE (GLUCOTROL) 5 mg tablet hydro (more content not included)... Normal [facility] CONSULT PROGon 04-11-2021 CONSULT PROG HNO ID: [id number] Author: Eleonora Renteria MD Service: Cardiovascular Medicine [...] (FLONASE) 50 mcg/actuation nasal spray Use 1 [place] in the nose. Alcohol Swabs padm aspirin, [...] (more content not included)... Normal [facility] CONSULT PROGon 04-10-2021 CONSULT PROG HNO ID: [id number] Author: Marta Flood APRN.[employer] Service: Neurology General Author Type: Nurse Practitioner [...] and Prevention (personally reviewed by Marta Flood APRN.[employer]): Daily Rounding Date: 04/10/21 Daily Rounding Time: 1353 PROBLEM LIST: Active Problems: Cerebral infarct (HCC) [...] -- 04/09/21 1015 activity - mobilize patient ([place] 04/06/21 1130 vte current anticoag therapy ([place] VTE Prophylaxis: VTE prophylaxis appropriate Impression/Recommendat ions IMPRESSION 85yo female with dementia and DM; who presented from home for AMS. 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 Normal [facility] CONSULT PROG HNO ID: [id number] Author: Eleonora Renteria MD Service: Cardiovascular Medicine [...] (FLONASE) 50 mcg/actuation nasal spray Use 1 [place] in the nose. Alcohol Swabs padm aspirin, [...] (more content not included)... Normal [facility] THERAPY NTon 04-10-2021 THERAPY NT HNO ID: [id number] Author: Ashok Jaquez, PT Service: Physical Therapy Author Type: Physical Therapist Type: Therapy (PT/OT/Speech/Resp) Filed: 04/10/2021 4:07 PM Note Text: Physical Therapy Treatment SERVICE DATE: 04/10/2021 SERVICE TIME: 1454 to 1513 (plus 2570-6245 with daughter present) ROOM: [place] [address] Recommended Discharge Disposition: Home PT Recommended Discharge Disposition Comments: with 24 hour assist from family and TOXICOLOGY SUPERVISOR. 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 Per chart pt has TOXICOLOGY SUPERVISOR at home and was fairly independent. Pt [...] (more content not included)... Normal [facility] Basic metabolic 2000 panelon 04-09-2021 Anion gap [Moles/Vol] 9 mmol/L Normal 9-18 [facility] Comment on above: Order Comment: Speci men Type: BLOOD SPECIMEN Performed By: #### 2 4321-2 ####[facility] [id number] [address] Calcium [Mass/Vol] 8.3 mg/dL Low 8.5-10.2 [facility] Comment on above: Order Comment: Speci men Type: BLOOD SPECIMEN Performed By: #### 2 4321-2 ####[facility]ORYCL[facility] [id number] [address] [facility] Chloride [Moles/Vol] 104 mmol/L Normal 97-105 [facility] Comment on above: Order Comment: Speci men Type: BLOOD SPECIMEN Performed By: #### 2 4321-2 ####[facility]ORYCLIA [id number] [address] CO2 [Moles/Vol] 25 mmol/L Normal 22-30 [facility] Comment on above: Order Comment: Speci men Type: BLOOD SPECIMEN Performed By: #### 2 4321-2 ####[facility]ORYCLIA [id number] [address] Creatinine [Mass/Vol] 0.83 mg/dL Normal 0.58-0.96 [facility] Comment on above: Order Comment: Speci men Type: BLOOD SPECIMEN Performed By: #### 2 4321-2 ####[facility]ORYCLIA [id number] [address] [place] GFR/1.73 sq M.predicted MDRD (S/P/Bld) [Vol rate/Area] mL/min/{1.73_m2} Normal [facility] Comment on above: Order Comment: Speci [...] actual GFR. Performed By: #### 2 4321-2 ####[facility]ORYCLIA [id number] [place] [address] [place] Glucose [Mass/Vol] 194 mg/dL High 74-99 [facility] Comment on above: Order Comment: Speci men Type: BLOOD SPECIMEN Result Comment: The [place] [employer] (ADA) provides guidance for cutoff [...] Standards of Medical Care in Diabetes 2016, [place] [employer]. Diabetes Care. 2016.39(Suppl 1). Performed By: #### 2 4321-2 ####[facility]ORYCLIA [id number] [address] [place] Potassium [Moles/Vol] 3.7 mmol/L Normal 3.7-5.1 [facility] Comment on above: Order Comment: Speci men Type: BLOOD SPECIMEN Performed By: #### 2 4321-2 ####[facility]ORYCLIA [id number] [address] [place] Sodium [Moles/Vol] 138 mmol/L Normal 136-144 [facility] Comment on above: Order Comment: Speci men Type: BLOOD SPECIMEN Performed By: #### 2 4321-2 ####[facility]ATORYCLIA [id number] [place] [address] [place] Urea nitrogen [Mass/Vol] 11 mg/dL Normal 7-21 [facility] Comment on above: Order Comment: Speci men Type: BLOOD SPECIMEN Performed By: #### 2 4321-2 ####[facility]ATORYCLIA [id number] [address] CALCIUM IONIZED Bon 04-09-20 Calcium.ionized (BldV) [Mass/Vol] 1.12 mmol/L Normal 1.08-1.30 [facility] Comment on above: Order Comment: Speci men Type: BLOOD SPECIMEN Performed By: #### I CA ####[facility]ORATORYCLIA [id number] [address] Calcium.ionized adjusted to pH 7.4 (Bld) [Moles/Vol] 1.12 mmol/L Normal 1.08-1.30 [facility] Comment on above: Order Comment: Speci men Type: BLOOD SPECIMEN Performed By: #### I CA ####[facility]ATORYCLIA [id number] [address] CBC W Auto Differential pane l (Bld)on 04-09-2021 Basophils (Bld) [#/Vol] 0.06 10*3/uL Normal <0.11 [facility] Comment on above: Order Comment: Speci men Type: BLOOD SPECIMEN Result Comment: Revi ewed Differential confirmed by visual scan of peripheral blood smear slide Performed By: #### H STNT #### [facility] CLIA [id number] [address] [place] [address] Basophils/100 WBC (Bld) 0.5 % Normal [facility] Comment on above: Order Comment: Speci men Type: BLOOD SPECIMEN Performed By: #### H STNT #### [facility] CLIA [id number] [address] [place] [address] Differential cell count method Nom (Bld) Auto Normal [facility] Comment on above: Order Comment: Speci men Type: BLOOD SPECIMEN Performed By: #### H STNT #### [facility] CLIA [id number] [address] Eosinophils (Bld) [#/Vol] 0.25 10*3/uL Normal <0.46 [facility] Comment on above: Order Comment: Speci men Type: BLOOD SPECIMEN Performed By: #### H STNT #### [facility] CLIA [id number] [address] Eosinophils/100 WBC (Bld) 2.3 % Normal [facility] Comment on above: Order Comment: Speci men Type: BLOOD SPECIMEN Performed By: #### H STNT #### [facility] CLIA [id number] [address] Erythrocyte distribution width (RBC) [Ratio] 13.1 % Normal 11.5-15.0 [facility] Comment on above: Order Comment: Speci men Type: BLOOD SPECIMEN Performed By: #### H STNT #### [facility] CLIA [id number] [address] Hematocrit (Bld) [Volume fraction] 35.5 % Low 36.0-46.0 [facility] Comment on above: Order Comment: Speci men Type: BLOOD SPECIMEN Performed By: #### H STNT #### [facility] CLIA [id number] [address] Hemoglobin (Bld) [Mass/Vol] 10.8 g/dL Low 11.5-15.5 [facility] Comment on above: Order Comment: Speci men Type: BLOOD SPECIMEN Performed By: #### H STNT #### [facility] CLIA [id number] [address] IMMATURE GRAN % 0.5 % Normal [facility] Comment on above: Order Comment: Speci men Type: BLOOD SPECIMEN Performed By: #### H STNT #### [facility] CLIA [id number] [address] IMMATURE GRAN ABS 0.06 k/uL Normal <0.10 [facility] Comment on above: Order Comment: Speci men Type: BLOOD SPECIMEN Performed By: #### H STNT #### [facility] CLIA [id number] [address] Lymphocytes (Bld) [#/Vol] 1.59 10*3/uL Normal 1.00-4.00 [facility] Comment on above: Order Comment: Speci men Type: BLOOD SPECIMEN Performed By: #### H STNT #### [facility] CLIA [id number] [address] Lymphocytes/100 WBC (Bld) 14.5 % Normal [facility] Comment on above: Order Comment: Speci men Type: BLOOD SPECIMEN Performed By: #### H STNT #### [facility] CLIA [id number] [address] MCH (RBC) [Entitic mass] 27.9 pg Normal 26.0-34.0 [facility] Comment on above: Order Comment: Speci men Type: BLOOD SPECIMEN Performed By: #### H STNT #### [facility] CLIA [id number] [address] MCHC (RBC) [Mass/Vol] 30.4 g/dL Low 30.5-36.0 [facility] Comment on above: Order Comment: Speci men Type: BLOOD SPECIMEN Performed By: #### H STNT #### [facility] CLIA [id number] [address] MCV (RBC) [Entitic vol] 91.7 fL Normal 80.0-100.0 [facility] Comment on above: Order Comment: Speci men Type: BLOOD SPECIMEN Performed By: #### H STNT #### [facility] CLIA [id number] [address] Monocytes (Bld) [#/Vol] 1.30 10*3/uL High <0.87 [facility] Comment on above: Order Comment: Speci men Type: BLOOD SPECIMEN Performed By: #### H STNT #### [facility] CLIA [id number] [address] Monocytes/100 WBC (Bld) 11.8 % Normal [facility] Comment on above: Order Comment: Speci men Type: BLOOD SPECIMEN Performed By: #### H STNT #### [facility] CLIA [id number] [address] Neutrophils (Bld) [#/Vol] 7.73 10*3/uL High 1.45-7.50 [facility] Comment on above: Order Comment: Speci men Type: BLOOD SPECIMEN Performed By: #### H STNT #### [facility] CLIA [id number] [address] Neutrophils/100 WBC (Bld) 70.4 % Normal [facility] Comment on above: Order Comment: Speci men Type: BLOOD SPECIMEN Performed By: #### H STNT #### [facility] CLIA [id number] [address] Nucleated RBC (Bld) [#/Vol] 10*3/uL Normal <0.01 [facility] Comment on above: Order Comment: Speci men Type: BLOOD SPECIMEN Performed By: #### H STNT #### [facility] CLIA [id number] [address] Nucleated RBC/100 WBC (Bld) [Ratio] 0.0 /100 WBC Normal 0.0 [facility] Comment on above: Order Comment: Speci men Type: BLOOD SPECIMEN Performed By: #### H STNT #### [facility] CLIA [id number] [address] Platelet mean volume (Bld) [Entitic vol] 13.1 fL High 9.0-12.7 [facility] Comment on above: Order Comment: Speci men Type: BLOOD SPECIMEN Performed By: #### H STNT #### [facility] CLIA [id number] [address] Platelets (Bld) [#/Vol] 146 10*3/uL Low 150-400 [facility] Comment on above: Order Comment: Speci men Type: BLOOD SPECIMEN Result Comment: Plat elet count confirmed by manual review of peripheral blood smear Performed By: #### H STNT #### [facility] CLIA [id number] [address] RBC (Bld) [#/Vol] 3.87 10*6/uL Low 3.90-5.20 [facility] Comment on above: Order Comment: Speci men Type: BLOOD SPECIMEN Performed By: #### H STNT #### [facility] CLIA [id number] [address] WBC (Bld) [#/Vol] 10.99 10*3/uL Normal 3.70-11.00 [facility] Comment on above: Order Comment: Speci men Type: BLOOD SPECIMEN Result Comment: Revi ewed Performed By: #### H STNT #### [facility] CLIA [id number] [address] CBC panel Auto (Bld)on 04-09 Erythrocyte distribution width (RBC) [Ratio] 13.0 % Normal 11.5-15.0 [facility] Comment on above: Order Comment: Speci men Type: BLOOD SPECIMEN Performed By: #### 5 8410-2 #### [facility] CLIA [id number] [address] Hematocrit (Bld) [Volume fraction] 34.1 % Low 36.0-46.0 [facility] Comment on above: Order Comment: Speci men Type: BLOOD SPECIMEN Performed By: #### 5 8410-2 #### [facility] CLIA [id number] [address] Hemoglobin (Bld) [Mass/Vol] 10.7 g/dL Low 11.5-15.5 [facility] Comment on above: Order Comment: Speci men Type: BLOOD SPECIMEN Performed By: #### 5 8410-2 #### [facility] CLIA [id number] [address] MCH (RBC) [Entitic mass] 28.6 pg Normal 26.0-34.0 [facility] Comment on above: Order Comment: Speci men Type: BLOOD SPECIMEN Performed By: #### 5 8410-2 #### [facility] CLIA [id number] [address] MCHC (RBC) [Mass/Vol] 31.4 g/dL Normal 30.5-36.0 [facility] Comment on above: Order Comment: Speci men Type: BLOOD SPECIMEN Performed By: #### 5 8410-2 #### [facility] CLIA [id number] [address] MCV (RBC) [Entitic vol] 91.2 fL Normal 80.0-100.0 [facility] Comment on above: Order Comment: Speci men Type: BLOOD SPECIMEN Performed By: #### 5 8410-2 #### [facility] CLIA [id number] [address] Nucleated RBC (Bld) [#/Vol] 10*3/uL Normal <0.01 [facility] Comment on above: Order Comment: Speci men Type: BLOOD SPECIMEN Performed By: #### 5 8410-2 #### [facility] CLIA [id number] [address] Platelet mean volume (Bld) [Entitic vol] 13.2 fL High 9.0-12.7 [facility] Comment on above: Order Comment: Speci men Type: BLOOD SPECIMEN Performed By: #### 5 8410-2 #### [facility] CLIA [id number] [address] Platelets (Bld) [#/Vol] 139 10*3/uL Low 150-400 [facility] Comment on above: Order Comment: Speci men Type: BLOOD SPECIMEN Result Comment: Plat elet count confirmed by manual review of peripheral blood smear Performed By: #### 5 8410-2 #### [facility] CLIA [id number] [address] [facility] RBC (Bld) [#/Vol] 3.74 10*6/uL Low 3.90-5.20 [facility] Comment on above: Order Comment: Speci men Type: BLOOD SPECIMEN Performed By: #### 5 8410-2 #### [facility] CLIA [id number] [address] WBC (Bld) [#/Vol] 11.16 10*3/uL High 3.70-11.00 [facility] Comment on above: Order Comment: Speci men Type: BLOOD SPECIMEN Result Comment: Revi ewed Performed By: #### 5 8410-2 #### [facility] CLIA [id number] [address] CONSULT PROGon 04-09-2021 CONSULT PROG HNO ID: [id number] Author: Eleonora Renteria MD Service: Cardiovascular Medicine [...] (FLONASE) 50 mcg/actuation nasal spray Use 1 [place] in the nose. Alcohol Swabs padm aspirin, [...] EKG is on my personal review without ANga green and shows sinus rhythm with premature [...] (more content not included)... Normal [facility] THERAPY NTon 04-09-2021 THERAPY NT HNO ID: [id number] Author: Mayra Wilkes, CCC-CUSHION MAKER Service: Speech/Swallow Author Type: Speech Language Pathologist Type: Therapy (PT/OT/Speech/Resp) Filed: 04/09/2021 4:13 PM Note Text: Speech Therapy Treatment SERVICE DATE: 04/09/2021 SERVICE TIME: 1525 to 1535 ROOM: [place] [address] IMPRESSION: Swallow Deficits Identified / Suspected: Oropharyngeal [...] following cerebral infarction Interventions Provided: Dysphagia Therapy (61740) $ Dysphagia Therapy (06039) Billed Units: 1 unit Training and education [...] (more content not included)... Normal [facility] THERAPY NT HNO ID: [id number] Author: AWA Pascual/L Service: Occupational Therapy Author Type: Occupational Therapist Type: Therapy (PT/OT/Speech/Resp) Filed: 04/09/2021 3:51 PM Note Text: Occupational Therapy Evaluation SERVICE DATE: 04/09/2021 SERVICE TIME: 1409 to 1426 ROOM: [id number] Recommended Discharge Disposition: Home OT Recommended Discharge Disposition Comments: Pt will require 24 hour hands on assist for safety from family or TOXICOLOGY SUPERVISOR. 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 Per chart pt has TOXICOLOGY SUPERVISOR at home and was fairly independent. Pt [...] (more content not included)... 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 Per chart pt has TOXICOLOGY SUPERVISOR at home and was fairly independent. Pt [...] (more content not included)... Normal [facility] aPTT PPPon 04-09-2021 aPTT Coag (PPP) [Time] 58.4 s High 23.0-32.4 [facility] Comment on above: Order Comment: Speci men Type: BLOOD SPECIMEN Performed By: #### 5 8410-2 #### [facility] CLIA [id number] 1 [place] [address] [place] Basic metabolic 2000 panelon 04-08-2021 Anion gap [Moles/Vol] 10 mmol/L Normal 9-18 [facility] Comment on above: Order Comment: Speci men Type: BLOOD SPECIMEN Performed By: #### 2 4321-2 ####[facility]ORYCLIA [id number] [address] Calcium [Mass/Vol] 8.2 mg/dL Low 8.5-10.2 [facility] Comment on above: Order Comment: Speci men Type: BLOOD SPECIMEN Performed By: #### 2 4321-2 ####[facility]ORYCLIA [id number] [address] Chloride [Moles/Vol] 106 mmol/L High 97-105 [facility] Comment on above: Order Comment: Speci men Type: BLOOD SPECIMEN Performed By: #### 2 4321-2 ####[facility]ORYCLIA [id number] [address] CO2 [Moles/Vol] 24 mmol/L Normal 22-30 [facility] Comment on above: Order Comment: Speci men Type: BLOOD SPECIMEN Performed By: #### 2 4321-2 ####[facility]ORYCLIA [id number] [address] Creatinine [Mass/Vol] 0.86 mg/dL Normal 0.58-0.96 [facility] Comment on above: Order Comment: Speci men Type: BLOOD SPECIMEN Performed By: #### 2 4321-2 ####[facility]ORYCLIA [id number] [address] GFR/1.73 sq M.predicted MDRD (S/P/Bld) [Vol rate/Area] mL/min/{1.73_m2} Normal [facility] Comment on above: Order Comment: Speci [...] actual GFR. Performed By: #### 2 4321-2 ####[facility]ATORYCLIA [id number] [place] [address] [place] Glucose [Mass/Vol] 179 mg/dL High 74-99 [facility] Comment on above: Order Comment: Speci men Type: BLOOD SPECIMEN Result Comment: The [place] [employer] (ADA) provides guidance for cutoff [...] Standards of Medical Care in Diabetes 2016, [place] [employer]. Diabetes Care. 2016.39(Suppl 1). Performed By: #### 2 4321-2 ####[facility]ORYCLIA [id number] [place] [address] [place] Potassium [Moles/Vol] 3.7 mmol/L Normal 3.7-5.1 [facility] Comment on above: Order Comment: Speci men Type: BLOOD SPECIMEN Performed By: #### 2 4321-2 ####[facility]ATORYCLIA [id number] [place] [address] [place] Sodium [Moles/Vol] 140 mmol/L Normal 136-144 [facility] Comment on above: Order Comment: Speci men Type: BLOOD SPECIMEN Performed By: #### 2 4321-2 ####[facility]ATORYCLIA [id number] [place] [address] [place] Urea nitrogen [Mass/Vol] 10 mg/dL Normal 7-21 [facility] Comment on above: Order Comment: Speci men Type: BLOOD SPECIMEN Performed By: #### 2 4321-2 ####[facility]ORYCLIA [id number] [address] CBC panel Auto (Bld)on 04-08 Erythrocyte distribution width (RBC) [Ratio] 13.3 % Normal 11.5-15.0 [facility] Comment on above: Order Comment: Speci men Type: BLOOD SPECIMEN Performed By: #### H STNT #### [facility] CLIA [id number] [address] Hematocrit (Bld) [Volume fraction] 37.6 % Normal 36.0-46.0 [facility] Comment on above: Order Comment: Speci men Type: BLOOD SPECIMEN Performed By: #### H STNT #### [facility] CLIA [id number] [address] [place] [address] Hemoglobin (Bld) [Mass/Vol] 11.1 g/dL Low 11.5-15.5 [facility] Comment on above: Order Comment: Speci men Type: BLOOD SPECIMEN Performed By: #### H STNT #### [facility] CLIA [id number] [address] MCH (RBC) [Entitic mass] 27.8 pg Normal 26.0-34.0 [facility] Comment on above: Order Comment: Speci men Type: BLOOD SPECIMEN Performed By: #### H STNT #### [facility] CLIA [id number] [address] [place] [address] MCHC (RBC) [Mass/Vol] 29.5 g/dL Low 30.5-36.0 [facility] Comment on above: Order Comment: Speci men Type: BLOOD SPECIMEN Performed By: #### H STNT #### [facility] CLIA [id number] [address] MCV (RBC) [Entitic vol] 94.2 fL Normal 80.0-100.0 [facility] Comment on above: Order Comment: Speci men Type: BLOOD SPECIMEN Performed By: #### H STNT #### [facility] CLIA [id number] [address] Nucleated RBC (Bld) [#/Vol] 10*3/uL Normal <0.01 [facility] Comment on above: Order Comment: Speci men Type: BLOOD SPECIMEN Performed By: #### H STNT #### [facility] CLIA [id number] [address] Platelet mean volume (Bld) [Entitic vol] 13.1 fL High 9.0-12.7 [facility] Comment on above: Order Comment: Speci men Type: BLOOD SPECIMEN Performed By: #### H STNT #### [facility] CLIA [id number] [address] Platelets (Bld) [#/Vol] 145 10*3/uL Low 150-400 [facility] Comment on above: Order Comment: Speci men Type: BLOOD SPECIMEN Performed By: #### H STNT #### [facility] CLIA [id number] [address] RBC (Bld) [#/Vol] 3.99 10*6/uL Normal 3.90-5.20 [facility] Comment on above: Order Comment: Speci men Type: BLOOD SPECIMEN Performed By: #### H STNT #### [facility] CLIA [id number] [address] WBC (Bld) [#/Vol] 11.40 10*3/uL High 3.70-11.00 [facility] Comment on above: Order Comment: Speci men Type: BLOOD SPECIMEN Performed By: #### H STNT #### [facility] CLIA [id number] [address] [place] 04-08-2021 NILDAN Telephone (HCSIND) AIMEE GROVE ([id number]) 1935 F Date Time Provider Department 04/08/21 JAMIE CHAVEZ During your visit today, we recorded the following information about you: Jamie Chavez LPN 04/08/2021 3:17 PM Signed 04/08/2021 Jamie Chavez LPN 3:14 PM Contacted Allen Li MD, MD office to inquire if physician will follow/sign for [facility] .Spoke with Archana ABRAHAM) who Provided verbal confirmation for the physician to follow. Allergies As of Date: 04/08/2021 Noted Allergy Reaction AZITHROMYCIN 01/08/2016 16 - Unknown PENICILLIN 01/08/2016 16 - Unknown SULFA (SULFONAMIDE ANTIBIOTICS) 01/08/2016 16 - Unknown Date Reviewed: 04/08/2021 Reviewed by: Donna Guerra, YVONNE - Fully Assessed Reason for Visit: Home Care Management [1305] Prescriptions as of 04/08/2021 - acetaminophen 650 mg CR tablet Take 650 mg by mouth. - ARIPiprazole (ABILIFY) 2 mg tablet Take 2 mg by mouth. - ergocalciferol 50,000 unit capsule (VITAMIN D2, DRISDOL) Take 50,000 Units by mouth. Thursday - fluticasone (FLONASE) 50 mcg/actuation nasal spray Use 1 [place] in the nose. - ibuprofen (MOTRIN) 800 [...] ENTERIC COATED) 81 mg EC tablet - [place] ULTRA TEST test strip - citalopram hydrobromide [...] Encounter Status:Closed by JAMIE CHAVEZ on 04/08/21 [facility] CONSULT PROGon 04-08-2021 CONSULT PROG HNO ID: [id number] Author: Eleni Palacios APRN.[employer] Service: Neurology General Author Type: Nurse Practitioner Type: Consult Progress Note Filed: 04/08/2021 10:38 AM Note Text: NEURO STROKE PROGRESS NOTE SERVICE DATE: 04/08/2021 SERVICE TIME: 0900 Subjective INTERVAL HISTORY: Patient resting in bed, transferred to [facility] overnight. Denies any pain, HUTTON, numbness, tingling. [...] (more content not included)... Normal [facility] Urinalysis complete panel (U )on 04-08-2021 Bacteria LM.HPF (Urine sed) [#/Area] None Seen Normal None Seen [facility] Comment on above: Order Comment: Speci men Type: BLOOD SPECIMEN Performed By: #### 5 8410-2 #### [facility] CLIA [id number] [address] Bilirubin Ql (U) Negative Normal Negative [facility] Comment on above: Order Comment: Speci men Type: BLOOD SPECIMEN Performed By: #### 5 8410-2 #### [facility] CLIA [id number] [address] Clarity (Unsp spec) Clear Normal Clear [facility] Comment on above: Order Comment: Speci men Type: BLOOD SPECIMEN Performed By: #### 5 8410-2 #### [facility] CLIA [id number] [address] Color (U) Yellow Normal Yellow [facility] Comment on above: Order Comment: Speci men Type: BLOOD SPECIMEN Performed By: #### 5 8410-2 #### [facility] CLIA [id number] [address] Epithelial cells LM.HPF (Urine sed) [#/Area] 0.2 /[HPF] Normal [facility] Comment on above: Order Comment: Speci men Type: BLOOD SPECIMEN Performed By: #### 5 8410-2 #### [facility] CLIA [id number] [address] Glucose Test strip (U) [Mass/Vol] Negative Normal Negative [facility] Comment on above: Order Comment: Speci men Type: BLOOD SPECIMEN Performed By: #### 5 8410-2 #### [facility] CLIA [id number] [address] Hemoglobin Ql (U) Moderate Abnormal Negative [facility] Comment on above: Order Comment: Speci men Type: BLOOD SPECIMEN Performed By: #### 5 8410-2 #### [facility] CLIA [id number] [address] Hyaline casts (Urine sed) [#/Area] 0 /[LPF] Normal 0 /LPF [facility] Comment on above: Order Comment: Speci men Type: BLOOD SPECIMEN Performed By: #### 5 8410-2 #### [facility] CLIA [id number] [address] Ketones Ql (U) Negative Normal Negative [facility] Comment on above: Order Comment: Speci men Type: BLOOD SPECIMEN Performed By: #### 5 8410-2 #### [facility] CLIA [id number] [address] Leukocyte esterase Test strip Ql (U) Trace Abnormal Negative [facility] Comment on above: Order Comment: Speci men Type: BLOOD SPECIMEN Performed By: #### 5 8410-2 #### [facility] CLIA [id number] [address] Nitrite Ql (U) Negative Normal Negative [facility] Comment on above: Order Comment: Speci men Type: BLOOD SPECIMEN Performed By: #### 5 8410-2 #### [facility] CLIA [id number] [address] pH (U) 6.5 [pH] Normal 5.0-8.0 [facility] Comment on above: Order Comment: Speci men Type: BLOOD SPECIMEN Performed By: #### 5 8410-2 #### [facility] CLIA [id number] [address] Protein (U) [Mass/Vol] Negative Normal Negative [facility] Comment on above: Order Comment: Speci men Type: BLOOD SPECIMEN Performed By: #### 5 8410-2 #### [facility] CLIA [id number] [address] RBC LM.HPF (Urine sed) [#/Area] 0-3 /HPF Normal 0-3 /HPF [facility] Comment on above: Order Comment: Speci men Type: BLOOD SPECIMEN Performed By: #### 5 8410-2 #### [facility] CLIA [id number] [address] Specific gravity (U) [Rel density] 1.010 Normal 1.005-1.030 [facility] Comment on above: Order Comment: Speci men Type: BLOOD SPECIMEN Performed By: #### 5 8410-2 #### [facility] CLIA [id number] [address] Urobilinogen Ql (U) 0.2 EU/dL Normal 0.2-1.0 EU/dL [facility] Comment on above: Order Comment: Speci men Type: BLOOD SPECIMEN Performed By: #### 5 8410-2 #### [facility] CLIA [id number] [address] WBC LM.HPF (Urine sed) [#/Area] 0-5 /HPF Normal 0-5 /HPF [facility] Comment on above: Order Comment: Speci men Type: BLOOD SPECIMEN Performed By: #### 5 8410-2 #### [facility] CLIA [id number] [address] aPTT PPPon 04-08-2021 aPTT Coag (PPP) [Time] 53.8 s High 23.0-32.4 [facility] Comment on above: Order Comment: Speci men Type: BLOOD SPECIMEN Performed By: #### 1 4979-9 ####[facility] [id number] [address] aPTT Coag (PPP) [Time] 69.2 s High 23.0-32.4 [facility] Comment on above: Order Comment: Speci men Type: BLOOD SPECIMEN Performed By: #### 5 8410-2 #### [facility] CLIA [id number] [address] aPTT Coag (PPP) [Time] s High 23.0-32.4 [facility] Comment on above: Order Comment: Speci men Type: BLOOD SPECIMEN Performed By: #### 1 4979-9 ####[facility] [id number] [address] aPTT Coag (PPP) [Time] s High 23.0-32.4 [facility] Comment on above: Order Comment: Speci men Type: BLOOD SPECIMEN Performed By: #### H STNT #### [facility] CLIA [id number] [address] [facility] ALLIED HEALTHon 04-07-2021 ALLIED HEALTH HNO ID: [id number] Author: RT Jacklyn(R) Service: Radiology Author Type: [...] 07, 2021 12:42 PM Normal [facility] Basic metabolic 2000 panelon 04-07-2021 Anion gap [Moles/Vol] 10 mmol/L Normal 9-18 [facility] Comment on above: Order Comment: Speci men Type: BLOOD SPECIMEN Performed By: #### 2 4321-2 ####[facility] [id number] [address] STATES [facility] Calcium [Mass/Vol] 6.9 mg/dL Low 8.5-10.2 [facility] Comment on above: Order Comment: Speci men Type: BLOOD SPECIMEN Performed By: #### 2 4321-2 ####[facility] [id number] [place] [address] [place] Chloride [Moles/Vol] 109 mmol/L High 97-105 [facility] Comment on above: Order Comment: Speci men Type: BLOOD SPECIMEN Performed By: #### 2 4321-2 ####[facility]IA [id number] [address] CO2 [Moles/Vol] 21 mmol/L Low 22-30 [facility] Comment on above: Order Comment: Speci men Type: BLOOD SPECIMEN Performed By: #### 2 4321-2 ####[facility]IA [id number] [address] Creatinine [Mass/Vol] 0.85 mg/dL Normal 0.58-0.96 [facility] Comment on above: Order Comment: Speci men Type: BLOOD SPECIMEN Performed By: #### 2 4321-2 ####[facility] [id number] [address] GFR/1.73 sq M.predicted MDRD (S/P/Bld) [Vol rate/Area] mL/min/{1.73_m2} Normal [facility] Comment on above: Order Comment: Speci [...] actual GFR. Performed By: #### 2 4321-2 ####[facility]IA [id number] [address] [place] Glucose [Mass/Vol] 594 mg/dL High 74-99 [facility] Comment on above: Order Comment: Speci men Type: BLOOD SPECIMEN Result Comment: The [place] Diabetes Association (ADA) provides guidance for cutoff [...] Standards of Medical Care in Diabetes 2016, [place] Diabetes Association. Diabetes Care. 2016.39(Suppl 1). Performed By: #### 2 4321-2 ####[facility]IA [id number] [address] Potassium [Moles/Vol] 3.4 mmol/L Low 3.7-5.1 [facility] Comment on above: Order Comment: Speci men Type: BLOOD SPECIMEN Performed By: #### 2 4321-2 ####[facility]IA [id number] [address] Sodium [Moles/Vol] 140 mmol/L Normal 136-144 [facility] Comment on above: Order Comment: Speci men Type: BLOOD SPECIMEN Performed By: #### 2 4321-2 ####[facility]CLIA [id number] [address] Urea nitrogen [Mass/Vol] 13 mg/dL Normal 7-21 [facility] Comment on above: Order Comment: Speci men Type: BLOOD SPECIMEN Performed By: #### 2 4321-2 ####[facility]CLIA [id number] [address] CBC panel Auto (Bld)on 04-07 Erythrocyte distribution width (RBC) [Ratio] 13.2 % Normal 11.5-15.0 [facility] Comment on above: Order Comment: Speci men Type: BLOOD SPECIMEN Performed By: #### 5 8410-2 ####[facility]IA [id number] [address] Hematocrit (Bld) [Volume fraction] 34.2 % Low 36.0-46.0 [facility] Comment on above: Order Comment: Speci men Type: BLOOD SPECIMEN Performed By: #### 5 8410-2 ####[facility]CLIA [id number] [address] Hemoglobin (Bld) [Mass/Vol] 10.3 g/dL Low 11.5-15.5 [facility] Comment on above: Order Comment: Speci men Type: BLOOD SPECIMEN Performed By: #### 5 8410-2 ####[facility]ORYCLIA [id number] [address] MCH (RBC) [Entitic mass] 28.0 pg Normal 26.0-34.0 [facility] Comment on above: Order Comment: Speci men Type: BLOOD SPECIMEN Performed By: #### 5 8410-2 ####[facility]ORYCLIA [id number] [address] MCHC (RBC) [Mass/Vol] 30.1 g/dL Low 30.5-36.0 [facility] Comment on above: Order Comment: Speci men Type: BLOOD SPECIMEN Performed By: #### 5 8410-2 ####[facility]ORYCLIA [id number] [address] MCV (RBC) [Entitic vol] 92.9 fL Normal 80.0-100.0 [facility] Comment on above: Order Comment: Speci men Type: BLOOD SPECIMEN Performed By: #### 5 8410-2 ####[facility]ORYCLIA [id number] [address] Nucleated RBC (Bld) [#/Vol] 10*3/uL Normal <0.01 [facility] Comment on above: Order Comment: Speci men Type: BLOOD SPECIMEN Performed By: #### 5 8410-2 ####[facility]ORYCLIA [id number] [address] Platelet mean volume (Bld) [Entitic vol] 13.0 fL High 9.0-12.7 [facility] Comment on above: Order Comment: Speci men Type: BLOOD SPECIMEN Performed By: #### 5 8410-2 ####[facility]ORYCLIA [id number] [address] Platelets (Bld) [#/Vol] 137 10*3/uL Low 150-400 [facility] Comment on above: Order Comment: Speci men Type: BLOOD SPECIMEN Performed By: #### 5 8410-2 ####[facility]ORYCLIA [id number] [address] RBC (Bld) [#/Vol] 3.68 10*6/uL Low 3.90-5.20 [facility] Comment on above: Order Comment: Speci men Type: BLOOD SPECIMEN Performed By: #### 5 8410-2 ####[facility]ORYCLIA [id number] [address] WBC (Bld) [#/Vol] 10.26 10*3/uL Normal 3.70-11.00 [facility] Comment on above: Order Comment: Speci men Type: BLOOD SPECIMEN Performed By: #### 5 8410-2 ####[facility]ORYCLIA [id number] [address] BRAIN WO IVCONon 04-07-20 CT BRAIN WO IVCON * * *Final Report* * * DATE OF EXAM: Apr 07 2021 12:40PM [facility] 0504 - CT BRAIN WO [...] There is no hemorrhage nor mass effect. Platform Mill Supervisor: PSCB Transcribe Date/Time: Apr 07 2021 12:45P Dictated by : NICK TAYLOR MD This examination was interpreted and the report reviewed and electronically signed by: NICK TAYLOR MD on Apr 07 2021 12:48PM EST [id number] Normal [facility] HIGH SENSITIVITY TROPONIN To n 04-07-2021 HIGH SENSITIVITY [place]OR[place] 123 ng/L High <12 [facility] Comment on above: Order Comment: Speci [...] day MACE. Performed By: #### H STNT ####[facility]ORYCLIA [id number] [address] [facility] NURSING PROGon 04-07-2021 NURSING PROG HNO ID: [id number] Author: Mi Warren RN Service: Nursing Author Type: Registered Nurse Type: Nursing Progress Note Filed: 04/07/2021 8:12 PM Note Text: Pt + incontinence of stool and bladder. Pt provided vanessa care and new pads placed. + mepilex still in place on coccyx and clean. Normal [facility] NURSING PROG HNO ID: [id number] Author: Hortensia Flores RN Service: ? Author Type: Registered Nurse Type: Nursing Progress Note Filed: 04/07/2021 7:16 PM Note Text: Nursing Progress Note Patient Name: Aimee Grove Patient Location: [place] [address]/[facility]-00 06-[birth year] __ Daily Note: 1520 Informed the [...] completed by: Hortensia Flores Normal [facility] NURSING PROG HNO ID: [id number] Author: Rosalia Mcdaniels, RN Service: Nursing Author Type: Registered Nurse Type: Nursing Progress Note Filed: 04/07/2021 12:33 AM Note Text: At 9 pm pt pulled IV out attempted x2 each by two different nurses including myself to get blood and start IV . Dr Pierre stated IV in Right foot 1st attempt but unable to PTT Labs centrifugal supervisor Sierra was able to get lab but lab stated it was hemolyzed Normal [facility] aPTT PPPon 04-07-2021 aPTT Coag (PPP) [Time] 72.9 s High 23.0-32.4 [facility] Comment on above: Order Comment: Speci men Type: BLOOD SPECIMEN Performed By: #### 1 4979-9 ####[facility]ORYCLIA [id number] [address] [facility] aPTT Coag (PPP) [Time] 64.7 s High 23.0-32.4 [facility] Comment on above: Order Comment: Speci men Type: BLOOD SPECIMEN Performed By: #### 5 8410-2 #### [facility] CLIA [id number] [address] ALLIED HEALTHon 04-06-2021 ALLIED HEALTH HNO ID: [id number] Author: RT Gus(R) Service: ? Author Type: [...] 06, 2021 4:53 PM Normal [facility] ALLIED HEALTH HNO ID: [id number] Author: Chaplain Cheyanne Morales Service: Spiritual Care [...] contact the Spiritual Care Department: Please call [phone]. SIGNATURE: Chaplain Andrew Student PATIENT NAME: Aimee Grove DATE: April 06, 2021 TIME: 4:00 PM PAGER/CONTACT #: [phone] Normal [facility] Basic metabolic 2000 panelon 04-06-2021 Anion gap [Moles/Vol] 16 mmol/L Normal 9-18 [facility] Comment on above: Order Comment: Speci men Type: BLOOD SPECIMEN Performed By: #### 2 4321-2, ####[facility] [id number] [place] [address] [place] Calcium [Mass/Vol] 9.3 mg/dL Normal 8.5-10.2 [facility] Comment on above: Order Comment: Speci men Type: BLOOD SPECIMEN Performed By: #### 2 4321-2, ####[facility] [id number] [place] [address] [place] Chloride [Moles/Vol] 102 mmol/L Normal 97-105 [facility] Comment on above: Order Comment: Speci men Type: BLOOD SPECIMEN Performed By: #### 2 1-2, ####[facility] [id number] [place] [address] [place] CO2 [Moles/Vol] 23 mmol/L Normal 22-30 [facility] Comment on above: Order Comment: Speci men Type: BLOOD SPECIMEN Performed By: #### 2 4321-2, ####[facility] [id number] [place] [address] [place] Creatinine [Mass/Vol] 0.89 mg/dL Normal 0.58-0.96 [facility] Comment on above: Order Comment: Speci men Type: BLOOD SPECIMEN Performed By: #### 2 4321-2, ####[facility] [id number] [place] [address] [place] GFR/1.73 sq M.predicted MDRD (S/P/Bld) [Vol rate/Area] mL/min/{1.73_m2} Normal [facility] Comment on above: Order Comment: Speci [...] reflect actual GFR. Performed By: #### 2 432-, ####[facility]ORYCLIA [id number] [place] [address] [place] Glucose [Mass/Vol] 194 mg/dL High 74-99 [facility] Comment on above: Order Comment: Speci men Type: BLOOD SPECIMEN Result Comment: The [place] Diabetes Association (ADA) provides guidance for cutoff [...] Standards of Medical Care in Diabetes 2016, [place] Diabetes Association. Diabetes Care. 2016.39(Suppl 1). Performed By: #### 2 4320-05, ####[facility]ORYCLIA [id number] [place] [address] [place] Potassium [Moles/Vol] 4.0 mmol/L Normal 3.7-5.1 [facility] Comment on above: Order Comment: Speci [facility] Type: BLOOD SPECIMEN Performed By: #### 2 432-, ####[facility]ORYCLIA [id number] [place] [address] [place] Sodium [Moles/Vol] 141 mmol/L Normal 136-144 [facility] Comment on above: Order Comment: Speci men Type: BLOOD SPECIMEN Performed By: #### 2 4321-2, ####[facility] [id number] [place], [place] [id number] [place] [address] [place] Urea nitrogen [Mass/Vol] 25 mg/dL High 7-21 [facility] Comment on above: Order Comment: Speci men Type: BLOOD SPECIMEN Performed By: #### 2 4321-2, ####[facility]IA [id number] [place], [place] [id number] [place] [address] STATES [facility] Anion gap [Moles/Vol] 13 mmol/L Normal 9-18 [facility] Comment on above: Order Comment: Speci men Type: BLOOD SPECIMEN Performed By: #### 2 4321-2, LIPB, ####[facility] [id number] [place] [address] [place] Calcium [Mass/Vol] 9.3 mg/dL Normal 8.5-10.2 [facility] Comment on above: Order Comment: Speci men Type: BLOOD SPECIMEN Performed By: #### 2 4321-2, LIPB, ####[facility]IA [id number] [place] [address] [place] Chloride [Moles/Vol] 102 mmol/L Normal 97-105 [facility] Comment on above: Order Comment: Speci men Type: BLOOD SPECIMEN Performed By: #### 2 4321-2, LIPB, ####[facility] [id number] [place] [address] [place] CO2 [Moles/Vol] 25 mmol/L Normal 22-30 [facility] Comment on above: Order Comment: Speci men Type: BLOOD SPECIMEN Performed By: #### 2 4321-2, LIPB, ####[facility] [id number] [place], [place] [address] [place] [address] [place] Creatinine [Mass/Vol] 0.88 mg/dL Normal 0.58-0.96 [facility] Comment on above: Order Comment: Speci men Type: BLOOD SPECIMEN Performed By: #### 2 4321-2, DEWEY, ####[facility]ORYCLIA [id number] [place] [address] [place] GFR/1.73 sq M.predicted MDRD (S/P/Bld) [Vol rate/Area] mL/min/{1.73_m2} Normal [facility] Comment on above: Order Comment: Speci [...] GFR. Performed By: #### 2 4321-2, DEWEY, 81704-2 ####[facility]ORYCLIA [id number] [address] [place] Glucose [Mass/Vol] 228 mg/dL High 74-99 [facility] Comment on above: Order Comment: Speci men Type: BLOOD SPECIMEN Result Comment: The [place] Diabetes Association (ADA) provides guidance for cutoff [...] Standards of Medical Care in Diabetes 2016, [place] Diabetes Association. Diabetes Care. 2016.39(Suppl 1). Performed By: #### 2 4321-2, LIPB, ####[facility] [id number] [address] Potassium [Moles/Vol] 4.4 mmol/L Normal 3.7-5.1 [facility] Comment on above: Order Comment: Speci men Type: BLOOD SPECIMEN Performed By: #### 2 4321-2, LIPB, ####[facility] [id number] [address] Sodium [Moles/Vol] 140 mmol/L Normal 136-144 [facility] Comment on above: Order Comment: Speci men Type: BLOOD SPECIMEN Performed By: #### 2 4321-2, LIPB, ####[facility] [id number] [address] Urea nitrogen [Mass/Vol] 24 mg/dL High 7-21 [facility] Comment on above: Order Comment: Speci men Type: BLOOD SPECIMEN Performed By: #### 2 4321-2, LIPValentina, ####[facility]ORYCLIA [id number] [address] CBC panel Auto (Bld)on 04-06 Erythrocyte distribution width (RBC) [Ratio] 13.1 % Normal 11.5-15.0 [facility] Comment on above: Order Comment: Speci men Type: BLOOD SPECIMEN Performed By: #### 5 8410-2 ####[facility] [id number] [address] Hematocrit (Bld) [Volume fraction] 40.5 % Normal 36.0-46.0 [facility] Comment on above: Order Comment: Speci men Type: BLOOD SPECIMEN Performed By: #### 5 8410-2 ####[facility] [id number] [address] Hemoglobin (Bld) [Mass/Vol] 13.1 g/dL Normal 11.5-15.5 [facility] Comment on above: Order Comment: Speci men Type: BLOOD SPECIMEN Performed By: #### 5 8410-2 ####[facility]ORYCLIA [id number] [address] MCH (RBC) [Entitic mass] 28.5 pg Normal 26.0-34.0 [facility] Comment on above: Order Comment: Speci men Type: BLOOD SPECIMEN Performed By: #### 5 8410-2 ####[facility]ORYCLIA [id number] [address] MCHC (RBC) [Mass/Vol] 32.3 g/dL Normal 30.5-36.0 [facility] Comment on above: Order Comment: Speci men Type: BLOOD SPECIMEN Performed By: #### 5 8410-2 ####[facility]ORYCLIA [id number] [address] MCV (RBC) [Entitic vol] 88.0 fL Normal 80.0-100.0 [facility] Comment on above: Order Comment: Speci men Type: BLOOD SPECIMEN Performed By: #### 5 8410-2 ####[facility]ORYCLIA [id number] [address] Nucleated RBC (Bld) [#/Vol] 10*3/uL Normal <0.01 [facility] Comment on above: Order Comment: Speci men Type: BLOOD SPECIMEN Performed By: #### 5 8410-2 ####[facility]ORYCLIA [id number] [address] Platelet mean volume (Bld) [Entitic vol] 13.1 fL High 9.0-12.7 [facility] Comment on above: Order Comment: Speci men Type: BLOOD SPECIMEN Performed By: #### 5 8410-2 ####[facility]ORYCLIA [id number] [address] Platelets (Bld) [#/Vol] 187 10*3/uL Normal 150-400 [facility] Comment on above: Order Comment: Speci men Type: BLOOD SPECIMEN Performed By: #### 5 8410-2 ####[facility]ORYCLIA [id number] [address] RBC (Bld) [#/Vol] 4.60 10*6/uL Normal 3.90-5.20 [facility] Comment on above: Order Comment: Speci men Type: BLOOD SPECIMEN Performed By: #### 5 8410-2 ####[facility]ORYCLIA [id number] [address] WBC (Bld) [#/Vol] 12.17 10*3/uL High 3.70-11.00 [facility] Comment on above: Order Comment: Speci men Type: BLOOD SPECIMEN Performed By: #### 5 8410-2 ####[facility]ORYCLIA [id number] [address] CONSULTon 04-06-2021 CONSULT HNO ID: [id number] Author: Maximo Tadeo MD Service: Cardiovascular Medicine Author Type: Physician Type: Consults Filed: 04/06/2021 11:38 AM Note Text: [facility] CVICU HANDP NOTE Service Date: 04/06/2021 [...] include Type 2 DM. No prior CVA, AL or other cardiac event that I could [...] (FLONASE) 50 mcg/actuation nasal spray, Use 1 [place] in the nose. Alcohol Swabs padm, aspirin, [...] (more content not included)... Normal [facility] HGB A1Con 04-06-2021 Average glucose Estimated from glycated hemoglobin (Bld) [Mass/Vol] 166 mg/dL Normal [facility] Comment on above: Order Comment: Speci men Type: BLOOD SPECIMEN Result Comment: eAG: (Estimated average glucose) is a calculated value from HgbA1c and is media sales representative of the average blood glucose level in the last 2-3 month period. Performed By: #### H BA1C ####[facility]ATORYCLIA [id number] [address] [place] OF [facility] HbA1c (Bld) [Mass fraction] 7.4 % High 4.3-5.6 [facility] Comment on above: Order Comment: Roberto mahmood Type: BLOOD SPECIMEN Result Comment: [place] Diabetes Association guidelines indicate that patients with HgbA1c in the range 5.7-6.4% are at increased risk for development of diabetes, and intervention by lifestyle modification may be beneficial. HgbA1c greater or equal to 6.5% is considered diagnostic of diabetes. Performed By: #### H BA1C ####[facility]ATORYCLIA [id number] [address] [place] HIGH SENSITIVITY TROPONIN To n 04-06-2021 HIGH SENSITIVITY [place] 178 ng/L High <12 [facility] Comment on above: Order Comment: Roberto men Type: BLOOD SPECIMEN Result Comment: When [...] MACE. Performed By: #### H STNT #### [facility] CLIA [id number] [address] HIGH SENSITIVITY [place] 159 ng/L High <12 [facility] [facility] Comment on above: Order Comment: Speci [...] MACE. Performed By: #### H STNT #### [facility] CLIA [id number] [address] HIGH SENSITIVITY MORELIA 198 ng/L High <12 [facility] Comment on above: Order Comment: Speci [...] day MACE. Performed By: #### H STNT ####[facility]ORATORYCLIA [id number] [address] [place] LIPID PANEL BASICon 04-06- 21 Cholesterol [Mass/Vol] 186 mg/dL Normal <200 [facility] Comment on above: Order Comment: Speci men Type: BLOOD SPECIMEN Result Comment: <200 mg/dL, Desirable 200-239 mg/dL, Borderline high >239 mg/dL, High Performed By: #### 2 4321-2, LIPB, 59732-2 ####[facility]ORATORYCLIA [id number] [address] Cholesterol in HDL [Mass/Vol] 53 mg/dL Normal >39 [facility] Comment on above: Order Comment: Speci men Type: BLOOD SPECIMEN Result Comment: 40-5 9 mg/dL, Acceptable >59 mg/dL, High: Negative risk factor for coronary heart disease <40 mg/dL, Low: Positive risk factor for coronary heart disease Performed By: #### 2 4321-2, LIPValentina, ####[facility]ATORYCLIA [id number] [address] Cholesterol in LDL [Mass/Vol] 114 mg/dL High <100 [facility] Comment on above: Order Comment: Speci men Type: BLOOD SPECIMEN Result Comment: <100 mg/dL, Optimal 100-129 mg/dL, Near optimal/above optimal 130-159 mg/dL, Borderline high 160-189 mg/dL, High >189 mg/dL, Very high Secondary prevention optimal LDL Cholesterol levels are recommended to be < 70 mg/dL Performed By: #### 2 1-2, DEWEY, ####[facility]ORATORYCLIA [id number] [address] Cholesterol in LDL/Cholesterol in HDL [Mass ratio] 2.15 {ratio} Normal <2.54 [facility] Comment on above: Order Comment: Speci men Type: BLOOD SPECIMEN Result Comment: Refe rence: 1. National Cholesterol Education Program ATP III Guideline At-A-Glance Quick Desk Reference: National Heart, Lung, and Blood [place]. National Institutes of Health. 2001: NIH Publication No. 01-3305. 2. An International Atherosclerosis Society position paper: global recommendations for the management of dyslipidemia: executive summary, Atherosclerosis. 2014: 232(2):410-413. Performed By: #### 2 4320-2, LIPValentina, ####[facility]ORATORYCLIA [id number] [address] Cholesterol in VLDL [Mass/Vol] 19 mg/dL Normal <30 [facility] Comment on above: Order Comment: Speci men Type: BLOOD SPECIMEN Performed By: #### 2 4321-2, LIPB, ####[facility] [id number] [address] STATES OF [facility] Cholesterol non HDL [Mass/Vol] 133 mg/dL High <130 [facility] Comment on above: Order Comment: Speci men Type: BLOOD SPECIMEN Result Comment: <130 mg/dL, Optimal 130-159 mg/dL, Near optimal/above optimal 160-189 mg/dL, Borderline high 190-219 mg/dL, High >219 mg/dL, Very high Secondary prevention optimal non HDL Cholesterol levels are recommended to be <100 mg/dL Performed By: #### 2 4321-2, LIPB, ####[facility]ORYCLIA [id number] [address] Cholesterol.total/ Cholesterol in HDL [Mass ratio] 3.51 {ratio} Normal <5.10 [facility] Comment on above: Order Comment: Speci men Type: BLOOD SPECIMEN Performed By: #### 2 4321-2, LIPB, ####[facility]ORATORYCLIA [id number] [address] FASTING TIME 8 hours Normal [facility] Comment on above: Order Comment: Speci men Type: BLOOD SPECIMEN Performed By: #### 2 4321-2, LIPB, ####[facility]ATORYCLIA [id number] [address] Triglyceride [Mass/Vol] 94 mg/dL Normal <150 [facility] Comment on above: Order Comment: Speci men Type: BLOOD SPECIMEN Result Comment: <150 mg/dL, Normal 150-199 mg/dL, Borderline high 200-499 mg/dL, High >499 mg/dL, Very high Performed By: #### 2 4321-2, LIPB, ####[facility]ORYCLIA [id number] [address] MRI BRAIN WO IVCONon 021 MRI BRAIN WO IVCON * * *Final Report* * * DATE OF EXAM: Apr 06 2021 5:31PM [place] 0294 - MRI BRAIN WO IVCON / [...] brain is within normal limits for age. Platform Mill Supervisor: PSCB Transcribe Date/Time: Apr 06 2021 6:17P Dictated by : ERICK GROVE MD This examination was interpreted and the report reviewed and electronically signed by: ERICK GROVE MD on Apr 06 2021 6:22PM EST [id number] Normal [facility] Magnesium SerPl-mCncon 04-06 Magnesium [Mass/Vol] 2.0 mg/dL Normal 1.7-2.3 [facility] Comment on above: Order Comment: Speci men Type: BLOOD SPECIMEN Performed By: #### 2 4321-2, ####[facility]IA [id number] [place] [id number] [facility] Magnesium [Mass/Vol] 1.4 mg/dL Low 1.7-2.3 [facility] Comment on above: Order Comment: Speci men Type: BLOOD SPECIMEN Performed By: #### 2 4321-2, LIPB, ####[facility]IA [id number] [place] [id number] [facility] NURSING PROGon 04-06-2021 NURSING PROG HNO ID: [id number] Author: Pearl Raymond RN Service: ? Author [...] from YVONNE Palomo received. Normal [facility] NURSING PROG HNO ID: [id number] Author: Ekta Plaza RN Service: ? Author Type: Registered Nurse Type: Nursing Progress Note Filed: 04/06/2021 6:51 PM Note Text: 745 Patient in non-sustained vtach. Paged Dr. Melvin, and Cardiology. Patient denies any chest pain, or discomfort. Alert and oriented to person. Normal [facility] NURSING PROG HNO ID: [id number] Author: Afshan Velasquez RN Service: Nursing Author Type: Registered Nurse Type: Nursing Progress Note Filed: 04/06/2021 7:31 AM Note Text: Nursing Progress Note Patient Name: Aimee Grove Patient Location: [id number]/[place] [phone] Patient's non-sustain V-tach on telemetry on [...] was completed by: Afshan Quiñones [facility] THERAPY NTon 04-06-2021 THERAPY NT HNO ID: [id number] Author: Ailyn Ziegler [facility] Service: Speech/Swallow Author Type: Speech Language Pathologist Type: Therapy (PT/OT/Speech/Resp) Filed: 04/06/2021 9:04 AM Note Text: Speech Therapy Clinical Swallow Evaluation SERVICE DATE: 04/06/2021 SERVICE TIME: 0830 to 0848 ROOM: [place] [address] IMPRESSION: Swallow Deficits Identified / Suspected: Oral [...] Cognitive Deficits,Confusion interferes with education Continue skilled CUSHION MAKER services due to : Dysphagia Speech Therapy [...] white, ulcerated, swollen 0 Gums and Tissues [place], moist, Smooth, no bleeding Dry, shiny, rough, [...] signs 0 Total score: 2 Alivia Collado., Pooja Lr., Kathryn Obrien., Geoff Ambrosio, AND Liz Soto (2005). The oral health assessment tool--validity and reliability. Vincentian dental journey, 50(3), 191-199. Swallow Position Of [...] (more content not included)... Normal [facility] aPTT PPPon 04-06-2021 aPTT Coag (PPP) [Time] 40.7 s High 23.0-32.4 [facility] Comment on above: Order Comment: Speci men Type: BLOOD SPECIMEN Performed By: #### 1 4979-9 ####[facility] LABORATORYCLIA [id number] [address] [facility] ALLIED HEALTHon 04-05-2021 ALLIED HEALTH HNO ID: [id number] Author: RT Ros(R) Service: Radiology Author Type: [...] 05, 2021 12:05 PM Normal [facility] APAP SerPl-mCncon 04-05-2021 Acetaminophen [Mass/Vol] ug/mL Low 10-30 [facility] Comment on above: Order Comment: Speci men Type: BLOOD SPECIMEN Result Comment: Toxi c > 150 ug/mL 4 hours post ingestion The Jose Carlos Vázquez nomogram can be used to estimate the probability of hepatotoxicity via the relationship of plasma acetaminophen concentration to the post ingestion interval. ([place]. Pediatrics. 1975. 55:871 to 876 and Jose Carlos et al. [employer]. 1981. 141:380 to 385). Reference ranges and high/low indicator flags are provided as general guidelines only. The treating physician must determine appropriate target levels/dosing based on the specific clinical situation. Performed By: #### 5 8410-2 #### [facility] CLIA [id number] [address] [facility] Ammonia Plas-sCncon 04-05-20 Ammonia (P) [Moles/Vol] 21 umol/L Normal 11-51 [facility] Comment on above: Order Comment: Speci men Type: BLOOD SPECIMEN Performed By: #### 5 8410-2 #### [facility] CLIA [id number] [address] [place] Bacteria Ur Culton 1 Bacteria identified Cx Nom (U) CULTURE, URINE: >=100,000 CFU/mL Three or more organisms, no one type predominant, suggesting contamination during collection. Recollect if clinically indicated. Abnormal [facility] Comment on above: Performed By: #### 6 30-4 ####[facility]IA [id number] [address] [place] Basic metabolic 2000 panelon 04-05-2021 Anion gap [Moles/Vol] 15 mmol/L Normal 9-18 [facility] Comment on above: Order Comment: Speci men Type: BLOOD SPECIMEN Performed By: #### 5 8410-2 #### [facility] CLIA [id number] [address] Calcium [Mass/Vol] 9.6 mg/dL Normal 8.5-10.2 [facility] Comment on above: Order Comment: Speci men Type: BLOOD SPECIMEN Performed By: #### 5 8410-2 #### [facility] CLIA [id number] [address] Chloride [Moles/Vol] 100 mmol/L Normal 97-105 [facility] Comment on above: Order Comment: Speci men Type: BLOOD SPECIMEN Performed By: #### 5 8410-2 #### [facility] CLIA [id number] [address] CO2 [Moles/Vol] 25 mmol/L Normal 22-30 [facility] Comment on above: Order Comment: Speci men Type: BLOOD SPECIMEN Performed By: #### 5 8410-2 #### [facility] CLIA [id number] [address] STATES [facility] Creatinine [Mass/Vol] 0.92 mg/dL Normal 0.58-0.96 [facility] Comment on above: Order Comment: Speci men Type: BLOOD SPECIMEN Performed By: #### 5 8410-2 #### [facility] CLIA [id number] [address] [place] GFR/1.73 sq M.predicted MDRD (S/P/Bld) [Vol rate/Area] mL/min/{1.73_m2} Normal [facility] Comment on above: Order Comment: Speci [...] GFR. Performed By: #### 5 8410-2 #### [facility] CLIA [id number] [address] [place] Glucose [Mass/Vol] 265 mg/dL High 74-99 [facility] Comment on above: Order Comment: Speci men Type: BLOOD SPECIMEN Result Comment: The [place] Diabetes Association (ADA) provides guidance for cutoff [...] Standards of Medical Care in Diabetes 2016, [place] Diabetes [employer]. Diabetes Care. 2016.39(Suppl 1). Performed By: #### 5 8410-2 #### [facility] CLIA [id number] [address] [place] Potassium [Moles/Vol] 4.0 mmol/L Normal 3.7-5.1 [facility] Comment on above: Order Comment: Speci men Type: BLOOD SPECIMEN Performed By: #### 5 8410-2 #### [facility] CLIA [id number] [address] [place] Sodium [Moles/Vol] 140 mmol/L Normal 136-144 [facility] Comment on above: Order Comment: Speci men Type: BLOOD SPECIMEN Performed By: #### 5 8410-2 #### [facility] CLIA [id number] 1 [place] [address] [place] Urea nitrogen [Mass/Vol] 26 mg/dL High 7-21 [facility] Comment on above: Order Comment: Speci men Type: BLOOD SPECIMEN Performed By: #### 5 8410-2 #### [facility] CLIA [id number] [address] CBC W Auto Differential pane l (Bld)on 04-05-2021 Basophils (Bld) [#/Vol] 0.08 10*3/uL Normal <0.11 [facility] Comment on above: Order Comment: Speci men Type: BLOOD SPECIMEN Performed By: #### 5 7021-8 ####[facility] [id number] [address] Basophils/100 WBC (Bld) 0.7 % Normal [facility] Comment on above: Order Comment: Speci men Type: BLOOD SPECIMEN Performed By: #### 5 7021-8 ####[facility]IA [id number] [address] Differential cell count method Nom (Bld) Auto Normal [facility] Comment on above: Order Comment: Speci men Type: BLOOD SPECIMEN Performed By: #### 5 7021-8 ####[facility]ORYCLIA [id number] [address] Eosinophils (Bld) [#/Vol] 0.42 10*3/uL Normal <0.46 [facility] Comment on above: Order Comment: Speci men Type: BLOOD SPECIMEN Performed By: #### 5 7021-8 ####[facility]IA [id number] [address] Eosinophils/100 WBC (Bld) 3.4 % Normal [facility] Comment on above: Order Comment: Speci men Type: BLOOD SPECIMEN Performed By: #### 5 7021-8 ####[facility]ORYCLIA [id number] [address] Erythrocyte distribution width (RBC) [Ratio] 13.0 % Normal 11.5-15.0 [facility] Comment on above: Order Comment: Speci men Type: BLOOD SPECIMEN Performed By: #### 5 7021-8 ####[facility] [id number] [address] Hematocrit (Bld) [Volume fraction] 44.6 % Normal 36.0-46.0 [facility] Comment on above: Order Comment: Speci men Type: BLOOD SPECIMEN Performed By: #### 5 7021-8 ####[facility]CLIA [id number] [address] [facility] Hemoglobin (Bld) [Mass/Vol] 13.6 g/dL Normal 11.5-15.5 [facility] Comment on above: Order Comment: Speci men Type: BLOOD SPECIMEN Performed By: #### 5 7021-8 ####[facility]CLIA [id number] [address] IMMATURE GRAN % 0.8 % Normal [facility] Comment on above: Order Comment: Speci men Type: BLOOD SPECIMEN Performed By: #### 5 7021-8 ####[facility]IA [id number] [address] IMMATURE GRAN ABS 0.10 k/uL High <0.10 [facility] Comment on above: Order Comment: Speci men Type: BLOOD SPECIMEN Performed By: #### 5 7021-8 ####[facility]CLIA [id number] [address] [facility] Lymphocytes (Bld) [#/Vol] 2.02 10*3/uL Normal 1.00-4.00 [facility] Comment on above: Order Comment: Speci men Type: BLOOD SPECIMEN Performed By: #### 5 7021-8 ####[facility]CLIA [id number] [address] Lymphocytes/100 WBC (Bld) 16.6 % Normal [facility] Comment on above: Order Comment: Speci men Type: BLOOD SPECIMEN Performed By: #### 5 7021-8 ####[facility]CLIA [id number] [place] [address] MCH (RBC) [Entitic mass] 28.3 pg Normal 26.0-34.0 [facility] Comment on above: Order Comment: Speci men Type: BLOOD SPECIMEN Performed By: #### 5 7021-8 ####[facility]ORATORYCLIA [id number] [address] MCHC (RBC) [Mass/Vol] 30.5 g/dL Normal 30.5-36.0 [facility] Comment on above: Order Comment: Speci men Type: BLOOD SPECIMEN Performed By: #### 5 7021-8 ####[facility]ORATORYCLIA [id number] [address] MCV (RBC) [Entitic vol] 92.9 fL Normal 80.0-100.0 [facility] Comment on above: Order Comment: Speci men Type: BLOOD SPECIMEN Performed By: #### 5 7021-8 ####[facility]ATORYCLIA [id number] [address] Monocytes (Bld) [#/Vol] 1.23 10*3/uL High <0.87 [facility] Comment on above: Order Comment: Speci men Type: BLOOD SPECIMEN Performed By: #### 5 7021-8 ####[facility]ORATORYCLIA [id number] [address] Monocytes/100 WBC (Bld) 10.1 % Normal [facility] Comment on above: Order Comment: Speci men Type: BLOOD SPECIMEN Performed By: #### 5 7021-8 ####[facility]ATORYCLIA [id number] [address] Neutrophils (Bld) [#/Vol] 8.35 10*3/uL High 1.45-7.50 [facility] Comment on above: Order Comment: Speci men Type: BLOOD SPECIMEN Performed By: #### 5 7021-8 ####[facility]ATORYCLIA [id number] [address] Neutrophils/100 WBC (Bld) 68.4 % Normal [facility] Comment on above: Order Comment: Speci men Type: BLOOD SPECIMEN Performed By: #### 5 7021-8 ####[facility]ATORYCLIA [id number] [address] Nucleated RBC (Bld) [#/Vol] 10*3/uL Normal <0.01 [facility] Comment on above: Order Comment: Speci men Type: BLOOD SPECIMEN Performed By: #### 5 7021-8 ####[facility]ATORYCLIA [id number] [address] Nucleated RBC/100 WBC (Bld) [Ratio] 0.0 /100 WBC Normal 0.0 [facility] Comment on above: Order Comment: Speci men Type: BLOOD SPECIMEN Performed By: #### 5 7021-8 ####[facility]ATORYCLIA [id number] [address] Platelet mean volume (Bld) [Entitic vol] 13.2 fL High 9.0-12.7 [facility] Comment on above: Order Comment: Speci men Type: BLOOD SPECIMEN Performed By: #### 5 7021-8 ####[facility]ATORYCLIA [id number] [address] Platelets (Bld) [#/Vol] 184 10*3/uL Normal 150-400 [facility] Comment on above: Order Comment: Speci men Type: BLOOD SPECIMEN Performed By: #### 5 7021-8 ####[facility]CLIA [id number] [address] RBC (Bld) [#/Vol] 4.80 10*6/uL Normal 3.90-5.20 [facility] Comment on above: Order Comment: Speci men Type: BLOOD SPECIMEN Performed By: #### 5 7021-8 ####[facility]IA [id number] [address] WBC (Bld) [#/Vol] 12.20 10*3/uL High 3.70-11.00 [facility] Comment on above: Order Comment: Speci men Type: BLOOD SPECIMEN Performed By: #### 5 7021-8 ####[facility] LABORATORYCLIA [id number] [place] [address] [place] CONSULTon 04-05-2021 CONSULT HNO ID: [id number] Author: Juli Valentino MD Service: Neurology General [...] as well as 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 Normal [facility] CT BRAIN WO IVCONon 04-05-20 CT BRAIN WO IVCON * * *Final Report* * * DATE OF EXAM: Apr 05 2021 10:35AM [facility] 0504 - CT BRAIN WO [...] control(AEC) and iterative recon COMPARISON: 11/19/2011. RESULT: Photographic Equipment Inspector (topogram) images: No additional findings. Post-operative change: [...] matter disease and diffuse cerebral volume loss. Platform Mill Supervisor: PSCB Transcribe Date/Time: Apr 05 2021 10:40A Dictated by : HERMILO REARDON MD This examination was interpreted and the report reviewed and electronically signed by: HERMILO REARDON MD on Apr 05 2021 10:44AM EST [id number] Normal [facility] CTA HEAD W IVCONon CTA HEAD W IVCON * * *Final Report* * * DATE OF EXAM: Apr 05 2021 10:35AM [facility] 0022 - CTA HEAD W [...] left posterior cerebral artery. No significant aneurysm. Photographic Equipment Inspector (topogram) images: No additional findings. IMPRESSION: 1. [...] on 04/05/2021 10:51 AM via verbal communication. Platform Mill Supervisor: ANGELO Transcribe Date/Time: Apr 05 2021 10:44A Dictated by : HERMILO REARDON MD This examination was interpreted and the report reviewed and electronically signed by: HERMILO REARDON MD on Apr 05 2021 11:05AM EST [id number] CRITICAL!! Invalid Interpretation Code [facility] CTA NECK W IVCONon CTA NECK W IVCON * * *Final Report* * * DATE OF EXAM: Apr 05 2021 10:35AM [facility] 0024 - CTA NECK W [...] left posterior cerebral artery. No significant aneurysm. Photographic Equipment Inspector (topogram) images: No additional findings. IMPRESSION: 1. [...] on 04/05/2021 10:51 AM via verbal communication. Platform Mill Supervisor: ANGELO Transcribe Date/Time: Apr 05 2021 10:44A Dictated by : HERMILO REARDON MD This examination was interpreted and the report reviewed and electronically signed by: HERMILO REARDON MD on Apr 05 2021 11:05AM EST [id number] CRITICAL!! Invalid Interpretation Code [facility] ED NOTEon 04-05-2021 ED NOTE HNO ID: [id number] Author: Rae Carmona RN Service: Emergency Medicine Author Type: Registered Nurse Type: ED Notes Filed: 04/05/2021 2:38 PM Note Text: Told RN went to lunch and no one can take report at time. Normal [facility] ED NOTE HNO ID: [id number] Author: Derirck Olmedo Service: ? Author Type: Marketing Support Manager and Cpr Ambulance Driver Type: ED Notes Filed: 04/05/2021 10:19 AM Note Text: Bed: 22-ED Expected date: 04/05/21 Expected time: 10:18 AM Means of arrival: [place] Comments: Med 8 alt loc Normal [facility] ED PROV NOTEon 04-05-2021 ED PROV NOTE HNO ID: [id number] Author: Luisa Medina MD Service: Emergency Medicine [...] Medina MD 04/05/21 1314 Normal [facility] ED PROV NOTE HNO ID: [id number] Author: Luisa Medina MD Service: Emergency Medicine [...] (more content not included)... Normal [facility] Ethanol SerPl-mCncon 021 Ethanol [Mass/Vol] mg/dL Normal <11 [facility] Comment on above: Order Comment: Speci men Type: BLOOD SPECIMEN Performed By: #### 5 8410-2 #### [facility] CLIA [id number] [address] HIGH SENSITIVITY TROPONIN To n 04-05-2021 HIGH SENSITIVITY MORELIA 41 ng/L High <12 [facility] Comment on above: Order Comment: Speci [...] MACE. Performed By: #### H STNT #### [facility] CLIA [id number] [address] HISTORY PHYSICALon HISTORY PHYSICAL HNO ID: [id number] Author: Mele Braden APRN.[employer] Service: Hospital Medicine Author Type: Nurse Practitioner Type: HANDP Filed: 04/05/2021 4:05 PM Note Text: DEPARTMENT OF HOSPITAL MEDICINE HISTORY AND PHYSICAL EXAM SERVICE DATE: 04/05/2021 SERVICE TIME: 3:05 PM Primary Care Physician: Allen Li MD, MD NIGHT AND WEEKEND COVERAGE: After 7pm call #[phone] Chief complaint: altered mental status HPI: 85-year-old [...] (more content not included)... Normal [facility] Magnesium SerPl-mCncon 04-05 Magnesium [Mass/Vol] 1.5 mg/dL Low 1.7-2.3 [facility] Comment on above: Order Comment: Speci men Type: BLOOD SPECIMEN Performed By: #### 5 8410-2 #### [facility] CLIA [id number] [address] [facility] PT panel Coag (PPP)on 2020 INR Coag (PPP) [Relative time] 1.0 {INR} Normal 0.9-1.3 [facility] Comment on above: Order Comment: Speci men Type: BLOOD SPECIMEN Result Comment: Ankita min K Antagonist (VKA) Therapeutic Range: INR 2 to 3 (Target INR of 2.5) Note: For patients treated with VKA drugs, such as warfarin, the [place] [employer] 2012 Guideline recommends [...] 2.5 to 3.5 (target INR of 3). Shivamyatt GH, et al. Chest 2012, 141:7S-47S Charlene RA, et al. JACC 2017, 70: 252-289 Performed By: #### 3 4528-0, 11883-2 ####[facility]CLIA [id number] [address] [place] PT Coag (PPP) [Time] 11.2 s Normal 9.7-13.0 [facility] Comment on above: Order Comment: Speci men Type: BLOOD SPECIMEN Performed By: #### 3 4528-0, 95134-0 ####[facility]ATORYCLIA [id number] [place] [address] [place] SALICYLATE BLDon 04-05-2021 Salicylates [Mass/Vol] mg/dL Low 3.0-30.0 [facility] Comment on above: Order Comment: Speci men Type: BLOOD SPECIMEN Result Comment: The therapeutic range varies and has been reported to be 3.0 to 10.0 mg/dL for anti pyretic/analgesic conditions and 15.0 to 30.0 mg/dL for anti inflammatory/rheumatic fever conditions. Ranges published by the instrument channeler runner. Reference ranges and high/low indicator flags are provided as general guidelines only. The treating physician must determine appropriate target levels/dosing based on the specific clinical situation. Performed By: #### 5 8410-2 #### [facility] CLIA [id number] [address] [place] SARS-CoV-2 RNA Resp Ql CHEYANNE+p robeon 04-05-2021 SARS-CoV-2 (COVID-19) RNA CHEYANNE+probe Ql (Resp) COVID 19 RESULT: SARS-CoV-2 (Agent of COVID-19) Not Detected by PCR. This test has been authorized by FDA under an Emergency Use Authorization (EUA). Normal [facility] Comment on above: Performed By: #### 9 4500-6 ####[facility]ORATORYCLIA [id number] [place] [address] [place] TOX SCREEN ROUT URon 021 Amphetamines Confirm (U) [Mass/Vol] Negative Normal Negative [facility] Comment on above: Order Comment: Speci men Type: URINE SPECIMEN Result Comment: Cuto ff threshold at 1000 ng/mL. Performed By: #### U TOX2 ####[facility]ATORYCLIA [id number] [address] [place] BARBITURATES, URINE Negative Normal Negative [facility] Comment on above: Order Comment: Speci men Type: URINE SPECIMEN Result Comment: Cuto ff threshold at 200 ng/mL. Performed By: #### U TOX2 ####[facility] [id number] [address] BENZODIAZEPINES, [place] Negative Normal Negative [facility] Comment on above: Order Comment: Speci men Type: URINE SPECIMEN Result Comment: Cuto ff threshold at 200 ng/mL. Performed By: #### U TOX2 ####[facility] [id number] [address] CANNABINOIDS,URINE Negative Normal Negative [facility] Comment on above: Order Comment: Speci men Type: URINE SPECIMEN Result Comment: Cuto ff threshold at 50 ng/mL. Performed By: #### U TOX2 ####[facility] [id number] [address] Cocaine Ql (U) Negative Normal Negative [facility] Comment on above: Order Comment: Speci men Type: URINE SPECIMEN Result Comment: Cuto ff threshold at 300 ng/mL. Performed By: #### U TOX2 ####[facility] [id number] [address] Ethanol (U) [Mass/Vol] <11 Normal <11 [facility] Comment on above: Order Comment: Speci men Type: URINE SPECIMEN Performed By: #### U TOX2 ####[facility] [id number] [address] Opiates Screen Ql (U) Negative Normal Negative [facility] Comment on above: Order Comment: Speci men Type: URINE SPECIMEN Result Comment: Cuto ff threshold at 300 ng/mL. Performed By: #### U TOX2 ####[facility] [id number] [address] oxyCODONE cutoff Screen (U) [Mass/Vol] Negative Normal Negative [facility] Comment on above: Order Comment: Speci men Type: URINE SPECIMEN Result Comment: Cuto ff threshold at 100 ng/mL. Performed By: #### U TOX2 ####[facility]ORYCLIA [id number] [address] Phencyclidine Ql (U) Negative Normal Negative [facility] Comment on above: Order Comment: Speci men Type: URINE SPECIMEN Result Comment: Cuto ff threshold at 25 ng/mL. Performed By: #### U TOX2 ####[facility]ORYCLIA [id number] [address] Urinalysis complete panel (U )on 04-05-2021 Bacteria LM.HPF (Urine sed) [#/Area] 4+ /HPF Abnormal None Seen [facility] Comment on above: Order Comment: Speci men Type: BLOOD SPECIMEN Performed By: #### H STNT #### [facility] CLIA [id number] [address] Bilirubin Ql (U) Negative Normal Negative [facility] Comment on above: Order Comment: Speci men Type: BLOOD SPECIMEN Performed By: #### H STNT #### [facility] CLIA [id number] [address] Clarity (Unsp spec) Turbid Abnormal Clear [facility] Comment on above: Order Comment: Speci men Type: BLOOD SPECIMEN Performed By: #### H STNT #### [facility] CLIA [id number] [address] Color (U) Yellow Normal Yellow [facility] Comment on above: Order Comment: Speci men Type: BLOOD SPECIMEN Performed By: #### H STNT #### [facility] CLIA [id number] [address] Epithelial cells LM.HPF (Urine sed) [#/Area] 5.5 /[HPF] Normal [facility] Comment on above: Order Comment: Speci men Type: BLOOD SPECIMEN Performed By: #### H STNT #### [facility] CLIA [id number] [address] Glucose Test strip (U) [Mass/Vol] 250 mg/dL Abnormal Negative [facility] Comment on above: Order Comment: Speci men Type: BLOOD SPECIMEN Performed By: #### H STNT #### [facility] CLIA [id number] [address] Hemoglobin Ql (U) Trace Abnormal Negative [facility] Comment on above: Order Comment: Speci men Type: BLOOD SPECIMEN Performed By: #### H STNT #### [facility] CLIA [id number] [address] Hyaline casts (Urine sed) [#/Area] 1-3 /LPF Abnormal 0 /LPF [facility] Comment on above: Order Comment: Speci men Type: BLOOD SPECIMEN Performed By: #### H STNT #### [facility] CLIA [id number] [address] Ketones Ql (U) Trace Abnormal Negative [facility] Comment on above: Order Comment: Speci men Type: BLOOD SPECIMEN Performed By: #### H STNT #### [facility] CLIA [id number] [address] Leukocyte esterase Test strip Ql (U) Negative Normal Negative [facility] Comment on above: Order Comment: Speci men Type: BLOOD SPECIMEN Performed By: #### H STNT #### [facility] CLIA [id number] [address] Nitrite Ql (U) Positive Abnormal Negative [facility] Comment on above: Order Comment: Speci men Type: BLOOD SPECIMEN Performed By: #### H STNT #### [facility] CLIA [id number] [address] pH (U) 8.0 [pH] Normal 5.0-8.0 [facility] Comment on above: Order Comment: Speci men Type: BLOOD SPECIMEN Performed By: #### H STNT #### [facility] CLIA [id number] [address] Protein (U) [Mass/Vol] 30 mg/dL Abnormal Negative [facility] Comment on above: Order Comment: Speci men Type: BLOOD SPECIMEN Performed By: #### H STNT #### [facility] CLIA [id number] [address] RBC LM.HPF (Urine sed) [#/Area] 3-5 /HPF Abnormal 0-3 /HPF [facility] Comment on above: Order Comment: Speci men Type: BLOOD SPECIMEN Performed By: #### H STNT #### [facility] CLIA [id number] [address] Specific gravity (U) [Rel density] 1.028 Normal 1.005-1.030 [facility] Comment on above: Order Comment: Speci men Type: BLOOD SPECIMEN Performed By: #### H STNT #### [facility] CLIA [id number] [address] Triple phosphate crystals LM.HPF (Urine sed) [#/Area] Few Abnormal None Seen [facility] Comment on above: Order Comment: Speci men Type: BLOOD SPECIMEN Performed By: #### H STNT #### [facility] CLIA [id number] [address] Urobilinogen Ql (U) 0.2 EU/dL Normal 0.2-1.0 EU/dL [facility] Comment on above: Order Comment: Speci men Type: BLOOD SPECIMEN Performed By: #### H STNT #### [facility] CLIA [id number] [address] WBC LM.HPF (Urine sed) [#/Area] 0-5 /HPF Normal 0-5 /HPF [facility] Comment on above: Order Comment: Speci men Type: BLOOD SPECIMEN Performed By: #### H STNT #### [facility] CLIA [id number] [address] XR CHEST 1V FRONTALon 12-24- 2021 XR CHEST 1V FRONTAL * * *Final [...] focal consolidation, significant pleural effusion, or pneumothorax. Platform Mill Supervisor: ANGELO Transcribe Date/Time: Apr 05 2021 12:48P Dictated by : HERMILO REARDON MD This examination was interpreted and the report reviewed and electronically signed by: HERMILO REARDON MD on Apr 05 2021 12:50PM EST [id number] Normal [facility] aPTT PPPon 04-05-2021 aPTT Coag (PPP) [Time] 23.5 s Normal 23.0-32.4 [facility] Comment on above: Order Comment: Speci men Type: BLOOD SPECIMEN Performed By: #### 3 4528-0, 94935-3 ####[facility]ORATORYCLIA [id number] [address] [place] Anesthesia Attestationon Waitstaff Authentication Interface Message Text Anesthesia Attestation ATTESTATION OF INFORMED CONSENT FOR ANESTHESIA Anesthesia options were discussed with the patient and/or legal media sales representative. The risks, benefits and alternatives were reviewed. Questions regarding anesthesia were answered. Patient and/or legal media sales representative knows such anesthetics and procedures may be performed by Resident physicians, Certified Anesthesiologist Assistants, or Certified Nurse Anesthetists under the supervision of a physician. The patient /or the patient's legal media sales representative agree with the plan for anesthesia. Normal [facility] Anesthesia Postprocedure Radha luationon 02-11-2021 Waitstaff Authentication Interface Message Text Anesthesia Postoperative Assessment: [...] ANESTHESIA COMPLICATIONS: No complications documented. Normal [facility] Anesthesia Transfer Of Careo n 02-11-2021 Waitstaff Authentication Interface Message Text Patient taken to [...] Chevy Stockton DDS Anesthesiologist: Ankita Yo MD Web Design Instructor: Dipak Curry MD DENTAL RESTORATIONS (N/A ) [...] was received. Dipak Curry MD Normal [facility] Brief Operative Noteon 02-11 Waitstaff Authentication Interface Message Text Brief Operative Note P[facility] OR 3 [place] 85 year old female Surgical Contact Serial Number: [id number] Preoperative Diagnosis: Dental caries [K02.9] Alzheimer's dementia [G 30.9] Postoperative Diagnosis: Dental caries [K02.9] Alzheimer's dementia [G 30.9] Procedures: Comprehensive exam 80473 Full series of Xrays 34701 Cleaning 34850 SRP Lower anterior teeth Extractions #3, 4, 5, 6, 11, 30, 31 12720 Prophylaxis 08378 Surgeon(s): Surgeon(s): Chevy Stockton DDS Staff: Pace Analyst Nurse: Lamberto Corey RN Global Head Advertiser Solutions: Lakshmi Bocanegra DDS Anesthesia: General Anesthesiologist: Ankita [...] Bocanegra DDS 02/11/2021 7:39 AM Normal [facility] GLUCOSE, FINGERSTICK-IN OFFI CEon 02-11-2021 Glucose [Mass/Vol] 171 mg/dL High 80-116 [facility] Comment on above: Result Comment: Junior odom RN, APN, MD Performed By: #### 8 2948 ####[place] [id number] [place], [place], [address] [place] [address] Noteon 02-11-2021 Waitstaff Authentication Interface Message Text PHE OR 3 [place]e [place] 85 year old female Surgical Contact Serial Number: [id number] Preoperative Diagnosis: Dental caries [K02.9] Alzheimer's dementia [G 30.9] Postoperative Diagnosis: Dental caries [K02.9] Alzheimer's dementia [G 30.9] Procedures: Comprehensive exam 15368 Full series of Xrays 59377 Cleaning 63779 SRP Lower anterior teeth Extractions # 4 5, 6, 11, 48519 Surgical extractions #3, #31, #30 Alveoloplasty on UR quadrant Prophylaxis 47279 Surgeon(s): Surgeon(s): Chevy Stockton DDS Staff: Pace Analyst Nurse: Lamberto Corey RN Global Head Advertiser Solutions: Lakshmi Bocanegra DDS Anesthesia: General Anesthesiologist: Ankita [...] Refill * vitamin D2 (ERGOCALCIFEROL) 1.25 MG (65963 UT) capsule Take 50,000 Units by mouth once weekly. * QUEtiapine (SEROQUEL) 25 MG tablet Take 12.5 mg by mouth at bedtime. * metoprolol (LOPRESSOR) 50 MG tablet Take 50 mg by mouth 2 times daily. * fluticasone (FLONASE) 50 mcg/act nasal inhaler Use 1 [place] in each nostril 2 times daily. * [...] Bocanegra DDS 02/11/2021 7:50 AM Normal [facility] Progress Noteson 02-11-2021 Waitstaff Authentication Interface Message Text ----- Thursday, February 11, 2021 at 9:21:26 AM ----- ----- Provider: [id number] - Chevy Lennon DDS -- Clinic: [facility] [...] year old female Surgical Contact Serial Number: [id number] Preoperative Diagnosis: Dental caries [K02.9] Alzheimer's dementia [G 30.9] Postoperative Diagnosis: Dental caries [K02.9] Alzheimer's dementia [G 30.9] Procedures: Comprehensive exam 32685 Full series of Xrays 16438 Cleaning 93965 SRP Lower anterior teeth Extractions # 4 5, 6, 11, 92197 Surgical extractions #3, #31, #30 Alveoloplasty on UR quadrant Prophylaxis 99701 Surgeon(s): Surgeon(s): Chevy Stockton DDS Staff: Pace Analyst Nurse: Lamberto Corey RN Global Head Advertiser Solutions: Lakshmi Bocanegra DDS Anesthesia: General Anesthesiologist: Ankita [...] Refill * vitamin D2 (ERGOCALCIFEROL) 1.25 MG (30166 UT) capsule Take 50,000 Units by mouth once weekly. * QUEtiapine (SEROQUEL) 25 MG tablet Take 12.5 mg by mouth at bedtime. * metoprolol (LOPRESSOR) 50 MG tablet Take 50 mg by mouth 2 times daily. * fluticasone (FLONASE) 50 mcg/act nasal inhaler Use 1 [place] in each nostril 2 times daily. 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 Normal [facility] Telephone Encounteron 2020 Waitstaff Authentication Interface Message Text Informed consent for dental surgery AND Anesthesia consent obtained and scanned into [employer]. Scheduled for surgery 02/11/2021. Normal [facility] BASIC METABOLIC PANELon 10-2 Anion gap [Moles/Vol] 18 mmol/L Normal 10- [facility] Comment on above: Performed By: #### C H8 #### [facility] [address] [place] [address], Calcium [Mass/Vol] 9.8 mg/dL Normal 8.4-10.4 [facility] Comment on above: Performed By: #### C H8 #### [facility] [address] [place] [address], Chloride [Moles/Vol] 104 mmol/L Normal 97-111 [facility] Comment on above: Performed By: #### C H8 #### [facility] [address] [place] [address], CO2 [Moles/Vol] 27 mmol/L Normal 21-30 [facility] Comment on above: Performed By: #### C H8 #### [facility] [address] [place] [address], Creatinine [Mass/Vol] 0.89 mg/dL Normal 0.50-1.10 [facility] Comment on above: Performed By: #### C H8 #### [facility] [address] [place] [address], ESTIMATED GFR (CKD-EPI) 60 mL/min/1.73sqm Normal >=60 [facility] Comment on above: Performed By: #### Ady H8 #### [facility] [address] [place] [address], Glucose [Mass/Vol] 182 mg/dL High 80-116 [facility] Comment on above: Performed By: #### C H8 #### [facility] [address] [place] [address], Potassium [Moles/Vol] 4.3 mmol/L Normal 3.3-5.3 [facility] Comment on above: Performed By: #### C H8 #### [facility] [address] [place] [address], Sodium [Moles/Vol] 145 mmol/L Normal 135-148 [facility] Comment on above: Performed By: #### C H8 #### [facility] [address] [place] [address], Urea nitrogen [Mass/Vol] 34 mg/dL High 8-22 [facility] Comment on above: Performed By: #### C H8 #### [facility] [address] [place] [address], COMPLETE BLOOD COUNTon 02-01 Erythrocyte distribution width (RBC) [Ratio] 14.2 % Normal 11.5-14.5 [facility] Comment on above: Performed By: #### C BC #### [facility] [address] [place], [place], Hematocrit (Bld) [Volume fraction] 40.7 % Normal 36.0-46.0 [facility] Comment on above: Performed By: #### C BC #### [facility] [address], [place], Hemoglobin (Bld) [Mass/Vol] 13.1 g/dL Normal 12.0-15.0 [facility] Comment on above: Performed By: #### C BC #### [facility] [address], [place], MCH (RBC) [Entitic mass] 28.5 pg Normal 26.0-34.0 [facility] Comment on above: Performed By: #### C BC #### [facility] [address], [place], MCHC (RBC) [Mass/Vol] 32.1 g/dL Normal 32.0-35.9 [facility] Comment on above: Performed By: #### C BC #### [facility] [address], [place], MCV (RBC) [Entitic vol] 89 fL Normal 80-100 [facility] Comment on above: Performed By: #### C BC #### [facility] [address], [place], Platelet mean volume (Bld) [Entitic vol] 9.9 fL Normal 7.5-11.2 [facility] Comment on above: Performed By: #### C BC #### [facility] [address] [place], [place], Platelets (Bld) [#/Vol] 213 10*3/uL Normal 150-400 [facility] Comment on above: Performed By: #### C BC #### [facility] [address] [place], [place], RBC (Bld) [#/Vol] 4.58 10*6/uL Normal 4.00-5.20 [facility] Comment on above: Performed By: #### C BC #### [facility] [address], [place], WBC (Bld) [#/Vol] 9.7 10*3/uL Normal 4.5-11.5 [email or web address] Comment on above: Performed By: #### C BC #### [facility] [address], [place], PSE Chartingon 02-01-2021 Waitstaff Authentication Interface Message Text Dental Consult The [...] the form. Nikkie Melgar DDS Normal [facility] Patient Instructionson 02-01 Waitstaff Authentication Interface Message Text RECOMMENDATIONS: Patient was [...] before surgery Bill Szymanski MD Normal [facility] Waitstaff Authentication Interface Message Text MEDICATIONS: Follow your [...] surgery. Contact the Pre-Surgical Evaluation department at [phone] or your surgeon's office with any questions. Normal [facility] Progress Noteson 02-01-2021 Waitstaff Authentication Interface Message Text Identification was verified by patient/parent verbalizing name and date of . Blood drawn in clinic and sent off to lab. Took 2 attempts pt felipe well with daughter and caregiver at bedside. 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 Normal [facility] Patient Instructionson 08-17 Waitstaff Authentication Interface Message Text We believe Aimee needs to be seen in the OR under general anesthesia for dental treatment. She needs many teeth extracted. Dina will be calling Yecenia with an appointment date for a pre-surgical evaluation and for the surgery. She will tell you all of the information that you need to bring with you. Normal [facility] Progress Noteson 08-17-2020 Waitstaff Authentication Interface Message Text RM, Pt is [...] Please call Yecenia to coordinate the appointment. [phone] Tx request sent PHARMACY ASSISTANT [facility] [place]: OR ----- Signed on Monday, August 17, 2020 at 5:05:51 PM ----- ----- Provider: Shawnee Currie DMD -- Clinic: MAIN ----- Normal [facility] Vital Signs Date Time Vital Sign Value Performing Clinician Faci daniele 09-26-2021 13:51-0400 Body height 160 cm Eleonora Renteria MD Work Phone: [facility] 09-26-2021 13:51-0400 Body weight 72.76 kg Eleonora Renteria MD Work Phone: [facility] 09-26-2021 13:51-0400 Diastolic blood pressure 81 mm[Hg] Eleonora Renteria MD Work Phone: [facility] 09-26-2021 13:51-0400 Heart rate 56 /min Eleonora Renteria MD Work Phone: [facility] 09-26-2021 13:51-0400 SaO2% (BldA) [Mass fraction] 94 % Eleonora Renteria MD Work Phone: [facility] 09-26-2021 13:51-0400 Systolic blood pressure 139 mm[Hg] Eleonora Renteria MD Work Phone: [facility] Encounters Encounter Date Encounter Type Care Provider Facility Start: 11-15-2024 ambulatory Stephen ROWE Facil ity:[facility] Start: 08-16-2024 End: 08-16-2024 ambulatory Stephen ROWE Facility:[facility] Start: 07-14-2024 End: 07-14-2024 ambulatory Stephen ROWE Facility:[facility] Start: 05-16-2024 ambulatory Stephen ROWE Facil ity:[facility] Start: 04-25-2024 ambulatory Stephen ROWE Facil ity:[facility] Start: 03-21-2024 End: 03-21-2024 ambulatory Stephen ROWE Facility:[facility] Start: 03-14-2024 End: 03-14-2024 ambulatory Stephen ROWE Facility:[facility] Start: 03-08-2024 End: 03-08-2024 ambulatory Stephen ROWE Facility:[facility] Start: 03-07-2024 End: 03-07-2024 ambulatory Stephen ROWE Facility:[facility] Start: 01-21-2024 End: 01-21-2024 Telephone encounter John Tucker DO Work Phone: [facility] Comment on above: Other Start: 08-31-2023 Telephone encounter John Montgomery onyo DO Work Phone: [facility] Start: 05-13-2022 Telephone encounter Allen Nem er Work Phone: [facility] Comment on above: medication reconcili ation Start: 05-01-2022 Refill Eleonora Renteria MD Work Phone: [facility] Comment on above: Refill Request Start: 05-01-2022 Telephone encounter Eleonora calles MD Work Phone: [facility] Comment on above: Appointment Start: 09-27-2021 Telephone [...] Start: 02-11-2021 End: 02-11-2021 ambulatory CHEVY LENNON Facility:[facility] Start: 02-01-2021 End: 02-05-2021 ambulatory UNKNOWN PROVIDER Facility:[facility] Start: 08-17-2020 ambulatory UNKNOWN PROVIDER Facili ty:[facility] Plan of Treatment Date Care Activity Detail Author Start: 04-13-2022 ADVANCE DIRECTIVE DISCUSSION ADVANCE DIRECTIVE DISCUSSION [facility] Start: 04-06-2022 Hepatitis B surface antibody level LDL CHOLESTEROL [facility] [facility] Start: 12-12-2021 Influenza vaccination [facility] Start: 10-05-2021 Hemoglobin A1c/Hemoglobin.total in Blood HBA1C [facility] Start: 09-27-2021 End: 11-27-2021 Triiodothyronine (T3) [Mass/volume] in Serum or Plasma [facility] Work Phone: Comment on above: Expected: 09/27/2021 , Expires: 11/27/2021 Start: 09-26-2021 End: 11-26-2021 Hepatic function 2000 panel - Serum or Plasma [facility] Work Phone: Comment on above: Expected: 09/26/2021 , Expires: 11/26/2021 Start: 09-26-2021 End: 11-26-2021 Thyrotropin [Units/volume] in Serum or Plasma [facility] Work Phone: Comment on above: Expected: 09/26/2021 , Expires: 11/26/2021 Start: 04-13-2021 ADVANCE DIRECTIVE DISCUSSION ADVANCE DIRECTIVE DISCUSSION [facility] Start: 01-31-2021 COVID-19 VACCINE (3 - Booster for Pfizer series) COVID-19 VACCINE (3 - Booster for Pfizer series) [facility] Start: 10-26-2020 COVID-19 VACCINE (3 - Booster for Pfizer series) COVID-19 VACCINE (3 - Booster for Pfizer series) [facility] Start: 02-02-2019 3 comp foot exam completed DIABETIC FOOT EXAM [facility] Start: 2001 BONE DENSITY BONE DENSITY [facility] Start: 1986 SHINGRIX VACCINE (1 of 2) OCONNELL GRIX VACCINE (1 of 2) [facility] Start: 1986 Zoster Vaccines (1 of 2) Zoste r Vaccines (1 of 2) [facility] Start: 07-25-1955 DTaP/Tdap/Td Vaccine s (1 - Tdap) DTaP/Tdap/Td Vaccines (1 - Tdap) [facility] Start: 07-25-1955 Urine microalbumin profile DTA P,TDAP,TD (1 - Tdap) [facility] Start: 07-25-1955 Urine screening for protein Diabetes: Urine Protein Screening [facility] Start: 1946 Diabetic foot examination Diabetes: Foot Exam [facility] Start: 1946 Glaucoma screening Diabetes: R etinopathy Screening [facility] Start: 1946 Hepatitis B screening URINE ALBUMIN:CREATININE RATIO [facility] Start: 1946 Hepatitis C antibody , confirmatory test DILATED RETINAL EXAM [facility] Start: 1946 Preventive dental service Diabetes: Dental Exam [facility] Start: 1942 Pneumococcal Vaccine : 65+ Years (1 - PCV) Pneumococcal Vaccine: 65+ Years (1 - PCV) [facility] Start: 1942 PNEUMOCOCCAL: 65+ (1 - PCV) PNEUMOCOCCAL: 65+ (1 - PCV) [facility] Start: 01-23-1937 COVID-19 Vaccine (#1) COVID-19 Vacci ne (#1) [facility] Start: 1936 Hemoglobin A1c measurement Amelie betes: Hemoglobin A1C [facility] Start: 1936 Hepatitis B Vaccines (1 of 3 - 3-dose series) Hepatitis B Vaccines (1 of 3 - 3-dose series) [facility] Start: 1936 Lipid panel Lipid Panel [facility] Start: 1936 Screening for osteoporosis Bone Dens ity Scan [facility] Immunizations Immunization Date Immunization Notes Care Provider Fa santinoty 12-28-2013 influenza virus vacc ine, unspecified formulation Allen Li Work Phone: [facility] Payers Date Payer Category Payer Self-pay 2024 Unknown [id number] 2018 Medicaid [facility] [id number] 2018-Present [phone] [address] [place] [address] Medicaid [id number] 2018 Medicaid [employer] [facility] MEDICAID [id number] 2018-Present [phone] [address] [place] [address] Medicaid [id number] 2014 Unknown [id number] 1989 Medicare [id number] 1989 Medicare MEDICARE MEDICAR E A AND B [id number] 1989-Present [phone] [address] [address] [place] [address] Medicare [id number] 1989 Medicare MEDICARE MEDICAR E A AND B [id number] 1989-Present [phone] [place] [address] Medicare [id number] 1936 Unknown [id number] 1936 Unknown [id number] 1936 Unknown [id number] 1936 Unknown [id number] 1936 Unknown [id number] Unknown [id number] Unknown [id number] Unknown [id number] Unknown [id number] Unknown [id number] Unknown [id number] Unknown [id number] Unknown [id number] Unknown [id number] Social History Date Type Detail Facility Start: 01-08-2016 Tobacco smoking stat [facility] Never smoked tobacco [facility] Start: 01-08-2016 Tobacco use and exposure Smoke less tobacco non-user [facility] Start: 07-06-2015 End: 09-26-2021 Alcohol intake Current non-drinker of alcohol (finding) [facility] Start: 1935 Sex Assigned At Not on file [facility] Start: 09-16-2021 End: 09-26-2021 Exposure to SARS-CoV-2 (event) Not sure [facility] Start: 07-06-2015 Alcohol intake [facility] Gender identity Not on file [facility] Medical Equipment Procedure Code Equipment Code Equipment [...] Phone Number of caller: Facility requesting page: [phone] Reason for Page: pt blood sugar updating Provider paged: Dr Tucker [facility] Name of paged provider: JACQUELINE Tucker and Time Page was sent or provider contacted: 11:35pm Page Content: Crystal Enriquez for pt R Grove 07.24.37 re pt blood sugar updating [facility] 01-21-2024 Miscellaneous Notes Name of caller requesting page:Crystal Phone Number of caller: Facility requesting page: [phone] Reason for Page: pt blood sugar updating Provider paged: Dr [facility] Name of paged provider: JACQUELINE Tucker and Time Page was sent or provider contacted: 11:35pm Page Content: Crystal Enriquez for pt R [place] 37 re pt blood sugar updating documented in this encounter [facility] 01-21-2024 Telephone encounter Note Name of caller requesting page:Jennifer Mitchell Phone Number of caller: [phone] Facility requesting page: Mina Reason for Page: Patient fall and low blood pressure 53 Provider paged: Dr. [facility] Name of paged provider: JACQUELINE [facility] Anel Page Placed to #: Manual call [phone] Time Page was sent or provider contacted: 10:40 pm Page Content: PAGED Jennifer Enriquez for pt R. Grove 1936 re fall and low blood pressure 53 [facility] 01-21-2024 Miscellaneous Notes Name of caller requesting page:Jennifer Mitchell Phone Number of caller: [phone] Facility requesting page: [facility] Reason for Page: Patient fall and low blood pressure 53 Provider paged: Dr. [facility] Name of paged provider: [facility] Page Placed to #: Manual call [phone] Time Page was sent or provider contacted: 10:40 pm Page Content: PAGED Jennifer from [facility] for pt NataliNga Grove 4 re fall and low blood pressure 53 documented in this encounter [facility] 08-31-2023 Telephone encounter Note Name of caller: Valerie Grove Contact phone number: [phone] Relationship to Patient: family member patient and [...] business hours to return their call: N/A [facility] 08-31-2023 Miscellaneous Notes Name of caller: Valerie Grove Contact phone number: [phone] Relationship to Patient: family member patient and daughter Provider: Caitlin Practice: Ciatlin Chief Complaint/Reason for Call: States patient is [...] their call: N/A documented in this encounter [facility] 05-13-2022 Telephone encounter Note Name of caller: Valerie Contact phone number: [phone] Relationship to Patient: family member daughter Provider: Dr. Li Practice: Dr. Allen Li Chief Complaint/Reason for Call: Valerie states that she needs an updated medication list with only the medications that he prescribes. Pleas advise. Best time of day caller can be reached: Any Patient advised that office/PCP has 24-48 business hours to return their call: Yes [facility] 05-13-2022 Miscellaneous Notes Name of caller: Valerie Contact phone number: [phone] Relationship to Patient: family member daughter Provider: Dr. Li Practice: Dr. Allen Li Chief Complaint/Reason for Call: Valerie states that she needs an updated medication list with only the medications that he prescribes. Pleas advise. Best time of day caller can be reached: Any Patient advised that office/PCP has 24-48 business hours to return their call: Yes documented in this encounter [facility] 05-01-2022 Miscellaneous Notes Spoke with pt's daughter Valerie who is unable to make appt at this time for her mother. Her mother will be placed in a penitentiary starting on 05/20/2022 and will call back if she needs to schedule a follow up. Thank you, Makenna Dial Patient last seen 09/26/2021. Patient was due to have 6 month follow up appointment. Please call patient to schedule overdue follow up appointment. Thanks!! Ankita Mitchell LPN documented in this encounter [facility] 05-01-2022 Miscellaneous Notes Patient's request for [...] Ankita Mitchell LPN documented in this encounter [facility] 09-27-2021 Miscellaneous Notes Spoke with Daughter Valerie, she verbalized understanding and will wait for the next step. She would like us to call her and let her know. She said we can say to stop the amiod on a voice mail if she cannot answer. Susie Guallpa LPN Left message for to call [facility] for test results. [facility] phone number provided. Keena Medina LPN [...] will keep you posted. Eleonora Renteria MD, [facility] Cardiovascular Medicine Pager: [phone] documented in this encounter [facility] 09-26-2021 Note HNO ID: [id number] Author: Eleonora Renteria MD Service: ? 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 - QUEtiapine (SEROQUEL) 25 [...] a week. - Alcohol Swabs padm - ClearCareTOUCH ULTRA TEST test strip - donepezil (ARICEPT) [...] N (more content not included)... 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 QUEtiapine (SEROQUEL) 25 mg [...] correct any errors. documented in this encounter [facility] 09-26-2021 Nurse Note Ms Grove is here for her routine office visit. Sophia Moore LPN documented in this encounter [facility] 05-23-2021 Note HNO ID: [id number] Author: Eleonora Renteria MD Service: ? Author Type: Physician Type: Progress Notes Filed: 05/23/2021 4:54 PM Note Text: Cardiology Ambulatory Clinic Note PCP: Allen Li MD, MD Chief Complaint Patient presents with: [facility] Hospital Follow Up: NSVT, PACs, cardiomyopathy [...] pain - Cerebral infarction (HCC) - Diabetes ([facility]) - Knee pain - Late onset Alzheimer's disease with behavioral disturbance ([facility]) - NSTEMI (non-ST elevated myocardial infarction) ([facility]) 04/12/2021 - Paroxysmal atrial fibrillation ([facility]) 04/12/2021 - Prolonged QT interval 04/12/2021 - 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 - ONETOUCH ULTRA TEST test strip - ONE TOUCH DELICA 33 gauge [facility] No current facility-administered [...] k (more content not included)... 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 05/2305/23/2021 Obesity, Class I, BMI 30-34.9 04/10/2021 documented as of this encounter (statuses as of 09/27/2021) [facility]02-10-2022 History of Past illness Narrative* Problem Noted Date Resolved Date 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 05/2305/23/2021 Obesity, Class I, BMI 30-34.9 04/10/2021 documented as of this encounter (statuses as of 05/01/2022) [facility]02-10-2022 History of Past illness Narrative* Problem Noted Date Resolved Date 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 Patient daughter present for education and verbalized understanding of monitor and return procedure. RN aware of placement prior to discharge.[facility]12-31-2021 NoteHNO ID: [id number] Author: Ida Gaston RN Service: Care Management [...] with Home care services thru [facility] SIGNATURE: Ida Gaston RN PATIENT NAME: Aimee Grove DATE: April 12, 2021 TIME: 10:42 AM [facility]AG[facility]TA[phone] NoteHNO ID: [id number] Author: Valerie Wallace DO Service: Hospital Medicine Author Type: Physician Type: Progress Notes Filed: 04/12/2021 8:49 AM Note Text: DEPARTMENT OF HOSPITAL MEDICINE PROGRESS NOTE SERVICE DATE: 04/12/2021 SERVICE TIME: 8:46 AM Hospital Medicine/Primary Attending: Valerie Wallace DO NIGHT AND WEEKEND COVERAGE: After 7pm please page [phone] CHIEF COMPLAINT: I"m fine SUBJECTIVE: Pt seen [...] -- 04/09/21 1015 activity - mobilize patient ([place] 04/06/21 1130 vte current anticoag therapy ([place] Lines, Drains, and Airways Drain External Collection Device 04/08/21 0456 4 days VTE Prophylaxis: Heparin 5000 units Sub Q BID Disposition: Home with [facility] Functional Status Prior to Admit: Medical Necessity for Continued Hospitalization DC Plan of care discussed with: Provider, RN, Patient SIGNATURE: Valerie Wallace DO PATIENT NAME: Aimee Grove DATE: April 12, 2021 TIME: 8:46 AM PAGER/CONTACT #: Team color pager Disclaimer: Portions of this note may have been generated using Incipient voice recognition software. Reasonable efforts were made to correct any (more content not included)...[facility]12-30-2021 NoteHNO ID: [id number] Author: Mariangel Aguilar DO Service: Hospital Medicine Author Type: Physician Type: Progress Notes Filed: 04/11/2021 3:33 PM Note Text: DEPARTMENT OF HOSPITAL MEDICINE PROGRESS NOTE SERVICE DATE: 04/11/2021 SERVICE TIME: 3:29 PM Hospital Medicine/Primary Attending: Mariangel Aguilar DO NIGHT AND WEEKEND COVERAGE: STREETER COVERAGE: After 7pm, please call cross cover pager #[phone] Subjective INTERVAL HPI: Feels pretty good, has [...] -- 04/09/21 1015 activity - mobilize patient ([place] 04/06/21 1130 vte current anticoag therapy ([place] VTE Prophylaxis: VTE prophylaxis appropriate Disposition: Home with C tomorrow Plan of care discussed with: Provider, RN, Patient SIGNATURE: Mariangel Aguilar DO PATIENT NAME: Aimee Grove DATE: April 11, 2021 TIME: 3:29 PM etx [id number] [facility]12[facility]21 NoteHNO ID: [id number] Author: Shanta Perdomo RN Service: Care Management Author Type: Registered Nurse Type: Care Mgt Progress Note Filed: 04/11/2021 2:05 PM Note Text: CARE MANAGEMENT PROGRESS NOTE SERVICE DATE: 04/11/2021 SERVICE TIME: 2:04 PM LOS: 6 days Chart reviewed. Plan for pt to return home with dtr and resumed [facility]PER[facility] and HHC. left for pts caser up Leonor ([phone]). HHC orders sent to [facility]. Dtr to transport at d/c. to follow. SIGNATURE: Shanta Perdomo RN PATIENT NAME: Aimee Grove DATE: April 11, 2021 TIME: 2:04 PM PAGER/CONTACT #: [phone] 04-10-2021 NoteHNO ID: [id number] Author: Mariangel Aguilar DO Service: Hospital Medicine Author Type: Physician Type: Progress Notes Filed: 04/10/2021 1:27 PM Note Text: DEPARTMENT OF HOSPITAL MEDICINE PROGRESS NOTE SERVICE DATE: 04/10/2021 SERVICE TIME: 1:22 PM Hospital Medicine/Primary Attending: Mariangel Aguilar DO NIGHT AND WEEKEND COVERAGE: [place] COVERAGE: After 7pm, please call cross cover pager #[phone] Subjective INTERVAL HPI: Feels pretty good, has [...] -- 04/09/21 1015 activity - mobilize patient ([place]) 04/06/21 1130 vte current anticoag therapy [place] VTE Prophylaxis: VTE prophylaxis appropriate Disposition: Home with [facility] tomorrow Plan of care discussed with: Provider, RN, Patient SIGNATURE: Mariangel Aguilar DO PATIENT NAME: Aimee Grove DATE: April 10, 2021 TIME: 1:22 PM etx [id number] Light [facility] Hospital12-28-2021 NoteHNO ID: [id number] Author: Arian Wheat DO Service: Hospital Medicine Author Type: Physician Type: Progress Notes Filed: 04/09/2021 5:54 PM Note Text: DEPARTMENT OF HOSPITAL MEDICINE PROGRESS NOTE SERVICE DATE: 04/09/2021 SERVICE TIME: 5:47 PM Hospital Medicine/Primary Attending: Arian Wheat DO NIGHT AND WEEKEND COVERAGE: After 7pm please page [phone] SUBJECTIVE: Patient seen examined at bedside. Seems [...] RN, Patient. This note was generated using Synker voice dictation. All resonable efforts were made to correct dictation errors but they still may occu (more content not included)...[facility]12-28-2021 NoteHNO ID: [id number] Author: Shanta Perdomo RN Service: Care Management Author Type: Registered Nurse Type: Care Mgt Progress Note Filed: 04/09/2021 11:48 AM Note Text: CARE MANAGEMENT PROGRESS NOTE SERVICE DATE: 04/09/2021 SERVICE TIME: 11:46 AM LOS: 4 days Pts dtr Valerie is refusing SNF. 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 Family to transport. Cm to follow. SIGNATURE: Shanta Perdomo RN PATIENT NAME: Aimee Grove DATE: April 09, 2021 TIME: 11:46 AM PAGER/CONTACT #: [phone] Light [facility] Hospital 04-08-2021 NoteHNO ID: [id number] Author: Arian Wheat DO Service: Hospital Medicine Author Type: Physician Type: Progress Notes Filed: 04/08/2021 5:54 PM Note Text: DEPARTMENT OF HOSPITAL MEDICINE PROGRESS NOTE SERVICE DATE: 04/08/2021 SERVICE TIME: 5:18 PM Hospital Medicine/Primary Attending: Arian Wheat DO NIGHT AND WEEKEND COVERAGE: After 7pm please page [phone] SUBJECTIVE: Patient seen examined at bedside. She is alert oriented x2-3(think she is at [facility]). Otherwise no complaints at the moment. [...] RN, Patient. This note was generated using Synker voice dictation. All resonable efforts were made to correct dictation errors but they still may occur given the nature of the software. SIGNATURE: Arian Wheat DO PATIENT NAME: Aimee Grove DATE: April 08, 2021 TIME: 5:18 PM PAGER/CONTACT #: Shala [facility]12-27-2021 NoteHNO ID: [id number] Author: Shanta Perdomo RN Service: Care Management Author Type: Registered Nurse Type: Care Mgt Progress Note Filed: 04/08/2021 2:17 PM Note Text: CARE MANAGEMENT PROGRESS NOTE SERVICE DATE: 04/08/2021 SERVICE TIME: 2:15 PM LOS: 3 days Spoke with pts dtr Valerie at the bedside. Pt lives at home with her dtr- fairly independent. Pt has a security escort 7 days a week for 6 1/2 hrs a day. Pt has a cane, walker, and shower chair at home. Plan for pt to return home with dtr, resumed care with security escort, and hhc. HHC referrals sent. Valerie agreeable to any agency for hhc. Family to transport at al. Cm to follow. SIGNATURE: Shanta Perdomo RN PATIENT NAME: Aimee Grove DATE: April 08, 2021 TIME: 2:15 PM PAGER/CONTACT #: [phone] [facility] 04-08-2021 NoteHNO ID: [id number] Author: Eleonora Renteria MD Service: Cardiovascular Medicine [...] include Type 2 DM. No prior CVA, AL or other cardiac event that I could find per chart review. HS troponins came back 198. K and Mg normal. Repeat EKG done and showed sinus rhythm with less profound ST elevations and insignificant Q waves. INTERVAL HISTORY The patient was transferred to [facility] overnight. Glucose was elevated to 500-600 range [...] 2202 Radha (more content not included)...[facility]12-26-2021 Note HNO ID: [id number] Author: Mi Warren RN Service: Nursing Author Type: Registered Nurse Type: Nursing Progress Note Filed: 04/07/2021 9:19 PM Note Text: Report provided to Lala RUSSELL using SBAR communication technique.[facility]12-26-2021 NoteHNO ID: [id number] Author: Mi Warren RN Service: Nursing Author Type: Registered Nurse Type: Nursing Progress Note Filed: 04/07/2021 8:43 PM Note Text: [facility] called to see if they saw transfer orders for pt. No answer x 2 message left.[facility]12-26-2021 NoteHNO ID: [id number] Author: Mi Warren RN Service: Nursing Author Type: Registered Nurse Type: Nursing Progress Note Filed: 04/07/2021 8:42 PM Note Text: Dr Hernandez notified of pt's BS of 594 and troponin of 123 via text page system.[facility]12-26-2021 NoteHNO ID: [id number] Author: Adi Hernandez DO Service: Cardiovascular Medicine Author Type: Resident Type: Plan of Care Filed: 04/07/2021 7:34 PM Note Text: IV access obtained with ultrasound-guided 20G needle in the right antecubital. RN drawing labs at this time. No blood loss with attempts (total 3). Adi Hernandez DO Internal Medicine, PGY-2 04/07/21 7:34 [facility]12-26-2021 NoteHNO ID: [id number] Author: Mi Warren RN Service: Nursing Author Type: Registered Nurse Type: Nursing Progress Note Filed: 04/07/2021 7:09 PM Note Text: Assumed care of pt from Tone RUSSELL. Report Received.[facility] 04-07-2021 NoteHNO ID: [id number] Author: Mele Rodriguez RN Service: ? Author Type: Registered Nurse Type: Nursing Progress Note Filed: 04/07/2021 1:13 PM Note Text: Dr Walter at BS to attempt unit(s)/S guided IV/[facility] 04-07-2021 NoteHNO ID: [id number] Author: Mele Rodriguez RN Service: ? Author Type: Registered Nurse Type: Nursing Progress Note Filed: 04/07/2021 1:12 PM Note Text: Returned from CT, bed changed[facility]12-26-2021 NoteHNO ID: [id number] Author: Mele Rodriguez RN Service: ? Author Type: Registered Nurse Type: Nursing Progress Note Filed: 04/07/2021 12:10 PM Note Text: Family visit ,assisted with eating, felipe well. To CT via bed with 2 transport AND [facility]12-26-2021 NoteHNO ID: [id number] Author: Juli Valentino MD Service: Neurology General [...] of heparin use. Juli Valentino MD [facility]21 NoteHNO ID: [id number] Author: Mele Rodriguez RN Service: ? Author Type: Registered Nurse Type: Nursing Progress Note Filed: 04/07/2021 11:00 AM Note Text: Seen by CVICU drs AND advised of lab/ IV status.[facility] 04-07-2021 NoteHNO ID: [id number] Author: Mele Rodriguez RN Service: ? Author Type: Registered Nurse Type: Nursing Progress Note Filed: 04/07/2021 9:37 AM Note Text: Seen by cardiology res. , advised of not able to [facility]12-[facility]-2021 NoteHNO ID: [id number] Author: Eleonora Renteria MD Service: Cardiovascular Medicine [...] patient on April 07, 2021 SUBJECTIVE Aimee Grove 85 year old [...] include Type 2 DM. No prior CVA, AL or other cardiac event that I could [...] aspirin 81 (more content not included)...[facility] 04-07-2021 NoteHNO ID: [id number] Author: Mele Rodriguez RN Service: ? Author Type: Registered Nurse Type: Nursing Progress Note Filed: 04/07/2021 8:36 AM Note Text: Attempted to draw labs. Not able to draw off IV, attempt peripheral draw without success.[facility]12-26-2021 NoteHNO ID: [id number] Author: Rosalia Mcdaniels RN Service: Nursing Author Type: Registered Nurse Type: Nursing Progress Note Filed: 04/07/2021 7:30 AM Note Text: Report to Mele [facility]12-26-2021 NoteHNO ID: [id number] Author: Mele Rodriguez RN Service: ? Author Type: Registered Nurse Type: Nursing Progress Note Filed: 04/07/2021 7:43 AM Note Text: [facility] report from [facility] to [facility]12-25-2021 NoteHNO ID: [id number] Author: Maria L Haro RN Service: Nursing Author Type: Registered Nurse Type: Nursing Progress Note Filed: 04/06/2021 7:24 PM Note Text: Pt incontinent of large amount of urine. Linens changed. Report to [place]12-25-2021 NoteHNO ID: [id number] Author: Maria L Haro RN Service: Nursing Author Type: Registered Nurse Type: Nursing Progress Note Filed: 04/06/2021 7:00 PM Note Text: Dr. Matias aware of latest troponin result of 178. No new immediate [facility]12-25-2021 NoteHNO ID: [id number] Author: Maria L Haro RN Service: Nursing Author Type: Registered Nurse Type: Nursing Progress Note Filed: 04/06/2021 6:57 PM Note Text: Dr. Matias paged for [facility]12-25-2021 NoteHNO ID: [id number] Author: Maria L Haro RN Service: Nursing Author Type: Registered Nurse Type: Nursing Progress Note Filed: 04/06/2021 6:06 PM Note Text: Pt back from MRI. Rt AC IV infiltrated and removed. New IV started in middle of AC.[facility]12-25-2021 NoteHNO ID: [id number] Author: Maria L Haro RN Service: Nursing Author Type: Registered Nurse Type: Nursing Progress Note Filed: 04/06/2021 4:38 PM Note Text: [facility]12-25-2021 NoteHNO ID: [id number] Author: Maria L Haro RN Service: Nursing Author Type: Registered Nurse Type: Nursing Progress Note Filed: 04/06/2021 4:14 PM Note Text: 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 MRI screening from filled out by them. MRI called and [facility]12-25-2021 NoteHNO ID: [id number] Author: Maria L Haro RN Service: Nursing Author Type: Registered Nurse Type: Nursing Progress Note Filed: 04/06/2021 3:27 PM Note Text: Dr. Matias paged for verification of amio [facility] 04-06-2021 NoteHNO ID: [id number] Author: Abbi Matias MD Service: Cardiovascular Medicine Author Type: Resident Type: Plan of Care Filed: 04/06/2021 1:09 PM Note Text: Spoke with the patient's daughter and updated her about the course. Discussed with her the code status and she wants the patient to be DNR-CCA DNI. Abbi Matias M.D. Internal Medicine, PGY 3 Pager: [phone] 04/06/2021[facility]12-25-2021 NoteHNO ID: [id number] Author: Amee Melvin MD Service: Hospital Medicine Author Type: Physician Type: Progress Notes Filed: 04/06/2021 11:02 AM Note Text: DEPARTMENT OF HOSPITAL MEDICINE PROGRESS NOTE Hospital Medicine/Primary Attending: Amee Melvin MD NIGHT AND WEEKEND COVERAGE: [place] COVERAGE: After 7pm, please call cross cover pager #[phone] Subjective INTERVAL HPI: Pt seen and examined. [...] flush bag 20 mL INTRAVENOUS PRN - [MAR Hold due to Transfer] acetaminophen 650 mg [...] POSIFLUSH) 2-10 mL INTRAVENOUS DIRECTED PRN - [JUN Hold due to Transfer] insulin lispro pen (rapid acting) (HumaLOG KWIKPEN) SUBCUTANEOUS w MEALS - [JUN Hold due to Transfer] insulin lispro pen (rapid acting) (HumaLOG KWIKPEN) SUBCUTANEOUS AT BEDTIME - [JUN Hold due to Transfer] dextrose 5% in [...] medications for (more content not included)...[facility]12-25-2021 NoteHNO ID: [id number] Author: Abbi Matias MD Service: Cardiovascular Medicine Author Type: Resident Type: Plan of Care Filed: 04/06/2021 9:41 AM Note Text: Attempted to call patient's daughter, Valerie Grove to update her and discuss management, no answer. Will try again later.[facility] 02-11-2021 NoteSurgical Attestation: I have reviewed the patient's History and Physical Examination. I have personally seen and evaluated the patient, repeating bella portions. There is no significant interval change. Surgery is still indicated. Yes Consent reviewed and signed by patient/family: Yes Operative site verified and marked: site verified but not marked as not anatomically possible Lakshmi Bocanegra DDS 02/11/2021 7:13 AMThe [facility] [id number] NotePresurgical Evaluation Aimee Grove, [id number] 85 year old Female 02/01/2021 Height: Data Unavailable Weight: no weight BMI: (Data Unavailable) VITAL SIGNS: There were no vitals filed for this visit. ALLERGIES: Allergies Allergen Reactions * Azithromycin Other reaction(s): Unknown * Penicillins Other reaction(s): Unknown * Sulfa Antibiotics Other reaction(s): Unknown * Sulfamethoxazole W-Trimethoprim HISTORY OF PRESENT ILLNESS: 85 Y F presents to [facility] clinic for presurgical evaluation for upcoming dental taoism on 02/11 RECENT ILLNESS: Serious illness or hospitalization within the last six months. No STOP-BANG Row Name Office Visit from 02/01/2021 in [facility] Pre Surgical Evaluation History of sleep apnea? [...] tablet * trazod (more content not included)...[facility] [id number] Note Patient is vaccinated for COVID-19: Pfizer on 08/07/2020 AND 08/31/2020. Patient does not require pre-op COVID testing per current guidelines.[facility] SystemEvaluation note* Diagnosis NSVT (nonsustained ventricular tachycardia) (HCC)- Primary Paroxysmal ventricular tachycardia Premature atrial contractions Supraventricular premature beats Mixed hyperlipidemia Tachycardia Tachycardia, unspecified Alzheimer's dementia without behavioral disturbance, unspecified timing of dementia onset (HCC) History of stroke Transient ischemic attack (TIA), and cerebral infarction without residual deficits [facility] Diagnosis Elevated TSH- Primary Nonspecific abnormal results of thyroid function study NSVT (nonsustained ventricular tachycardia) (HCC) Paroxysmal ventricular tachycardia Abnormal TSH Other abnormal clinical finding Abnormal thyroid blood test Nonspecific abnormal results of thyroid function study documented in this encounter [facility] Summary Purpose Family History No Family History Records FoundNo Family History Records FoundNo Family History Records FoundNo Family History Records FoundNo Family History Records Found Advance Directives No Advanced Directives Records FoundDocuments on File Type Date Recorded 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 Advance Directive(s) 04/05/2021 12:25 PM Latest Code Status on File Code Status Date Activated Date Inactivated Comments DNR-CCA 04/06/2021 1:04 PM 04/12/2021 2:22 PM DNR Order Discussed With: Surrogate Decision Sudarshan er Additional Source Comments INFORMATION SOURCE (unrecogn ized section and content) DATE CREATED AUTHOR 05/11/2021 [facility] DATE CREATED AUTHOR AUTHOR'S ORGANIZ ATION 07/04/2021 [facility] DATE CREATED AUTHOR AUTHOR'S ORGANIZ ATION 10/18/2021 [facility] DATE CREATED AUTHOR AUTHOR'S ORGANIZ ATION 01/24/2024 [facility] DATE CREATED AUTHOR AUTHOR'S ORGANIZ ATION 12/07/2024 [facility] Source Comments (unrecognize d section and content) In the event this informatio n is protected by the Federal Confidentiality of Alcohol and Drug Abuse Patient Records regulations: The Federal rules restrict any use of the information to criminally investigate or prosecute any alcohol or drug abuse patient.[facility] the event this information is protected by the Federal Confidentiality of Alcohol and Drug Abuse Patient Records regulations: The Federal rules restrict any use of the information to criminally investigate or prosecute any alcohol or drug abuse patient.[facility] the event this information is protected by the Federal Confidentiality of Alcohol and Drug Abuse Patient Records regulations: The Federal rules restrict any use of the information to criminally investigate or prosecute any alcohol or drug abuse patient.[facility] the event this information is protected by the Federal Confidentiality of Alcohol and Drug Abuse Patient Records regulations: The Federal rules restrict any use of the information to criminally investigate or prosecute any alcohol or drug abuse patient.[facility] Reason for Visit (unrecogniz ed section and content) Reason Comments 4 month follow up NSVT Reason Comments Results Reason Comments Appointment Reason Comments Refill Request Reason Onset Date Comments Other 01/21/2024 Reason Onset Date Comments medication reconciliation 05/13/2022 Care Teams (unrecognized sec tion and content) Watch Crystal Edge Grinder Relationship Specialty Start Date End Date Allen Li MD [address] [place] [id number] PCP - General Internal Medicine 01/08/16 Juan Carlos Driver, DO [address] [place] [address] 01/08/16 Allen Li MD [address] [place] [address] Home Care Physician Internal Medicine 04/08/21 Watch [employer] Edge Grinder Relationship Specialty Start Date End Date Allen Li MD [address] [place] [address] PCP - General Internal Medicine 01/08/16 Juan Carlos Driver, DO [address] [place] [address] 01/08/16 Allen Li MD [address] [place] [address] Home Care Physician Internal Medicine 04/08/21 Watch [employer] Edge Grinder Relationship Specialty Start Date End Date Allen Li MD [address] [place] [address] PCP - General Internal Medicine 01/08/16 Juan Carlos Driver, DO [address] [place] [address] 01/08/16 Allen Li MD [address] [place] [address] Home Care Provider Internal Medicine 04/08/21 Watch [employer] Grinder Relationship Specialty Start Date End Date Valerie Duenas, DO [address] [facility], [address] [place] [address] PCP - General 05/14/15 FOR RECORDS PERTAINING [...] BE BASED ON THE PRIMARY CLINICAL RECORDS. [facility]. provides no warranty or guarantee of the accuracy or completeness of information in this document.
[2024-12-23 08:26] LABS: Vitamin D,25 Hydroxy 52.2 ng/mL (30-100)
== END ==
LOC: OLS.ACW100 05:00
PROVIDERS: Visit Provider Family Medicine
DX: E11.9 Type 2 diabetes mellitus without complications (principal); F03.918 Unspecified dementia, unspecified severity, with other behavioral disturbance; F31.9 Bipolar disorder, unspecified; F33.0 Major depressive disorder, recurrent, mild
CPT/HCPCS: 36415; 82306

== ENCOUNTER → 2025-02-14 | Outpatient (REF) | payer MEDICARE, MEDICAID, SELFPAY ==
--- OUTSIDE RECORDS SUMMARY | 2025-02-14 03:59 | XMS RPT_ITS | CCD ---
Author Organization [facility] ion [facility] Care Team Providers Care Weatherization Administrator Name Role Phone PROVIDER, UNKNOWN Attending Unavailable PROVIDER, UNKNOWN Admitting Unavailable AL MASHNI, CHEVY Referring Unavailable AL MASHNI, CHEVY Attending Unavailable AL MASHNI, CHEVY Admitting Unavailable PROVIDER, UNKNOWN Attending Unavailable PROVIDER, UNKNOWN Admitting Unavailable AL CHASI, CHEVY Referring Unavailable PROVIDER, UNKNOWN Attending Unavailable PROVIDER, UNKNOWN Admitting Unavailable PROVIDER, UNKNOWN Attending Unavailable PROVIDER, UNKNOWN Admitting Unavailable Allen Li MD Primary Care Provider Juan Carlos Driver DO Unavailable Allen Li MD Unavailable Allen Li MD Primary Care Provider [phone] Juan Carlos Driver DO Unavailable [phone] Allen Li MD Unavailable [phone] Unavailable Primary Care Provider UnavailValerie Ramirez DO Primary Care Provider Stephen Julian Attending Unavailable Stephen Julian Attending Unavailable Stephen Julian Attending Unavailable Stephen Julian Attending Unavailable Stephen Julian Attending Unavailable Stephen Julian Attending Unavailable Stephen Julian Attending Unavailable Stephen Julian Attending Unavailable Stephen Julian Attending Unavailable Stephen Julian Referring Unavailable Stephen Julian Attending Unavailable Allergies Allergy Classification Reported Allergen(s) Allergy Type Date of Onset Reaction(s) Facility (5 sources) Azithromycin; Translations: [AZITHROMYCIN] Drug Allergy 07-06-19 16 [facility] (5 sources) Penicillins; Translations: [PENICILLINS] Propensity to adverse reactions to drug (disorder) 05-11-19 16 [facility] (5 sources) Sulfonamides (Antibiotic); Translations: [SULFA ANTIBIOTICS] Propensity to adverse reactions to drug (disorder) 01-08-20 16 Hives [facility] Repository (1 source) SULFAMETHOXAZOLE W-TRIMETHOPRIM; Translations: [SULFAMETHOXAZOLE W-TRIMETHOPRIM] Propensity to adverse reactions to drug (disorder) 05-11-19 16 [facility] Repository (4 sources) Penicillin Drug Allergy 01-08-20 16 Unknown [facility] (4 sources) Sulfonamides (Antibiotic) Propensity to adverse reactions to drug 01-08-20 16 Unknown [facility] Medications Completed/Discontinued Medications Medication Drug Class(es) [...] (FLONASE) 50 mcg/actuation nasal spray Use 1 [place] in the nose. 0 Active Comment on above: Use 1 [place] in the n ose. glipiZIDE 5 mg [...] [Type 2 diabetes mellitus without complications] Onset: 12-06-2024 Chronic Disorders of lipid metabolism (9 sources) [...] unspecified severity, with other behavioral disturbance] Onset: 12-06-2024 Past or Other Problems Problem Classification Problem [...] Phone Number of caller: Facility requesting page: [phone] Reason for Page: pt blood sugar updating Provider paged: Dr [facility] Name of paged provider: JACQUELINE Bernal Time Page was sent or provider contacted: 11:35pm Page Content: Crystal murphy Backand for pt [place] 07.24.37 re pt blood sugar updating [facility] 36 Name of caller requesting page:Jennifer Mitchell Phone Number of caller: [phone] Facility requesting page: Mina Reason for Page: Patient fall and low blood pressure 53 Provider paged: Dr. [facility] Name of paged provider: JACQUELINE Tucker & Anel Page Placed to #: Manual call [phone] Time Page was sent or provider contacted: 10:40 pm Page Content: PAGED Jennifer murphy Backand for pt [place] 1937 re fall and low blood pressure [address] [facility] 36on 08-31-2023 36 Name of caller: Valerie [place] Contact phone number: [phone] Relationship to Patient: family member patient and [...] hours to return their call: N/A Normal [facility] CNPNon 09-27-2021 [place] Telephone (AGCARDHWG ) AIMEE GROVE ([id number]) 1935 F Date Time Provider Department 09/27/21 [...] will keep you posted. Eleonora Renteria MD, [facility] Cardiovascular Medicine Pager: [phone] Keena Medina LPN 09/27/2021 11:11 AM Signed Left message for to call [facility] for test results. [facility] phone number provided. BIPIN Reese LPN 09/27/2021 [...] level in future again. Eleonora Renteria MD, [facility] Cardiovascular Medicine Pager: [phone] Eleonora Renteria MD 10/16/2021 9:34 AM Signed Addended by: ELEONORA RENTERIA on: 10/16/2021 09:34 AM Modules accepted: Lina Quiñones RN 10/16/2021 9:48 AM Signed Left message on Valerie's voicemail requesting pt return call for Dr Renteria's recommendations. Office phone number provided. YVONNE Saldivar, RN 10/17/2021 9:44 AM Signed Spoke with [...] test [R79.89] Order(s):T3 BLD [SQT3] Order #: [id number] FUTURE CONSULT TO ENDOCRINOLOGY [9007] Order #: [id number]: 1 FUTURE Prescriptions as of 10/17/2021 - [...] (FLONASE) 50 mcg/actuation nasal spray Use 1 [place] in the nose. - QUEtiapine (SEROQUEL) 25 mg tablet Take 12.5 mg by mouth. - traZODone (DESYREL) 50 mg tablet Take 25 mg by mouth. 1/2 at bedtime - venlafaxine ER (EFFEXOR XR) 37.5 mg 24 hr capsule TAKE 1 CAPSULE BY MOUTH DAILY after supper - cholecalciferol, Vitami (more content not included)... 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 - QUEtiapine (SEROQUEL) 25 [...] a week. - Alcohol Swabs padm - InSpheroUCH ULTRA TEST test strip - donepezil (ARICEPT) [...] motor weakn (more content not included)... Normal [facility] Hepatic function 2000 panelo n 09-26-2021 Albumin [Mass/Vol] 3.8 g/dL Low 3.9-4.9 [facility] Comment on above: Order Comment: Speci men Type: BLOOD SPECIMEN Performed By: #### H STNT #### [facility] CLIA [id number] [address] [facility] ALP [Catalytic activity/Vol] 50 U/L Normal 34-123 [facility] Comment on above: Order Comment: Speci men Type: BLOOD SPECIMEN Performed By: #### H STNT #### [facility] CLIA [id number] [address] ALT With P-5'-P [Catalytic activity/Vol] 13 U/L Normal 7-38 [facility] Comment on above: Order Comment: Speci men Type: BLOOD SPECIMEN Performed By: #### H STNT #### [facility] CLIA [id number] [address] [facility] AST With P-5'-P [Catalytic activity/Vol] 13 U/L Normal 13-35 [facility] Comment on above: Order Comment: Speci men Type: BLOOD SPECIMEN Performed By: #### H STNT #### [facility] CLIA [id number] [address] Bilirubin [Mass/Vol] 0.2 mg/dL Normal 0.2-1.3 [facility] Comment on above: Order Comment: Speci men Type: BLOOD SPECIMEN Performed By: #### H STNT #### [facility] CLIA [id number] [address] Bilirubin.conjugat ed [Mass/Vol] mg/dL Normal <0.2 [facility] Comment on above: Order Comment: Speci men Type: BLOOD SPECIMEN Performed By: #### H STNT #### [facility] CLIA [id number] [address] Protein [Mass/Vol] 6.9 g/dL Normal 6.3-8.0 [facility] Comment on above: Order Comment: Speci men Type: BLOOD SPECIMEN Performed By: #### H STNT #### [facility] CLIA [id number] [address] T3 SerPl-mCncon 09-26-2021 T3 [Mass/Vol] 83 ng/dL Normal 79-165 [facility] Comment on above: Order Comment: Speci men Type: BLOOD SPECIMEN Performed By: #### H STNT #### [facility] CLIA [id number] [address] T4 Free SerPl-mCncon 022 Free T4 [Mass/Vol] 0.9 ng/dL Normal 0.9-1.7 [facility] Comment on above: Order Comment: Speci men Type: BLOOD SPECIMEN Performed By: #### H STNT #### [facility] CLIA [id number] [address] [facility] TSH SerPl-aCncon 09-26-2021 TSH Qn 16.450 m[IU]/L High 0.270-4.200 [facility] Comment on above: Order Comment: Speci men Type: BLOOD SPECIMEN Performed By: #### H STNT #### [facility] CLIA [id number] 1 [place] [id number] [facility] CNOVon 05-23-2021 CNOV Office Visit (AGCARDHWG) AIMEE GROVE ([id number]) 1935 F Date Time Provider Department 05/23/21 [...] Date - Back pain - Cerebral infarction ([facility]) - Diabetes ([facility]) - Knee pain - Late onset Alzheimer's disease with behavioral disturbance ([facility]) - NSTEMI (non-ST elevated myocardial infarction) ([facility]) 04/12/2021 - Paroxysmal atrial fibrillation ([facility]) 04/12/2021 - Prolonged QT interval 04/12/2021 - 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 - ONETOUCH ULTRA TEST test strip - ONE TOUCH [place] 33 gauge misc No current facility-administered medications for this visit. REVIEW OF SYSTEMS: GENERAL: Negative for:Weight loss and Weight gain HEENT: Negative for:Nosebleeds RESPIRATORY: Negative for:Shortness of breath GASTROINTESTINAL: Negative for:Blood in stool MUSCULOSKELETAL: Negtive for: Muscle or joint pain, stiffness, Joint swelling SKIN: No rash HEMATOLOGICAL/LYMPHATI C: Negative for: Easy bruising and Easy bleeding CARD (more content not included)... Normal [facility] CNDSon 04-12-2021 [facility] HNO ID: [id number] Author: Valerie Wallace DO Service: Hospital Medicine [...] Attending: Eleonora Renteria MD Primary Service: Tyrone Haskins [facility] ? MY CONDITION AT DISCHARGE: Improved ? [...] In 2 weeks ? Eleonora Renteria MD [phone] [place] [address] ? PCP Requested Referral ? Follow-Up Appointment ? With: primary care doctor ? When: In 1 week ?FOllow up with [facility] in 4- 6 weeks ? Treatment Team: Attending Provider: Mariangel Aguilar DO Consulting: Juli Valentino MD Consulting: Maximo Tadeo MD Attending: Eleonora Renteria MD Primary Service: [facility] ? FOLLOW-UP APPOINTMENTS ALREADY SCHEDULED WITH A [facility] PROVIDER: NO FUTURE APPOINTMENTS. ? ALLERGIES ALLERGIES [...] metFORMIN (GLUCOPHAG (more content not included)... Normal [facility] CBC W Auto Differential pane l (Bld)on 04-11-2021 Basophils (Bld) [#/Vol] 0.05 10*3/uL Normal <0.11 [facility] Comment on above: Order Comment: Speci men Type: BLOOD SPECIMEN Performed By: #### 5 7021-8 ####[facility] [id number] [address] Basophils/100 WBC (Bld) 0.5 % Normal [facility] Comment on above: Order Comment: Speci men Type: BLOOD SPECIMEN Performed By: #### 5 7021-8 ####[facility] [id number] [address] Differential cell count method Nom (Bld) Auto Normal [facility] Comment on above: Order Comment: Speci men Type: BLOOD SPECIMEN Performed By: #### 5 7021-8 ####[facility] [id number] [address] Eosinophils (Bld) [#/Vol] 0.27 10*3/uL Normal <0.46 [facility] Comment on above: Order Comment: Speci men Type: BLOOD SPECIMEN Performed By: #### 5 7021-8 ####[facility] [id number] [address] Eosinophils/100 WBC (Bld) 2.6 % Normal [facility] Comment on above: Order Comment: Speci men Type: BLOOD SPECIMEN Performed By: #### 5 7021-8 ####[facility] [id number] [address] Erythrocyte distribution width (RBC) [Ratio] 13.0 % Normal 11.5-15.0 [facility] Comment on above: Order Comment: Speci men Type: BLOOD SPECIMEN Performed By: #### 5 7021-8 ####[facility] [id number] [address] Hematocrit (Bld) [Volume fraction] 37.2 % Normal 36.0-46.0 [facility] Comment on above: Order Comment: Speci men Type: BLOOD SPECIMEN Performed By: #### 5 7021-8 ####[facility] [id number] [address] [place] Hemoglobin (Bld) [Mass/Vol] 11.7 g/dL Normal 11.5-15.5 [facility] Comment on above: Order Comment: Speci men Type: BLOOD SPECIMEN Performed By: #### 5 7021-8 ####[facility] [id number] [address] IMMATURE GRAN % 0.4 % Normal [facility] Comment on above: Order Comment: Speci men Type: BLOOD SPECIMEN Performed By: #### 5 7021-8 ####[facility] [id number] [address] IMMATURE GRAN ABS 0.04 k/uL Normal <0.10 [place] Comment on above: Order Comment: Speci men Type: BLOOD SPECIMEN Performed By: #### 5 7021-8 ####[facility] [id number] [address] Lymphocytes (Bld) [#/Vol] 1.33 10*3/uL Normal 1.00-4.00 [facility] Comment on above: Order Comment: Speci men Type: BLOOD SPECIMEN Performed By: #### 5 7021-8 ####[facility]ORYCLIA [id number] [address] Lymphocytes/100 WBC (Bld) 12.7 % Normal [facility] Comment on above: Order Comment: Speci men Type: BLOOD SPECIMEN Performed By: #### 5 7021-8 ####[facility] [id number] [address] MCH (RBC) [Entitic mass] 28.3 pg Normal 26.0-34.0 [facility] Comment on above: Order Comment: Speci men Type: BLOOD SPECIMEN Performed By: #### 5 7021-8 ####[facility] [id number] [address] [place] MCHC (RBC) [Mass/Vol] 31.5 g/dL Normal 30.5-36.0 [facility] Comment on above: Order Comment: Speci men Type: BLOOD SPECIMEN Performed By: #### 5 7021-8 ####[facility] [id number] [address] MCV (RBC) [Entitic vol] 90.1 fL Normal 80.0-100.0 [facility] Comment on above: Order Comment: Speci men Type: BLOOD SPECIMEN Performed By: #### 5 7021-8 ####[facility] [id number] [address] Monocytes (Bld) [#/Vol] 1.32 10*3/uL High <0.87 [facility] Comment on above: Order Comment: Speci men Type: BLOOD SPECIMEN Performed By: #### 5 7021-8 ####[facility] [id number] [address] Monocytes/100 WBC (Bld) 12.6 % Normal [facility] Comment on above: Order Comment: Speci men Type: BLOOD SPECIMEN Performed By: #### 5 7021-8 ####[facility] [id number] [address] [facility] Neutrophils (Bld) [#/Vol] 7.45 10*3/uL Normal 1.45-7.50 [facility] Comment on above: Order Comment: Speci men Type: BLOOD SPECIMEN Performed By: #### 5 7021-8 ####[facility] [id number] [address] Neutrophils/100 WBC (Bld) 71.2 % Normal [facility] Comment on above: Order Comment: Speci men Type: BLOOD SPECIMEN Performed By: #### 5 7021-8 ####[facility] [id number] [address] [facility] Nucleated RBC (Bld) [#/Vol] 10*3/uL Normal <0.01 [facility] Comment on above: Order Comment: Speci men Type: BLOOD SPECIMEN Performed By: #### 5 7021-8 ####[facility] [id number] [address] Nucleated RBC/100 WBC (Bld) [Ratio] 0.0 /100 WBC Normal 0.0 [facility] Comment on above: Order Comment: Speci men Type: BLOOD SPECIMEN Performed By: #### 5 7021-8 ####[facility] [id number] [address] Platelet mean volume (Bld) [Entitic vol] 13.4 fL High 9.0-12.7 [facility] Comment on above: Order Comment: Speci men Type: BLOOD SPECIMEN Performed By: #### 5 7021-8 ####[facility] [id number] [address] Platelets (Bld) [#/Vol] 161 10*3/uL Normal 150-400 [facility] Comment on above: Order Comment: Speci men Type: BLOOD SPECIMEN Performed By: #### 5 7021-8 ####[facility]ORY[facility] [id number] [address] RBC (Bld) [#/Vol] 4.13 10*6/uL Normal 3.90-5.20 [facility] Comment on above: Order Comment: Speci men Type: BLOOD SPECIMEN Performed By: #### 5 7021-8 ####[facility] [id number] [address] WBC (Bld) [#/Vol] 10.46 10*3/uL Normal 3.70-11.00 [facility] Comment on above: Order Comment: Speci men Type: BLOOD SPECIMEN Performed By: #### 5 7021-8 ####[facility] [id number] [address] CNDSon 04-11-2021 CNDS HNO ID: [id number] Author: Mariangel Aguilar DO Service: Hospital Medicine [...] When: In 2 weeks Eleonora Renteria MD [phone] [place] [address] PCP Requested Referral Follow-Up Appointment With: primary care doctor When: In 1 week Treatment Team: Attending Provider: Mariangel Aguilar DO Consulting: Juli Valentino MD Consulting: Maximo Tadeo MD Attending: Eleonora Renteria MD Primary Service: [facility] FOLLOW-UP APPOINTMENTS ALREADY SCHEDULED WITH A [facility] PROVIDER: No future appointments. ALLERGIES Allergen Reactions [...] twice daily with meals. fluticasone (FLONASE) 1 [place] Use 1 [place] in the nose. Alcohol Swabs padm aspirin, enteric coated (ASPIRIN, ENTERIC COATED) 81 mg EC tablet ONETOUCH ULTRA TEST test strip glipiZIDE (GLUCOTROL) 5 mg tablet hydro (more content not included)... Normal [facility] CONSULT PROGon 04-11-2021 CONSULT PROG HNO ID: [id number] Author: Eleonora Renteria MD Service: Cardiovascular Medicine [...] (FLONASE) 50 mcg/actuation nasal spray Use 1 [place] in the nose. Alcohol Swabs padm aspirin, [...] MD Car (more content not included)... Normal [facility] CONSULT PROGon 04-10-2021 CONSULT PROG HNO ID: [id number] Author: Marta Flood APRN.NILDA Service: Neurology General Author Type: Nurse Practitioner [...] -- 04/09/21 1015 activity - mobilize patient ([place]) 04/06/21 1130 vte current anticoag therapy ([place]) VTE Prophylaxis: VTE prophylaxis appropriate Impression/Recommendat ions IMPRESSION 85yo female with dementia and DM; who presented from home for AMS. 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 Normal [facility] CONSULT PROG HNO ID: [id number] Author: Eleonora Renteria MD Service: Cardiovascular Medicine [...] (FLONASE) 50 mcg/actuation nasal spray Use 1 [place] in the nose. Alcohol Swabs padm aspirin, [...] fib -Constantino (more content not included)... Normal [facility] THERAPY NTon 12-29-2021 THERAPY NT HNO ID: [id number] Author: Ashok Jaquez, PT Service: Physical Therapy Author Type: Physical Therapist Type: Therapy (PT/OT/Speech/Resp) Filed: 04/10/2021 4:07 PM Note Text: Physical Therapy Treatment SERVICE DATE: 04/10/2021 SERVICE TIME: 1454 to 1513 (plus 4803-5112 with daughter present) ROOM: [place] [address] Recommended Discharge Disposition: Home PT Recommended Discharge Disposition Comments: with 24 hour assist from family and WEB MARKETING SPECIALIST. Pt able to ambulate short distances for [...] Patient Lives With: Family (daughter) Assistance Available: time clock mechanic (unsure if 24h, has WEB MARKETING SPECIALIST 7d/wk, 6.5 h/d) Equipment Owned: Wheeled Walker;Cane;Shower Chair Prior Functional Level: Required Assistance Assistance Required With: Cleaning;Laundry;Meals ;Medication Management;Safety;Shop ping;Transportation;Se lf Care Prior Functional Level Comments: Pt limited and questionable historian, attempted to reach out to dtr via telephone call but no answer. 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 Pt [...] mild instabi (more content not included)... Normal [facility] Basic metabolic 2000 panelon 04-09-2021 Anion gap [Moles/Vol] 9 mmol/L Normal 9-18 [facility] Comment on above: Order Comment: Speci men Type: BLOOD SPECIMEN Performed By: #### 2 4321-2 ####[facility] [id number] [address] Calcium [Mass/Vol] 8.3 mg/dL Low 8.5-10.2 [facility] Comment on above: Order Comment: Speci men Type: BLOOD SPECIMEN Performed By: #### 2 4321-2 ####[facility]ORY[facility] [id number] [address] OF [facility] Chloride [Moles/Vol] 104 mmol/L Normal 97-105 [facility] Comment on above: Order Comment: Speci men Type: BLOOD SPECIMEN Performed By: #### 2 4321-2 ####[facility]ORY[facility] [id number] [address] CO2 [Moles/Vol] 25 mmol/L Normal 22-30 [facility] Comment on above: Order Comment: Speci men Type: BLOOD SPECIMEN Performed By: #### 2 4321-2 ####[facility]ORY[facility] [id number] [address] Creatinine [Mass/Vol] 0.83 mg/dL Normal 0.58-0.96 [facility] Comment on above: Order Comment: Speci men Type: BLOOD SPECIMEN Performed By: #### 2 4321-2 ####[facility] [id number] [address] OF [place] GFR/1.73 sq M.predicted MDRD (S/P/Bld) [Vol rate/Area] mL/min/{1.73_m2} Normal [facility] Comment on above: Order Comment: Speci men Type: BLOOD SPECIMEN Result Comment: >60 eGFR (Estimated GFR) Units of measure: mL/min/1.73 meters squared eGFR is derived from the reexpressed MDRD Study equation using the following parameters: serum creatinine, age, gender and race. The creatinine assay has been calibrated to be traceable to [facility]. An eGFR <60 mL/min/1.73m2 for >3 months is consistent with chronic kidney disease. Refer to KDOQI guidelines for clinical interpretation. In patients with unstable renal function, e.g. those with acute kidney injury, the eGFR may not accurately reflect actual GFR. Performed By: #### 2 4321-2 ####[facility]ORYCLIA [id number] [place] [address] [place] Glucose [Mass/Vol] 194 mg/dL High 74-99 [facility] Comment on above: Order Comment: Speci men Type: BLOOD SPECIMEN Result Comment: The [place] Diabetes Association (ADA) provides guidance for cutoff [...] Standards of Medical Care in Diabetes 2016, [place] [employer]. Diabetes Care. 2016.39(Suppl 1). Performed By: #### 2 4321-2 ####[facility] [id number] [address] [place] Potassium [Moles/Vol] 3.7 mmol/L Normal 3.7-5.1 [facility] Comment on above: Order Comment: Speci men Type: BLOOD SPECIMEN Performed By: #### 2 4321-2 ####[facility]ORY[facility]IA [id number] [place] [id number] [place] Sodium [Moles/Vol] 138 mmol/L Normal 136-144 [facility] [facility] Comment on above: Order Comment: Speci men Type: BLOOD SPECIMEN Performed By: #### 2 4321-2 ####[facility]IA [id number] [place] [address] [place] Urea nitrogen [Mass/Vol] 11 mg/dL Normal 7-21 [facility] Comment on above: Order Comment: Speci men Type: BLOOD SPECIMEN Performed By: #### 2 4321-2 ####[facility] [id number] [address] CALCIUM IONIZED Bon 04-09-20 Calcium.ionized (BldV) [Mass/Vol] 1.12 mmol/L Normal 1.08-1.30 [facility] Comment on above: Order Comment: Speci men Type: BLOOD SPECIMEN Performed By: #### I CA ####[facility] [id number] [address] Calcium.ionized adjusted to pH 7.4 (Bld) [Moles/Vol] 1.12 mmol/L Normal 1.08-1.30 [facility] Comment on above: Order Comment: Speci men Type: BLOOD SPECIMEN Performed By: #### I CA ####[facility]ORY[facility] [id number] [address] CBC W Auto Differential pane l (Bld)on 04-09-2021 Basophils (Bld) [#/Vol] 0.06 10*3/uL Normal <0.11 [facility] Comment on above: Order Comment: Speci men Type: BLOOD SPECIMEN Result Comment: Revi ewed Differential confirmed by visual scan of peripheral blood smear slide Performed By: #### H STNT #### [facility] CLIA [id number] [address] Basophils/100 WBC (Bld) 0.5 % Normal [facility] Comment on above: Order Comment: Speci men Type: BLOOD SPECIMEN Performed By: #### H STNT #### [facility] CLIA [id number] [address] Differential cell count method Nom (Bld) Auto Normal [facility] Comment on above: Order Comment: Speci men Type: BLOOD SPECIMEN Performed By: #### H STNT #### [facility] CLIA [id number] [address] Eosinophils (Bld) [#/Vol] 0.25 10*3/uL Normal <0.46 [facility] Comment on above: Order Comment: Speci men Type: BLOOD SPECIMEN Performed By: #### H STNT #### [facility] CLIA [id number] [address] Eosinophils/100 WBC (Bld) 2.3 % Normal [facility] Comment on above: Order Comment: Speci men Type: BLOOD SPECIMEN Performed By: #### H STNT #### [facility] CLIA [id number] [address] Erythrocyte distribution width (RBC) [Ratio] 13.1 % Normal 11.5-15.0 [facility] Comment on above: Order Comment: Speci men Type: BLOOD SPECIMEN Performed By: #### H STNT #### [facility] CLIA [id number] [address] Hematocrit (Bld) [Volume fraction] 35.5 % Low 36.0-46.0 [facility] Comment on above: Order Comment: Speci men Type: BLOOD SPECIMEN Performed By: #### H STNT #### [facility] CLIA [id number] [address] Hemoglobin (Bld) [Mass/Vol] 10.8 g/dL Low 11.5-15.5 [facility] Comment on above: Order Comment: Speci men Type: BLOOD SPECIMEN Performed By: #### H STNT #### [facility] CLIA [id number] [address] IMMATURE GRAN % 0.5 % Normal [facility] Comment on above: Order Comment: Speci men Type: BLOOD SPECIMEN Performed By: #### H STNT #### [facility] CLIA [id number] [address] IMMATURE GRAN ABS 0.06 k/uL Normal <0.10 [place] Comment on above: Order Comment: Speci men Type: BLOOD SPECIMEN Performed By: #### H STNT #### [facility] CLIA [id number] [address] Lymphocytes (Bld) [#/Vol] 1.59 10*3/uL Normal 1.00-4.00 [facility] Comment on above: Order Comment: Speci men Type: BLOOD SPECIMEN Performed By: #### H STNT #### [facility] CLIA [id number] [address] Lymphocytes/100 WBC (Bld) 14.5 % Normal [facility] Comment on above: Order Comment: Speci men Type: BLOOD SPECIMEN Performed By: #### H STNT #### [facility] CLIA [id number] [address] MCH (RBC) [Entitic mass] 27.9 pg Normal 26.0-34.0 [facility] Comment on above: Order Comment: Speci men Type: BLOOD SPECIMEN Performed By: #### H STNT #### [facility] CLIA [id number] [address] MCHC (RBC) [Mass/Vol] 30.4 g/dL Low 30.5-36.0 [facility] Comment on above: Order Comment: Speci men Type: BLOOD SPECIMEN Performed By: #### H STNT #### [facility] CLIA [id number] [address] MCV (RBC) [Entitic vol] 91.7 fL Normal 80.0-100.0 [facility] Comment on above: Order Comment: Speci men Type: BLOOD SPECIMEN Performed By: #### H STNT #### [facility] CLIA [id number] [address] Monocytes (Bld) [#/Vol] 1.30 10*3/uL High <0.87 [facility] Comment on above: Order Comment: Speci men Type: BLOOD SPECIMEN Performed By: #### H STNT #### [facility] CLIA [id number] [address] Monocytes/100 WBC (Bld) 11.8 % Normal [facility] Comment on above: Order Comment: Speci men Type: BLOOD SPECIMEN Performed By: #### H STNT #### [facility] CLIA [id number] [address] [place] Neutrophils (Bld) [#/Vol] 7.73 10*3/uL High 1.45-7.50 [facility] Comment on above: Order Comment: Speci men Type: BLOOD SPECIMEN Performed By: #### H STNT #### [facility] CLIA [id number] [address] Neutrophils/100 WBC (Bld) 70.4 % Normal [facility] Comment on above: Order Comment: Speci men Type: BLOOD SPECIMEN Performed By: #### H STNT #### [facility] CLIA [id number] [address] Nucleated RBC (Bld) [#/Vol] 10*3/uL Normal <0.01 [facility] Comment on above: Order Comment: Speci men Type: BLOOD SPECIMEN Performed By: #### H STNT #### [facility] CLIA [id number] [address] Nucleated RBC/100 WBC (Bld) [Ratio] 0.0 /100 WBC Normal 0.0 [facility] Comment on above: Order Comment: Speci men Type: BLOOD SPECIMEN Performed By: #### H STNT #### [facility] CLIA [id number] [address] Platelet mean volume (Bld) [Entitic vol] 13.1 fL High 9.0-12.7 [facility] Comment on above: Order Comment: Speci men Type: BLOOD SPECIMEN Performed By: #### H STNT #### [facility] CLIA [id number] [address] Platelets (Bld) [#/Vol] 146 10*3/uL Low 150-400 [facility] Comment on above: Order Comment: Speci men Type: BLOOD SPECIMEN Result Comment: Plat elet count confirmed by manual review of peripheral blood smear Performed By: #### H STNT #### [facility] CLIA [id number] [address] RBC (Bld) [#/Vol] 3.87 10*6/uL Low 3.90-5.20 [facility] Comment on above: Order Comment: Speci men Type: BLOOD SPECIMEN Performed By: #### H STNT #### [facility] CLIA [id number] [address] WBC (Bld) [#/Vol] 10.99 10*3/uL Normal 3.70-11.00 [facility] Comment on above: Order Comment: Speci men Type: BLOOD SPECIMEN Result Comment: Revi ewed Performed By: #### H STNT #### [facility] CLIA [id number] [address] CBC panel Auto (Bld)on 04-09 Erythrocyte distribution width (RBC) [Ratio] 13.0 % Normal 11.5-15.0 [facility] Comment on above: Order Comment: Speci men Type: BLOOD SPECIMEN Performed By: #### 5 8410-2 #### [facility] CLIA [id number] [address] Hematocrit (Bld) [Volume fraction] 34.1 % Low 36.0-46.0 [facility] Comment on above: Order Comment: Speci men Type: BLOOD SPECIMEN Performed By: #### 5 8410-2 #### [facility] CLIA [id number] [address] [facility] Hemoglobin (Bld) [Mass/Vol] 10.7 g/dL Low 11.5-15.5 [facility] Comment on above: Order Comment: Speci men Type: BLOOD SPECIMEN Performed By: #### 5 8410-2 #### [facility] CLIA [id number] [address] MCH (RBC) [Entitic mass] 28.6 pg Normal 26.0-34.0 [facility] Comment on above: Order Comment: Speci men Type: BLOOD SPECIMEN Performed By: #### 5 8410-2 #### [facility] CLIA [id number] [address] MCHC (RBC) [Mass/Vol] 31.4 g/dL Normal 30.5-36.0 [facility] Comment on above: Order Comment: Speci men Type: BLOOD SPECIMEN Performed By: #### 5 8410-2 #### [facility] CLIA [id number] [address] MCV (RBC) [Entitic vol] 91.2 fL Normal 80.0-100.0 [facility] Comment on above: Order Comment: Speci men Type: BLOOD SPECIMEN Performed By: #### 5 8410-2 #### [facility] CLIA [id number] [address] Nucleated RBC (Bld) [#/Vol] 10*3/uL Normal <0.01 [facility] Comment on above: Order Comment: Speci men Type: BLOOD SPECIMEN Performed By: #### 5 8410-2 #### [facility] CLIA [id number] [address] Platelet mean volume (Bld) [Entitic vol] 13.2 fL High 9.0-12.7 [facility] Comment on above: Order Comment: Speci men Type: BLOOD SPECIMEN Performed By: #### 5 8410-2 #### [facility] CLIA [id number] [address] Platelets (Bld) [#/Vol] 139 10*3/uL Low 150-400 [facility] Comment on above: Order Comment: Speci men Type: BLOOD SPECIMEN Result Comment: Plat elet count confirmed by manual review of peripheral blood smear Performed By: #### 5 8410-2 #### [facility] CLIA [id number] [address] RBC (Bld) [#/Vol] 3.74 10*6/uL Low 3.90-5.20 [facility] Comment on above: Order Comment: Speci men Type: BLOOD SPECIMEN Performed By: #### 5 8410-2 #### [facility] CLIA [id number] [address] WBC (Bld) [#/Vol] 11.16 10*3/uL High 3.70-11.00 [facility] Comment on above: Order Comment: Speci men Type: BLOOD SPECIMEN Result Comment: Revi ewed Performed By: #### 5 8410-2 #### [facility][1] CLIA [id number] [address] CONSULT PROGon 04-09-2021 CONSULT PROG HNO ID: [id number] Author: Eleonora Renteria MD Service: Cardiovascular Medicine [...] (FLONASE) 50 mcg/actuation nasal spray Use 1 [place] in the nose. Alcohol Swabs padm aspirin, [...] out si (more content not included)... 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 Normal [facility] THERAPY NT HNO ID: [id number] Author: AWA Pascual/Sang Service: Occupational Therapy Author Type: Occupational Therapist Type: Therapy (PT/OT/Speech/Resp) Filed: 04/09/2021 3:51 PM Note Text: Occupational Therapy Evaluation SERVICE DATE: 04/09/2021 SERVICE TIME: 1409 to 1426 ROOM: [id number] Recommended Discharge Disposition: Home OT Recommended Discharge Disposition Comments: Pt will require 24 hour hands on assist for safety from family or WEB MARKETING SPECIALIST. Pt may benefit from home OT to [...] Minimum Attention Deficits: Divided Memory Deficits: Short Term,Host Hostess Executive Function Deficits: Problem Solving,Insight to Deficits,Safety Awareness,Judgement Judgement Deficit: Moderate impairment Insight to Deficits: Moderate impairment Problem Solving Deficit: Moderate impairment Safety Awareness Deficit: Moderate impairment Treatment Interventions: Education;Self Care / Home Management;Functional Mobility Training Home Environment Patient Lives With: Family (daughter) Assistance Available: time clock mechanic (unsure if 24h, has WEB MARKETING SPECIALIST 7d/wk, 6.5 h/d) Equipment Owned: Wheeled Walker;Cane;Shower Chair Prior Functional Level: Required Assistance Assistance Required With: Cleaning;Laundry;Meals ;Medication Management;Safety;Shop ping;Transportation;Se lf Care Prior Functional Level Comments: Pt limited and questionable historian, attempted to reach out to dtr via telephone call but no answer. 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 Pt [...] Patient able (more content not included)... Normal [facility] THERAPY NT HNO ID: [id number] Author: Ashok Jaquez, PT Service: Physical Therapy Author Type: Physical Therapist Type: Therapy (PT/OT/Speech/Resp) Filed: 04/09/2021 10:49 AM Note Text: Physical Therapy Evaluation SERVICE DATE: 04/09/2021 SERVICE TIME: 1008 to 1023 ROOM: [place] [address] Recommended Discharge Disposition: Subacute/SNF Recommended Discharge Disposition [...] Patient Lives With: Family (daughter) Assistance Available: time clock mechanic (unsure if 24h, has WEB MARKETING SPECIALIST 7d/wk, 6.5 h/d) Equipment Owned: Wheeled Walker;Cane;Shower Chair Prior Functional Level: Required Assistance Assistance Required With: Cleaning;Laundry;Meals ;Medication Management;Safety;Shop ping;Transportation;Se lf Care Prior Functional Level Comments: Pt limited and questionable historian, attempted to reach out to dtr via telephone call but no answer. 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 Pt [...] Strength: 4/5 (more content not included)... Normal [facility] aPTT PPPon 04-09-2021 aPTT Coag (PPP) [Time] 58.4 s High 23.0-32.4 [facility] Comment on above: Order Comment: Speci men Type: BLOOD SPECIMEN Performed By: #### 5 8410-2 #### [facility] CLIA [id number] 1 [place] [address] [place] Basic metabolic 2000 panelon 04-08-2021 Anion gap [Moles/Vol] 10 mmol/L Normal 9-18 [facility] Comment on above: Order Comment: Speci men Type: BLOOD SPECIMEN Performed By: #### 2 4321-2 ####[facility] [id number] [address] Calcium [Mass/Vol] 8.2 mg/dL Low 8.5-10.2 [facility] Comment on above: Order Comment: Speci men Type: BLOOD SPECIMEN Performed By: #### 2 4321-2 ####[facility] [id number] [address] OF [facility] Chloride [Moles/Vol] 106 mmol/L High 97-105 [facility] Comment on above: Order Comment: Speci men Type: BLOOD SPECIMEN Performed By: #### 2 4321-2 ####[facility]IA [id number] [address] [facility] CO2 [Moles/Vol] 24 mmol/L Normal 22-30 [facility] Comment on above: Order Comment: Speci men Type: BLOOD SPECIMEN Performed By: #### 2 4321-2 ####[facility] [id number] [address] Creatinine [Mass/Vol] 0.86 mg/dL Normal 0.58-0.96 [facility] Comment on above: Order Comment: Speci men Type: BLOOD SPECIMEN Performed By: #### 2 4321-2 ####[facility] [id number] [address] GFR/1.73 sq M.predicted MDRD (S/P/Bld) [Vol rate/Area] mL/min/{1.73_m2} Normal [facility] Comment on above: Order [...] actual GFR. Performed By: #### 2 4321-2 ####[facility]ORY[facility]IA [id number] [place] [address] [place] Glucose [Mass/Vol] 179 mg/dL High 74-99 [facility] Comment on above: Order Comment: Speci men Type: BLOOD SPECIMEN Result Comment: The [place] [employer] (ADA) provides guidance for cutoff [...] Standards of Medical Care in Diabetes 2016, [place] [employer]. Diabetes Care. 2016.39(Suppl 1). Performed By: #### 2 4321-2 ####[facility]ORY[facility]IA [id number] [place] [address] [place] Potassium [Moles/Vol] 3.7 mmol/L Normal 3.7-5.1 [facility] Comment on above: Order Comment: Speci men Type: BLOOD SPECIMEN Performed By: #### 2 4321-2 ####[facility]ORY[facility]IA [id number] [place] [address] [place] Sodium [Moles/Vol] 140 mmol/L Normal 136-144 [facility] Comment on above: Order Comment: Speci men Type: BLOOD SPECIMEN Performed By: #### 2 4321-2 ####[facility]ORYCLIA [id number] [place] [address] [place] Urea nitrogen [Mass/Vol] 10 mg/dL Normal 7-21 [facility] Comment on above: Order Comment: Speci men Type: BLOOD SPECIMEN Performed By: #### 2 4321-2 ####[facility] [id number] [address] CBC panel Auto (Bld)on 04-08 Erythrocyte distribution width (RBC) [Ratio] 13.3 % Normal 11.5-15.0 [facility] Comment on above: Order Comment: Speci men Type: BLOOD SPECIMEN Performed By: #### H STNT #### [facility] CLIA [id number] [address] Hematocrit (Bld) [Volume fraction] 37.6 % Normal 36.0-46.0 [facility] Comment on above: Order Comment: Speci men Type: BLOOD SPECIMEN Performed By: #### H STNT #### [facility] CLIA [id number] [address] Hemoglobin (Bld) [Mass/Vol] 11.1 g/dL Low 11.5-15.5 [facility] Comment on above: Order Comment: Speci men Type: BLOOD SPECIMEN Performed By: #### H STNT #### [facility] CLIA [id number] [address] MCH (RBC) [Entitic mass] 27.8 pg Normal 26.0-34.0 [facility] Comment on above: Order Comment: Speci men Type: BLOOD SPECIMEN Performed By: #### H STNT #### [facility] CLIA [id number] [address] MCHC (RBC) [Mass/Vol] 29.5 g/dL Low 30.5-36.0 [facility] Comment on above: Order Comment: Speci men Type: BLOOD SPECIMEN Performed By: #### H STNT #### [facility] CLIA [id number] [address] MCV (RBC) [Entitic vol] 94.2 fL Normal 80.0-100.0 [facility] Comment on above: Order Comment: Speci men Type: BLOOD SPECIMEN Performed By: #### H STNT #### [facility] CLIA [id number] [address] Nucleated RBC (Bld) [#/Vol] 10*3/uL Normal <0.01 [facility] Comment on above: Order Comment: Speci men Type: BLOOD SPECIMEN Performed By: #### H STNT #### [facility] CLIA [id number] [address] Platelet mean volume (Bld) [Entitic vol] 13.1 fL High 9.0-12.7 [facility] Comment on above: Order Comment: Speci men Type: BLOOD SPECIMEN Performed By: #### H STNT #### [facility] CLIA [id number] [address] Platelets (Bld) [#/Vol] 145 10*3/uL Low 150-400 [facility] Comment on above: Order Comment: Speci men Type: BLOOD SPECIMEN Performed By: #### H STNT #### [facility] CLIA [id number] [address] RBC (Bld) [#/Vol] 3.99 10*6/uL Normal 3.90-5.20 [facility] Comment on above: Order Comment: Speci men Type: BLOOD SPECIMEN Performed By: #### H STNT #### [facility] CLIA [id number] [address] WBC (Bld) [#/Vol] 11.40 10*3/uL High 3.70-11.00 [facility] Comment on above: Order Comment: Speci men Type: BLOOD SPECIMEN Performed By: #### H STNT #### [facility] CLIA [id number] [address] [place] 04-08-2021 NILDAN Telephone (HCSIND) AIMEE GROVE ([id number]) 1935 F Date Time Provider Department 04/08/21 JAMIE CHAVEZ During your visit today, we recorded the following information about you: Jamie Chavez LPN 04/08/2021 3:17 PM Signed 04/08/2021 Jamie Chavez LPN 3:14 PM Contacted Allen Li MD, MD office to inquire if physician will follow/sign for [facility] .Spoke with Archana ABRAHAM) who Provided verbal [...] (FLONASE) 50 mcg/actuation nasal spray Use 1 [place] in the nose. - ibuprofen (MOTRIN) 800 [...] ENTERIC COATED) 81 mg EC tablet - [employer] ULTRA TEST test strip - citalopram hydrobromide [...] Status:Closed by JAMIE CHAVEZ on 04/08/21 Normal [facility] CONSULT PROGon 04-08-2021 CONSULT PROG HNO ID: [id number] Author: Eleni Palacios APRN.RESOURCE DEVELOPMENT MANAGER Service: Neurology General Author Type: Nurse Practitioner Type: Consult Progress Note Filed: 04/08/2021 10:38 AM Note Text: NEURO STROKE PROGRESS NOTE SERVICE DATE: 04/08/2021 SERVICE TIME: 0900 Subjective INTERVAL HISTORY: Patient resting in bed, transferred to [facility] overnight. Denies any pain, HUTTON, numbness, tingling. [...] infarct (HCC (more content not included)... Normal [facility] Urinalysis complete panel (U )on 04-08-2021 Bacteria LM.HPF (Urine sed) [#/Area] None Seen Normal None Seen [facility] Comment on above: Order Comment: Speci men Type: BLOOD SPECIMEN Performed By: #### 5 8410-2 #### [facility] CLIA [id number] [address] Bilirubin Ql (U) Negative Normal Negative [facility] Comment on above: Order Comment: Speci men Type: BLOOD SPECIMEN Performed By: #### 5 8410-2 #### [facility] CLIA [id number] [address] Clarity (Unsp spec) Clear Normal Clear [facility] Comment on above: Order Comment: Speci men Type: BLOOD SPECIMEN Performed By: #### 5 8410-2 #### [facility] CLIA [id number] [address] Color (U) Yellow Normal Yellow [facility] Comment on above: Order Comment: Speci men Type: BLOOD SPECIMEN Performed By: #### 5 8410-2 #### [facility] CLIA [id number] [address] Epithelial cells LM.HPF (Urine sed) [#/Area] 0.2 /[HPF] Normal [facility] Comment on above: Order Comment: Speci men Type: BLOOD SPECIMEN Performed By: #### 5 8410-2 #### [facility] CLIA [id number] [address] Glucose Test strip (U) [Mass/Vol] Negative Normal Negative [facility] Comment on above: Order Comment: Speci men Type: BLOOD SPECIMEN Performed By: #### 5 8410-2 #### [facility] CLIA [id number] [address] Hemoglobin Ql (U) Moderate Abnormal Negative [place] Comment on above: Order Comment: Speci men Type: BLOOD SPECIMEN Performed By: #### 5 8410-2 #### [facility] CLIA [id number] [address] Hyaline casts (Urine sed) [#/Area] 0 /[LPF] Normal 0 /LPF [facility] Comment on above: Order Comment: Speci men Type: BLOOD SPECIMEN Performed By: #### 5 8410-2 #### [facility] CLIA [id number] [address] Ketones Ql (U) Negative Normal Negative [facility] Comment on above: Order Comment: Speci men Type: BLOOD SPECIMEN Performed By: #### 5 8410-2 #### [facility] CLIA [id number] [address] Leukocyte esterase Test strip Ql (U) Trace Abnormal Negative [facility] Comment on above: Order Comment: Speci men Type: BLOOD SPECIMEN Performed By: #### 5 8410-2 #### [facility] CLIA [id number] [address] Nitrite Ql (U) Negative Normal Negative [facility] Comment on above: Order Comment: Speci men Type: BLOOD SPECIMEN Performed By: #### 5 8410-2 #### [facility] CLIA [id number] [address] pH (U) 6.5 [pH] Normal 5.0-8.0 [facility] Comment on above: Order Comment: Speci men Type: BLOOD SPECIMEN Performed By: #### 5 8410-2 #### [facility] CLIA [id number] [address] Protein (U) [Mass/Vol] Negative Normal Negative [facility] Comment on above: Order Comment: Speci men Type: BLOOD SPECIMEN Performed By: #### 5 8410-2 #### [facility] CLIA [id number] [address] RBC LM.HPF (Urine sed) [#/Area] 0-3 /HPF Normal 0-3 /HPF [facility] Comment on above: Order Comment: Speci men Type: BLOOD SPECIMEN Performed By: #### 5 8410-2 #### [facility] CLIA [id number] [address] Specific gravity (U) [Rel density] 1.010 Normal 1.005-1.030 [facility] Comment on above: Order Comment: Speci men Type: BLOOD SPECIMEN Performed By: #### 5 8410-2 #### [facility] CLIA [id number] [address] Urobilinogen Ql (U) 0.2 EU/dL Normal 0.2-1.0 EU/dL [facility] Comment on above: Order Comment: Speci men Type: BLOOD SPECIMEN Performed By: #### 5 8410-2 #### [facility] CLIA [id number] [address] WBC LM.HPF (Urine sed) [#/Area] 0-5 /HPF Normal 0-5 /HPF [facility] Comment on above: Order Comment: Speci men Type: BLOOD SPECIMEN Performed By: #### 5 8410-2 #### [facility] CLIA [id number] [address] aPTT PPPon 04-08-2021 aPTT Coag (PPP) [Time] 53.8 s High 23.0-32.4 [facility] Comment on above: Order Comment: Speci men Type: BLOOD SPECIMEN Performed By: #### 1 4979-9 ####[facility] [id number] [address] aPTT Coag (PPP) [Time] 69.2 s High 23.0-32.4 [facility] Comment on above: Order Comment: Speci men Type: BLOOD SPECIMEN Performed By: #### 5 8410-2 #### [facility] CLIA [id number] [address] aPTT Coag (PPP) [Time] s High 23.0-32.4 [facility] Comment on above: Order Comment: Speci men Type: BLOOD SPECIMEN Performed By: #### 1 4979-9 ####[facility] [id number] [address] [place] aPTT Coag (PPP) [Time] s High 23.0-32.4 [facility] Comment on above: Order Comment: Speci men Type: BLOOD SPECIMEN Performed By: #### H STNT #### [facility] CLIA [id number] [address] OF [facility] ALLIED HEALTHon 04-07-2021 ALLIED HEALTH HNO ID: [id number] Author: RT Jacklyn(R) Service: Radiology Author Type: [...] Jacklyn(R) April 07, 2021 12:42 PM Normal [facility] Basic metabolic 2000 panelon 04-07-2021 Anion gap [Moles/Vol] 10 mmol/L Normal 9-18 [facility] Comment on above: Order Comment: Speci men Type: BLOOD SPECIMEN Performed By: #### 2 4321-2 ####[facility] [id number] [place] [address] [place] Calcium [Mass/Vol] 6.9 mg/dL Low 8.5-10.2 [facility] Comment on above: Order Comment: Speci men Type: BLOOD SPECIMEN Performed By: #### 2 4321-2 ####[facility] [id number] [place] [address] [place] Chloride [Moles/Vol] 109 mmol/L High 97-105 [facility] Comment on above: Order Comment: Speci men Type: BLOOD SPECIMEN Performed By: #### 2 4321-2 ####[facility] [id number] [address] [place] CO2 [Moles/Vol] 21 mmol/L Low 22-30 [facility] Comment on above: Order Comment: Speci men Type: BLOOD SPECIMEN Performed By: #### 2 4321-2 ####[facility] [id number] [address] [place] Creatinine [Mass/Vol] 0.85 mg/dL Normal 0.58-0.96 [facility] Comment on above: Order Comment: Speci men Type: BLOOD SPECIMEN Performed By: #### 2 4321-2 ####[facility] [id number] [address] [place] GFR/1.73 sq M.predicted MDRD (S/P/Bld) [Vol rate/Area] mL/min/{1.73_m2} Normal [facility] Comment on above: Order [...] actual GFR. Performed By: #### 2 4321-2 ####[facility] [id number] [address] [place] Glucose [Mass/Vol] 594 mg/dL High 74-99 [facility] Comment on above: Order Comment: Speci men Type: BLOOD SPECIMEN Result Comment: The [place] Diabetes Association (ADA) provides guidance for cutoff [...] Standards of Medical Care in Diabetes 2016, [place] Diabetes Association. Diabetes Care. 2016.39(Suppl 1). Performed By: #### 2 4321-2 ####[facility] [id number] [address] Potassium [Moles/Vol] 3.4 mmol/L Low 3.7-5.1 [facility] Comment on above: Order Comment: Speci men Type: BLOOD SPECIMEN Performed By: #### 2 4321-2 ####[facility] [id number] [address] Sodium [Moles/Vol] 140 mmol/L Normal 136-144 [facility] Comment on above: Order Comment: Speci men Type: BLOOD SPECIMEN Performed By: #### 2 4321-2 ####[facility] [id number] [address] Urea nitrogen [Mass/Vol] 13 mg/dL Normal 7-21 [facility] Comment on above: Order Comment: Speci men Type: BLOOD SPECIMEN Performed By: #### 2 4321-2 ####[facility] [id number] [address] CBC panel Auto (Bld)on 04-07 Erythrocyte distribution width (RBC) [Ratio] 13.2 % Normal 11.5-15.0 [facility] Comment on above: Order Comment: Speci men Type: BLOOD SPECIMEN Performed By: #### 5 8410-2 ####[facility] [id number] [address] Hematocrit (Bld) [Volume fraction] 34.2 % Low 36.0-46.0 [facility] Comment on above: Order Comment: Speci men Type: BLOOD SPECIMEN Performed By: #### 5 8410-2 ####[facility] [id number] [address] Hemoglobin (Bld) [Mass/Vol] 10.3 g/dL Low 11.5-15.5 [facility] Comment on above: Order Comment: Speci men Type: BLOOD SPECIMEN Performed By: #### 5 8410-2 ####[facility] [id number] [address] MCH (RBC) [Entitic mass] 28.0 pg Normal 26.0-34.0 [facility] Comment on above: Order Comment: Speci men Type: BLOOD SPECIMEN Performed By: #### 5 8410-2 ####[facility] [id number] [address] MCHC (RBC) [Mass/Vol] 30.1 g/dL Low 30.5-36.0 [facility] Comment on above: Order Comment: Speci men Type: BLOOD SPECIMEN Performed By: #### 5 8410-2 ####[facility]IA [id number] [address] MCV (RBC) [Entitic vol] 92.9 fL Normal 80.0-100.0 [facility] Comment on above: Order Comment: Speci men Type: BLOOD SPECIMEN Performed By: #### 5 8410-2 ####[facility]IA [id number] [address] Nucleated RBC (Bld) [#/Vol] 10*3/uL Normal <0.01 [facility] Comment on above: Order Comment: Speci men Type: BLOOD SPECIMEN Performed By: #### 5 8410-2 ####[facility]ORYCLIA [id number] [place] [address] [place] Platelet mean volume (Bld) [Entitic vol] 13.0 fL High 9.0-12.7 [facility] Comment on above: Order Comment: Speci men Type: BLOOD SPECIMEN Performed By: #### 5 8410-2 ####[facility]ORYCLIA [id number] [address] STATES OF [facility] Platelets (Bld) [#/Vol] 137 10*3/uL Low 150-400 [facility] Comment on above: Order Comment: Speci men Type: BLOOD SPECIMEN Performed By: #### 5 8410-2 ####[facility]ORYCLIA [id number] [place] [address] [place] [facility] RBC (Bld) [#/Vol] 3.68 10*6/uL Low 3.90-5.20 [facility] Comment on above: Order Comment: Speci men Type: BLOOD SPECIMEN Performed By: #### 5 8410-2 ####[facility]ORY[facility]IA [id number] [address] WBC (Bld) [#/Vol] 10.26 10*3/uL Normal 3.70-11.00 [facility] Comment on above: Order Comment: Speci men Type: BLOOD SPECIMEN Performed By: #### 5 8410-2 ####[facility]ORYCLIA [id number] [address] OF [facility] CT BRAIN WO IVCONon 04-07-20 CT BRAIN WO IVCON * * *Final Report* * * DATE OF EXAM: Apr 07 2021 12:40PM [facility] 0504 - CT BRAIN WO IVCON / [...] There is no hemorrhage nor mass effect. Product Safety Tester: PSCB Transcribe Date/Time: Apr 07 2021 12:45P Dictated by : NICK TAYLOR MD This examination was interpreted and the report reviewed and electronically signed by: NICK TAYLOR MD on Apr 07 2021 12:48PM EST [id number] Normal [facility] HIGH SENSITIVITY TROPONIN To n 04-07-2021 HIGH SENSITIVITY [place]ORELIA 123 ng/L High <12 [facility] Comment on above: Order [...] day MACE. Performed By: #### H STNT ####[facility]ORY[facility]IA [id number] [address] [place] NURSING PROGon 04-07-2021 NURSING PROG HNO ID: [id number] Author: Mi Warren RN Service: Nursing Author Type: Registered Nurse Type: Nursing Progress Note Filed: 04/07/2021 8:12 PM Note Text: Pt + incontinence of stool and bladder. Pt provided vanessa care and new pads placed. + mepilex still in place on coccyx and clean. Normal [facility] NURSING PROG HNO ID: [id number] Author: Hortensia Flores RN Service: ? Author Type: Registered Nurse Type: Nursing Progress Note Filed: 04/07/2021 7:16 PM Note Text: Nursing Progress Note Patient Name: Aimee Grove [facility] __ Daily Note: 1520 Informed the [...] draws. This note was completed by: Hortensia Quiñones [facility] NURSING PROG HNO ID: [id number] Author: Rosalia Mcdaniels, RN Service: Nursing Author Type: Registered Nurse Type: Nursing Progress Note Filed: 04/07/2021 12:33 AM Note Text: At 9 pm pt pulled IV out attempted x2 each by two different nurses including myself to get blood and start IV . Dr Pierre stated IV in Right foot 1st attempt but unable to PTT Labs painting department supervisor Sierra was able to get lab but lab stated it was hemolyzed Normal [facility] aPTT PPPon 04-07-2021 aPTT Coag (PPP) [Time] 72.9 s High 23.0-32.4 [facility] Comment on above: Order Comment: Speci men Type: BLOOD SPECIMEN Performed By: #### 1 4979-9 ####[facility]ORYCLIA [id number] [address] OF [facility] aPTT Coag (PPP) [Time] 64.7 s High 23.0-32.4 [facility] Comment on above: Order Comment: Speci men Type: BLOOD SPECIMEN Performed By: #### 5 8410-2 #### [facility] CLIA [id number] [address] ALLIED HEALTHon 04-06-2021 ALLIED HEALTH HNO ID: [id number] Author: RT Gus(R) Service: ? Author Type: [...] Gus(R) April 06, 2021 4:53 PM Normal [facility] ALLIED HEALTH HNO ID: [id number] Author: Chaplain Cheyanne Morales Service: Spiritual Care [...] contact the Spiritual Care Department: Please call [phone]. SIGNATURE: Chaplain Andrew Student PATIENT NAME: Aimee Grove DATE: April 06, 2021 TIME: 4:00 PM PAGER/CONTACT #: [phone] Normal [facility] Basic metabolic 2000 panelon 04-06-2021 Anion gap [Moles/Vol] 16 mmol/L Normal 9-18 [facility] Comment on above: Order Comment: Speci men Type: BLOOD SPECIMEN Performed By: #### 2 4321-2, ####[facility] [id number] [address] STATES OF [facility] Calcium [Mass/Vol] 9.3 mg/dL Normal 8.5-10.2 [facility] Comment on above: Order Comment: Speci men Type: BLOOD SPECIMEN Performed By: #### 2 4321-2, ####[facility] [id number] [address] [place] Chloride [Moles/Vol] 102 mmol/L Normal 97-105 [facility] Comment on above: Order Comment: Speci men Type: BLOOD SPECIMEN Performed By: #### 2 1-2, ####[facility] [id number] [address] [place] CO2 [Moles/Vol] 23 mmol/L Normal 22-30 [facility] Comment on above: Order Comment: Speci men Type: BLOOD SPECIMEN Performed By: #### 2 4321-2, ####[facility] [id number] [place] [address] [place] Creatinine [Mass/Vol] 0.89 mg/dL Normal 0.58-0.96 [facility] Comment on above: Order Comment: Speci men Type: BLOOD SPECIMEN Performed By: #### 2 4321-2, ####[facility] [id number] [place] [address] [place] GFR/1.73 sq M.predicted MDRD (S/P/Bld) [Vol rate/Area] mL/min/{1.73_m2} Normal [facility] Comment on above: Order [...] reflect actual GFR. Performed By: #### 2 4320-, ####[facility]ORYCLIA [id number] [place] [address] [place] Glucose [Mass/Vol] 194 mg/dL High 74-99 [facility] Comment on above: Order Comment: Speci men Type: BLOOD SPECIMEN Result Comment: The [place] Diabetes Association (ADA) provides guidance for cutoff [...] Standards of Medical Care in Diabetes 2016, [place] [employer]. Diabetes Care. 2016.39(Suppl 1). Performed By: #### 2 4320-05, ####[facility]ORYCLIA [id number] [place] [address] [place] Potassium [Moles/Vol] 4.0 mmol/L Normal 3.7-5.1 [facility] Comment on above: Order Comment: Speci [facility] Type: BLOOD SPECIMEN Performed By: #### 2 432-, ####[facility]ORY[facility]IA [id number] [address] [place] Sodium [Moles/Vol] 141 mmol/L Normal 136-144 [facility] Comment on above: Order Comment: Speci men Type: BLOOD SPECIMEN Performed By: #### 2 4321-2, ####[facility] [id number] [address] [place] Urea nitrogen [Mass/Vol] 25 mg/dL High 7-21 [facility] Comment on above: Order Comment: Speci men Type: BLOOD SPECIMEN Performed By: #### 2 4321-2, ####[facility] [id number] [address] STATES [facility] Anion gap [Moles/Vol] 13 mmol/L Normal 9-18 [facility] Comment on above: Order Comment: Speci men Type: BLOOD SPECIMEN Performed By: #### 2 4321-2, LIPB, ####[facility] [id number] [address] [place] Calcium [Mass/Vol] 9.3 mg/dL Normal 8.5-10.2 [facility] Comment on above: Order Comment: Speci men Type: BLOOD SPECIMEN Performed By: #### 2 4321-2, LIPB, ####[facility]IA [id number] [place] [address] [place] Chloride [Moles/Vol] 102 mmol/L Normal 97-105 [facility] Comment on above: Order Comment: Speci men Type: BLOOD SPECIMEN Performed By: #### 2 4321-2, LIPB, ####[facility]ORYCLIA [id number] [place] [address] [place] CO2 [Moles/Vol] 25 mmol/L Normal 22-30 [facility] Comment on above: Order Comment: Speci men Type: BLOOD SPECIMEN Performed By: #### 2 4321-2, LIPB, ####[facility] [id number] [address] [place] Creatinine [Mass/Vol] 0.88 mg/dL Normal 0.58-0.96 [facility] Comment on above: Order Comment: Speci men Type: BLOOD SPECIMEN Performed By: #### 2 4321-2, DEWEY, ####[facility]ORYCLIA [id number] [place] [id number] [place] GFR/1.73 sq M.predicted MDRD (S/P/Bld) [Vol rate/Area] mL/min/{1.73_m2} Normal [facility] Comment on above: Order [...] GFR. Performed By: #### 2 4321-2, DEWEY, ####[facility]ATORYCLIA [id number] [place] [id number] [place] Glucose [Mass/Vol] 228 mg/dL High 74-99 [facility] Comment on above: Order Comment: Speci men Type: BLOOD SPECIMEN Result Comment: The [place] Diabetes Association (ADA) provides guidance for cutoff [...] Standards of Medical Care in Diabetes 2016, [place] [employer] Association. Diabetes Care. 2016.39(Suppl 1). Performed By: #### 2 4321-2, LIPValentina, ####[facility] [id number] [address] Potassium [Moles/Vol] 4.4 mmol/L Normal 3.7-5.1 [facility] Comment on above: Order Comment: Speci men Type: BLOOD SPECIMEN Performed By: #### 2 4321-2, LIPValentina, ####[facility] [id number] [address] Sodium [Moles/Vol] 140 mmol/L Normal 136-144 [facility] Comment on above: Order Comment: Speci men Type: BLOOD SPECIMEN Performed By: #### 2 4321-2, DEWEY, ####[facility] [id number] [address] Urea nitrogen [Mass/Vol] 24 mg/dL High 7-21 [facility] Comment on above: Order Comment: Speci men Type: BLOOD SPECIMEN Performed By: #### 2 4321-2, DEWEY, 41006-6 ####[facility]ORYCLIA [id number] [address] CBC panel Auto (Bld)on 04-06 Erythrocyte distribution width (RBC) [Ratio] 13.1 % Normal 11.5-15.0 [facility] Comment on above: Order Comment: Speci men Type: BLOOD SPECIMEN Performed By: #### 5 8410-2 ####[facility] [id number] [address] Hematocrit (Bld) [Volume fraction] 40.5 % Normal 36.0-46.0 [facility] Comment on above: Order Comment: Speci men Type: BLOOD SPECIMEN Performed By: #### 5 8410-2 ####[facility] [id number] [address] Hemoglobin (Bld) [Mass/Vol] 13.1 g/dL Normal 11.5-15.5 [facility] Comment on above: Order Comment: Speci men Type: BLOOD SPECIMEN Performed By: #### 5 8410-2 ####[facility]ORYCLIA [id number] [address] MCH (RBC) [Entitic mass] 28.5 pg Normal 26.0-34.0 [facility] Comment on above: Order Comment: Speci men Type: BLOOD SPECIMEN Performed By: #### 5 8410-2 ####[facility]ORYCLIA [id number] [address] MCHC (RBC) [Mass/Vol] 32.3 g/dL Normal 30.5-36.0 [facility] Comment on above: Order Comment: Speci men Type: BLOOD SPECIMEN Performed By: #### 5 8410-2 ####[facility]ORYCLIA [id number] [address] MCV (RBC) [Entitic vol] 88.0 fL Normal 80.0-100.0 [facility] Comment on above: Order Comment: Speci men Type: BLOOD SPECIMEN Performed By: #### 5 8410-2 ####[facility]ORYCLIA [id number] [address] Nucleated RBC (Bld) [#/Vol] 10*3/uL Normal <0.01 [facility] Comment on above: Order Comment: Speci men Type: BLOOD SPECIMEN Performed By: #### 5 8410-2 ####[facility]ORYCLIA [id number] [address] Platelet mean volume (Bld) [Entitic vol] 13.1 fL High 9.0-12.7 [facility] Comment on above: Order Comment: Speci men Type: BLOOD SPECIMEN Performed By: #### 5 8410-2 ####[facility]ATORYCLIA [id number] [address] Platelets (Bld) [#/Vol] 187 10*3/uL Normal 150-400 [facility] Comment on above: Order Comment: Speci men Type: BLOOD SPECIMEN Performed By: #### 5 8410-2 ####[facility]ORYCLIA [id number] [address] RBC (Bld) [#/Vol] 4.60 10*6/uL Normal 3.90-5.20 [facility] Comment on above: Order Comment: Speci men Type: BLOOD SPECIMEN Performed By: #### 5 8410-2 ####[facility]ORYCLIA [id number] [address] WBC (Bld) [#/Vol] 12.17 10*3/uL High 3.70-11.00 [facility] Comment on above: Order Comment: Speci men Type: BLOOD SPECIMEN Performed By: #### 5 8410-2 ####[facility]ATORYCLIA [id number] [address] CONSULTon 04-06-2021 CONSULT HNO ID: [id number] Author: Maximo Tadeo MD Service: Cardiovascular Medicine Author Type: Physician Type: Consults Filed: 04/06/2021 11:38 AM Note Text: [facility] CVICU HANDP NOTE Service Date: 04/06/2021 Service [...] include Type 2 DM. No prior CVA, [place] or other cardiac event that I could [...] (FLONASE) 50 mcg/actuation nasal spray, Use 1 [place] in the nose. Alcohol Swabs padm, aspirin, [...] 04/06/21 0729 (more content not included)... Normal [facility] HGB A1Con 04-06-2021 Average glucose Estimated from glycated hemoglobin (Bld) [Mass/Vol] 166 mg/dL Normal [facility] Comment on above: Order Comment: Speci men Type: BLOOD SPECIMEN Result Comment: eAG: (Estimated average glucose) is a calculated value from HgbA1c and is security systems sales representative of the average blood glucose level in the last 2-3 month period. Performed By: #### H BA1C ####[facility]ATORYCLIA [id number] [address] STATES OF [facility] HbA1c (Bld) [Mass fraction] 7.4 % High 4.3-5.6 [facility] Comment on above: Order Comment: Speci men Type: BLOOD SPECIMEN Result Comment: [place] Diabetes Association guidelines indicate that patients with HgbA1c in the range 5.7-6.4% are at increased risk for development of diabetes, and intervention by lifestyle modification may be beneficial. HgbA1c greater or equal to 6.5% is considered diagnostic of diabetes. Performed By: #### H BA1C ####[facility]ATORYCLIA [id number] [address] STATES OF [facility] HIGH SENSITIVITY TROPONIN To n 04-06-2021 HIGH SENSITIVITY [place] 178 ng/L High <12 [facility] Comment on above: Order [...] MACE. Performed By: #### H STNT #### [facility] CLIA [id number] [address] HIGH SENSITIVITY [place] 159 ng/L High <12 [facility] Comment on above: Order [...] MACE. Performed By: #### H STNT #### [facility] CLIA [id number] [address] HIGH SENSITIVITY [place]OREL[place] 198 ng/L High <12 [facility] Comment on above: Order [...] day MACE. Performed By: #### H STNT ####[facility]ATORYCLIA [id number] [address] LIPID PANEL BASICon 04-06-20 21 Cholesterol [Mass/Vol] 186 mg/dL Normal <200 [facility] Comment on above: Order Comment: Speci men Type: BLOOD SPECIMEN Result Comment: <200 mg/dL, Desirable 200-239 mg/dL, Borderline high >239 mg/dL, High Performed By: #### 2 4321-2, LIPB, 79638-7 ####[facility]ATORYCLIA [id number] [address] Cholesterol in HDL [Mass/Vol] 53 mg/dL Normal >39 [facility] Comment on above: Order Comment: Speci men Type: BLOOD SPECIMEN Result Comment: 40-5 9 mg/dL, Acceptable >59 mg/dL, High: Negative risk factor for coronary heart disease <40 mg/dL, Low: Positive risk factor for coronary heart disease Performed By: #### 2 4321-2, LIPB, ####[facility]ORYCLIA [id number] [place], [place] [id number] [place] [address] Cholesterol in LDL [Mass/Vol] 114 mg/dL High <100 [facility] Comment on above: Order Comment: Speci men Type: BLOOD SPECIMEN Result Comment: <100 mg/dL, Optimal 100-129 mg/dL, Near optimal/above optimal 130-159 mg/dL, Borderline high 160-189 mg/dL, High >189 mg/dL, Very high Secondary prevention optimal LDL Cholesterol levels are recommended to be < 70 mg/dL Performed By: #### 2 4321-2, LIPValentina, ####[facility]ATORYCLIA [id number] [address] Cholesterol in LDL/Cholesterol in HDL [Mass ratio] 2.15 {ratio} Normal <2.54 [facility] Comment on above: Order Comment: Speci men Type: BLOOD SPECIMEN Result Comment: Refamanda lynn: 1. National Cholesterol Education Program ATP III Guideline At-A-Glance Quick Desk Reference: National Heart, Lung, and Blood [place]. National Institutes of Health. 2001: NIH Publication No. 01-3305. 2. An International Atherosclerosis Society position paper: global recommendations for the management of dyslipidemia: executive summary, Atherosclerosis. 2014: 232(2):410-413. Performed By: #### 2 4321-2, LIPB, ####[facility]ORYCLIA [id number] [address] Cholesterol in VLDL [Mass/Vol] 19 mg/dL Normal <30 [facility] Comment on above: Order Comment: Speci men Type: BLOOD SPECIMEN Performed By: #### 2 4321-2, LIPB, ####[facility] [id number] [address] Cholesterol non HDL [Mass/Vol] 133 mg/dL High <130 [facility] Comment on above: Order Comment: Speci men Type: BLOOD SPECIMEN Result Comment: <130 mg/dL, Optimal 130-159 mg/dL, Near optimal/above optimal 160-189 mg/dL, Borderline high 190-219 mg/dL, High >219 mg/dL, Very high Secondary prevention optimal non HDL Cholesterol levels are recommended to be <100 mg/dL Performed By: #### 2 4321-2, LIPB, ####[facility]ORATORYCLIA [id number] [address] Cholesterol.total/ Cholesterol in HDL [Mass ratio] 3.51 {ratio} Normal <5.10 [facility] Comment on above: Order Comment: Speci men Type: BLOOD SPECIMEN Performed By: #### 2 4321-2, LIPB, ####[facility]ORYCLIA [id number] [address] FASTING TIME 8 hours Normal [facility] Comment on above: Order Comment: Speci men Type: BLOOD SPECIMEN Performed By: #### 2 4321-2, LIPB, ####[facility]CL[facility] [id number] [address] Triglyceride [Mass/Vol] 94 mg/dL Normal <150 [facility] Comment on above: Order Comment: Speci men Type: BLOOD SPECIMEN Result Comment: <150 mg/dL, Normal 150-199 mg/dL, Borderline high 200-499 mg/dL, High >499 mg/dL, Very high Performed By: #### 2 4321-2, LIPB, ####[facility]ORYCLIA [id number] [address] MRI BRAIN WO IVCONon 021 MRI [...] brain is within normal limits for age. Product Safety Tester: PSCB Transcribe Date/Time: Apr 06 2021 6:17P Dictated by : ERICK GROVE MD This examination was interpreted and the report reviewed and electronically signed by: ERICK GROVE MD on Apr 06 2021 6:22PM EST [id number] Normal [facility] Magnesium SerPl-mCncon 04-06 Magnesium [Mass/Vol] 2.0 mg/dL Normal 1.7-2.3 [facility] Comment on above: Order Comment: Speci men Type: BLOOD SPECIMEN Performed By: #### 2 4321-2, ####[facility]CLIA [id number] [place] [id number] [facility] Magnesium [Mass/Vol] 1.4 mg/dL Low 1.7-2.3 [facility] Comment on above: Order Comment: Speci men Type: BLOOD SPECIMEN Performed By: #### 2 4321-2, LIPB, ####[facility]ORYCLIA [id number] [place] [id number] [facility] NURSING PROGon 04-06-2021 NURSING PROG HNO ID: [id number] Author: Pearl Raymond RN Service: ? Author [...] pain. Report from YVONNE Palomo received. Normal [facility] NURSING PROG HNO ID: [id number] Author: Ekta Plaza RN Service: ? Author Type: Registered Nurse Type: Nursing Progress Note Filed: 04/06/2021 6:51 PM Note Text: 745 Patient in non-sustained vtach. Paged Dr. Melvin, and Cardiology. Patient denies any chest pain, or discomfort. Alert and oriented to person. Normal [facility] NURSING PROG HNO ID: [id number] Author: Afshan Velasquez RN Service: Nursing Author Type: Registered Nurse Type: Nursing Progress Note Filed: 04/06/2021 7:31 AM Note Text: Nursing Progress Note Patient Name: Aimee Grove Patient Location: [id number]/[place] [id number] Patient's non-sustain V-tach on telemetry on and off. Paged Dr. Pednleton. Vital signs within normal limits. No complaint [...] This note was completed by: Afshan Quiñones [facility] THERAPY NTon 04-06-2021 THERAPY NT HNO ID: [id number] Author: Ailyn Ziegler [facility]-STUDENT CAREER DEVELOPMENT SPECIALIST Service: Speech/Swallow Author Type: Speech Language Pathologist Type: Therapy (PT/OT/Speech/Resp) Filed: 04/06/2021 9:04 AM Note Text: Speech Therapy Clinical Swallow Evaluation SERVICE DATE: 04/06/2021 SERVICE TIME: 0830 to 0848 ROOM: [place] [address] IMPRESSION: Swallow Deficits Identified / Suspected: Oral [...] Cognitive Deficits,Confusion interferes with education Continue skilled STUDENT CAREER DEVELOPMENT SPECIALIST services due to : Dysphagia Speech Therapy [...] white, ulcerated, swollen 0 Gums and Tissues [place], moist, Smooth, no bleeding Dry, shiny, rough, [...] 2 Alivia Collado., Pooja Lr., Kathryn Obrien., Maggi Ambrosio., AND Liz Soto (2005). The oral health assessment tool--validity and reliability. [place] Islander dental journey, 50(3), 191-199. Swallow Position Of [...] Suspected Esophageal (more content not included)... Normal [facility] aPTT PPPon 04-06-2021 aPTT Coag (PPP) [Time] 40.7 s High 23.0-32.4 [facility] Comment on above: Order Comment: Speci men Type: BLOOD SPECIMEN Performed By: #### 1 4979-9 ####[facility]ATORYCLIA [id number] [address] OF [facility] ALLIED HEALTHon 04-05-2021 ALLIED HEALTH HNO ID: [id number] Author: RT Ros(R) Service: Radiology Author Type: [...] PERIPHERAL IV DATA: Not applicable SIGNED BY: Jose Quintanilla RT(R) April 05, 2021 12:05 PM Normal [facility] APAP SerPl-mCncon 04-05-2021 Acetaminophen [Mass/Vol] ug/mL Low 10- [facility] Comment on above: Order Comment: Speci men Type: BLOOD SPECIMEN Result Comment: Toxi c > 150 ug/mL 4 hours post ingestion The Jose Carlos Vázquez nomogram can be used to estimate the probability of hepatotoxicity via the relationship of plasma acetaminophen concentration to the post ingestion interval. ([place]. Pediatrics. 1975. 55:871 to 876 and Jose Carlos et al. Arch Matrix Worker Med. 1981. 141:380 to 385). Reference ranges and high/low indicator flags are provided as general guidelines only. The treating physician must determine appropriate target levels/dosing based on the specific clinical situation. Performed By: #### 5 8410-2 #### [facility] CLIA [id number] [address] [place] Ammonia Plas-sCncon 04-05-20 Ammonia (P) [Moles/Vol] 21 umol/L Normal [facility] Comment on above: Order Comment: Speci men Type: BLOOD SPECIMEN Performed By: #### 5 8410-2 #### [facility] CLIA [id number] [address] [place] Bacteria Ur Culton Bacteria identified Cx Nom (U) CULTURE, URINE: >=100,000 CFU/mL Three or more organisms, no one type predominant, suggesting contamination during collection. Recollect if clinically indicated. Abnormal [facility] Comment on above: Performed By: #### 6 30-4 ####[facility]ORYCLIA [id number] [address] [place] Basic metabolic 2000 panelon 04-05-2021 Anion gap [Moles/Vol] 15 mmol/L Normal 9-18 [facility] Comment on above: Order Comment: Speci men Type: BLOOD SPECIMEN Performed By: #### 5 8410-2 #### [facility] CLIA [id number] [address] Calcium [Mass/Vol] 9.6 mg/dL Normal 8.5-10.2 [facility] Comment on above: Order Comment: Speci men Type: BLOOD SPECIMEN Performed By: #### 5 8410-2 #### [facility] CLIA [id number] [address] Chloride [Moles/Vol] 100 mmol/L Normal 97-105 [facility] Comment on above: Order Comment: Speci men Type: BLOOD SPECIMEN Performed By: #### 5 8410-2 #### [facility] CLIA [id number] [address] CO2 [Moles/Vol] 25 mmol/L Normal 22-30 [facility] Comment on above: Order Comment: Speci men Type: BLOOD SPECIMEN Performed By: #### 5 8410-2 #### [facility] CLIA [id number] [address] Creatinine [Mass/Vol] 0.92 mg/dL Normal 0.58-0.96 [facility] Comment on above: Order Comment: Speci men Type: BLOOD SPECIMEN Performed By: #### 5 8410-2 #### [facility] CLIA [id number] [address] GFR/1.73 sq M.predicted MDRD (S/P/Bld) [Vol rate/Area] mL/min/{1.73_m2} Normal [facility] Comment on above: Order [...] GFR. Performed By: #### 5 8410-2 #### [facility] CLIA [id number] [address] [place] [address] [place] Glucose [Mass/Vol] 265 mg/dL High 74-99 [facility] Comment on above: Order Comment: Speci men Type: BLOOD SPECIMEN Result Comment: The [place] Diabetes Association (ADA) provides guidance for cutoff [...] Standards of Medical Care in Diabetes 2016, [place] [employer]. Diabetes Care. 2016.39(Suppl 1). Performed By: #### 5 8410-2 #### [facility] CLIA [id number] [address] [place] Potassium [Moles/Vol] 4.0 mmol/L Normal 3.7-5.1 [facility] Comment on above: Order Comment: Speci men Type: BLOOD SPECIMEN Performed By: #### 5 8410-2 #### [facility] CLIA [id number] [address] [place] Sodium [Moles/Vol] 140 mmol/L Normal 136-144 [facility] Comment on above: Order Comment: Speci men Type: BLOOD SPECIMEN Performed By: #### 5 8410-2 #### [facility] CLIA [id number] 1 [place] [address] [place] Urea nitrogen [Mass/Vol] 26 mg/dL High 7-21 [facility] Comment on above: Order Comment: Speci men Type: BLOOD SPECIMEN Performed By: #### 5 8410-2 #### [facility] CLIA [id number] [address] CBC W Auto Differential pane l (Bld)on 04-05-2021 Basophils (Bld) [#/Vol] 0.08 10*3/uL Normal <0.11 [facility] Comment on above: Order Comment: Speci men Type: BLOOD SPECIMEN Performed By: #### 5 7021-8 ####[facility]CLIA [id number] [address] Basophils/100 WBC (Bld) 0.7 % Normal [facility] Comment on above: Order Comment: Speci men Type: BLOOD SPECIMEN Performed By: #### 5 7021-8 ####[facility]CLIA [id number] [address] Differential cell count method Nom (Bld) Auto Normal [facility] Comment on above: Order Comment: Speci men Type: BLOOD SPECIMEN Performed By: #### 5 7021-8 ####[facility]ORYCLIA [id number] [address] Eosinophils (Bld) [#/Vol] 0.42 10*3/uL Normal <0.46 [facility] Comment on above: Order Comment: Speci men Type: BLOOD SPECIMEN Performed By: #### 5 7021-8 ####[facility]CLIA [id number] [address] Eosinophils/100 WBC (Bld) 3.4 % Normal [facility] Comment on above: Order Comment: Speci men Type: BLOOD SPECIMEN Performed By: #### 5 7021-8 ####[facility]CLIA [id number] [address] Erythrocyte distribution width (RBC) [Ratio] 13.0 % Normal 11.5-15.0 [facility] Comment on above: Order Comment: Speci men Type: BLOOD SPECIMEN Performed By: #### 5 7021-8 ####[facility]ORYCLIA [id number] [address] Hematocrit (Bld) [Volume fraction] 44.6 % Normal 36.0-46.0 [facility] Comment on above: Order Comment: Speci men Type: BLOOD SPECIMEN Performed By: #### 5 7021-8 ####[facility]ORYCLIA [id number] [address] Hemoglobin (Bld) [Mass/Vol] 13.6 g/dL Normal 11.5-15.5 [facility] Comment on above: Order Comment: Speci men Type: BLOOD SPECIMEN Performed By: #### 5 7021-8 ####[facility]CLIA [id number] [address] IMMATURE GRAN % 0.8 % Normal [facility] Comment on above: Order Comment: Speci men Type: BLOOD SPECIMEN Performed By: #### 5 7021-8 ####[facility]ORYCLIA [id number] [address] IMMATURE GRAN ABS 0.10 k/uL High <0.10 [place] Comment on above: Order Comment: Speci men Type: BLOOD SPECIMEN Performed By: #### 5 7021-8 ####[facility]ORYCLIA [id number] [address] OF [facility] Lymphocytes (Bld) [#/Vol] 2.02 10*3/uL Normal 1.00-4.00 [facility] Comment on above: Order Comment: Speci men Type: BLOOD SPECIMEN Performed By: #### 5 7021-8 ####[facility]CLIA [id number] [address] Lymphocytes/100 WBC (Bld) 16.6 % Normal [facility] Comment on above: Order Comment: Speci men Type: BLOOD SPECIMEN Performed By: #### 5 7021-8 ####[facility]ORYCLIA [id number] [address] MCH (RBC) [Entitic mass] 28.3 pg Normal 26.0-34.0 [facility] Comment on above: Order Comment: Speci men Type: BLOOD SPECIMEN Performed By: #### 5 7021-8 ####[facility]ORYCLIA [id number] [address] MCHC (RBC) [Mass/Vol] 30.5 g/dL Normal 30.5-36.0 [facility] Comment on above: Order Comment: Speci men Type: BLOOD SPECIMEN Performed By: #### 5 7021-8 ####[facility]ORYCLIA [id number] [address] MCV (RBC) [Entitic vol] 92.9 fL Normal 80.0-100.0 [facility] Comment on above: Order Comment: Speci men Type: BLOOD SPECIMEN Performed By: #### 5 7021-8 ####[facility]ORYCLIA [id number] [address] Monocytes (Bld) [#/Vol] 1.23 10*3/uL High <0.87 [facility] Comment on above: Order Comment: Speci men Type: BLOOD SPECIMEN Performed By: #### 5 7021-8 ####[facility]ORYCLIA [id number] [address] Monocytes/100 WBC (Bld) 10.1 % Normal [facility] Comment on above: Order Comment: Speci men Type: BLOOD SPECIMEN Performed By: #### 5 7021-8 ####[facility]ORYCLIA [id number] [address] Neutrophils (Bld) [#/Vol] 8.35 10*3/uL High 1.45-7.50 [facility] Comment on above: Order Comment: Speci men Type: BLOOD SPECIMEN Performed By: #### 5 7021-8 ####[facility]ORYCLIA [id number] [address] Neutrophils/100 WBC (Bld) 68.4 % Normal [facility] Comment on above: Order Comment: Speci men Type: BLOOD SPECIMEN Performed By: #### 5 7021-8 ####[facility]ORYCLIA [id number] [address] Nucleated RBC (Bld) [#/Vol] 10*3/uL Normal <0.01 [facility] Comment on above: Order Comment: Speci men Type: BLOOD SPECIMEN Performed By: #### 5 7021-8 ####[facility]ORYCLIA [id number] [address] Nucleated RBC/100 WBC (Bld) [Ratio] 0.0 /100 WBC Normal 0.0 [facility] Comment on above: Order Comment: Speci men Type: BLOOD SPECIMEN Performed By: #### 5 7021-8 ####[facility]ORYCLIA [id number] [address] Platelet mean volume (Bld) [Entitic vol] 13.2 fL High 9.0-12.7 [facility] Comment on above: Order Comment: Speci men Type: BLOOD SPECIMEN Performed By: #### 5 7021-8 ####[facility]ORYCLIA [id number] [address] Platelets (Bld) [#/Vol] 184 10*3/uL Normal 150-400 [facility] Comment on above: Order Comment: Speci men Type: BLOOD SPECIMEN Performed By: #### 5 7021-8 ####[facility]ORYCLIA [id number] [address] RBC (Bld) [#/Vol] 4.80 10*6/uL Normal 3.90-5.20 [facility] Comment on above: Order Comment: Speci men Type: BLOOD SPECIMEN Performed By: #### 5 7021-8 ####[facility]ATORYCLIA [id number] [place] [address] [place] WBC (Bld) [#/Vol] 12.20 10*3/uL High 3.70-11.00 [facility] Comment on above: Order Comment: Speci men Type: BLOOD SPECIMEN Performed By: #### 5 7021-8 ####[facility]ORATORYCLIA [id number] [place] [address] [facility] CONSULTon 04-05-2021 CONSULT HNO ID: [id number] Author: Juli Valentino MD Service: Neurology General [...] as well as evidence of intracranial L COMMERCIAL SPECIALIST stenosis. She was not a candidate for [...] 2199 Date (more content not included)... Normal [facility] CT BRAIN WO IVCONon 04-05-20 CT BRAIN WO IVCON * * *Final Report* * * DATE OF EXAM: Apr 05 2021 10:35AM [facility] 0504 - CT BRAIN WO IVCON / [...] control(AEC) and iterative recon COMPARISON: 11/19/2011. RESULT: Final Dressing Cutter (topogram) images: No additional findings. Post-operative change: [...] matter disease and diffuse cerebral volume loss. Product Safety Tester: PSCB Transcribe Date/Time: Apr 05 2021 10:40A Dictated by : HERMILO REARDON MD This examination was interpreted and the report reviewed and electronically signed by: HERMILO REARDON MD on Apr 05 2021 10:44AM EST [id number] Normal [facility] CTA HEAD W IVCONon CTA HEAD W IVCON * * *Final Report* * * DATE OF EXAM: Apr 05 2021 10:35AM [facility] 0022 - CTA HEAD W IVCON / [...] left posterior cerebral artery. No significant aneurysm. Final Dressing Cutter (topogram) images: No additional findings. IMPRESSION: 1. [...] on 04/05/2021 10:51 AM via verbal communication. Product Safety Tester: ANGELO Transcribe Date/Time: Apr 05 2021 10:44A Dictated by : HERMILO REARDON MD This examination was interpreted and the report reviewed and electronically signed by: HERMILO REARDON MD on Apr 05 2021 11:05AM EST [id number] CRITICAL!! Invalid Interpretation Code [facility] CTA NECK W IVCONon 1 CTA NECK W IVCON * * *Final Report* * * DATE OF EXAM: Apr 05 2021 10:35AM [facility] 0024 - CTA NECK W IVCON / [...] left posterior cerebral artery. No significant aneurysm. Final Dressing Cutter (topogram) images: No additional findings. IMPRESSION: 1. [...] on 04/05/2021 10:51 AM via verbal communication. Product Safety Tester: ANGELO Transcribe Date/Time: Apr 05 2021 10:44A Dictated by : HERMILO REARDON MD This examination was interpreted and the report reviewed and electronically signed by: HERMILO REARDON MD on Apr 05 2021 11:05AM EST [id number] CRITICAL!! Invalid Interpretation Code [facility] ED NOTEon 04-05-2021 ED NOTE HNO ID: [id number] Author: Rae Carmona RN Service: Emergency Medicine Author Type: Registered Nurse Type: ED Notes Filed: 04/05/2021 2:38 PM Note Text: Told RN went to lunch and no one can take report at time. Normal [facility] ED NOTE HNO ID: [id number] Author: Derrick Olmedo Service: ? Author Type: Quality Assurance Assistant and Communication Center Operator Type: ED Notes Filed: 04/05/2021 10:19 AM Note Text: Bed: 22-ED Expected date: 04/05/21 Expected time: 10:18 AM Means of arrival: [place] Comments: Med 8 alt loc Normal [facility] ED PROV NOTEon 04-05-2021 ED PROV NOTE HNO ID: [id number] Author: Luisa Medina MD Service: Emergency Medicine [...] condition. Luisa Medina MD 04/05/21 1314 Normal [facility] ED PROV NOTE HNO ID: [id number] Author: Luisa Medina MD Service: Emergency Medicine [...] No rigi (more content not included)... Normal [facility] Ethanol SerPl-mCncon 021 Ethanol [Mass/Vol] mg/dL Normal <11 [facility] Comment on above: Order Comment: Speci men Type: BLOOD SPECIMEN Performed By: #### 5 8410-2 #### [facility] CLIA [id number] [address] HIGH SENSITIVITY TROPONIN To n 04-05-2021 HIGH SENSITIVITY MORELIA 41 ng/L High <12 [facility] Comment on above: Order [...] MACE. Performed By: #### H STNT #### [facility] CLIA [id number] [address] HISTORY PHYSICALon HISTORY PHYSICAL HNO ID: [id number] Author: Mele Braden APRN.RESOURCE DEVELOPMENT MANAGER Service: Hospital Medicine Author Type: Nurse Practitioner Type: HANDP Filed: 04/05/2021 4:05 PM Note Text: DEPARTMENT OF HOSPITAL MEDICINE HISTORY AND PHYSICAL EXAM SERVICE DATE: 04/05/2021 SERVICE TIME: 3:05 PM Primary Care Physician: Allen Li MD, MD NIGHT AND WEEKEND COVERAGE: After 7pm call #[phone] Chief complaint: altered mental status HPI: 85-year-old [...] capillary ref (more content not included)... Normal [facility] Magnesium SerPl-mCncon 04-05 Magnesium [Mass/Vol] 1.5 mg/dL Low 1.7-2.3 [facility] Comment on above: Order Comment: Speci men Type: BLOOD SPECIMEN Performed By: #### 5 8410-2 #### [facility] CLIA [id number] [address] [place] PT panel Coag (PPP)on 2020 INR Coag (PPP) [Relative time] 1.0 {INR} Normal 0.9-1.3 [facility] Comment on above: Order Comment: Speci men Type: BLOOD SPECIMEN Result Comment: Ankita min K Antagonist (VKA) Therapeutic Range: INR 2 to 3 (Target INR of 2.5) Note: For patients treated with VKA drugs, such as warfarin, the [place] [employer] 2012 Guideline recommends [...] 70: 252-289 Performed By: #### 3 4528-0, 34980-4 ####[facility]ORYCLIA [id number] [address] [place] PT Coag (PPP) [Time] 11.2 s Normal 9.7-13.0 [facility] Comment on above: Order Comment: Speci men Type: BLOOD SPECIMEN Performed By: #### 3 4528-0, 69731-7 ####[facility]ATORYCLIA [id number] [place] [address] [place] SALICYLATE BLDon 04-05-2021 Salicylates [Mass/Vol] mg/dL Low 3.0-30.0 [facility] Comment on above: Order Comment: Speci men Type: BLOOD SPECIMEN Result Comment: The therapeutic range varies and has been reported to be 3.0 to 10.0 mg/dL for anti pyretic/analgesic conditions and 15.0 to 30.0 mg/dL for anti inflammatory/rheumatic fever conditions. Ranges published by the instrument elevator mechanic apprentice. Reference ranges and high/low indicator flags are provided as general guidelines only. The treating physician must determine appropriate target levels/dosing based on the specific clinical situation. Performed By: #### 5 8410-2 #### [facility] CLIA [id number] [address] [place] [address] [place] SARS-CoV-2 RNA Resp Ql CHEYANNE+p robeon 04-05-2021 SARS-CoV-2 (COVID-19) RNA CHEYANNE+probe Ql (Resp) COVID 19 RESULT: SARS-CoV-2 (Agent of COVID-19) Not Detected by PCR. This test has been authorized by FDA under an Emergency Use Authorization (EUA). Normal [facility] Comment on above: Performed By: #### 9 4500-6 ####[facility]ORYCLIA [id number] [place] [address] [place] TOX SCREEN ROUT URon 021 Amphetamines Confirm (U) [Mass/Vol] Negative Normal Negative [facility] Comment on above: Order Comment: Speci men Type: URINE SPECIMEN Result Comment: Cuto ff threshold at 1000 ng/mL. Performed By: #### U TOX2 ####[facility]ORYCLIA [id number] [address] [place] BARBITURATES, URINE Negative Normal Negative [facility] Comment on above: Order Comment: Speci men Type: URINE SPECIMEN Result Comment: Cuto ff threshold at 200 ng/mL. Performed By: #### U TOX2 ####[facility]ORYCLIA [id number] [address] BENZODIAZEPINES, UR Negative Normal Negative [facility] Comment on above: Order Comment: Speci men Type: URINE SPECIMEN Result Comment: Cuto ff threshold at 200 ng/mL. Performed By: #### U TOX2 ####[facility]ORYCLIA [id number] [address] CANNABINOIDS,URINE Negative Normal Negative [facility] Comment on above: Order Comment: Speci men Type: URINE SPECIMEN Result Comment: Cuto ff threshold at 50 ng/mL. Performed By: #### U TOX2 ####[facility] [facility]ORYCLIA [id number] [address] Cocaine Ql (U) Negative Normal Negative [facility] Comment on above: Order Comment: Speci men Type: URINE SPECIMEN Result Comment: Cuto ff threshold at 300 ng/mL. Performed By: #### U TOX2 ####[facility] [id number] [address] STATES OF [facility] Ethanol (U) [Mass/Vol] <11 Normal <11 [facility] Comment on above: Order Comment: Speci men Type: URINE SPECIMEN Performed By: #### U TOX2 ####[facility]IA [id number] [address] Opiates Screen Ql (U) Negative Normal Negative [facility] Comment on above: Order Comment: Speci men Type: URINE SPECIMEN Result Comment: Cuto ff threshold at 300 ng/mL. Performed By: #### U TOX2 ####[facility] [facility]ORY[facility]IA [id number] [address] oxyCODONE cutoff Screen (U) [Mass/Vol] Negative Normal Negative [facility] Comment on above: Order Comment: Speci men Type: URINE SPECIMEN Result Comment: Cuto ff threshold at 100 ng/mL. Performed By: #### U TOX2 ####[facility] [id number] [address] Phencyclidine Ql (U) Negative Normal Negative [facility] Comment on above: Order Comment: Speci men Type: URINE SPECIMEN Result Comment: Cuto ff threshold at 25 ng/mL. Performed By: #### U TOX2 ####[facility] [id number] [address] Urinalysis complete panel (U )on 04-05-2021 Bacteria LM.HPF (Urine sed) [#/Area] 4+ /HPF Abnormal None Seen [facility] Comment on above: Order Comment: Speci men Type: BLOOD SPECIMEN Performed By: #### H STNT #### [facility] CLIA [id number] [address] [place] [address] Bilirubin Ql (U) Negative Normal Negative [facility] Comment on above: Order Comment: Speci men Type: BLOOD SPECIMEN Performed By: #### H STNT #### [facility] CLIA [id number] [address] Clarity (Unsp spec) Turbid Abnormal Clear [facility] Comment on above: Order Comment: Speci men Type: BLOOD SPECIMEN Performed By: #### H STNT #### [facility] CLIA [id number] [address] Color (U) Yellow Normal Yellow [facility] Comment on above: Order Comment: Speci men Type: BLOOD SPECIMEN Performed By: #### H STNT #### [facility] CLIA [id number] [address] Epithelial cells LM.HPF (Urine sed) [#/Area] 5.5 /[HPF] Normal [facility] Comment on above: Order Comment: Speci men Type: BLOOD SPECIMEN Performed By: #### H STNT #### [facility] CLIA [id number] [address] Glucose Test strip (U) [Mass/Vol] 250 mg/dL Abnormal Negative [facility] Comment on above: Order Comment: Speci men Type: BLOOD SPECIMEN Performed By: #### H STNT #### [facility] CLIA [id number] [address] Hemoglobin Ql (U) Trace Abnormal Negative [place] Comment on above: Order Comment: Speci men Type: BLOOD SPECIMEN Performed By: #### H STNT #### [facility] CLIA [id number] [address] Hyaline casts (Urine sed) [#/Area] 1-3 /LPF Abnormal 0 /LPF [facility] Comment on above: Order Comment: Speci men Type: BLOOD SPECIMEN Performed By: #### H STNT #### [facility] CLIA [id number] [address] Ketones Ql (U) Trace Abnormal Negative [facility] Comment on above: Order Comment: Speci men Type: BLOOD SPECIMEN Performed By: #### H STNT #### [facility] CLIA [id number] [address] Leukocyte esterase Test strip Ql (U) Negative Normal Negative [facility] Comment on above: Order Comment: Speci men Type: BLOOD SPECIMEN Performed By: #### H STNT #### [facility] CLIA [id number] [address] Nitrite Ql (U) Positive Abnormal Negative [facility] Comment on above: Order Comment: Speci men Type: BLOOD SPECIMEN Performed By: #### H STNT #### [facility] CLIA [id number] [address] pH (U) 8.0 [pH] Normal 5.0-8.0 [facility] Comment on above: Order Comment: Speci men Type: BLOOD SPECIMEN Performed By: #### H STNT #### [facility] CLIA [id number] [address] Protein (U) [Mass/Vol] 30 mg/dL Abnormal Negative [facility] Comment on above: Order Comment: Speci men Type: BLOOD SPECIMEN Performed By: #### H STNT #### [facility] CLIA [id number] [address] RBC LM.HPF (Urine sed) [#/Area] 3-5 /HPF Abnormal 0-3 /HPF [facility] Comment on above: Order Comment: Speci men Type: BLOOD SPECIMEN Performed By: #### H STNT #### [facility] CLIA [id number] [address] Specific gravity (U) [Rel density] 1.028 Normal 1.005-1.030 [facility] Comment on above: Order Comment: Speci men Type: BLOOD SPECIMEN Performed By: #### H STNT #### [facility] CLIA [id number] [address] Triple phosphate crystals LM.HPF (Urine sed) [#/Area] Few Abnormal None Seen [facility] Comment on above: Order Comment: Speci men Type: BLOOD SPECIMEN Performed By: #### H STNT #### [facility] CLIA [id number] [address] Urobilinogen Ql (U) 0.2 EU/dL Normal 0.2-1.0 EU/dL [facility] Comment on above: Order Comment: Speci men Type: BLOOD SPECIMEN Performed By: #### H STNT #### [facility] CLIA [id number] [address] WBC LM.HPF (Urine sed) [#/Area] 0-5 /HPF Normal 0-5 /HPF [facility] Comment on above: Order Comment: Speci men Type: BLOOD SPECIMEN Performed By: #### H STNT #### [facility] CLIA [id number] [address] XR CHEST 1V FRONTALon 2020 XR [...] focal consolidation, significant pleural effusion, or pneumothorax. Product Safety Tester: ANGELO Transcribe Date/Time: Apr 05 2021 12:48P Dictated by : HERMILO REARDON MD This examination was interpreted and the report reviewed and electronically signed by: HERMILO REARDON MD on Apr 05 2021 12:50PM EST [id number] Normal [facility] aPTT PPPon 04-05-2021 aPTT Coag (PPP) [Time] 23.5 s Normal 23.0-32.4 [facility] Comment on above: Order Comment: Speci men Type: BLOOD SPECIMEN Performed By: #### 3 4528-0, 50075-7 ####[facility]ORY[facility]IA [id number] [place] [id number] [facility] Anesthesia Attestationon Resident Care Assistant Authentication Interface Message Text Anesthesia Attestation ATTESTATION OF INFORMED CONSENT FOR ANESTHESIA Anesthesia options were discussed with the patient and/or legal security systems sales representative. The risks, benefits and alternatives were reviewed. Questions regarding anesthesia were answered. Patient and/or legal security systems sales representative knows such anesthetics and procedures may be performed by Resident physicians, Certified Anesthesiologist Assistants, or Certified Nurse Anesthetists under the supervision of a physician. The patient /or the patient's legal security systems sales representative agree with the plan for anesthesia. Normal [facility] Anesthesia Postprocedure Radha luationon 02-11-2021 Resident Care Assistant Authentication Interface Message Text Anesthesia Postoperative Assessment: [...] ANESTHESIA COMPLICATIONS: No complications documented. Normal [facility] Anesthesia Transfer Of Careo n 02-11-2021 Resident Care Assistant Authentication Interface Message Text Patient taken to [...] Chevy Stockton DDS Anesthesiologist: Ankita Yo MD Outboard Motor Inspector: Dipak Curry MD DENTAL RESTORATIONS (N/A ) [...] Removal Reason: Not Removed at Discharge: Removed 02/11/21 09 Location (cm) 25 02/11/21807 Measured from: Naris [...] was received. Dipak Curry MD Normal [facility] Brief Operative Noteon 02-11 Resident Care Assistant Authentication Interface Message Text Brief Operative Note PHE OR 3 [place] 85 year old female Surgical Contact Serial Number: [id number] Preoperative Diagnosis: Dental caries [K02.9] Alzheimer's dementia [G 30.9] Postoperative Diagnosis: Dental caries [K02.9] Alzheimer's dementia [G 30.9] Procedures: Comprehensive exam 91941 Full series of Xrays 97650 Cleaning 09025 SRP Lower anterior teeth Extractions #3, 4, 5, 6, 11, 30, 31 68973 Prophylaxis 30545 Surgeon(s): Surgeon(s): Chevy Stockton DDS Staff: Deputy Insurance Commissioner Nurse: Lamberto Corey RN Advisory Intern: Lakshmi Bocanegra DDS Anesthesia: General Anesthesiologist: Ankita [...] Bocanegra DDS 02/11/2021 7:39 AM Normal [facility] GLUCOSE, FINGERSTICK-IN OFFI CEon 02-11-2021 Glucose [Mass/Vol] 171 mg/dL High 80-116 [facility] Comment on above: Result Comment: Junior odom RN, APN, MD Performed By: #### 8 2948 ####NURSING [facility] [id number] [place], [address] OP Noteon 02-11-2021 Resident Care Assistant Authentication Interface Message Text PHE OR 3 [place] 85 year old female Surgical Contact Serial Number: [id number] Preoperative Diagnosis: Dental caries [K02.9] Alzheimer's dementia [G 30.9] Postoperative Diagnosis: Dental caries [K02.9] Alzheimer's dementia [G 30.9] Procedures: Comprehensive exam 98575 Full series of Xrays 54880 Cleaning 53221 SRP Lower anterior teeth Extractions # 4 5, 6, 11, 97173 Surgical extractions #3, #31, #30 Alveoloplasty on UR quadrant Prophylaxis 14786 Surgeon(s): Surgeon(s): Chevy Stockton DDS Staff: Deputy Insurance Commissioner Nurse: Lamberto Corey RN Advisory Intern: Lakshmi Bocanegra DDS Anesthesia: General Anesthesiologist: Ankita [...] Refill * vitamin D2 (ERGOCALCIFEROL) 1.25 MG (08014 UT) capsule Take 50,000 Units by mouth once weekly. * QUEtiapine (SEROQUEL) 25 MG tablet Take 12.5 mg by mouth at bedtime. * metoprolol (LOPRESSOR) 50 MG tablet Take 50 mg by mouth 2 times daily. * fluticasone (FLONASE) 50 mcg/act nasal inhaler Use 1 [place] in each nostril 2 times daily. * [...] Bocanegra DDS 02/11/2021 7:50 AM Normal [facility] Progress Noteson 02-11-2021 Resident Care Assistant Authentication Interface Message Text ----- Thursday, February 11, 2021 at 9:21:26 AM ----- ----- Provider: [id number] - Chevy Lennon DDS -- Clinic: [facility] ----- Dr. Stockton's notes pt is ready [...] year old female Surgical Contact Serial Number: [id number] Preoperative Diagnosis: Dental caries [K02.9] Alzheimer's dementia [G 30.9] Postoperative Diagnosis: Dental caries [K02.9] Alzheimer's dementia [G 30.9] Procedures: Comprehensive exam 07689 Full series of Xrays 37905 Cleaning 21812 SRP Lower anterior teeth Extractions # 4 5, 6, 11, 27549 Surgical extractions #3, #31, #30 Alveoloplasty on UR quadrant Prophylaxis 62348 Surgeon(s): Surgeon(s): Chevy Stockton DDS Staff: Deputy Insurance Commissioner Nurse: Lamberto Corey RN Advisory Intern: Lakshmi Bocanegra DDS Anesthesia: General Anesthesiologist: Ankita [...] Refill * vitamin D2 (ERGOCALCIFEROL) 1.25 MG (64674 UT) capsule Take 50,000 Units by mouth once weekly. * QUEtiapine (SEROQUEL) 25 MG tablet Take 12.5 mg by mouth at bedtime. * metoprolol (LOPRESSOR) 50 MG tablet Take 50 mg by mouth 2 times daily. * fluticasone (FLONASE) 50 mcg/act nasal inhaler Use 1 [place] in each nostril 2 times daily. * [...] Bocanegra DDS 02/11/2021 7:50 AM Normal [facility] Anesthesia Preprocedure Eval uationon 02-09-2021 Resident Care Assistant Authentication Interface Message Text ASA: 3 No history of anesthetic complications PSE status: Had PSE NPO status: >8 hours Review of Systems (Full ROS completed in PSE) Pulmonary - negative ROS Dental Comment: Dental pain Endo (+) diabetes mellitus type 2, obesity custom van converter - negative ROS (+) post-menopausal, Neuro/Psych (+) [...] the history and physical examination. Normal [facility] Telephone Encounteron 2020 Resident Care Assistant Authentication Interface Message Text Informed consent for dental surgery AND Anesthesia consent obtained and scanned into [employer]. Scheduled for surgery 02/11/2021. Normal [facility] BASIC METABOLIC PANELon 10-2 Anion gap [Moles/Vol] 18 mmol/L Normal - [facility] Comment on above: Performed By: #### C H8 #### [facility] [address] [place], [address] Calcium [Mass/Vol] 9.8 mg/dL Normal 8.4-10.4 [facility] Comment on above: Performed By: #### C H8 #### [facility] [address] [facility] [place], Chloride [Moles/Vol] 104 mmol/L Normal 97-111 [facility] Comment on above: Performed By: #### Ady H8 #### [facility] [address] [place] [address], CO2 [Moles/Vol] 27 mmol/L Normal 21-30 [facility] Comment on above: Performed By: #### Ady H8 #### [facility] [address] [place] [address], Creatinine [Mass/Vol] 0.89 mg/dL Normal 0.50-1.10 [facility] Comment on above: Performed By: #### Ady H8 #### [facility] [address] [place] [address], ESTIMATED GFR (CKD-EPI) 60 mL/min/1.73sqm Normal >=60 [facility] Comment on above: Performed By: #### Ady H8 #### [facility] [address] [place] [address], Glucose [Mass/Vol] 182 mg/dL High 80-116 [facility] Comment on above: Performed By: #### Ady H8 #### [facility] [address] [place] [address], Potassium [Moles/Vol] 4.3 mmol/L Normal 3.3-5.3 [facility] Comment on above: Performed By: #### Ady H8 #### [facility] [address] [place] [address], Sodium [Moles/Vol] 145 mmol/L Normal 135-148 [facility] Comment on above: Performed By: #### Ady H8 #### [facility] [address] [place] [address], Urea nitrogen [Mass/Vol] 34 mg/dL High 8-22 [facility] Comment on above: Performed By: #### Ady H8 #### [facility] [address] [place] [address], COMPLETE BLOOD COUNT 02-01 Erythrocyte distribution width (RBC) [Ratio] 14.2 % Normal 11.5-14.5 [facility] Comment on above: Performed By: #### C BC #### [facility] [address] [place] [address], Hematocrit (Bld) [Volume fraction] 40.7 % Normal 36.0-46.0 [facility] Comment on above: Performed By: #### C BC #### [facility] [address] [place] [address], Hemoglobin (Bld) [Mass/Vol] 13.1 g/dL Normal 12.0-15.0 [facility] Comment on above: Performed By: #### C BC #### [facility] [address] [place] [address], MCH (RBC) [Entitic mass] 28.5 pg Normal 26.0-34.0 [facility] Comment on above: Performed By: #### C BC #### [facility] [address] [place] [address], MCHC (RBC) [Mass/Vol] 32.1 g/dL Normal 32.0-35.9 [facility] Comment on above: Performed By: #### C BC #### [facility] [address] [place] [address], MCV (RBC) [Entitic vol] 89 fL Normal 80-100 [facility] Comment on above: Performed By: #### C BC #### [facility] [address] [place] [address], Platelet mean volume (Bld) [Entitic vol] 9.9 fL Normal 7.5-11.2 [facility] Comment on above: Performed By: #### C BC #### [facility] [address] [place] [address], Platelets (Bld) [#/Vol] 213 10*3/uL Normal 150-400 [facility] Comment on above: Performed By: #### C BC #### [facility] [address] [place] [address], RBC (Bld) [#/Vol] 4.58 10*6/uL Normal 4.00-5.20 [facility] Comment on above: Performed By: #### C BC #### [facility] [address] [place], [place], WBC (Bld) [#/Vol] 9.7 10*3/uL Normal 4.5-11.5 [facility] Comment on above: Performed By: #### C BC #### [facility] [address] [place], [place], PSE Chartingon 02-01-2021 Resident Care Assistant Authentication Interface Message Text Dental Consult The [...] the form. Nikkie Melgar DDS Normal [facility] Patient Instructionson 02-01 Resident Care Assistant Authentication Interface Message Text RECOMMENDATIONS: Patient was [...] before surgery Bill Szymanski MD Normal [facility] Resident Care Assistant Authentication Interface Message Text MEDICATIONS: Follow your [...] surgery. Contact the Pre-Surgical Evaluation department at [phone] or your surgeon's office with any questions. Normal [facility] Progress Noteson 02-01-2021 Resident Care Assistant Authentication Interface Message Text Identification was verified by patient/parent verbalizing name and date of . Blood drawn in clinic and sent off to lab. Took 2 attempts pt felipe well with daughter and caregiver at bedside. Cristina Simental RN Normal [facility] Resident Care Assistant Authentication Interface Message Text Blood pressure 148/64, [...] fever, chills, night sweats and weight loss COUNTER WAITER: Dementia No h/o CVA/TIA/Seizures Respiratory: No h/o [...] surgery pending : Labs Bill Szymanski MD [phone] Normal [facility] Telephone Encounteron 2020 Resident Care Assistant Authentication Interface Message Text Pt.'s daughter, Valerie, [...] Valerie requests a call back at either [phone] or [phone] to proceed with scheduling. Normal [facility] Patient Instructionson 08-17 Resident Care Assistant Authentication Interface Message Text We believe Aimee needs to be seen in the OR under general anesthesia for dental treatment. She needs many teeth extracted. Dina will be calling Yecenia with an appointment date for a pre-surgical evaluation and for the surgery. She will tell you all of the information that you need to bring with you. Normal [facility] Progress Noteson 08-17-2020 Resident Care Assistant Authentication Interface Message Text JOSIAHH, Pt is ready for tx. 85 yr [...] Please call Yecenia to coordinate the appointment. [phone] Tx request sent [facility] [employer] [place]: OR ----- Signed on Monday, August 17, 2020 at 5:05:51 PM ----- ----- Provider: [place] - Feliberto Currie DMD -- Clinic: [facility] ----- Normal [facility] Vital Signs Date Time Vital Sign Value Performing Clinician Faci lity 09-26-2021 13:51-0400 Body height 160 cm Eleonora Renteria MD Work Phone: [facility] 09-26-2021 13:51-0400 Body weight 72.76 kg Eleonora Renteria MD Work Phone: [facility] 09-26-2021 13:51-0400 Diastolic blood pressure 81 mm[Hg] Eleonora Renteria MD Work Phone: [facility] 09-26-2021 13:51-0400 Heart rate 56 /min Eleonora Renteria MD Work Phone: [facility] 09-26-2021 13:51-0400 SaO2% (BldA) [Mass fraction] 94 % Eleonora Renteria MD Work Phone: [facility] 09-26-2021 13:51-0400 Systolic blood pressure 139 mm[Hg] Eleonora Renteria MD Work Phone: [facility] Encounters Encounter Date Encounter Type Care Provider Facility Start: 12-23-2024 End: 12-23-2024 ambulatory Stephen ROWE Facility:[facility] Start: 11-15-2024 ambulatory Stephen ROWE [facility] Start: 08-16-2024 End: 08-16-2024 ambulatory Stephen Arcehner JAE Facility:[facility] Start: 07-14-2024 End: 07-14-2024 ambulatory Stephen Arcehnjose l ROWE Facility:[facility] Start: 05-16-2024 ambulatory Stephen ROWE Facil ity:[facility] Start: 04-25-2024 ambulatory Stephen ROWE Facil ity:[facility] Start: 03-21-2024 End: 03-21-2024 ambulatory Stephen ROWE Facility:[facility] Start: 03-14-2024 End: 03-14-2024 ambulatory Stephen ROWE Facility:[facility] Start: 03-08-2024 End: 03-08-2024 ambulatory Stephen ROWE Facility:[facility] Start: 03-07-2024 End: 03-07-2024 ambulatory Stephen ROWE Facility:[facility] Start: 01-21-2024 End: 01-21-2024 Telephone encounter John De Jesuso DO [facility] Comment on above: Other Start: 08-31-2023 Telephone encounter John Montgomery onyo DO Work Phone: [email or web address] Start: 05-13-2022 Telephone encounter Allen Yusuf er Work Phone: [facility] Comment on above: medication reconcili ation Start: 05-01-2022 Refill Eleonora Renteria MD Work Phone: [facility] Comment on above: Refill Request Start: 05-01-2022 Telephone encounter Eleonora calles MD Work Phone: [facility] [place] Comment on above: Appointment Start: 09-27-2021 Telephone [...] Start: 02-11-2021 End: 02-11-2021 ambulatory CHEVY LENNON Facility:[facility] Start: 02-01-2021 End: 02-05-2021 ambulatory UNKNOWN PROVIDER Facility:[facility] Start: 08-17-2020 ambulatory UNKNOWN PROVIDER Facili ty:[facility] Plan of Treatment Date Care Activity Detail Author Start: 04-13-2022 ADVANCE DIRECTIVE DISCUSSION ADVANCE DIRECTIVE DISCUSSION [facility] Start: 04-06-2022 Hepatitis B surface antibody level LDL CHOLESTEROL [facility] Start: 12-12-2021 [facility] Start: 10-05-2021 Hemoglobin A1c/Hemoglobin.total in Blood HBA1C [facility] Start: 09-27-2021 End: 11-27-2021 Triiodothyronine (T3) [Mass/volume] in Serum or Plasma [facility] Work Phone: Comment on above: Expected: 09/27/2021 , Expires: 11/27/2021 Start: 09-26-2021 End: 11-26-2021 Hepatic function 2000 panel - Serum or Plasma [facility] Work Phone: Comment on above: Expected: 09/26/2021 , Expires: 11/26/2021 Start: 09-26-2021 End: 11-26-2021 Thyrotropin [Units/volume] in Serum or Plasma [facility] Work Phone: Comment on above: Expected: 09/26/2021 , Expires: 11/26/2021 Start: 04-13-2021 ADVANCE DIRECTIVE DISCUSSION ADVANCE DIRECTIVE DISCUSSION [facility] Start: 01-31-2021 COVID-19 VACCINE (3 - Booster for Pfizer series) COVID-19 VACCINE (3 - Booster for Pfizer series) [facility] Start: 10-26-2020 COVID-19 VACCINE (3 - Booster for Pfizer series) COVID-19 VACCINE (3 - Booster for Pfizer series) [facility] Start: 02-02-2019 3 comp foot exam completed DIABETIC FOOT EXAM [facility] Start: 2001 BONE DENSITY BONE DENSITY [facility] Start: 1986 SHINGRIX VACCINE (1 of 2) OCONNELL GRIX VACCINE (1 of 2) [facility] Start: 1986 Zoster Vaccines (1 of 2) Zoste r Vaccines (1 of 2) [facility] Start: 07-25-1955 DTaP/Tdap/Td Vaccine s (1 - Tdap) DTaP/Tdap/Td Vaccines (1 - Tdap) [facility] Start: 07-25-1955 Urine microalbumin profile DTA P,TDAP,TD (1 - Tdap) [facility] Start: 07-25-1955 Urine screening for protein Diabetes: Urine Protein Screening [facility] Start: 1946 Diabetic foot examination Diabetes: Foot Exam [facility] Start: 1946 Glaucoma screening Diabetes: R etinopathy Screening [facility] Start: 1946 Hepatitis B screening URINE ALBUMIN:CREATININE RATIO [facility] Start: 1946 Hepatitis C antibody , confirmatory test DILATED RETINAL EXAM [facility] Start: 1946 Preventive dental service Diabetes: Dental Exam [facility] Start: 1942 Pneumococcal Vaccine : 65+ Years (1 - PCV) Pneumococcal Vaccine: 65+ Years (1 - PCV) [facility] Start: 1942 PNEUMOCOCCAL: 65+ (1 - PCV) PNEUMOCOCCAL: 65+ (1 - PCV) [facility] Start: 01-23-1937 COVID-19 Vaccine (#1) COVID-19 Vacci ne (#1) [facility] Start: 1936 Hemoglobin A1c measurement Amelie betes: Hemoglobin A1C [facility] Start: 1936 Hepatitis B Vaccines (1 of 3 - 3-dose series) Hepatitis B Vaccines (1 of 3 - 3-dose series) [facility] Start: 1936 Lipid panel Lipid Panel [facility] Start: 1936 Screening for osteoporosis Bone Dens ity Scan [facility] Immunizations Immunization Date Immunization Notes Care Provider Bj gomez 12-28-2013 influenza virus vacc ine, unspecified formulation Allen Li Work Phone: [facility] Payers Date Payer Category Payer Self-pay 2024 Unknown [id number] 2018 Medicaid [employer] [id number] 2018-Present [phone] [address] [place] [address] Medicaid [id number] 2018 Medicaid [employer] [id number] 2018-Present [phone] [address] [place] [address] Medicaid [id number] 2014 Unknown [id number] 1989 Medicare [id number] 1989 Medicare MEDICARE MEDICAR E A AND B [id number] 1989-Present [phone] [place] [address] Medicare [id number] 1989 Medicare MEDICARE MEDICAR E A AND B [id number] 1989-Present [phone] [place] [address] Medicare [id number]. [id number] 1936 Unknown [id number] 1936 Unknown [id number] 2.16.840.1.785334.3.579.2.732 1936 Unknown [id number] 2.16.840.1.647335.3.579.2.732 1936 Unknown [id number] 2.16.840.1.748843.3.579.2.732 1936 Unknown [id number] 2.16.840.1.750961.3.579.2.732 Unknown [id number] 2.16.840.1.013444.3.579.2.462 Unknown [id number] 2.16.840.1.273991.3.579.2.462 Unknown [id number] 2.16.840.1.272561.3.579.2.462 Unknown [id number] 2.16.840.1.160634.3.579.2.462 Unknown [id number] 2.16.840.1.787045.3.579.2.462 Unknown [id number] 2.16.840.1.410056.3.579.2.462 Unknown [id number] 2.16.840.1.473953.3.579.2.462 Unknown [id number] 2.16.840.1.457062.3.579.2.462 Unknown [id number] 2.16840.1.794883.3.579.2.462 Unknown [id number] [id number] Social History Date Type Detail Facility Start: 01-08-2016 Tobacco smoking stat [facility] Never smoked tobacco [facility] Start: 01-08-2016 Tobacco use and exposure Smoke less tobacco non-user [facility] Start: 07-06-2015 End: 09-26-2021 Alcohol intake Current non-drinker of alcohol (finding) [facility] Start: 1935 Sex Assigned At Not on file [facility] Start: 09-16-2021 End: 09-26-2021 Exposure to SARS-CoV-2 (event) Not sure [facility] Start: 07-06-2015 Alcohol intake [facility] jayy Gender identity Not on file [facility] Medical Equipment Procedure Code Equipment Code [...] Phone Number of caller: Facility requesting page: [phone] Reason for Page: pt blood sugar updating Provider paged: Dr [facility] Name of paged provider: JACQUELINE [facility] Time Page was sent or provider contacted: 11:35pm Page Content: Crystal Enriquez for pt R Grove [birth year] re pt blood sugar updating [facility] 01-21-2024 Miscellaneous Notes Name of caller requesting page:Crystal Phone Number of caller: Facility requesting page: [phone] Reason for Page: pt blood sugar updating Provider paged: Dr [facility] Name of paged provider: JACQUELINE [facility] Time Page was sent or provider contacted: 11:35pm Page Content: Crystal Enriquez for pt R Grove 04..37 re pt blood sugar updating documented in this encounter [facility] 01-21-2024 Telephone encounter Note Name of caller requesting page:Jennifer Mitchell Phone Number of caller: [phone] Facility requesting page: [facility] Reason for Page: Patient fall and low blood pressure 53 Provider paged: Dr. [facility] Name of paged provider: [facility] Page Placed to #: Manual call [phone] Time Page was sent or provider contacted: 10:40 pm Page Content: MARIOD Jennifer Enriquez for pt R. Grove 1935 re fall and low blood pressure 53 [facility] 01-21-2024 Miscellaneous Notes Name of caller requesting page:Jennifer Mitchell Phone Number of caller: [phone] Facility requesting page: [facility] Reason for Page: Patient fall and low blood pressure 53 Provider paged: Dr. [facility] Name of paged provider: [facility] Page Placed to #: Manual call [phone] Time Page was sent or provider contacted: 10:40 pm Page Content: PAGED Jennifer from [facility] for pt Magalis Grove 13.1936 re fall and low blood pressure 53 documented in this encounter [facility] 08-31-2023 Telephone encounter Note Name of caller: Valerie Grove Contact phone number: [phone] Relationship to Patient: family member patient and [...] business hours to return their call: N/A [facility] 08-31-2023 Miscellaneous Notes Name of caller: Valerie Grove Contact phone number: [phone] Relationship to Patient: family member patient and [...] their call: N/A documented in this encounter [facility] 05-13-2022 Telephone encounter Note Name of caller: Valerie Contact phone number: [phone] Relationship to Patient: family member daughter Provider: Dr. Li Practice: Dr. Allen Li Chief Complaint/Reason for Call: Valerie states that she needs an updated medication list with only the medications that he prescribes. Pleas advise. Best time of day caller can be reached: Any Patient advised that office/PCP has 24-48 business hours to return their call: Yes [facility] 05-13-2022 Miscellaneous Notes Name of caller: Valerie Contact phone number: [phone] Relationship to Patient: family member daughter Provider: Dr. Li Practice: Dr. Allen Li Chief Complaint/Reason for Call: Valerie states that she needs an updated medication list with only the medications that he prescribes. Pleas advise. Best time of day caller can be reached: Any Patient advised that office/PCP has 24-48 business hours to return their call: Yes documented in this encounter [facility] 05-01-2022 Miscellaneous Notes Spoke with pt's [...] Ankita Mitchell LPN documented in this encounter [facility] 05-01-2022 Miscellaneous Notes Patient's request for [...] Ankita Mitchell LPN documented in this encounter [facility] 09-27-2021 Miscellaneous Notes Spoke with Daughter Valerie, she verbalized understanding and will wait for the next step. She would like us to call her and let her know. She said we can say to stop the amiod on a voice mail if she cannot answer. Susie Guallpa LPN Left message for to call [facility] for test results. [facility] phone number provided. Keena [facility] LPN Please [...] will keep you posted. Eleonora Renteria MD, [facility] Cardiovascular Medicine Pager: [phone] documented in this encounter [facility] 09-26-2021 Note HNO ID: [id number] Author: Eleonora Renteria MD Service: ? 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 - QUEtiapine (SEROQUEL) 25 [...] a week. - Alcohol Swabs padm - LM TechnologiesTOUCH ULTRA TEST test strip - donepezil (ARICEPT) [...] distress. Psych: N (more content not included)... 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 QUEtiapine (SEROQUEL) 25 mg [...] correct any errors. documented in this encounter [facility] 09-26-2021 Nurse Note Ms Grove is here for her routine office visit. Sophia Moore LPN documented in this encounter [facility] 05-23-2021 Note HNO ID: [id number] Author: Eleonora Renteria MD Service: ? 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 - LM TechnologiesTOUCH ULTRA TEST test strip - ONE TOUCH DELICA 33 gauge [facility] No current facility-administered medications for this visit. [...] oz (70.6 k (more content not included)... 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 05/2305/23/2021 Obesity, Class I, BMI 30-34.9 04/10/2021 documented as of this encounter (statuses as of 09/27/2021) [facility]02-10-2022 History of Past illness Narrative* Problem Noted Date Resolved Date 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 05/2305/23/2021 Obesity, Class I, BMI 30-34.9 04/10/2021 documented as of this encounter (statuses as of 05/01/2022) [facility]02-10-2022 History of Past illness Narrative* Problem Noted Date Resolved Date 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 Patient daughter present for education and verbalized understanding of monitor and return procedure. RN aware of placement prior to discharge.[facility]12-31-2021 NoteHNO ID: [id number] Author: Ida Gaston RN Service: Care Management Author Type: Registered Nurse Type: Care Mgt Progress Note Filed: 04/12/2021 10:43 AM Note Text: CARE MANAGEMENT DISCHARGE NOTE SERVICE DATE: 04/12/2021 SERVICE TIME: 10:42 AM LOS: 7 days Admission Date: 04/05/2021 DISCHARGE ARRANGEMENT (list agency and phone number) Discharge Arrangement: Home with Home Health Provider Name: [facility] CAREGIVER ASSESSMENT: HANDOFF COMMUNICATION: TRANSPORTATION ARRANGEMENTS: Transportation Arrangements: Car ADDITIONAL CONTACT RESOURCES: Pt is D/C to home with Home care services thru [facility]. SIGNATURE: Ida Gaston RN PATIENT NAME: Aimee Grove DATE: April 12, 2021 TIME: 10:42 AM [phone] NoteHNO ID: [id number] Author: Valerie Wallace DO Service: Hospital Medicine Author Type: Physician Type: Progress Notes Filed: 04/12/2021 8:49 AM Note Text: DEPARTMENT OF HOSPITAL MEDICINE PROGRESS NOTE SERVICE DATE: 04/12/2021 SERVICE TIME: 8:46 AM Hospital Medicine/Primary Attending: Valerie Wallace DO NIGHT AND WEEKEND COVERAGE: After 7pm please page [phone] CHIEF COMPLAINT: I"m fine SUBJECTIVE: Pt seen [...] -- 04/09/21 1015 activity - mobilize [place] ([place] 04/06/21 1130 vte current anticoag therapy ([place] Lines, Drains, and Airways Drain External Collection Device 04/08/21 0456 4 days VTE Prophylaxis: Heparin 5000 units Sub Q BID Disposition: Home with [facility] Functional Status Prior to Admit: Medical Necessity for Continued Hospitalization DC Plan of care discussed with: Provider, RN, Patient SIGNATURE: Valerie Wallace DO PATIENT NAME: Aimee Grove DATE: April 12, 2021 TIME: 8:46 AM PAGER/CONTACT #: Team color pager Disclaimer: Portions of this note may have been generated using [employer] voice recognition software. Reasonable efforts were made to correct any (more content not included)...[facility]12-30-2021 NoteHNO ID: [id number] Author: Mariangel Aguilar DO Service: Hospital Medicine Author Type: Physician Type: Progress Notes Filed: 04/11/2021 3:33 PM Note Text: DEPARTMENT OF HOSPITAL MEDICINE PROGRESS NOTE SERVICE DATE: 04/11/2021 SERVICE TIME: 3:29 PM Hospital Medicine/Primary Attending: Mariangel Aguilar DO NIGHT AND WEEKEND COVERAGE: [place] COVERAGE: After 7pm, please call cross cover pager #[phone] Subjective INTERVAL HPI: Feels pretty good, has [...] -- 04/09/21 1015 activity - mobilize patient ([place]) 04/06/21 1130 vte current anticoag therapy ([place] VTE Prophylaxis: VTE prophylaxis appropriate Disposition: Home with HHC tomorrow Plan of care discussed with: Provider, RN, Patient SIGNATURE: Mariangel Aguilar DO PATIENT NAME: Aimee Grove DATE: April 11, 2021 TIME: 3:29 PM etx [id number] [facility]12[facility]30-[facility]21 NoteHNO ID: [id number] Author: Shanta Perdomo RN Service: Care Management Author Type: Registered Nurse Type: Care Mgt Progress Note Filed: 04/11/2021 2:05 PM Note Text: CARE MANAGEMENT PROGRESS NOTE SERVICE DATE: 04/11/2021 SERVICE TIME: 2:04 PM LOS: 6 days Chart reviewed. Plan for pt to return home with dtr and resumed [facility] and HHC. left for pts case management associate Leonor ([phone]). HHC orders sent to [facility]. Dtr to transport at [facility] to follow. SIGNATURE: Shanta Perdomo RN PATIENT NAME: Aimee Grove DATE: April 11, 2021 TIME: 2:04 PM PAGER/CONTACT #: [phone] 04-10-2021 NoteHNO ID: [id number] Author: Mariangel Aguilar DO Service: Hospital Medicine Author Type: Physician Type: Progress Notes Filed: 04/10/2021 1:27 PM Note Text: DEPARTMENT OF HOSPITAL MEDICINE PROGRESS NOTE SERVICE DATE: 04/10/2021 SERVICE TIME: 1:22 PM Hospital Medicine/Primary Attending: Mariangel Aguilar DO NIGHT AND WEEKEND COVERAGE: [place] COVERAGE: After 7pm, please call cross cover pager #[phone] Subjective INTERVAL HPI: Feels pretty good, has [...] -- 04/09/21 1015 activity - mobilize patient ([place]) 04/06/21 1130 vte current anticoag therapy ([place]) VTE Prophylaxis: VTE prophylaxis appropriate Disposition: Home with [facility] tomorrow Plan of care discussed with: Provider, RN, Patient SIGNATURE: Mariangel Aguilar DO PATIENT NAME: Aimee Grove DATE: April 10, 2021 TIME: 1:22 PM etx [id number] [facility] Center12-28-2021 NoteHNO ID: [id number] Author: Arian Wheat DO Service: Hospital Medicine Author Type: Physician Type: Progress Notes Filed: 04/09/2021 5:54 PM Note Text: DEPARTMENT OF HOSPITAL MEDICINE PROGRESS NOTE SERVICE DATE: 04/09/2021 SERVICE TIME: 5:47 PM Hospital Medicine/Primary Attending: Arian Wheat DO NIGHT AND WEEKEND COVERAGE: After 7pm please page [phone] SUBJECTIVE: Patient seen examined at bedside. Seems [...] for today's visit: CBC: Recent Labs 04/09/21 06 WBC 10.99 RBC 3.87* HB 10.8* HCT 35.5* PLT 146* MCV 91.7 MCH 27.9 MPV 13.1* Coags: Recent Labs 04/09/21 06 APTT 58.4* BMP: Recent Labs 04/09/21 06 NA 138 K 3.7 CHLOR 104 CO2 25 BUN 11 CREAT 0.83 GLUC 194* CMP: Recent Labs 04/09/21 06 NA 138 K 3.7 CHLOR 104 CO2 [...] RN, Patient. This note was generated using [employer] voice dictation. All resonable efforts were made to correct dictation errors but they still may occu (more content not included)...[facility]12-28-2021 NoteHNO ID: [id number] Author: Shanta Shinsky, RN Service: Care Management Author Type: Registered Nurse Type: Care Mgt Progress Note Filed: 04/09/2021 11:48 AM Note Text: CARE MANAGEMENT PROGRESS NOTE SERVICE DATE: 04/09/2021 SERVICE TIME: 11:46 AM LOS: 4 days Pts dtr Valerie is refusing SNF. Plan for pt to return home with [facility] and HHC- was active with [facility]. Family to transport. Cm to follow. SIGNATURE: Shanta Perdomo RN PATIENT NAME: Aimee Grove DATE: April 09, 2021 TIME: 11:46 AM PAGER/CONTACT #: [phone] [facility] 04-08-2021 NoteHNO ID: [id number] Author: Arian Wheat DO Service: Hospital Medicine Author Type: Physician Type: Progress Notes Filed: 04/08/2021 5:54 PM Note Text: DEPARTMENT OF HOSPITAL MEDICINE PROGRESS NOTE SERVICE DATE: 04/08/2021 SERVICE TIME: 5:18 PM Hospital Medicine/Primary Attending: Arian Wheat DO NIGHT AND WEEKEND COVERAGE: After 7pm please page [phone] SUBJECTIVE: Patient seen examined at bedside. She is alert oriented x2-3(think she is at [facility]). Otherwise no complaints at the moment. [...] RN, Patient. This note was generated using [employer] voice dictation. All resonable efforts were made to correct dictation errors but they still may occur given the nature of the software. SIGNATURE: Arian Wheat DO PATIENT NAME: Aimee Grove DATE: April 08, 2021 TIME: 5:18 PM PAGER/CONTACT #: [facility]12-27-2021 NoteHNO ID: [id number] Author: Shanta Perdomo RN Service: Care Management Author Type: Registered Nurse Type: Care Mgt Progress Note Filed: 04/08/2021 2:17 PM Note Text: CARE MANAGEMENT PROGRESS NOTE SERVICE DATE: 04/08/2021 SERVICE TIME: 2:15 PM LOS: 3 days Spoke with pts dtr Valerie at the bedside. Pt lives at home with her dtr- fairly independent. 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 Pt has a cane, walker, and shower chair at home. Plan for pt to return home with dtr, resumed care with denture model maker, and hhc. HHC referrals sent. Valerie agreeable to any agency for hhc. Family to transport at [place]. Cm to follow. SIGNATURE: Shanta Perdomo RN PATIENT NAME: Aimee Grove DATE: April 08, 2021 TIME: 2:15 PM PAGER/CONTACT #: [phone] [facility] 04-08-2021 NoteHNO ID: [id number] Author: Eleonora Renteria MD Service: Cardiovascular Medicine [...] include Type 2 DM. No prior CVA, AK or other cardiac event that I could find per chart review. HS troponins came back 198. K and Mg normal. Repeat EKG done and showed sinus rhythm with less profound ST elevations and insignificant Q waves. INTERVAL HISTORY The patient was transferred to [facility] overnight. Glucose was elevated to 500-600 range [...] at 04/07/2021 2202 Radha (more content not included)...[facility]12-26-2021 Note HNO ID: [id number] Author: Mi Warren RN Service: Nursing Author Type: Registered Nurse Type: Nursing Progress Note Filed: 04/07/2021 9:19 PM Note Text: Report provided to Lala RUSSELL using SBAR communication technique.[facility]12-26-2021 NoteHNO ID: [id number] Author: Mi Warren RN Service: Nursing Author Type: Registered Nurse Type: Nursing Progress Note Filed: 04/07/2021 8:43 PM Note Text: [facility] center called to see if they saw transfer orders for pt. No answer x 2 message left.[facility]12-26-2021 NoteHNO ID: [id number] Author: Mi Warren RN Service: Nursing Author Type: Registered Nurse Type: Nursing Progress Note Filed: 04/07/2021 8:42 PM Note Text: Dr Hernandez notified of pt's BS of 594 and troponin of 123 via text page system.[facility]12-26-2021 NoteHNO ID: [id number] Author: Adi Hernandez DO Service: Cardiovascular Medicine Author Type: Resident Type: Plan of Care Filed: 04/07/2021 7:34 PM Note Text: IV access obtained with ultrasound-guided 20G needle in the right antecubital. RN drawing labs at this time. No blood loss with attempts (total 3). Adi Hernandez DO Internal Medicine, PGY-2 04/07/21 7:34 [facility]12-26-2021 NoteHNO ID: [id number] Author: Mi Warren RN Service: Nursing Author Type: Registered Nurse Type: Nursing Progress Note Filed: 04/07/2021 7:09 PM Note Text: Assumed care of pt from Tone RUSSELL. Report Received.[facility] 04-07-2021 NoteHNO ID: [id number] Author: Mele Rodriguez RN Service: ? Author Type: Registered Nurse Type: Nursing Progress Note Filed: 04/07/2021 1:13 PM Note Text: Dr Walter at BS to attempt unit(s)/S guided IV/[facility] 04-07-2021 NoteHNO ID: [id number] Author: Mele Rodriguez RN Service: ? Author Type: Registered Nurse Type: Nursing Progress Note Filed: 04/07/2021 1:12 PM Note Text: Returned from CT, [facility] changed[facility]12-26-2021 NoteHNO ID: [id number] Author: Mele Rodriguez RN Service: ? Author Type: Registered Nurse Type: Nursing Progress Note Filed: 04/07/2021 12:10 PM Note Text: Family visit ,assisted with eating, fel[place] well. To CT via bed with 2 transport AND [facility]12-26-2021 NoteHNO ID: [id number] Author: Juli Valentino MD Service: Neurology General [...] of heparin use. Juli Valentino MD Staff NeurologistAL[facility]view [facility]12-26-2021 NoteHNO ID: [id number] Author: Mele Rodriguez RN Service: ? Author Type: Registered Nurse Type: Nursing Progress Note Filed: 04/07/2021 11:00 AM Note Text: Seen by CVICU drs AND advised of lab/ IV status.[facility] 04-07-2021 NoteHNO ID: [id number] Author: Mele Rodriguez RN Service: ? Author Type: Registered Nurse Type: Nursing Progress Note Filed: 04/07/2021 9:37 AM Note Text: Seen by cardiology res. , advised of not able to draw labsCentral [facility] Center12-26-2021 NoteHNO ID: [id number] Author: Eleonora Renteria MD Service: Cardiovascular Medicine [...] include Type 2 DM. No prior CVA, AK or other cardiac event that I could [...] Frequency - aspirin 81 (more content not included)...[facility] 04-07-2021 NoteHNO ID: [id number] Author: Mele Rodriguez RN Service: ? Author Type: Registered Nurse Type: Nursing Progress Note Filed: 04/07/2021 8:36 AM Note Text: Attempted to draw labs. Not able to draw off IV, attempt peripheral draw without success.[facility]12-26-2021 NoteHNO ID: [id number] Author: Rosalia Mcdaniels RN Service: Nursing Author Type: Registered Nurse Type: Nursing Progress Note Filed: 04/07/2021 7:30 AM Note Text: Report to [facility]12-26-2021 NoteHNO ID: [id number] Author: Mele Rodriguez RN Service: ? Author Type: Registered Nurse Type: Nursing Progress Note Filed: 04/07/2021 7:43 AM Note Text: EOS report from [place] to [facility]12-25-2021 NoteHNO ID: [id number] Author: Maria L Haro RN Service: Nursing Author Type: Registered Nurse Type: Nursing Progress Note Filed: 04/06/2021 7:24 PM Note Text: Pt incontinent of large amount of urine. Linens changed. Report to [facility]12-25-2021 NoteHNO ID: [id number] Author: Maria L Haro RN Service: Nursing Author Type: Registered Nurse Type: Nursing Progress Note Filed: 04/06/2021 7:00 PM Note Text: Dr. Matias aware of latest troponin result of 178. No new immediate ordersCentral [facility] Medical Center12-25-2021 NoteHNO ID: [id number] Author: Maria L Haro RN Service: Nursing Author Type: Registered Nurse Type: Nursing Progress Note Filed: 04/06/2021 6:57 PM Note Text: Dr. Matias paged for trop [facility]12-25-2021 NoteHNO ID: [id number] Author: Maria L Haro RN Service: Nursing Author Type: Registered Nurse Type: Nursing Progress Note Filed: 04/06/2021 6:06 PM Note Text: Pt back from MRI. Rt AC IV infiltrated and removed. New IV started in middle of AC.[facility]12-25-2021 NoteHNO ID: [id number] Author: Maria L Haro RN Service: Nursing Author Type: Registered Nurse Type: Nursing Progress Note Filed: 04/06/2021 4:38 PM Note Text: Pt still in [facility] [facility] NoteHNO ID: [id number] Author: Marai L Haro RN Service: Nursing Author Type: Registered Nurse Type: Nursing Progress Note Filed: 04/06/2021 4:14 PM Note Text: Pt taken to MRI by nursing painting department supervisor Archana and [facility]12-25-2021 NoteHNO ID: [id number] Author: Maria L Haro RN Service: Nursing Author Type: Registered Nurse Type: Nursing Progress Note Filed: 04/06/2021 3:50 PM Note Text: Family at bedside. MRI screening from filled out by them. MRI called and [facility]12-25-2021 NoteHNO ID: [id number] Author: Maria L Haro RN Service: Nursing Author Type: Registered Nurse Type: Nursing Progress Note Filed: 04/06/2021 3:27 PM Note Text: Dr. Florencio shah for verification of amio [facility] 04-06-2021 NoteHNO ID: [id number] Author: Abbi Matias MD Service: Cardiovascular Medicine Author Type: Resident Type: Plan of Care Filed: 04/06/2021 1:09 PM Note Text: Spoke with the patient's daughter and updated her about the course. Discussed with her the code status and she wants the patient to be DNR-CCA DNI. Abbi Matias M.D. Internal Medicine, PGY 3 Pager: [phone] 04/06/2021[facility]12-25-2021 NoteHNO ID: [id number] Author: Amee Melvin MD Service: Hospital Medicine Author Type: Physician Type: Progress Notes Filed: 04/06/2021 11:02 AM Note Text: DEPARTMENT OF HOSPITAL MEDICINE PROGRESS NOTE Hospital Medicine/Primary Attending: Amee Melvin MD NIGHT AND WEEKEND COVERAGE: [place] COVERAGE: After 7pm, please call cross cover pager #[phone] Subjective INTERVAL HPI: Pt seen and examined. [...] Facility-Administered Medications Medication Dose Route Frequency - [JUN Hold due to Transfer] NaCl 0.9% iv flush bag 20 mL INTRAVENOUS PRN - [JUN Hold due to Transfer] acetaminophen 650 mg suppository (TYLENOL) 650 mg RECTAL q 4 H PRN - [JUN Hold due to Transfer] QUEtiapine 12.5 mg tab(s) (SEROquel) 12.5 mg ORAL AT BEDTIME - [JUN Hold due to Transfer] ARIPiprazole 2 mg tablet (ABILIFY) 2 mg ORAL DAILY - [JUN Hold due to Transfer] donepezil 10 mg tab(s) (ARICEPT) 10 mg ORAL AT BEDTIME - [JUN Hold due to Transfer] citalopram hydrobromide 10 mg tablet (CeleXA) 10 mg ORAL DAILY - [JUN Hold due to Transfer] traZODone 25 mg tab(s) (DESYREL) 25 mg ORAL AT BEDTIME - [MAR Hold due to Transfer] venlafaxine ER 37.5 mg cap(s) (EFFEXOR XR) 37.5 mg ORAL DAILY - [JUN Hold due to Transfer] sodium chloride 0.9 % (flush) 3-5 mL (BD POSIFLUSH) 3-5 mL INTRAVENOUS q 12 H - [JUN Hold due to Transfer] ondansetron (PF) 4 mg injection (ZOFRAN) 4 mg INTRAVENOUS q 6 H PRN - [JUN Hold due to Transfer] dextrose 40 % 15 g 15 g ORAL PRN Or - [JUN Hold due to Transfer] glucagon 1 mg injection 1 mg INTRAMUSCULAR PRN Or - [JUN Hold due to Transfer] dextrose 50% in water 25 mL syringe 12.5 g INTRAVENOUS PRN - [JUN Hold due to Transfer] sodium chloride 0.9 [...] 1 g INTRAVENOUS q 24 H - [JUN Hold due to Transfer] aspirin 81 mg [...] -Hold oral medications for (more content not included)...[facility]12-25-2021 NoteHNO ID: [id number] Author: Abbi Matias MD Service: Cardiovascular Medicine Author Type: Resident Type: Plan of Care Filed: 04/06/2021 9:41 AM Note Text: Attempted to call patient's daughter, Valerie Grove to update her and discuss management, no answer. Will try again later.[facility] 02-11-2021 NoteSurgical Attestation: I [...] possible Lakshmi Bocanegra DDS 02/11/2021 7:13 AMThe [facility] [id number] NotePresurgical Evaluation Aimee Grove, [id number] 85 year old Female 02/01/2021 Height: Data Unavailable Weight: no weight BMI: (Data Unavailable) VITAL SIGNS: There were no vitals filed for this visit. ALLERGIES: Allergies Allergen Reactions * Azithromycin Other reaction(s): Unknown * Penicillins Other reaction(s): Unknown * Sulfa Antibiotics Other reaction(s): Unknown * Sulfamethoxazole W-Trimethoprim HISTORY OF PRESENT ILLNESS: 85 Y F presents to [facility] clinic for presurgical evaluation for upcoming dental confucianist on 02/11 RECENT ILLNESS: Serious illness or hospitalization within the last six months. No STOP-BANG Row Name Office Visit from 02/01/2021 in [facility] Pre Surgical Evaluation History of sleep apnea? [...] tablet * trazod (more content not included)...[facility] [id number] Note Patient is vaccinated for COVID-19: Pfizer on 08/07/2020 AND 08/31/2020. Patient does not require pre-op COVID testing per current guidelines.[facility] Diagnosis NSVT (nonsustained ventricular tachycardia) (HCC)- Primary Paroxysmal ventricular tachycardia Premature atrial contractions Supraventricular premature beats Mixed hyperlipidemia Tachycardia Tachycardia, unspecified Alzheimer's dementia without behavioral disturbance, unspecified timing of dementia onset (HCC) History of stroke Transient ischemic attack (TIA), and cerebral infarction without residual deficits [facility] Elevated TSH- Primary Nonspecific abnormal results of thyroid function study NSVT (nonsustained ventricular tachycardia) (HCC) Paroxysmal ventricular tachycardia Abnormal TSH Other abnormal clinical finding Abnormal thyroid blood test Nonspecific abnormal results of thyroid function study documented in this encounter [facility] Summary Purpose Family History No Family History Records FoundNo Family History Records FoundNo Family History Records FoundNo Family History Records FoundNo Family History Records Found Advance Directives No Advanced Directives Records FoundDocuments on File Type Date Recorded Patient Authorizer Expl anation Advance Directive(s) 04/05/2021 12:25 PM Latest Code Status on File Code Status Date Activated Date Inactivated Comments DNR-CCA 04/06/2021 1:04 PM 04/12/2021 2:22 PM DNR Order Discussed With: Surrogate Decision Sudarshan er Additional Source Comments INFORMATION SOURCE (unrecogn ized section and content) DATE CREATED AUTHOR 05/11/2021 [facility] DATE CREATED AUTHOR AUTHOR'S ORGANIZ ATION 07/04/2021 [facility] DATE CREATED AUTHOR AUTHOR'S ORGANIZ ATION 10/18/2021 [facility] DATE CREATED AUTHOR AUTHOR'S ORGANIZ ATION 01/24/2024 [facility] DATE CREATED AUTHOR AUTHOR'S ORGANIZ ATION 02/09/2025 [facility] Source Comments (unrecognize d section and content) In the event this informatio n is protected by the Federal Confidentiality of Alcohol and Drug Abuse Patient Records regulations: The Federal rules restrict any use of the information to criminally investigate or prosecute any alcohol or drug abuse patient.[facility] the event this information is protected by the Federal Confidentiality of Alcohol and Drug Abuse Patient Records regulations: The Federal rules restrict any use of the information to criminally investigate or prosecute any alcohol or drug abuse patient.[facility] the event this information is protected by the Federal Confidentiality of Alcohol and Drug Abuse Patient Records regulations: The Federal rules restrict any use of the information to criminally investigate or prosecute any alcohol or drug abuse patient.[facility] the event this information is protected by the Federal Confidentiality of Alcohol and Drug Abuse Patient Records regulations: The Federal rules restrict any use of the information to criminally investigate or prosecute any alcohol or drug abuse patient.[facility] Reason for Visit (unrecogniz ed section and content) Reason Comments 4 month follow up NSVT Reason Comments Results Reason Comments Appointment Reason Comments Refill Request Reason Onset Date Comments Other 01/21/2024 Reason Onset Date Comments medication reconciliation 05/13/2022 Care Teams (unrecognized sec tion and content) Weatherization Administrator Relationship Specialty Start Date End Date Allen Li MD [address] [place] [address] PCP - General Internal Medicine 01/08/16 Juan Carlos Driver, DO [address] [place] [address] 01/08/16 Allen Li MD [address] [place] [address] Home Care Physician Internal Medicine 04/08/21 Weatherization Administrator Relationship Specialty Start Date End Date Allen Li MD [address] [place] [address] PCP - General Internal Medicine 01/08/16 Juan Carlos Driver, DO [address] [place] [address] 01/08/16 Allen Li MD [address] [place] [address] Home Care Physician Internal Medicine 04/08/21 Weatherization Administrator Relationship Specialty Start Date End Date Allen Li MD [address] [place] [address] PCP - General Internal Medicine 01/08/16 Juan Carlos Driver, DO [address] [place] [address] 01/08/16 Allen Li MD [address] [place] [address] Home Care Provider Internal Medicine 04/08/21 Weatherization Administrator Relationship Specialty Start Date End Date Valerie Duenas Kip [address], [address] [place] [id number] PCP - General 05/14/15 FOR RECORDS PERTAINING [...] BE BASED ON THE PRIMARY CLINICAL RECORDS. [facility] [employer] [facility]. provides no warranty or guarantee of the accuracy or completeness of information in this document.
[2025-02-14 09:05] LABS: Hematocrit 40.2 % (37-47); Hemoglobin 12.5 g/dL (12.0-15.0); Mean Corp Hgb Conc 31.1 g/dL (32-36); Mean Corpuscular Volume 86.8 fL (81-99); Mean Platelet Vol. 12.5 fl (6.2-12.0); Platelet Count 285 K/mm3 (150-450); RBC Distribution Width CV 14.0 % (11.6-14.6); RBC Distribution Width SD 44.3 fl (35.1-43.9); Red Blood Count 4.63 M/mm3 (4.2-5.4); White Blood Count 8.9 K/mm3 (4.4-11.0)
[2025-02-14 09:40] LABS: Anion Gap 10 (5-15); BUN 31 mg/dL (4-19); BUN/Creat Ratio 28.2 RATIO (10-20); Calcium,Total 10.0 mg/dL (7.6-11.0); Carbon Dioxide 28.4 mmol/L (21.0-32.0); Chloride 99 mmol/L (98-108); Cholesterol 161 mg/dL (<=200); Glucose 154 mg/dL (70-99); Low Density Lipoprotein Calc. 95 mg/dL; Potassium 4.5 mmol/L (3.3-5.1); Triglycerides 104 mg/dL; Very Low Density Lipoprotein 21 mg/dL (5-40); cholesterol:hdl ratio screen 3.45
== END ==
LOC: OLS.ACW100 04:00
PROVIDERS: Referring Provider Family Medicine; Visit Provider Family Medicine
DX: E11.9 Type 2 diabetes mellitus without complications (principal); F31.9 Bipolar disorder, unspecified; F33.0 Major depressive disorder, recurrent, mild; F03.918 Unspecified dementia, unspecified severity, with other behavioral disturbance
CPT/HCPCS: 36415; 80048; 80061; 83036; 84443; 85027